=== PATIENT | female | born 1950 ===

== ENCOUNTER 2017-09-27 14:03 | Inpatient (IN) | payer MEDICARE ==
[2017-09-27 14:13] VITALS: BMI 24.7
[2017-09-27] MEDS ORDERED: Sodium Chloride 0.9% 1,000 ML IV SCH ×2 (14:30→16:25)
--- NOTE | 2017-09-27 15:09 | CT ---
PROCEDURE: CT HEAD WITHOUT CONTRAST. HISTORY: r/o ICH COMPARISON: None available. TECHNIQUE: Axial computed tomography images were obtained through the head/brain without intravenous contrast. Radiation dose: Total exam DLP = 784 mGy-cm. This CT exam was performed using one or more of the following dose reduction techniques: Automated exposure control, adjustment of the mA and/or kV according to patient size, and/or use of iterative reconstruction technique. FINDINGS: HEMORRHAGE: No intracranial hemorrhage. BRAIN: No mass effect or edema. There is focal atrophy and encephalomalacia in the right frontal lobe. Calcifications are seen in the left cerebellar hemisphere consistent with previous injury or infection. VENTRICLES: Unremarkable. No hydrocephalus. CALVARIUM: Unremarkable. PARANASAL SINUSES: Unremarkable as visualized. No significant inflammatory changes. MASTOID AIR CELLS: Unremarkable as visualized. No inflammatory changes. OTHER FINDINGS: None. IMPRESSION: No acute intracranial findings
--- NOTE | 2017-09-27 15:13 | RAD ---
HISTORY: r/o infiltrate COMPARISON: No prior. FINDINGS: LUNGS: No active pulmonary disease. PLEURA: There is a small left pleural effusion CARDIOVASCULAR: Normal. OSSEOUS STRUCTURES: No significant abnormalities. VISUALIZED UPPER ABDOMEN: Normal. OTHER FINDINGS: Right-sided Port-A-Cath IMPRESSION: Small left effusion
[2017-09-27 15:34] LABS: BASO # 0.01 K/mm3 (0.0-2.0); BASO % 0.1 % (0.0-3.0); EOS % 0.2 % (1.5-5.0); GRAN # 9.04 (1.4-6.5); GRAN % 87.5 % (50.0-68.0); HEMOGLOBIN 8.6 g/dL (12.0-16.0); LYMPH # 0.7 (1.2-3.4); LYMPH % 6.3 % (22.0-35.0); MEAN CELL VOLUME 84.2 fl (80.0-105.0); MEAN CORPUSCULAR HEMOGLOBIN 30.9 pg (25.0-35.0); MEAN CORPUSCULAR HGB CONC 36.8 g/dl (31.0-37.0); MEAN PLATELET VOLUME 8.1 fl (7.0-11.0); MONO # 0.6 (0.1-0.6); MONO % 5.9 % (1.0-6.0); RBC 2.78 10^6/uL (3.5-6.1); RED CELL DISTRIBUTION WIDTH 16.6 % (11.5-14.5); WHITE BLOOD COUNT 10.3 10^3/ul (4.5-11.0)
[2017-09-27 15:55] LABS: TROPONIN I < 0.01 ng/mL
[2017-09-27 16:00] LABS: ALB/GLOB RATIO 1.4 (1.1-1.8); ALBUMIN 3.7 g/dL (3.0-4.8); ALT/SGPT 25 U/L (7-56); AST/SGOT 42 U/L (14-36); BLOOD UREA NITROGEN 18 mg/dL (7-21); CALCIUM 7.4 mg/dL (8.4-10.5); GFR AFRICAN-AMERICAN > 60; GFR NON-AFRICAN AMERICAN > 60
[2017-09-27 16:22] LABS: FREE T4 1.99 ng/dL (0.78-2.19)
[2017-09-27 16:36] LABS: T3 0.69 ng/mL (0.97-1.69)
[2017-09-27 17:00] LABS: URINE BILIRUBIN NEGATIVE (NEGATIVE); URINE BLOOD LARGE (NEGATIVE); URINE GLUCOSE (UA) NEGATIVE (NEGATIVE); URINE LEUKOCYTE ESTERASE MODERATE Leu/uL (NEGATIVE); URINE PROTEIN 100 mg/dL (<30 mg/dL); URINE UROBILINOGEN 0.2 E.U./dL (<1 E.U./dL)
[2017-09-27 17:03] LABS: URINE APPEARANCE SL CLOUDY (CLEAR); URINE COLOR DARK YELLOW (YELLOW)
[2017-09-27 17:09] LABS: URINE BACTERIA FEW (NEG); URINE RBC 20 - 25 /hpf (0-2); URINE WBC 15 - 20 /hpf (0-6)
[2017-09-27] MEDS ORDERED: Iohexol 350 MG/100 ML VIAL ONE (17:31)
[2017-09-27] MEDS: Cefepime 1gm in NS 100ml 1 GM/100 ML BAG IVPB SCH ×2 (17:33→22:17)
[2017-09-27 17:59] LABS: BLOOD UREA NITROGEN 19 mg/dL (7-21); CALCIUM 7.4 mg/dL (8.4-10.5); GFR AFRICAN-AMERICAN > 60; GFR NON-AFRICAN AMERICAN > 60
[2017-09-27] MEDS: Azithromycin 500MG/NS 250ml 500 MG/250 ML BAG IVPB SCH (18:27)
--- NOTE | 2017-09-27 18:33 | CT ---
PROCEDURE: CT Chest, Abdomen and Pelvis with intravenous contrast HISTORY: abd distention - h/o breast CA COMPARISON: 05/30/2013 TECHNIQUE: IV dose administered: Radiation dose: Total exam DLP = 475.32 mGy-cm. This CT exam was performed using one or more of the following dose reduction techniques: Automated exposure control, adjustment of the mA and/or kV according to patient size, and/or use of iterative reconstruction technique. FINDINGS: CT CHEST WITH CONTRAST: LUNGS: New 6 mm nodule right lower lobe common nonspecific. No other pulmonary mass. Small nonspecific focal parenchymal opacity in the lateral segment right middle lobe. Subsegmental/compressive atelectasis left lower lobe. MEDIASTINUM: Normal caliber thoracic aorta and main pulmonary artery. Normal heart size. No pericardial effusion. Central venous infusion port. LYMPH NODES: Unremarkable. PLEURA: Small bilateral pleural effusion, left greater than right. BONES: Multiple sclerotic osseous metastases involving thoracic vertebrae, ribs and sternum. OTHER FINDINGS: None. CT ABDOMEN AND PELVIS: LIVER: Normal size and contour. Several small nonspecific low-attenuation lesions in the right hepatic lobe not evident on prior examination. GALLBLADDER AND BILE DUCTS: Unremarkable. PANCREAS: Unremarkable. No gross lesion or ductal dilatation. SPLEEN: Unremarkable. ADRENALS: Unremarkable. No mass. KIDNEYS AND URETERS: No renal mass, calculus or hydronephrosis. Right ureteral stent noted. VASCULATURE: Unremarkable. No aortic aneurysm. BOWEL: No bowel obstruction. No abnormal bowel loops. APPENDIX: Not identified PERITONEUM: Extensive ascites. Extensive omental and serosal metastasis. LYMPH NODES: Unremarkable. No enlarged lymph nodes. BLADDER: Poorly distended. REPRODUCTIVE: Grossly normal uterus BONES: Widespread sclerotic metastasis involving lumbar spine and pelvis OTHER FINDINGS: None. IMPRESSION: Small pleural effusions. Extensive ascites. Omental and serosal metastasis. Widespread sclerotic skeletal metastasis. Right ureteral stent. Additional minor findings as above
--- NOTE | 2017-09-27 18:34 | ED PDOC ---
Arrival/HPI - General Chief Complaint: Syncope Time Seen by Provider: 09/27/17 14:11 Historian: Patient - History of Present Illness Narrative History of Present Illness (Text): 09/27/17 18:37 A 67 year old female, whose past medical history includes stage 4 breast CA, currently on chemotherapy, presents to the emergency department for evaluation of two syncopal episodes. Patient was sent by Dr. Love for syncope X2. Patient reports syncopal yesterday and today. Patient also reports she feels generalized weakness. Notes stomach is "distending for the past 2 weeks". Patient denies any shortness of breath, chest pain, fever, cough, blood in stool , dark stools, blood in urine, or any other complaints at this time. Time/Duration: Other (yesterday, today) Symptom Onset: Sudden Symptom Course: Unchanged Activities at Onset: Rest Context: Home Past Medical History - Provider Review Nursing Documentation Reviewed: Yes - Infectious Disease Hx of Infectious Diseases: None - Cardiac Hx Pacemaker: No - Neurological Hx Paralysis: No - Hematological/Oncological Hx Blood Transfusions: No Hx Blood Transfusion Reaction: No Hx Cancer: Yes (sandy breast ca) - Musculoskeletal/Rheumatological Hx Musculoskeletal Disorders: Yes - Psychiatric Hx Emotional Abuse: No Hx Physical Abuse: No Hx Substance Use: No - Surgical History Hx Mastectomy: Yes - Anesthesia Hx Anesthesia Reactions: No Hx Malignant Hyperthermia: No - Suicidal Assessment Feels Threatened In Home Enviroment: No Family/Social History - Physician Review Nursing Documentation Reviewed: Yes Family/Social History: No Known Family HX Smoking Status: Never Smoked Hx Alcohol Use: No Hx Substance Use: No Allergies/Home Meds Allergies/Adverse Reactions: Allergies vancomycin Allergy (Severe, Verified 07/05/17 13:13) RASH/ITCHY Home Medications: Home Meds Medication Instructions Recorded Confirmed Lutein 5 mg PO QAM 11/13/12 09/27/17 Amlodipine Besylate [Norvasc] 5 mg PO QAM 01/19/15 09/27/17 Nebivolol HCl [Bystolic] 10 mg PO QAM 01/19/15 09/27/17 Multivitamin [Daily Wyatt] 1 tab PO QAM 07/03/17 09/27/17 Ubidecarenone [Coenzyme Q-10] 200 mg PO DAILY 07/03/17 09/27/17 Clopidogrel [Plavix] 75 mg PO DAILY 07/05/17 09/27/17 Aspirin [Ecotrin] 81 mg PO DAILY 07/07/17 09/27/17 Atorvastatin [Lipitor] 20 mg PO DAILY 07/07/17 09/27/17 Everolimus [Afinitor] 10 mg PO MWF 09/27/17 09/27/17 Indapamide [Lozol] 2.5 mg PO DAILY 09/27/17 09/27/17 Kyqsy-1-Okcn Ethyl Esters [OMEGA 3] 2 gm PO AMHS 09/27/17 09/27/17 Fgrdo-1-Qcll Ethyl Esters [OMEGA 3] 2 gm PO QPM 09/27/17 09/27/17 Potassium Chloride [Klor-Con 10] 10 meq PO DAILY 09/27/17 09/27/17 Review of Systems - Physician Review All systems were reviewed & negative as marked: Yes - Review of Systems Constitutional: absent: Fevers Respiratory: absent: SOB, Cough Cardiovascular: Syncope. absent: Chest Pain Gastrointestinal: absent: Stool Changes Physical Exam Vital Signs Reviewed: Yes Vital Signs Temp Pulse Resp BP Pulse Ox 09/27/17 17:22 61 18 112/71 98 09/27/17 15:26 65 18 110/69 98 09/27/17 14:12 98.3 F 68 18 108/64 98 Temperature: Afebrile Blood Pressure: Normal Pulse: Regular Respiratory Rate: Normal Appearance: Positive for: Well-Appearing, Non-Toxic, Comfortable Pain Distress: None Mental Status: Positive for: Alert and Oriented X 3 - Systems Exam Head: Present: Atraumatic, Normocephalic Pupils: Present: PERRL Extroacular Muscles: Present: EOMI Conjunctiva: Present: Other (pale) Mouth: Present: Moist Mucous Membranes Neck: Present: Normal Range of Motion Respiratory/Chest: Present: Clear to Auscultation, Good Air Exchange, Other ( right portal cath ). No: Respiratory Distress Cardiovascular: Present: Regular Rate and Rhythm, Normal S1, S2. No: Murmurs Abdomen: Present: Distention (slightly). No: Tenderness, Peritoneal Signs Back: Present: Normal Inspection Upper Extremity: Present: Normal Inspection. No: Cyanosis, Edema Lower Extremity: Present: Normal Inspection. No: Edema Neurological: Present: GCS=15, CN II-XII Intact, Speech Normal Skin: Present: Warm, Dry, Normal Color. No: Rashes Psychiatric: Present: Alert, Oriented x 3, Normal Insight, Normal Concentration Medical Decision Making ED Course and Treatment: 09/27/17 18:35 Impression: A 67 year old female with two syncopal episodes. Plan: -- EKG -- CT abd/pelvis -- Chest X-ray -- labs -- Urinalysis -- Reassess and disposition Prior Visits: Notes and results from previous visits were reviewed. Patient was last seen in the emergency department on 10/27/12 for evaluation of seepage of clear fluid from laparoscopic wound site, laparoscopy for ovarian cancer. Progress Notes: 09/27/[address] HEAD WITHOUT CONTRAST Creator : Enrique Jean Baptiste MD FINDINGS: HEMORRHAGE: No intracranial hemorrhage. BRAIN: No mass effect or edema. There is focal atrophy and encephalomalacia in the right frontal lobe. Calcifications are seen in the left cerebellar hemisphere consistent with previous injury or infection. VENTRICLES: Unremarkable. No hydrocephalus. CALVARIUM: Unremarkable. PARANASAL SINUSES: Unremarkable as visualized. No significant inflammatory changes. MASTOID AIR CELLS: Unremarkable as visualized. No inflammatory changes. IMPRESSION: No acute intracranial findings 09/27/17 15:14 Chest X-ray- Creator : Enrique Jean Baptiste MD FINDINGS: LUNGS: No active pulmonary disease. PLEURA: There is a small left pleural effusion CARDIOVASCULAR: Normal. OSSEOUS STRUCTURES: No significant abnormalities. VISUALIZED UPPER ABDOMEN: Normal. OTHER FINDINGS: Right-sided Port-A-Cath IMPRESSION: Small left effusion Spoke with Dr. Love, sodium of 111, hemoglobin of 8.6. Spoke with Shareholder , patient to be admitted to D's service to ICU. - Lab Interpretations Lab Results: 09/27/17 15:22 09/27/17 15:22 Lab Results 09/27/17 16:06: Blood Type B POSITIVE, Antibody Screen Negative, Crossmatch See Detail, BBK History Checked Patient has bt 09/27/17 16:00: Urine Color Dark yellow, Urine Appearance Sl cloudy, Urine pH 6.0, Ur Specific [place] 1.025, Urine Protein 100 H, Urine Glucose (UA) Negative , Urine Ketones Trace H, Urine Blood Large H, Urine Nitrate Negative, Urine Bilirubin Negative, Urine Urobilinogen 0.2, Ur Leukocyte Esterase Moderate H, Urine RBC 20 - 25, Urine WBC 15 - 20, Ur Epithelial Cells 6 - 8, Urine Bacteria Few 09/27/17 15:22: Free T4 1.99, Total T3 0.69 L, TSH 3rd Generation 1.18 09/27/17 15:22: Sodium 111 L*, Potassium 3.6, Chloride 75 L D, Carbon Dioxide 24 , Anion Gap 15, BUN 18, Creatinine 0.6 L, Est GFR ( Amer) > 60, Est GFR ( Non-Af Amer) > 60, Random Glucose 128 H, Calcium 7.4 L, Phosphorus 3.1, Magnesium 1.6 L, Total Bilirubin 0.9, AST 42 H, ALT 25, Alkaline Phosphatase 51 , Lactate Dehydrogenase 260 L, Total Creatine Kinase 75, Troponin I < 0.01, Total Protein 6.3, Albumin 3.7, Globulin 2.6, Albumin/Globulin Ratio 1.4 09/27/17 15:22: WBC 10.3 D, RBC 2.78 L, Hgb 8.6 L D, Hct 23.4 L, MCV 84.2 D, MCH 30.9, MCHC 36.8, RDW 16.6 H, Plt Count 258, MPV 8.1, Gran % 87.5 H, Lymph % (Auto) 6.3 L, Emery % (Auto) 5.9, Eos % (Auto) 0.2 L, Baso % (Auto) 0.1, Gran # 9.04 H, Lymph # (Auto) 0.7 L, Emery # (Auto) 0.6, Eos # (Auto) 0.0, Baso # (Auto ) 0.01 I have reviewed the lab results: Yes - RAD Interpretation Radiology Orders: 09/27/17 14:14 CHEST PORTABLE [RAD] Stat 09/27/17 14:15 HEAD W/O CONTRAST [CT] Stat - EKG Interpretation Interpreted by ED Physician: Yes Type: 12 lead EKG - Medication Orders Current Medication Orders: Heparin Sodium (Porcine) (Heparin) 5,000 units SC Q8H VICENTE PRN Reason: Protocol Last Admin: 09/27/17 18:26 Dose: 5,000 units Subcutaneous Administrations Document 09/27/17 18:26 [id number] (Rec: 09/27/17 18:26 [id number] [facility] [place] [facility]) Injection Site MAR Injection Site Left Abdomen Charges for Administration # of Subcutaneous Administrations 1 Sodium Chloride (Sodium Chloride 0.9%) 1,000 mls @ 75 mls/hr IV .[id number] REPLACED BY [facility] Last Admin: 09/27/17 17:22 Dose: 75 mls/hr eMAR Start Stop Document 09/27/17 17:22 MS (Rec: 09/27/17 17:22 MS [id number]) Intravenous Solution Start Date 09/27/17 Start Time 17:22 Cefepime HCl (Maxipime 1gm) 1 gm in 100 mls @ 100 mls/hr IVPB Q8 VICENTE PRN Reason: Protocol Last Admin: 09/27/17 17:33 Dose: 100 mls/hr eMAR Start Stop Document 09/27/17 17:33 MS (Rec: 09/27/17 17:33 MS [id number]) Intravenous Solution Start Date 09/27/17 Start Time 17:33 Linezolid (Zyvox 600mg/300ml D5w) 600 mg in 300 mls @ 200 mls/hr IVPB Q12 VICENTE PRN Reason: Protocol Stop: 09/27/17 23:29 Azithromycin (Zithromax 500mg In Ns) 500 mg in 250 mls @ 167 mls/hr IVPB DAILY VICENTE PRN Reason: Protocol Last Admin: 09/27/17 18:27 Dose: 167 mls/hr eMAR Start Stop Document 09/27/17 18:27 [id number] (Rec: 09/27/17 18:27 [id number] [email or web address] Intravenous Solution Start Date 09/27/17 Start Time 18:27 End Date 09/27/17 End time 19:57 Total Infusion Time 90 Potassium Chloride 40 meq/ (Sodium Chloride) 1,020 mls @ 250 mls/hr IV .Q4H5M REPLACED BY [facility] Stop: 09/27/17 23:19 Last Admin: 09/27/17 20:00 Dose: 250 mls/hr eMAR Start Stop Document 09/27/17 20:00 KGD (Rec: 09/27/17 20:01 KGD [id number]) Intravenous Solution Start Date 09/27/17 Start Time 20:01 Nystatin (Nystatin Oral Susp) 5 ml PO QID VICENTE Ondansetron HCl (Zofran Inj) 4 mg IVP Q4H PRN PRN Reason: Nausea/Vomiting Pantoprazole Sodium (Protonix Inj) 40 mg IVP DAILY REPLACED BY [facility] Last Admin: 09/27/17 18:25 Dose: 40 mg IVP Administration Document 09/27/17 18:25 [id number] (Rec: 09/27/17 18:26 [id number] [facility] [place] [facility]) Charges for Administration # of IVP Administrations 1 Discontinued Medications Sodium Chloride (Sodium Chloride 0.9%) 1,000 mls @ 125 mls/hr IV .Q8H VICENTE Last Admin: 09/27/17 15:35 Dose: 125 mls/hr eMAR Start Stop Document 09/27/17 15:35 MS (Rec: 09/27/17 15:35 MS [id number]) Intravenous Solution Start Date 09/27/17 Start Time 15:35 Magnesium Sulfate 2 gm/ Sodium (Chloride) 104 mls @ 102 mls/hr IVPB ONCE ONE Stop: 09/27/17 20:10 Last Admin: 09/27/17 20:04 Dose: 102 mls/hr eMAR Start Stop Document 09/27/17 20:04 KGD (Rec: 09/27/17 20:04 KGD [id number]) Intravenous Solution Start Date 09/27/17 Start Time 20:04 Ondansetron HCl (Zofran Inj) 4 mg IVP ONCE ONE Stop: 09/27/17 18:43 Last Admin: 09/27/17 18:45 Dose: 4 mg IVP Administration Document 09/27/17 18:45 [id number] (Rec: 09/27/17 18:45 [id number] [facility] [place] [facility]) Charges for Administration # of IVP Administrations 1 - Scribe Statement The provider has reviewed the documentation as recorded by the Bryan Reynaga Provider Scribe Attestation: All medical record entries made by the Scribwanda were at my direction and personally dictated by me. I have reviewed the chart and agree that the record accurately reflects my personal performance of the history, physical exam, medical decision making, and the department course for this patient. I have also personally directed, reviewed, and agree with the discharge instructions and disposition. Disposition/Present on Arrival - Present on Arrival Any Indicators Present on Arrival: No History of DVT/PE: No History of Uncontrolled Diabetes: No Urinary Catheter: No History of Decub. Ulcer: No History Surgical Site Infection Following: None - Disposition Have Diagnosis and Disposition been Completed?: Yes Diagnosis: Hyponatremia, Syncope, Anemia Disposition: HOSPITALIZED Disposition Time: 16:30 Patient Plan: ICU Condition: GUARDED
[2017-09-27] MEDS ORDERED: Magnesium Sulfate 2 GM in Sodium Chloride 0.9% 100 ML IVPB ONE (19:09)
--- NOTE | 2017-09-27 19:24 | CP.PCM.HP ---
History of Present Illness - History of Present Illness History of Present Illness: H&P for Dr. Love/Elsa CC: Weakness/Sycope HPI: 67 F with a PMHx of stage IV metastatic breast cancer s/p bilateral mastectomy and on current chemotherapy, HLD, HTN, and CAD s/p JOSIAS on aspirin and brilanta presented to [facility] [facility] ED with complaints of syncopal episodes x 2. Patient was sent by Dr. Love for these complaints. Patient first episode was yesterday morning while using the restroom. Upon standing, the patient felt weak and lightheaded and fell back onto her bottom. Patient then similarly today this morning upon changing position from a lying to a standing happened to feel weak and fall on her bottom again, while her spouse helped her to the floor. Patient states that these are new symptoms, never previously experienced. She does note that she has not been drinking enough water, and has roughly 3 cups a day and drinks green tea in the morning. Patient also had complaints of abdominal fullness and noted that her abdomen has been distended for the past 2 weeks and has not had any changed in her bowel movements or any associated pain. Upon arrival to the ED, the patient was hypotensive and tachycardic, however responded to IVF. Patient was seen and examined at bedside. She admitted to chills, weakness, lightheadedness and sweating. Patient denied fever,shortness of breath, chest pain, fever, cough, blood in stool, dark stools, blood in urine, or any other complaints at this time. PMHx: stage IV metastatic breast cancer s/p bilateral mastectomy and on current chemotherapy, HLD, HTN, and CAD s/p JOSIAS on aspirin and brilanta PSHx: mastectomy SHx: Denied tobacco/etoh/illicits FamHx: Noncontributory Meds; asa 81mg daily, plavix 75mg daily, lipitor 20mg daily, omega 3, inanpemide 2.5mg daily, potassium 10mEq daily, bystolic 10mg daily, afinitor 10mg MWF Allergies: Vancomycin Present on Admission - Present on Admission Any Indicators Present on Admission: No Review of Systems - Review of Systems Review of Systems: as per HPI otherwise negative Past Patient History - Infectious Disease Hx of Infectious Diseases: None - Past Social History Smoking Status: Never Smoked - CARDIAC Hx Pacemaker: No - NEUROLOGICAL Hx Paralysis: No - HEMATOLOGICAL/ONCOLOGICAL Hx Blood Transfusions: No Hx Blood Transfusion Reaction: No Hx Cancer: Yes (sandy breast ca) - MUSCULOSKELETAL/RHEUMATOLOGICAL Hx Musculoskeletal Disorders: Yes - PSYCHIATRIC Hx Emotional Abuse: No Hx Physical Abuse: No Hx Substance Use: No - SURGICAL HISTORY Hx Mastectomy: Yes - ANESTHESIA Hx Anesthesia Reactions: No Hx Malignant Hyperthermia: No Meds Allergies/Adverse Reactions: Allergies Allergy/AdvReac Type Severity Reaction Status Date / Time vancomycin Allergy Severe RASH/ITCHY Verified 07/05/17 13:13 Physical Exam - Constitutional Appears: No Acute Distress - Eye Exam Eye Exam: EOMI, Normal appearance, PERRL Pupil Exam: NORMAL ACCOMODATION, PERRL - ENT Exam ENT Exam: Mucous Membranes Dry - Neck Exam Neck exam: Positive for: Normal Inspection - Respiratory Exam Respiratory Exam: Clear to Auscultation Bilateral, NORMAL BREATHING PATTERN Additional comments: mastectomy scar, rt port a cath - Cardiovascular Exam Cardiovascular Exam: REGULAR RHYTHM, +S1, +S2 - GI/Abdominal Exam GI & Abdominal Exam: Distended, Normal Bowel Sounds, Soft. absent: Tenderness - Neurological Exam Neurological exam: Alert, CN II-XII Intact, Normal Gait, Oriented x3, Reflexes Normal - Psychiatric Exam Psychiatric exam: Normal Affect, Normal Mood - Skin Skin Exam: Dry, Intact, Normal Color, Warm Results - Vital Signs Recent Vital Signs: Last Vital Signs Temp 98.2 F 09/27/17 18:15 Pulse 85 09/27/17 18:20 Resp 21 09/27/17 18:20 BP 120/58 L 09/27/17 18:14 Pulse Ox 99 09/27/17 18:20 - Labs Result Diagrams: 09/27/17 15:22 09/27/17 17:27 Labs: Laboratory Results - last 24 hr 09/27/17 09/27/17 17:27 17:27 Sodium 111 L* Potassium 3.5 L Chloride 77 L Carbon Dioxide 24 Anion Gap 13 BUN 19 Creatinine 0.6 L Est GFR ( Amer) > 60 Est GFR (Non-Af Amer) > 60 Random Glucose 120 H Calcium 7.4 L Ur Random Sodium < 5 Ur Random Potassium 52.4 Assessment & Plan - Assessment and Plan (Free Text) Assessment: 67 F with a PMHx of stage IV metastatic breast cancer s/p bilateral mastectomy, right ureteral stent, HLD, HTN, and CAD s/p JOSIAS on aspirin and plavix presented to [facility] ED with complaints of syncopal episodes x 2 found to be hypovolemic hyponatremic. Patient is on current chemotherapy with affinitor and Xgeva for bone mets. Patient finish proton beam therapy for chest wall lesions. Patient had a recent cardiac cath with placement of 2 JOSIAS on account of abnormal EKG and stress test. Patient is on plavix and asa. Patient recently had norvasc stopped on account of lower extremity edema and was started on lovaza and potassium. Patient CT abd demonstrated small pleural effusions, extensive ascites, omental and serosal metastases, and widespread sclerotic skeletal mets. Will continue hydration, as pt responded well. Will consult Nephrology Dr. Martin, will bolus 1L and continue 75ml/hr afterwards. Continue BMP q4. Will draw procalcitonin, start IV abx with cefepime, azithromycin and linezolid and consult Dr. Emerson, [place]. Continue to monitor CBC, pt's hgb dropped, however no signs of bleeding. Will also consult Dr. Green, Cardiology.
[2017-09-27] MEDS ORDERED: Linezolid 600 mg in D5W 300 ml 600 MG/300 ML BAG IVPB SCH (22:00)
[2017-09-27] MEDS: Nystatin 100,000 Units/ml Oral Susp 5 ml UD PO SCH (22:16)
[2017-09-27 22:36] LABS: BLOOD UREA NITROGEN 16 mg/dL (7-21); CALCIUM 6.8 mg/dL (8.4-10.5); GFR AFRICAN-AMERICAN > 60; GFR NON-AFRICAN AMERICAN > 60
[2017-09-28 01:13] LABS: VENOUS BLOOD GAS PO2 41 mm/Hg (30-55); VENOUS BLOOD PH 7.43 (7.32-7.43)
[2017-09-28 01:25] LABS: BLOOD UREA NITROGEN 13 mg/dL (7-21); CALCIUM 7.2 mg/dL (8.4-10.5); GFR AFRICAN-AMERICAN > 60; GFR NON-AFRICAN AMERICAN > 60
--- NOTE | 2017-09-28 04:02 | CON ---
DATE: 09/27/2017 HISTORY OF PRESENT ILLNESS: The patient is a 67-year-old lady with history of advanced breast cancer (stage IV metastatic carcinoma of the breast status post bilateral mastectomy), who presented today after 2 days of frequent falls associated with dizziness, lightheadedness and diaphoresis. Those episodes appeared to be orthostatic in nature. The patient also reports that she threw up once and also had some muscle tightness, fatigue and malaise. She had a low grade fever subjectively as well. The patient denies chest pain, shortness of breath, nausea, vomiting, diarrhea or constipation. PAST MEDICAL HISTORY: Stage IV breast carcinoma, high blood pressure, CHF, coronary artery disease, hypercholesterolemia. ALLERGIES: VANCOMYCIN. SOCIAL HISTORY: No alcohol or illicit drug abuse. No tobacco smoking. REVIEW OF SYSTEM: Review of 12-organ system other than mentioned in history of present illness is negative. PHYSICAL EXAMINATION: VITAL SIGNS: Blood pressure 110/69, heart rate 65, temperature 98.3, respiratory rate 18, oxygen saturation 98% on room air. HEENT: Head and neck atraumatic. No lymphadenopathy. LUNGS: Clear to auscultation bilaterally. Decreased breath sounds on the left base. HEART: Regular rate and rhythm. S1 and S2 normal. ABDOMEN: Soft, mildly distended, but nontender, and no peritoneal signs. MUSCULOSKELETAL: No C/C/E. NEUROLOGICAL: The patient moves all extremities spontaneously. SKIN: Moist. PSYCHIATRIC: The patient is alert, awake and oriented x3, comfortable. LABORATORY DATA: WBC 10.3, hemoglobin 8.6, platelet count 258. Sodium 111, potassium 3.6, chloride 75, BUN 18, creatinine 0.6, glucose 128, calcium 7.4, AST 42, ALT 25, total bilirubin 0.9, LDH 260. T4 of 1.99 and TSH 1.18. Urine positive for leukocyte esterase, but negative for nitrites, rbc's 20 to 25, urine wbc's 15 to 20. Chest x-ray showed left lower lobe infiltrate/? pleural effusion. Head CT did not show evidence of intracranial pathology. ASSESSMENT AND PLAN: This 67-year-old lady, who presented with near syncopal episodes associated with fatigue, malaise, muscle weakness, in the setting of severe hyponatremia and aggravated by changing position from supine to standing. The patient reports she never had these symptoms before. She denies chest pain. She had a low-grade fever and left lower lobe infiltrate. Possibility of community-acquired pneumonia cannot be ruled out and provided that the patient relatively immunosuppressed, possibility of MDR pathogens cannot be ruled out as well. At present time, we will proceed with septic workup including blood, urine culture, procalcitonin, antibiotics, VBG with lactic acid. We will get urine osmolality, plasma osmolality, urine electrolytes levels. The patient was started on normal saline and hypovolemic hyponatremia is definitely one of possibilities. Another possibilities include SIADH, hypothyroidism, hypocortisolism. We will get echocardiogram to rule out congestive heart failure. Pulmonary infectious process can also cause hyponatremia via SIADH mechanism. One of the outstanding culprits appears to be thiazide diuretic that patient was taking at home (indapamide) and that will be held. We will continue with basic metabolic panel every 4 hours, and we will avoid correcting sodium level faster then 6 mEq/L for the first 24 hours. We will continue to target euvolemia, euglycemia, normothermia and oxygen saturation more than 90%. We will continue with deep venous thrombosis and gastrointestinal prophylaxis. The patient is asymptomatic at present time, and I would rather continue with normal saline than to start her on hypertonic saline right away. Whether or not to switch to hypertonic saline will depend on the following BMP results. I agree with CAT scan of the chest and abdomen with IV contrast to rule out other potential causes for the syncopal episode including pulmonary embolism as the patient has malignancy and can be hypercoagulable. ccm time 40 min Oni Choe MD [facility]
[2017-09-28] MEDS: Cefepime 1gm in NS 100ml 1 GM/100 ML BAG IVPB SCH (05:19)
[2017-09-28 07:06] LABS: BASO # 0.02 K/mm3 (0.0-2.0); BASO % 0.3 % (0.0-3.0); EOS % 0.1 % (1.5-5.0); GRAN # 4.94 (1.4-6.5); GRAN % 72.8 % (50.0-68.0); LYMPH # 0.6 (1.2-3.4); LYMPH % 8.5 % (22.0-35.0); MEAN CORPUSCULAR HEMOGLOBIN 30.8 pg (25.0-35.0); MEAN CORPUSCULAR HGB CONC 36.3 g/dl (31.0-37.0); MEAN PLATELET VOLUME 8.2 fl (7.0-11.0); MONO # 1.2 (0.1-0.6); MONO % 18.3 % (1.0-6.0); RBC 2.27 10^6/uL (3.5-6.1); RED CELL DISTRIBUTION WIDTH 16.7 % (11.5-14.5); WHITE BLOOD COUNT 6.8 10^3/ul (4.5-11.0)
[2017-09-28 07:40] LABS: ALB/GLOB RATIO 1.2 (1.1-1.8); ALT/SGPT 29 U/L (7-56); AST/SGOT 40 U/L (14-36); BLOOD UREA NITROGEN 12 mg/dL (7-21); CALCIUM 7.1 mg/dL (8.4-10.5); GFR AFRICAN-AMERICAN > 60; GFR NON-AFRICAN AMERICAN > 60
[2017-09-28] MEDS ORDERED: Potassium Chloride 40 mEq/30 ml LIQ UD PO ONE (08:03)
[2017-09-28 08:52] LABS: BLOOD UREA NITROGEN 11 mg/dL (7-21); CALCIUM 7.2 mg/dL (8.4-10.5); GFR AFRICAN-AMERICAN > 60; GFR NON-AFRICAN AMERICAN > 60
[2017-09-28] MEDS: Azithromycin 500MG/NS 250ml 500 MG/250 ML BAG IVPB SCH (09:48)
[2017-09-28] MEDS: Nystatin 100,000 Units/ml Oral Susp 5 ml UD PO SCH ×4 (09:48→22:05)
--- NOTE | 2017-09-28 10:27 | CON ---
DATE: 09/28/2017 CARDIOLOGY CONSULTATION HISTORY: The patient is a 67-year-old woman, who presented with 2 episodes of syncope at home. She denies dark stools. Denies any bleeding. The patient's past cardiac history includes an angioplasty of an 80% LAD in 07/2017 with a drug-eluting stent. She also has documented history of breast CA, is currently on chemotherapy. She does admit to weakness, but no shortness of breath. No angina. SOCIAL HISTORY: The patient does not smoke. REVIEW OF SYSTEMS: Fourteen-point review of systems is reviewed in detail. No cardiac symptomatology is noted. PHYSICAL EXAMINATION: GENERAL: The patient is in no acute distress. VITAL SIGNS: Blood pressure is 120/58, heart rates in the 60s. NECK: Negative JVD. LUNGS: Without rales. HEART: Reveals S1, S2. EXTREMITIES: Without edema. EKG shows normal sinus rhythm with nonspecific ST flattening. LABORATORY DATA: Sodium is 119, BUN and creatinine are normal. Troponin is negative x1. The hemoglobin is 7. IMPRESSION: 1. Syncope x2. No evidence for acute coronary syndrome. 2. Recent percutaneous transluminal coronary angioplasty and stent of a left anterior descending with a drug-eluting stent. 3. Marked anemia. 4. Hypercholesterolemia. 5. History of breast cancer. PLAN: Given these findings, the patient is for packed red cells transfusion today. It is likely her syncope is from her marked metabolic abnormalities as well as her marked anemia. Despite the increased risk for stent thrombosis off aspirin and Plavix, we will need to hold it until we can determine whether the patient is actually bleeding. We will obtain an echocardiogram to evaluate her LV function. Chin Green MD
--- NOTE | 2017-09-28 10:34 | CP.PCM.CON ---
<Jossie Mackenzie - Last Filed: 09/28/17 11:14> History of Present Illness - History of Present Illness History of Present Illness: PGY-[address] Garrison's service 67 Female with a PMH of stage IV metastatic breast cancer s/p bilateral mastectomy and on current chemotherapy, HLD, HTN, and CAD s/p JOSIAS on aspirin and brilanta presented to [facility] ED with complaints of 2 syncopal episodes. Patient also reports abd fullness. Patient states that about 3 weeks ago she began to full abd fullness after meals, lasting about 1 hour. She also reports abd distension for about 2 weeks, she denies abd pain, diarrhea or constipation. Patient does report 2 episodes of vomiting yesterday. Patient states that she had her first syncopal episode was 2 days ago while using the restroom. Upon standing, the patient felt weak and lightheaded and fell back onto her bottom. Patient then had similarly episode the following day upon changing position from a lying to a standing. she reports feeling weak as well. patient denies any changes in her bowel movements. Denies any bleeding or melena. Patient states that this week she was started on a new chemotherapy regiment, before the weakness and syncopal episodes. Patient was also recently started on diuretic medication for leg swelling.Upon arrival to the ED, the patient was hypotensive and tachycardic, however responded to IVF. Patient denied fever,shortness of breath, chest pain, fever, cough, blood in stool, dark stools, blood in urine, or any other complaints at this time. PMH: stage IV metastatic breast cancer s/p bilateral mastectomy and on current chemotherapy, HLD, HTN, and CAD s/p JOSIAS on aspirin and brilanta PSH: mastectomy Socail History: Denied tobaccouse, alcohol use or illicits use Allergies: Vancomycin Review of Systems - Review of Systems All systems: reviewed and no additional remarkable complaints except Past Patient History - Infectious Disease Hx of Infectious Diseases: None - Past Social History Smoking Status: Never Smoked - CARDIAC Hx Pacemaker: No - PULMONARY Hx Respiratory Disorders: No - NEUROLOGICAL Hx Paralysis: No - HEENT Hx HEENT Problems: No - RENAL Hx Chronic Kidney Disease: No - ENDOCRINE/METABOLIC Hx Endocrine Disorders: No - HEMATOLOGICAL/ONCOLOGICAL Hx Blood Transfusions: No Hx Blood Transfusion Reaction: No Hx Cancer: Yes (sandy breast ca) - INTEGUMENTARY Other/Comment: healed b/l chest scars from b/l mastectomy, dry flakey skin to b/ l heels pt was seeing dr calero for healed cut opened from dry skin on foot has healed and for ingrown toenails to both great toes - MUSCULOSKELETAL/RHEUMATOLOGICAL Hx Musculoskeletal Disorders: Yes - GASTROINTESTINAL Hx Gastrointestinal Disorders: Yes (gastritis, distended abd) Other/Comment: hx abd ascites 2012 - GENITOURINARY/GYNECOLOGICAL Hx Genitourinary Disorders: No - PSYCHIATRIC Hx Emotional Abuse: No Hx Physical Abuse: No Hx Substance Use: No - SURGICAL HISTORY Hx Mastectomy: Yes - ANESTHESIA Hx Anesthesia Reactions: No Hx Malignant Hyperthermia: No Meds Allergies/Adverse Reactions: Allergies Allergy/AdvReac Type Severity Reaction Status Date / Time vancomycin Allergy Severe RASH/ITCHY Verified 07/05/17 13:13 - Medications Medications: Current Medications Acetaminophen (Tylenol 325mg Tab) 650 mg PO Q4H PRN PRN Reason: Pain, Mild (1-3) Heparin Sodium (Porcine) (Heparin) 5,000 units SC Q8H [facility] PRN Reason: Protocol Last Admin: 09/28/17 10:01 Dose: 5,000 units Sodium Chloride (Sodium Chloride 0.9%) 1,000 mls @ 75 mls/hr IV .[id number] [facility] Last Admin: 09/27/17 17:22 Dose: 75 mls/hr Cefepime HCl (Maxipime 1gm) 1 gm in 100 mls @ 100 mls/hr IVPB Q8 [facility] PRN Reason: Protocol Last Admin: 09/28/17 05:19 Dose: 100 mls/hr Azithromycin (Zithromax 500mg In Ns) 500 mg in 250 mls @ 167 mls/hr IVPB DAILY [facility] PRN Reason: Protocol Last Admin: 09/28/17 09:48 Dose: 167 mls/hr Dextrose (Dextrose 5% In Water 1000 Ml) 1,000 mls @ 250 mls/hr IV .Q4H [facility] Stop: 09/28/17 12:59 Last Admin: 09/28/17 09:47 Dose: 250 mls/hr Nystatin (Nystatin Oral Susp) 5 ml PO QID [facility] Last Admin: 09/28/17 09:48 Dose: 5 ml Ondansetron HCl (Zofran Inj) 4 mg IVP Q4H PRN PRN Reason: Nausea/Vomiting Pantoprazole Sodium (Protonix Inj) 40 mg IVP DAILY [facility] Last Admin: 09/28/17 09:48 Dose: 40 mg Physical Exam - Constitutional Appears: No Acute Distress - Head Exam Head Exam: ATRAUMATIC, NORMOCEPHALIC - Eye Exam Eye Exam: EOMI, Normal appearance - ENT Exam ENT Exam: Mucous Membranes Dry, Mucous Membranes Moist - Respiratory Exam Respiratory Exam: Clear to Auscultation Bilateral, NORMAL BREATHING PATTERN. absent: Decreased Breath Sounds, Rales, Rhonchi, Wheezes, Respiratory Distress - Cardiovascular Exam Cardiovascular Exam: REGULAR RHYTHM, +S1, +S2. absent: Bradycardia, Tachycardia , Systolic Murmur - GI/Abdominal Exam GI & Abdominal Exam: Distended, Normal Bowel Sounds. absent: Firm, Guarding, Hernia, Tenderness - Extremities Exam Extremities exam: Positive for: normal inspection. Negative for: pedal edema, tenderness - Neurological Exam Neurological exam: Alert, Oriented x3 - Psychiatric Exam Psychiatric exam: Normal Affect, Normal Mood - Skin Skin Exam: Dry, Intact, Normal Color, Warm Results - Vital Signs Recent Vital Signs: Last Vital Signs Temp 98.2 F 09/27/17 19:20 Pulse 68 09/28/17 02:59 Resp 26 H 09/27/17 19:20 BP 120/58 L 09/27/17 19:20 Pulse Ox 99 09/27/17 18:20 - Labs Result Diagrams: 09/28/17 06:53 09/28/17 08:30 Labs: Laboratory Results - last 24 hr 09/27/17 09/27/17 09/27/17 17:27 17:27 17:27 WBC RBC Hgb Hct MCV MCH MCHC RDW Plt Count MPV Gran % Lymph % (Auto) [place] % (Auto) Eos % (Auto) Baso % (Auto) Gran # Lymph # (Auto) [place] # (Auto) Eos # (Auto) Baso # (Auto) pO2 VBG pH VBG pCO2 VBG HCO3 VBG Total CO2 VBG O2 Sat (Calc) VBG Base Excess VBG Potassium Glucose Lactate FiO2 Sodium Potassium Chloride Carbon Dioxide Anion Gap BUN Creatinine Est GFR ( Amer) Est GFR (Non-Af Amer) Random Glucose Serum Osmolality 235 L Calcium Phosphorus Magnesium Total Bilirubin AST ALT Alkaline Phosphatase Total Protein Albumin Globulin Albumin/Globulin Ratio Venous Blood Potassium Urine Osmolality 611 Ur Random Sodium < 5 Ur Random Potassium 52.4 Ur Random Urea Nitrogn Ur L.pneumophila Ag 09/27/17 09/27/17 09/27/17 17:27 17:58 19:08 WBC RBC Hgb Hct MCV MCH MCHC RDW Plt Count MPV Gran % Lymph % (Auto) [place] % (Auto) Eos % (Auto) Baso % (Auto) Gran # Lymph # (Auto) [place] # (Auto) Eos # (Auto) Baso # (Auto) pO2 VBG pH VBG pCO2 VBG HCO3 VBG Total CO2 VBG O2 Sat (Calc) VBG Base Excess VBG Potassium Glucose Lactate FiO2 Sodium 111 L* Potassium 3.5 L Chloride 77 L Carbon Dioxide 24 Anion Gap 13 BUN 19 Creatinine 0.6 L Est GFR ( Amer) > 60 Est GFR (Non-Af Amer) > 60 Random Glucose 120 H Serum Osmolality Calcium 7.4 L Phosphorus Magnesium Total Bilirubin AST ALT Alkaline Phosphatase Total Protein Albumin Globulin Albumin/Globulin Ratio Venous Blood Potassium Urine Osmolality Ur Random Sodium Ur Random Potassium Ur Random Urea Nitrogn 967 Ur L.pneumophila Ag Negative 09/27/17 09/28/17 09/28/17 22:10 00:35 00:35 WBC RBC Hgb Hct MCV MCH MCHC RDW Plt Count MPV Gran % Lymph % (Auto) [place] % (Auto) Eos % (Auto) Baso % (Auto) Gran # Lymph # (Auto) [place] # (Auto) Eos # (Auto) Baso # (Auto) pO2 41 VBG pH 7.43 VBG pCO2 40.0 VBG HCO3 26.5 VBG Total CO2 27.7 VBG O2 Sat (Calc) 85.6 H VBG Base Excess 2.0 VBG Potassium 3.8 Glucose 154 H Lactate 0.9 FiO2 21.0 Sodium 114 L* 116 L* 115.0 L* Potassium 4.0 4.0 Chloride 82 L 83 L 91.0 L Carbon Dioxide 23 24 Anion Gap 14 12 BUN 16 13 Creatinine 0.5 L 0.6 L Est GFR ( Amer) > 60 > 60 Est GFR (Non-Af Amer) > 60 > 60 Random Glucose 105 142 H Serum Osmolality Calcium 6.8 L* 7.2 L Phosphorus Magnesium Total Bilirubin AST ALT Alkaline Phosphatase Total Protein Albumin Globulin Albumin/Globulin Ratio Venous Blood Potassium 3.8 Urine Osmolality Ur Random Sodium Ur Random Potassium Ur Random Urea Nitrogn Ur L.pneumophila Ag 09/28/17 09/28/17 09/28/17 05:00 05:00 06:53 WBC 6.8 D RBC 2.27 L Hgb 7.0 L Hct 19.3 L* MCV 85.0 MCH 30.8 MCHC 36.3 RDW 16.7 H Plt Count 223 MPV 8.2 Gran % 72.8 H Lymph % (Auto) 8.5 L [place] % (Auto) 18.3 H Eos % (Auto) 0.1 L Baso % (Auto) 0.3 Gran # 4.94 Lymph # (Auto) 0.6 L [place] # (Auto) 1.2 H Eos # (Auto) 0.0 Baso # (Auto) 0.02 pO2 VBG pH VBG pCO2 VBG HCO3 VBG Total CO2 VBG O2 Sat (Calc) VBG Base Excess VBG Potassium Glucose Lactate FiO2 Sodium Potassium Chloride Carbon Dioxide Anion Gap BUN Creatinine Est GFR ( Amer) Est GFR (Non-Af Amer) Random Glucose Serum Osmolality Calcium Phosphorus Magnesium Total Bilirubin AST ALT Alkaline Phosphatase Total Protein Albumin Globulin Albumin/Globulin Ratio Venous Blood Potassium Urine Osmolality 465 Ur Random Sodium < 5 Ur Random Potassium Ur Random Urea Nitrogn Ur L.pneumophila Ag 09/28/17 09/28/17 06:53 08:30 WBC RBC Hgb Hct MCV MCH MCHC RDW Plt Count MPV Gran % Lymph % (Auto) [place] % (Auto) Eos % (Auto) Baso % (Auto) Gran # Lymph # (Auto) [place] # (Auto) Eos # (Auto) Baso # (Auto) pO2 VBG pH VBG pCO2 VBG HCO3 VBG Total CO2 VBG O2 Sat (Calc) VBG Base Excess VBG Potassium Glucose Lactate FiO2 Sodium 118 L* 119 L* Potassium 3.5 L 3.6 Chloride 86 L 87 L Carbon Dioxide 23 23 Anion Gap 13 12 BUN 12 11 Creatinine 0.5 L 0.5 L Est GFR ( Amer) > 60 > 60 Est GFR (Non-Af Amer) > 60 > 60 Random Glucose 99 101 Serum Osmolality Calcium 7.1 L 7.2 L Phosphorus 2.1 L Magnesium 2.1 Total Bilirubin 1.1 AST 40 H ALT 29 Alkaline Phosphatase 46 Total Protein 5.5 L Albumin 3.0 Globulin 2.5 Albumin/Globulin Ratio 1.2 Venous Blood Potassium Urine Osmolality Ur Random Sodium Ur Random Potassium Ur Random Urea Nitrogn Ur L.pneumophila Ag Assessment & Plan - Assessment and Plan (Free Text) Assessment: 67 Female with a PMH of stage IV metastatic breast cancer s/p bilateral mastectomy and on current chemotherapy, HLD, HTN, and CAD s/p JOSIAS on aspirin and brilanta initially presented with 2 syncopal episodes. ascites anemia hyponatremia hypokalemia syncopal episodes Plan: CT abd/pelvis/chest showed small pleural effusion, extensive ascites, omental and serosal metastasis, widespread skeletal metatasis, right ureteral stent patient will need large volume paracentesis however will need to have electrolytes corrected will order abd duplex to evaluate for portal and hepatic portal vein thrombosis will order hepatitis panel patient is not candidate for TIPs procedure case reviewed and discussed with Dr. Garrison <Destiny Garrison V - Last Filed: 09/28/17 22:43> Meds - Medications Medications: Current Medications Acetaminophen (Tylenol 325mg Tab) 650 mg PO Q4H PRN PRN Reason: Pain, Mild (1-3) Heparin Sodium (Porcine) (Heparin) 5,000 units SC Q8H [facility] PRN Reason: Protocol Last Admin: 09/28/17 16:46 Dose: 5,000 units Azithromycin (Zithromax 500mg In Ns) 500 mg in 250 mls @ 167 mls/hr IVPB DAILY [facility] PRN Reason: Protocol Last Admin: 09/28/17 09:48 Dose: 167 mls/hr Meropenem (Merrem Iv 1 Gm Premix) 50 mls @ 100 mls/hr IVPB Q8 [facility] PRN Reason: Protocol Stop: 10/07/17 12:46 Last Admin: 09/28/17 13:43 Dose: Not Given Sodium Chloride (Sodium Chloride 0.9%) 1,000 mls @ 80 mls/hr IV .[id number] [facility] Last Admin: 09/28/17 16:05 Dose: 80 mls/hr Nystatin (Nystatin Oral Susp) 5 ml PO QID [facility] Last Admin: 09/28/17 17:00 Dose: 5 ml Ondansetron HCl (Zofran Inj) 4 mg IVP Q4H PRN PRN Reason: Nausea/Vomiting Pantoprazole Sodium (Protonix Inj) 40 mg IVP DAILY [facility] Last Admin: 09/28/17 09:48 Dose: 40 mg Potassium Phos/Sodium Phos (Neutra-Phos) 1 pkt PO TID [facility] Last Admin: 09/28/17 17:16 Dose: Not Given Results - Vital Signs Recent Vital Signs: Last Vital Signs Temp 98 F 09/28/17 20:00 Pulse 63 09/28/17 18:00 Resp 20 09/28/17 18:00 BP 121/71 09/28/17 18:00 Pulse Ox 100 09/28/17 18:00 - Labs Result Diagrams: 09/28/17 15:27 09/28/17 15:27 Labs: Laboratory Results - last 24 hr 09/27/17 09/27/17 09/28/17 17:58 22:10 00:35 WBC RBC Hgb Hct MCV MCH MCHC RDW Plt Count MPV Gran % Lymph % (Auto) [place] % (Auto) Eos % (Auto) Baso % (Auto) Gran # Lymph # (Auto) [place] # (Auto) Eos # (Auto) Baso # (Auto) Neutrophils % (Manual) Lymphocytes % (Manual) Monocytes % (Manual) Platelet Evaluation pO2 VBG pH VBG pCO2 VBG HCO3 VBG Total CO2 VBG O2 Sat (Calc) VBG Base Excess VBG Potassium Glucose Lactate FiO2 Sodium 114 L* Potassium 4.0 Chloride 82 L Carbon Dioxide 23 Anion Gap 14 BUN 16 Creatinine 0.5 L Est GFR ( Amer) > 60 Est GFR (Non-Af Amer) > 60 Random Glucose 105 Calcium 6.8 L* Phosphorus Magnesium Total Bilirubin AST ALT Alkaline Phosphatase C-Reactive Protein 48.50 H Total Protein Albumin Globulin Albumin/Globulin Ratio 25-OH Vitamin D Total Procalcitonin Cortisol AM Sample Venous Blood Potassium Urine Osmolality Ur Random Sodium Hepatitis A IgM Ab Hep Bs Antigen Hep B Core IgM Ab Hepatitis C Antibody Ur L.pneumophila Ag Negative 09/28/17 09/28/17 09/28/17 00:35 00:35 00:35 WBC RBC Hgb Hct MCV MCH MCHC RDW Plt Count MPV Gran % Lymph % (Auto) [place] % (Auto) Eos % (Auto) Baso % (Auto) Gran # Lymph # (Auto) [place] # (Auto) Eos # (Auto) Baso # (Auto) Neutrophils % (Manual) Lymphocytes % (Manual) Monocytes % (Manual) Platelet Evaluation pO2 VBG pH VBG pCO2 VBG HCO3 VBG Total CO2 VBG O2 Sat (Calc) VBG Base Excess VBG Potassium Glucose Lactate FiO2 Sodium 116 L* Potassium 4.0 Chloride 83 L Carbon Dioxide 24 Anion Gap 12 BUN 13 Creatinine 0.6 L Est GFR ( Amer) > 60 Est GFR (Non-Af Amer) > 60 Random Glucose 142 H Calcium 7.2 L Phosphorus Magnesium Total Bilirubin AST ALT Alkaline Phosphatase C-Reactive Protein Total Protein Albumin Globulin Albumin/Globulin Ratio 25-OH Vitamin D Total Procalcitonin 0.05 L Cortisol AM Sample 19.0 Venous Blood Potassium Urine Osmolality Ur Random Sodium Hepatitis A IgM Ab Hep Bs Antigen Hep B Core IgM Ab Hepatitis C Antibody Ur L.pneumophila Ag 09/28/17 09/28/17 09/28/17 00:35 05:00 05:00 WBC RBC Hgb Hct MCV MCH MCHC RDW Plt Count MPV Gran % Lymph % (Auto) [place] % (Auto) Eos % (Auto) Baso % (Auto) Gran # Lymph # (Auto) [place] # (Auto) Eos # (Auto) Baso # (Auto) Neutrophils % (Manual) Lymphocytes % (Manual) Monocytes % (Manual) Platelet Evaluation pO2 41 VBG pH 7.43 VBG pCO2 40.0 VBG HCO3 26.5 VBG Total CO2 27.7 VBG O2 Sat (Calc) 85.6 H VBG Base Excess 2.0 VBG Potassium 3.8 Glucose 154 H Lactate 0.9 FiO2 21.0 Sodium 115.0 L* Potassium Chloride 91.0 L Carbon Dioxide Anion Gap BUN Creatinine Est GFR ( Amer) Est GFR (Non-Af Amer) Random Glucose Calcium Phosphorus Magnesium Total Bilirubin AST ALT Alkaline Phosphatase C-Reactive Protein Total Protein Albumin Globulin Albumin/Globulin Ratio 25-OH Vitamin D Total Procalcitonin Cortisol AM Sample Venous Blood Potassium 3.8 Urine Osmolality 465 Ur Random Sodium < 5 Hepatitis A IgM Ab Hep Bs Antigen Hep B Core IgM Ab Hepatitis C Antibody Ur L.pneumophila Ag 09/28/17 09/28/17 09/28/17 06:53 06:53 06:53 WBC 6.8 D RBC 2.27 L Hgb 7.0 L Hct 19.3 L* MCV 85.0 MCH 30.8 MCHC 36.3 RDW 16.7 H Plt Count 223 MPV 8.2 Gran % 72.8 H Lymph % (Auto) 8.5 L [place] % (Auto) 18.3 H Eos % (Auto) 0.1 L Baso % (Auto) 0.3 Gran # 4.94 Lymph # (Auto) 0.6 L [place] # (Auto) 1.2 H Eos # (Auto) 0.0 Baso # (Auto) 0.02 Neutrophils % (Manual) Lymphocytes % (Manual) Monocytes % (Manual) Platelet Evaluation pO2 VBG pH VBG pCO2 VBG HCO3 VBG Total CO2 VBG O2 Sat (Calc) VBG Base Excess VBG Potassium Glucose Lactate FiO2 Sodium 118 L* Potassium 3.5 L Chloride 86 L Carbon Dioxide 23 Anion Gap 13 BUN 12 Creatinine 0.5 L Est GFR ( Amer) > 60 Est GFR (Non-Af Amer) > 60 Random Glucose 99 Calcium 7.1 L Phosphorus 2.1 L Magnesium 2.1 Total Bilirubin 1.1 AST 40 H ALT 29 Alkaline Phosphatase 46 C-Reactive Protein Total Protein 5.5 L Albumin 3.0 Globulin 2.5 Albumin/Globulin Ratio 1.2 25-OH Vitamin D Total 35.9 Procalcitonin Cortisol AM Sample Venous Blood Potassium Urine Osmolality Ur Random Sodium Hepatitis A IgM Ab Hep Bs Antigen Hep B Core IgM Ab Hepatitis C Antibody Ur L.pneumophila Ag 09/28/17 09/28/17 09/28/17 07:00 08:30 15:27 WBC 7.8 RBC 2.87 L Hgb 8.8 L Hct 24.5 L MCV 85.4 MCH 30.7 MCHC 35.9 RDW 15.2 H Plt Count 190 MPV 8.3 Gran % 93.6 H Lymph % (Auto) 3.2 L [place] % (Auto) 3.2 Eos % (Auto) 0.0 L Baso % (Auto) 0.0 Gran # 7.32 H Lymph # (Auto) 0.3 L [place] # (Auto) 0.3 Eos # (Auto) 0.0 Baso # (Auto) 0.00 Neutrophils % (Manual) 97 H Lymphocytes % (Manual) 2 L Monocytes % (Manual) 1 Platelet Evaluation Normal pO2 VBG pH VBG pCO2 VBG HCO3 VBG Total CO2 VBG O2 Sat (Calc) VBG Base Excess VBG Potassium Glucose Lactate FiO2 Sodium 119 L* Potassium 3.6 Chloride 87 L Carbon Dioxide 23 Anion Gap 12 BUN 11 Creatinine 0.5 L Est GFR ( Amer) > 60 Est GFR (Non-Af Amer) > 60 Random Glucose 101 Calcium 7.2 L Phosphorus Magnesium Total Bilirubin AST ALT Alkaline Phosphatase C-Reactive Protein Total Protein Albumin Globulin Albumin/Globulin Ratio 25-OH Vitamin D Total Procalcitonin Cortisol AM Sample Venous Blood Potassium Urine Osmolality Ur Random Sodium Hepatitis A IgM Ab Negative Hep Bs Antigen Negative Hep B Core IgM Ab Negative Hepatitis C Antibody Negative Ur L.pneumophila Ag 09/28/17 09/28/17 09/28/17 15:27 17:30 17:30 WBC RBC Hgb Hct MCV MCH MCHC RDW Plt Count MPV Gran % Lymph % (Auto) [place] % (Auto) Eos % (Auto) Baso % (Auto) Gran # Lymph # (Auto) [place] # (Auto) Eos # (Auto) Baso # (Auto) Neutrophils % (Manual) Lymphocytes % (Manual) Monocytes % (Manual) Platelet Evaluation pO2 VBG pH VBG pCO2 VBG HCO3 VBG Total CO2 VBG O2 Sat (Calc) VBG Base Excess VBG Potassium Glucose Lactate FiO2 Sodium 116 L* Potassium 4.4 Chloride 86 L Carbon Dioxide 21 Anion Gap 14 BUN 9 Creatinine 0.5 L Est GFR ( Amer) > 60 Est GFR (Non-Af Amer) > 60 Random Glucose 229 H Calcium 7.3 L Phosphorus 1.5 L Magnesium 2.0 Total Bilirubin 1.1 AST 37 H ALT 24 Alkaline Phosphatase 43 C-Reactive Protein Total Protein 5.7 L Albumin 3.2 Globulin 2.5 Albumin/Globulin Ratio 1.3 25-OH Vitamin D Total Procalcitonin Cortisol AM Sample Venous Blood Potassium Urine Osmolality 206 L Ur Random Sodium < 5 Hepatitis A IgM Ab Hep Bs Antigen Hep B Core IgM Ab Hepatitis C Antibody Ur L.pneumophila Ag Attending/Attestation - Attestation I have personally seen and examined this patient.: Yes I have fully participated in the care of the patient.: Yes I have reviewed all pertinent clinical information: Yes Notes (Text): This is an addendum to GI consult report dictated by the [employer].The patient was seen and examined earlier. Medical records, lab studies, imagings were reviewed. Last 24 hours events reviewed. Agreed with the above treatment plan as outlined in [employer] 's notes the with the addition of the following on examination abdomen appears distended large ascites present Bilateral pitting pedal edema present Admitted with severe hyponatremia, anemia and dropping hemoglobin Metastatic breast cancer, coronary artery disease status post PCI stent placement in LAD Requested abnormal Doppler to evaluate portal vein and hepatic vein Close follow-up on the hemoglobin and hematocrit and transfuse May need a large volume paracentesis once hyponatremia is optimized Patient was on indapamide, diuretics which has been now discontinued 09/28/17 21:21
[2017-09-28] MEDS ORDERED: Piperacillin/Tazobact 3.375 gm 100 ML IVPB SCH (12:38)
--- NOTE | 2017-09-28 13:12 | CP.CCUPN ---
<Nicola Haywood - Last Filed: 09/28/17 13:05> CCU Subjective - Physician Review Subjective (Free Text): 09/28/17 13:07 Patient seen and examined in ICU. Sodium improved from 111 to 118 this AM, fluids held and D5W started as per Nephro. Hgb decreased from 8.6 to 7, likely dilution of hemoconcentration given her serium osms/urinary sodium levels yesterday were highly indicative of volume depleted state (as per Nephro), and neither nursing or patient reports any signs or symptoms consistent with bleeding. No further episodes of emesis since admission. Patient reports feeling somewhat better, still intermittently dizzy, but denies chest pain, shortness of breath, nausea, new emesis, bloody/bilious emesis, dysuria, hematuria, diarrhea, constipation. She will be transfused for her decreased Hgb , 2 units as per Cardio. Pending stool occult to rule out GI loss as cause of Hgb decrease. CCU Objective - Vital Signs / Intake & Output Vital Signs (Last 4 hours): Vital Signs Temp Pulse Resp BP 09/28/17 11:42 97.5 F L 74 26 H 100/59 L 09/28/17 11:06 97.9 F 66 19 113/41 L 09/28/17 10:53 98.0 F 67 19 93/36 L 09/28/17 10:49 98.1 F 72 14 100/63 09/28/17 10:36 98.1 F Intake and Output (Last 8hrs): Intake & Output 09/27/17 09/28/17 09/28/17 22:59 06:59 14:59 Intake Total 1620 0 Output Total 1100 Balance 520 0 Weight 59.421 kg Intake: IV 1500 Right Subclavian 1500 Oral 120 Blood Product 0 Red Blood Cells Cpd As1 0 Lr Unit [id number] Output: Urine 1100 Urethral (Pickett) 1100 Stool 0 Other: Voiding Method Toilet - Physical Exam Head: Positive for: Atraumatic, Normocephalic Pupils: Negative for: Pinpoint Extroacular Muscles: Positive for: EOMI. Negative for: Gaze Palsy, Entrapment Conjunctiva: Positive for: Other (pale). Negative for: Injected, Icteric Mouth: Positive for: Moist Mucous Membranes, Normal Lips, Normal Tounge, Normal Teeth. Negative for: Dry, Drooling Pharnyx: Positive for: Normal. Negative for: ERYTHEMA, EXUDATE, Muffled/Hoarse Voice, Strider Nose (External): Positive for: Atraumatic. Negative for: Abrasion, Laceration, Lesions Nose (Internal): Positive for: Normal Inspection, No Active Bleeding. Negative for: Epistaxis Neck: Positive for: Normal Range of Motion Respiratory/Chest: Positive for: Clear to Auscultation, Good Air Exchange, Other (right portal cath ). Negative for: Respiratory Distress, Accessory Muscle Use, Wheezes, Rales, Retracting, Rhonchi Cardiovascular: Positive for: Regular Rate and Rhythm, Normal S1, S2, Peripheal Pulses Present (+2 radial and dorsalis pedis pulses). Negative for: Murmurs, Tachycardic, Bradycardic Abdomen: Positive for: Distention (slightly, but not firm/rigid, no gross fluid wave appreciated), Normal Bowel Sounds. Negative for: Tenderness, Peritoneal Signs Back: Positive for: Normal Inspection Upper Extremity: Positive for: Normal Inspection, Normal ROM, NORMAL PULSES. Negative for: Cyanosis, Edema, Tenderness, Swelling, Erythema, Deformity Lower Extremity: Positive for: Normal Inspection, NORMAL PULSES, Normal ROM. Negative for: Edema, CALF TENDERNESS, Cyanosis, Tenderness, Swelling, Deformity Neurological: Positive for: GCS=15, Speech Normal, Motor Func Grossly Intact, Normal Sensory Function. Negative for: CN II-XII Intact Skin: Positive for: Warm, Dry, Normal Color. Negative for: Rashes Psychiatric: Positive for: Alert, Oriented x 3, Normal Insight, Normal Concentration, Normal Affect, Normal Mood. Negative for: Anxious, Agitated - Medications Active Medications: Active Medications Generic Name Dose Route Start Last Admin Trade Name Freq PRN Reason Stop Dose Admin Acetaminophen 650 mg 09/28/17 10:24 Tylenol 325mg Tab PO Q4H PRN Pain, Mild (1-3) Heparin Sodium (Porcine) 5,000 units 09/27/17 17:30 09/28/17 10:01 Heparin SC 5,000 units Q8H VICENTE Administration Protocol Sodium Chloride 1,000 mls @ 75 mls/hr 09/27/17 16:25 09/27/17 17:22 Sodium Chloride 0.9% IV 75 mls/hr .[id number] VICENTE Administration Azithromycin 500 mg in 250 mls @ 167 mls/hr 09/27/17 17:30 09/28/17 09:48 Zithromax 500mg In Ns IVPB 167 mls/hr DAILY VICENTE Administration Protocol Meropenem 50 mls @ 100 mls/hr 09/28/17 12:45 Merrem Iv 1 Gm Premix IVPB 10/07/17 12:46 Q8 VICENTE Protocol Nystatin 5 ml 09/27/17 22:00 09/28/17 09:48 Nystatin Oral Susp PO 5 ml QID VICENTE Administration Ondansetron HCl 4 mg 09/27/17 18:57 Zofran Inj IVP Q4H PRN Nausea/Vomiting Pantoprazole Sodium 40 mg 09/27/17 17:30 09/28/17 09:48 Protonix Inj IVP 40 mg DAILY VICENTE Administration - Patient Studies Lab Studies: Lab Studies 09/28/17 09/28/17 09/28/17 Range/Units 08:30 06:53 06:53 WBC 6.8 D (4.5-11.0) 10^3/ul RBC 2.27 L (3.5-6.1) 10^6/uL Hgb 7.0 L (12.0-16.0) g/dL Hct 19.3 L* (36.0-48.0) % MCV 85.0 (80.0-105.0) fl MCH 30.8 (25.0-35.0) pg MCHC 36.3 (31.0-37.0) g/dl RDW 16.7 H (11.5-14.5) % Plt Count 223 (120.0-450.0) 10^3/uL MPV 8.2 (7.0-11.0) fl Gran % 72.8 H (50.0-68.0) % Lymph % (Auto) 8.5 L (22.0-35.0) % Dickenson % (Auto) 18.3 H (1.0-6.0) % Eos % (Auto) 0.1 L (1.5-5.0) % Baso % (Auto) 0.3 (0.0-3.0) % Gran # 4.94 (1.4-6.5) Lymph # (Auto) 0.6 L (1.2-3.4) Dickenson # (Auto) 1.2 H (0.1-0.6) Eos # (Auto) 0.0 (0.0-0.7) Baso # (Auto) 0.02 (0.0-2.0) K/mm3 pO2 (30-55) mm/Hg VBG pH (7.32-7.43) VBG pCO2 (40-60) VBG HCO3 (21-28) mmol/l VBG Total CO2 (22-28) mmol.L VBG O2 Sat (Calc) (40-65) % VBG Base Excess (0.0-2.0) mmol/L VBG Potassium (3.6-5.2) mmol/L Glucose (65-105) mg/dl Lactate (0.7-2.1) mmol/L FiO2 % Sodium 119 L* 118 L* (132-148) mmol/L Potassium 3.6 3.5 L (3.6-5.0) mmol/L Chloride 87 L 86 L (98-107) mmol/L Carbon Dioxide 23 23 (21-33) mmol/L Anion Gap 12 13 (10-20) BUN 11 12 (7-21) mg/dL Creatinine 0.5 L 0.5 L (0.7-1.2) mg/dl Est GFR ( Amer) > 60 > 60 Est GFR (Non-Af Amer) > 60 > 60 Random Glucose 101 99 (70-110) mg/dL Serum Osmolality (272-300) mosm/kg Calcium 7.2 L 7.1 L (8.4-10.5) mg/dL Phosphorus 2.1 L (2.5-4.5) mg/dL Magnesium 2.1 (1.7-2.2) mg/dL Total Bilirubin 1.1 (0.2-1.3) mg/dL AST 40 H (14-36) U/L ALT 29 (7-56) U/L Alkaline Phosphatase 46 (38-126) U/L C-Reactive Protein (0.0-9.9) mg/L Total Protein 5.5 L (5.8-8.3) g/dL Albumin 3.0 (3.0-4.8) g/dL Globulin 2.5 gm/dL Albumin/Globulin Ratio 1.2 (1.1-1.8) Cortisol AM Sample (4.46-22.7) ug/dL Venous Blood Potassium (3.6-5.2) mmol/L Urine Osmolality (300-1000) mosm/kg Ur Random Sodium meq/L Ur Random Potassium meq/L Ur Random Urea Nitrogn mg/dL Ur L.pneumophila Ag (NEGATIVE) 09/28/17 09/28/17 09/28/17 Range/Units 05:00 05:00 00:35 WBC (4.5-11.0) 10^3/ul RBC (3.5-6.1) 10^6/uL Hgb (12.0-16.0) g/dL Hct (36.0-48.0) % MCV (80.0-105.0) fl MCH (25.0-35.0) pg MCHC (31.0-37.0) g/dl RDW (11.5-14.5) % Plt Count (120.0-450.0) 10^3/uL MPV (7.0-11.0) fl Gran % (50.0-68.0) % Lymph % (Auto) (22.0-35.0) % Dickenson % (Auto) (1.0-6.0) % Eos % (Auto) (1.5-5.0) % Baso % (Auto) (0.0-3.0) % Gran # (1.4-6.5) Lymph # (Auto) (1.2-3.4) Dickenson # (Auto) (0.1-0.6) Eos # (Auto) (0.0-0.7) Baso # (Auto) (0.0-2.0) K/mm3 pO2 41 (30-55) mm/Hg VBG pH 7.43 (7.32-7.43) VBG pCO2 40.0 (40-60) VBG HCO3 26.5 (21-28) mmol/l VBG Total CO2 27.7 (22-28) mmol.L VBG O2 Sat (Calc) 85.6 H (40-65) % VBG Base Excess 2.0 (0.0-2.0) mmol/L VBG Potassium 3.8 (3.6-5.2) mmol/L Glucose 154 H (65-105) mg/dl Lactate 0.9 (0.7-2.1) mmol/L FiO2 21.0 % Sodium 115.0 L* (132-148) mmol/L Potassium (3.6-5.0) mmol/L Chloride 91.0 L (98-107) mmol/L Carbon Dioxide (21-33) mmol/L Anion Gap (10-20) BUN (7-21) mg/dL Creatinine (0.7-1.2) mg/dl Est GFR ( Amer) Est GFR (Non-Af Amer) Random Glucose (70-110) mg/dL Serum Osmolality (272-300) mosm/kg Calcium (8.4-10.5) mg/dL Phosphorus (2.5-4.5) mg/dL Magnesium (1.7-2.2) mg/dL Total Bilirubin (0.2-1.3) mg/dL AST (14-36) U/L ALT (7-56) U/L Alkaline Phosphatase (38-126) U/L C-Reactive Protein (0.0-9.9) mg/L Total Protein (5.8-8.3) g/dL Albumin (3.0-4.8) g/dL Globulin gm/dL Albumin/Globulin Ratio (1.1-1.8) Cortisol AM Sample (4.46-22.7) ug/dL Venous Blood Potassium 3.8 (3.6-5.2) mmol/L Urine Osmolality 465 (300-1000) mosm/kg Ur Random Sodium < 5 meq/L Ur Random Potassium meq/L Ur Random Urea Nitrogn mg/dL Ur L.pneumophila Ag (NEGATIVE) 09/28/17 09/28/17 09/28/17 Range/Units 00:35 00:35 00:35 WBC (4.5-11.0) 10^3/ul RBC (3.5-6.1) 10^6/uL Hgb (12.0-16.0) g/dL Hct (36.0-48.0) % MCV (80.0-105.0) fl MCH (25.0-35.0) pg MCHC (31.0-37.0) g/dl RDW (11.5-14.5) % Plt Count (120.0-450.0) 10^3/uL MPV (7.0-11.0) fl Gran % (50.0-68.0) % Lymph % (Auto) (22.0-35.0) % Dickenson % (Auto) (1.0-6.0) % Eos % (Auto) (1.5-5.0) % Baso % (Auto) (0.0-3.0) % Gran # (1.4-6.5) Lymph # (Auto) (1.2-3.4) Dickenson # (Auto) (0.1-0.6) Eos # (Auto) (0.0-0.7) Baso # (Auto) (0.0-2.0) K/mm3 pO2 (30-55) mm/Hg VBG pH (7.32-7.43) VBG pCO2 (40-60) VBG HCO3 (21-28) mmol/l VBG Total CO2 (22-28) mmol.L VBG O2 Sat (Calc) (40-65) % VBG Base Excess (0.0-2.0) mmol/L VBG Potassium (3.6-5.2) mmol/L Glucose (65-105) mg/dl Lactate (0.7-2.1) mmol/L FiO2 % Sodium 116 L* (132-148) mmol/L Potassium 4.0 (3.6-5.0) mmol/L Chloride 83 L (98-107) mmol/L Carbon Dioxide 24 (21-33) mmol/L Anion Gap 12 (10-20) BUN 13 (7-21) mg/dL Creatinine 0.6 L (0.7-1.2) mg/dl Est GFR ( Amer) > 60 Est GFR (Non-Af Amer) > 60 Random Glucose 142 H (70-110) mg/dL Serum Osmolality (272-300) mosm/kg Calcium 7.2 L (8.4-10.5) mg/dL Phosphorus (2.5-4.5) mg/dL Magnesium (1.7-2.2) mg/dL Total Bilirubin (0.2-1.3) mg/dL AST (14-36) U/L ALT (7-56) U/L Alkaline Phosphatase (38-126) U/L C-Reactive Protein 48.50 H (0.0-9.9) mg/L Total Protein (5.8-8.3) g/dL Albumin (3.0-4.8) g/dL Globulin gm/dL Albumin/Globulin Ratio (1.1-1.8) Cortisol AM Sample 19.0 (4.46-22.7) ug/dL Venous Blood Potassium (3.6-5.2) mmol/L Urine Osmolality (300-1000) mosm/kg Ur Random Sodium meq/L Ur Random Potassium meq/L Ur Random Urea Nitrogn mg/dL Ur L.pneumophila Ag (NEGATIVE) 09/27/17 09/27/17 09/27/17 Range/Units 22:10 19:08 17:58 WBC (4.5-11.0) 10^3/ul RBC (3.5-6.1) 10^6/uL Hgb (12.0-16.0) g/dL Hct (36.0-48.0) % MCV (80.0-105.0) fl MCH (25.0-35.0) pg MCHC (31.0-37.0) g/dl RDW (11.5-14.5) % Plt Count (120.0-450.0) 10^3/uL MPV (7.0-11.0) fl Gran % (50.0-68.0) % Lymph % (Auto) (22.0-35.0) % Dickenson % (Auto) (1.0-6.0) % Eos % (Auto) (1.5-5.0) % Baso % (Auto) (0.0-3.0) % Gran # (1.4-6.5) Lymph # (Auto) (1.2-3.4) Dickenson # (Auto) (0.1-0.6) Eos # (Auto) (0.0-0.7) Baso # (Auto) (0.0-2.0) K/mm3 pO2 (30-55) mm/Hg VBG pH (7.32-7.43) VBG pCO2 (40-60) VBG HCO3 (21-28) mmol/l VBG Total CO2 (22-28) mmol.L VBG O2 Sat (Calc) (40-65) % VBG Base Excess (0.0-2.0) mmol/L VBG Potassium (3.6-5.2) mmol/L Glucose (65-105) mg/dl Lactate (0.7-2.1) mmol/L FiO2 % Sodium 114 L* (132-148) mmol/L Potassium 4.0 (3.6-5.0) mmol/L Chloride 82 L (98-107) mmol/L Carbon Dioxide 23 (21-33) mmol/L Anion Gap 14 (10-20) BUN 16 (7-21) mg/dL Creatinine 0.5 L (0.7-1.2) mg/dl Est GFR ( Amer) > 60 Est GFR (Non-Af Amer) > 60 Random Glucose 105 (70-110) mg/dL Serum Osmolality (272-300) mosm/kg Calcium 6.8 L* (8.4-10.5) mg/dL Phosphorus (2.5-4.5) mg/dL Magnesium (1.7-2.2) mg/dL Total Bilirubin (0.2-1.3) mg/dL AST (14-36) U/L ALT (7-56) U/L Alkaline Phosphatase (38-126) U/L C-Reactive Protein (0.0-9.9) mg/L Total Protein (5.8-8.3) g/dL Albumin (3.0-4.8) g/dL Globulin gm/dL Albumin/Globulin Ratio (1.1-1.8) Cortisol AM Sample (4.46-22.7) ug/dL Venous Blood Potassium (3.6-5.2) mmol/L Urine Osmolality (300-1000) mosm/kg Ur Random Sodium meq/L Ur Random Potassium meq/L Ur Random Urea Nitrogn 967 mg/dL Ur L.pneumophila Ag Negative (NEGATIVE) 09/27/17 09/27/17 09/27/17 Range/Units 17:27 17:27 17:27 WBC (4.5-11.0) 10^3/ul RBC (3.5-6.1) 10^6/uL Hgb (12.0-16.0) g/dL Hct (36.0-48.0) % MCV (80.0-105.0) fl MCH (25.0-35.0) pg MCHC (31.0-37.0) g/dl RDW (11.5-14.5) % Plt Count (120.0-450.0) 10^3/uL MPV (7.0-11.0) fl Gran % (50.0-68.0) % Lymph % (Auto) (22.0-35.0) % Dickenson % (Auto) (1.0-6.0) % Eos % (Auto) (1.5-5.0) % Baso % (Auto) (0.0-3.0) % Gran # (1.4-6.5) Lymph # (Auto) (1.2-3.4) Dickenson # (Auto) (0.1-0.6) Eos # (Auto) (0.0-0.7) Baso # (Auto) (0.0-2.0) K/mm3 pO2 (30-55) mm/Hg VBG pH (7.32-7.43) VBG pCO2 (40-60) VBG HCO3 (21-28) mmol/l VBG Total CO2 (22-28) mmol.L VBG O2 Sat (Calc) (40-65) % VBG Base Excess (0.0-2.0) mmol/L VBG Potassium (3.6-5.2) mmol/L Glucose (65-105) mg/dl Lactate (0.7-2.1) mmol/L FiO2 % Sodium 111 L* (132-148) mmol/L Potassium 3.5 L (3.6-5.0) mmol/L Chloride 77 L (98-107) mmol/L Carbon Dioxide 24 (21-33) mmol/L Anion Gap 13 (10-20) BUN 19 (7-21) mg/dL Creatinine 0.6 L (0.7-1.2) mg/dl Est GFR ( Amer) > 60 Est GFR (Non-Af Amer) > 60 Random Glucose 120 H (70-110) mg/dL Serum Osmolality (272-300) mosm/kg Calcium 7.4 L (8.4-10.5) mg/dL Phosphorus (2.5-4.5) mg/dL Magnesium (1.7-2.2) mg/dL Total Bilirubin (0.2-1.3) mg/dL AST (14-36) U/L ALT (7-56) U/L Alkaline Phosphatase (38-126) U/L C-Reactive Protein (0.0-9.9) mg/L Total Protein (5.8-8.3) g/dL Albumin (3.0-4.8) g/dL Globulin gm/dL Albumin/Globulin Ratio (1.1-1.8) Cortisol AM Sample (4.46-22.7) ug/dL Venous Blood Potassium (3.6-5.2) mmol/L Urine Osmolality 611 (300-1000) mosm/kg Ur Random Sodium < 5 meq/L Ur Random Potassium 52.4 meq/L Ur Random Urea Nitrogn mg/dL Ur L.pneumophila Ag (NEGATIVE) 09/27/17 Range/Units 17:27 WBC (4.5-11.0) 10^3/ul RBC (3.5-6.1) 10^6/uL Hgb (12.0-16.0) g/dL Hct (36.0-48.0) % MCV (80.0-105.0) fl MCH (25.0-35.0) pg MCHC (31.0-37.0) g/dl RDW (11.5-14.5) % Plt Count (120.0-450.0) 10^3/uL MPV (7.0-11.0) fl Gran % (50.0-68.0) % Lymph % (Auto) (22.0-35.0) % Dickenson % (Auto) (1.0-6.0) % Eos % (Auto) (1.5-5.0) % Baso % (Auto) (0.0-3.0) % Gran # (1.4-6.5) Lymph # (Auto) (1.2-3.4) Dickenson # (Auto) (0.1-0.6) Eos # (Auto) (0.0-0.7) Baso # (Auto) (0.0-2.0) K/mm3 pO2 (30-55) mm/Hg VBG pH (7.32-7.43) VBG pCO2 (40-60) VBG HCO3 (21-28) mmol/l VBG Total CO2 (22-28) mmol.L VBG O2 Sat (Calc) (40-65) % VBG Base Excess (0.0-2.0) mmol/L VBG Potassium (3.6-5.2) mmol/L Glucose (65-105) mg/dl Lactate (0.7-2.1) mmol/L FiO2 % Sodium (132-148) mmol/L Potassium (3.6-5.0) mmol/L Chloride (98-107) mmol/L Carbon Dioxide (21-33) mmol/L Anion Gap (10-20) BUN (7-21) mg/dL Creatinine (0.7-1.2) mg/dl Est GFR ( Amer) Est GFR (Non-Af Amer) Random Glucose (70-110) mg/dL Serum Osmolality 235 L (272-300) mosm/kg Calcium (8.4-10.5) mg/dL Phosphorus (2.5-4.5) mg/dL Magnesium (1.7-2.2) mg/dL Total Bilirubin (0.2-1.3) mg/dL AST (14-36) U/L ALT (7-56) U/L Alkaline Phosphatase (38-126) U/L C-Reactive Protein (0.0-9.9) mg/L Total Protein (5.8-8.3) g/dL Albumin (3.0-4.8) g/dL Globulin gm/dL Albumin/Globulin Ratio (1.1-1.8) Cortisol AM Sample (4.46-22.7) ug/dL Venous Blood Potassium (3.6-5.2) mmol/L Urine Osmolality (300-1000) mosm/kg Ur Random Sodium meq/L Ur Random Potassium meq/L Ur Random Urea Nitrogn mg/dL Ur L.pneumophila Ag (NEGATIVE) Laboratory Results - last 24 hr 09/27/17 09/27/17 09/27/17 17:27 17:27 17:27 WBC RBC Hgb Hct MCV MCH MCHC RDW Plt Count MPV Gran % Lymph % (Auto) Dickenson % (Auto) Eos % (Auto) Baso % (Auto) Gran # Lymph # (Auto) Dickenson # (Auto) Eos # (Auto) Baso # (Auto) pO2 VBG pH VBG pCO2 VBG HCO3 VBG Total CO2 VBG O2 Sat (Calc) VBG Base Excess VBG Potassium Glucose Lactate FiO2 Sodium Potassium Chloride Carbon Dioxide Anion Gap BUN Creatinine Est GFR ( Amer) Est GFR (Non-Af Amer) Random Glucose Serum Osmolality 235 L Calcium Phosphorus Magnesium Total Bilirubin AST ALT Alkaline Phosphatase C-Reactive Protein Total Protein Albumin Globulin Albumin/Globulin Ratio Cortisol AM Sample Venous Blood Potassium Urine Osmolality 611 Ur Random Sodium < 5 Ur Random Potassium 52.4 Ur Random Urea Nitrogn Ur L.pneumophila Ag 09/27/17 09/27/17 09/27/17 17:27 17:58 19:08 WBC RBC Hgb Hct MCV MCH MCHC RDW Plt Count MPV Gran % Lymph % (Auto) Dickenson % (Auto) Eos % (Auto) Baso % (Auto) Gran # Lymph # (Auto) Dickenson # (Auto) Eos # (Auto) Baso # (Auto) pO2 VBG pH VBG pCO2 VBG HCO3 VBG Total CO2 VBG O2 Sat (Calc) VBG Base Excess VBG Potassium Glucose Lactate FiO2 Sodium 111 L* Potassium 3.5 L Chloride 77 L Carbon Dioxide 24 Anion Gap 13 BUN 19 Creatinine 0.6 L Est GFR ( Amer) > 60 Est GFR (Non-Af Amer) > 60 Random Glucose 120 H Serum Osmolality Calcium 7.4 L Phosphorus Magnesium Total Bilirubin AST ALT Alkaline Phosphatase C-Reactive Protein Total Protein Albumin Globulin Albumin/Globulin Ratio Cortisol AM Sample Venous Blood Potassium Urine Osmolality Ur Random Sodium Ur Random Potassium Ur Random Urea Nitrogn 967 Ur L.pneumophila Ag Negative 09/27/17 09/28/17 09/28/17 22:10 00:35 00:35 WBC RBC Hgb Hct MCV MCH MCHC RDW Plt Count MPV Gran % Lymph % (Auto) Dickenson % (Auto) Eos % (Auto) Baso % (Auto) Gran # Lymph # (Auto) Dickenson # (Auto) Eos # (Auto) Baso # (Auto) pO2 VBG pH VBG pCO2 VBG HCO3 VBG Total CO2 VBG O2 Sat (Calc) VBG Base Excess VBG Potassium Glucose Lactate FiO2 Sodium 114 L* 116 L* Potassium 4.0 4.0 Chloride 82 L 83 L Carbon Dioxide 23 24 Anion Gap 14 12 BUN 16 13 Creatinine 0.5 L 0.6 L Est GFR ( Amer) > 60 > 60 Est GFR (Non-Af Amer) > 60 > 60 Random Glucose 105 142 H Serum Osmolality Calcium 6.8 L* 7.2 L Phosphorus Magnesium Total Bilirubin AST ALT Alkaline Phosphatase C-Reactive Protein 48.50 H Total Protein Albumin Globulin Albumin/Globulin Ratio Cortisol AM Sample Venous Blood Potassium Urine Osmolality Ur Random Sodium Ur Random Potassium Ur Random Urea Nitrogn Ur L.pneumophila Ag 09/28/17 09/28/17 09/28/17 00:35 00:35 05:00 WBC RBC Hgb Hct MCV MCH MCHC RDW Plt Count MPV Gran % Lymph % (Auto) Dickenson % (Auto) Eos % (Auto) Baso % (Auto) Gran # Lymph # (Auto) Dickenson # (Auto) Eos # (Auto) Baso # (Auto) pO2 41 VBG pH 7.43 VBG pCO2 40.0 VBG HCO3 26.5 VBG Total CO2 27.7 VBG O2 Sat (Calc) 85.6 H VBG Base Excess 2.0 VBG Potassium 3.8 Glucose 154 H Lactate 0.9 FiO2 21.0 Sodium 115.0 L* Potassium Chloride 91.0 L Carbon Dioxide Anion Gap BUN Creatinine Est GFR ( Amer) Est GFR (Non-Af Amer) Random Glucose Serum Osmolality Calcium Phosphorus Magnesium Total Bilirubin AST ALT Alkaline Phosphatase C-Reactive Protein Total Protein Albumin Globulin Albumin/Globulin Ratio Cortisol AM Sample 19.0 Venous Blood Potassium 3.8 Urine Osmolality 465 Ur Random Sodium Ur Random Potassium Ur Random Urea Nitrogn Ur L.pneumophila Ag 09/28/17 09/28/17 09/28/17 05:00 06:53 06:53 WBC 6.8 D RBC 2.27 L Hgb 7.0 L Hct 19.3 L* MCV 85.0 MCH 30.8 MCHC 36.3 RDW 16.7 H Plt Count 223 MPV 8.2 Gran % 72.8 H Lymph % (Auto) 8.5 L Dickenson % (Auto) 18.3 H Eos % (Auto) 0.1 L Baso % (Auto) 0.3 Gran # 4.94 Lymph # (Auto) 0.6 L Dickenson # (Auto) 1.2 H Eos # (Auto) 0.0 Baso # (Auto) 0.02 pO2 VBG pH VBG pCO2 VBG HCO3 VBG Total CO2 VBG O2 Sat (Calc) VBG Base Excess VBG Potassium Glucose Lactate FiO2 Sodium 118 L* Potassium 3.5 L Chloride 86 L Carbon Dioxide 23 Anion Gap 13 BUN 12 Creatinine 0.5 L Est GFR ( Amer) > 60 Est GFR (Non-Af Amer) > 60 Random Glucose 99 Serum Osmolality Calcium 7.1 L Phosphorus 2.1 L Magnesium 2.1 Total Bilirubin 1.1 AST 40 H ALT 29 Alkaline Phosphatase 46 C-Reactive Protein Total Protein 5.5 L Albumin 3.0 Globulin 2.5 Albumin/Globulin Ratio 1.2 Cortisol AM Sample Venous Blood Potassium Urine Osmolality Ur Random Sodium < 5 Ur Random Potassium Ur Random Urea Nitrogn Ur L.pneumophila Ag 09/28/17 08:30 WBC RBC Hgb Hct MCV MCH MCHC RDW Plt Count MPV Gran % Lymph % (Auto) Dickenson % (Auto) Eos % (Auto) Baso % (Auto) Gran # Lymph # (Auto) Dickenson # (Auto) Eos # (Auto) Baso # (Auto) pO2 VBG pH VBG pCO2 VBG HCO3 VBG Total CO2 VBG O2 Sat (Calc) VBG Base Excess VBG Potassium Glucose Lactate FiO2 Sodium 119 L* Potassium 3.6 Chloride 87 L Carbon Dioxide 23 Anion Gap 12 BUN 11 Creatinine 0.5 L Est GFR ( Amer) > 60 Est GFR (Non-Af Amer) > 60 Random Glucose 101 Serum Osmolality Calcium 7.2 L Phosphorus Magnesium Total Bilirubin AST ALT Alkaline Phosphatase C-Reactive Protein Total Protein Albumin Globulin Albumin/Globulin Ratio Cortisol AM Sample Venous Blood Potassium Urine Osmolality Ur Random Sodium Ur Random Potassium Ur Random Urea Nitrogn Ur L.pneumophila Ag Review of Systems - Review of Systems All systems: reviewed and no additional remarkable complaints except (as per HPI ) Critical Care Progress Note - Nutrition Nutrition: Nutrition Category Date Time Status Liquid Diet [DIET] Diets 09/28/17 Breakfast Ordered Assessment/Plan - Assessment and Plan (Free Text) Assessment: This is a 67 yo F with PMH of Stage IV Breast Ca s/p mastectomy and chemo, with mets to pelvis/bones, HLD, HTN, and CAD s/p JOSIAS on aspirin and brilanta who presents who presented with 2 episodes of falls, concerning for possible syncopal episodes, found to have hyponatremia of 111 and Hgb 8.6 (baseline per prior charting of 12-13). Plan: Neuro: -awake and alert, following all commands appropriately -maintain normothermia -falls episodes at home both times after moving bowels, then standing, walking, and "loosing balance" likely orthostatic vs vasovagal episodes -PT/OT, High fall risk -CT head negative for acute process, no masses appreciated -no seizure episodes appreciated since admission, pt and denied any seizure-like activity, absence spells, tongue-bitting, or loss of bowel/bladder continence; sodium improved to 118 -Neuro consulted, appreciate their recs Cardio: -Anemia worsened from 8.6 to 7, likely dilution from fluid resuscitation as volume depleted on admission; no signs or symptoms of bleeding, but stool occult ordered to rule out GI loss -Transfusing 2 units pRBCs as per Cardio, will check CBC again after transfusion -Hemodynamically stable despite anemia, normotensive and not tachycardic -hold home ASA and plavix until bleed ruled out as per Cardio Pulm: -supplemental O2 not needed at this time, satting well on room air -CXR and CT chest notable for left pleural effusion, possible atelectasis, no masses or PE appreciated GI: -Liquid diet -Protonix for GI ppx, Zofran for emesis/nausea ppx -CT chest/abd/pelvis notable for extensive ascites, omental and serosal mets, widespread sclerotic skeletal mets -GI consulted, appreciate all recs; needs large volume paracentesis, pending correction and stabilization of electrolytes first, not candidate for TIPS Renal: -monitor and replete electrolytes as needed, avoid too-aggressive sodium replacement to prevent central pontine myelinosis -Na 111 on admission, now 118, goal is increase by 6-8 per day -Repleted Mag and K, continue to monitor -Urine sodium < 5 yesterday and today, and low serum osms on admission suggestive of volume depletion, so likely hypovolemic hyponatremia as per Nephro -holding home thiazide diuretic Heme: -transfusing 2 units pRBCs as per cardio, recheck after transfusion -holding ASA/Plavix as per Cardio until bleed ruled out as cause of anemia -Heparin 5000 units SC q8 for DVT ppx ID: -covering for possible pneumonia with Merrem -ID following, appreciate all recs Onc: -Stage IV Breast Ca with mets to pelvic, omentum, bone -on affinitor and Xgeva chemo, completed proton therapy for chest wall as per PMD (Ivan) -defer to Onc/PMD for further management Dispo: ICU, pending recheck of electrolytes and Hgb post-transfusion, if Na > 120 and Hgb stable at >9, can transfer to tele FEN: Liquid diet, Mag and K supplements as needed Access: peripheral IVs, R chest port Consults: Nephro, ID, GI, Cardio, Onc (Primary), ICU, Neuro Ppx: protonix for GI, Heparin SC q8 for DVT ppx Patient seen, reviewed, and discussed with attending, Dr. Pennington <Naman Pennington - Last Filed: 09/28/17 14:32> CCU Objective - Vital Signs / Intake & Output Vital Signs (Last 4 hours): Vital Signs Temp Pulse Resp BP 09/28/17 11:51 97.7 F 71 19 100/69 09/28/17 11:42 97.5 F L 74 26 H 100/59 L 09/28/17 11:06 97.9 F 66 19 113/41 L 09/28/17 10:53 98.0 F 67 19 93/36 L 09/28/17 10:49 98.1 F 72 14 100/63 09/28/17 10:36 98.1 F Intake and Output (Last 8hrs): Intake & Output 09/27/17 09/28/17 09/28/17 22:59 06:59 14:59 Intake Total 1620 345 Output Total 1100 Balance 520 345 Weight 131 lb Intake: IV 1500 Right Subclavian 1500 Oral 120 Blood Product 325 Red Blood Cells Cpd As1 325 Lr Unit [id number] Other 20 Red Blood Cells Cpd As1 20 Lr Unit [id number] Output: Urine 1100 Urethral ([place]ett) 1100 Stool 0 Other: Voiding Method Toilet - Medications Active Medications: Active Medications Generic Name Dose Route Start Last Admin Trade Name Freq PRN Reason Stop Dose Admin Acetaminophen 650 mg 09/28/17 10:24 Tylenol 325mg Tab PO Q4H PRN Pain, Mild (1-3) Heparin Sodium (Porcine) 5,000 units 09/27/17 17:30 09/28/17 10:01 Heparin SC 5,000 units Q8H VICENTE Administration Protocol Sodium Chloride 1,000 mls @ 75 mls/hr 09/27/17 16:25 09/27/17 17:22 Sodium Chloride 0.9% IV 75 mls/hr .[id number] VICENTE Administration Azithromycin 500 mg in 250 mls @ 167 mls/hr 09/27/17 17:30 09/28/17 09:48 Zithromax 500mg In Ns IVPB 167 mls/hr DAILY VICENTE Administration Protocol Meropenem 50 mls @ 100 mls/hr 09/28/17 12:45 09/28/17 13:43 Merrem Iv 1 Gm Premix IVPB 10/07/17 12:46 Not Given Q8 VICENTE Protocol Nystatin 5 ml 09/27/17 22:00 09/28/17 13:37 Nystatin Oral Susp PO 5 ml QID VICENTE Administration Ondansetron HCl 4 mg 09/27/17 18:57 Zofran Inj IVP Q4H PRN Nausea/Vomiting Pantoprazole Sodium 40 mg 09/27/17 17:30 09/28/17 09:48 Protonix Inj IVP 40 mg DAILY VICENTE Administration - Patient Studies Lab Studies: Lab Studies 09/28/17 09/28/17 09/28/17 Range/Units 08:30 06:53 06:53 WBC 6.8 D (4.5-11.0) 10^3/ul RBC 2.27 L (3.5-6.1) 10^6/uL Hgb 7.0 L (12.0-16.0) g/dL Hct 19.3 L* (36.0-48.0) % MCV 85.0 (80.0-105.0) fl MCH 30.8 (25.0-35.0) pg MCHC 36.3 (31.0-37.0) g/dl RDW 16.7 H (11.5-14.5) % Plt Count 223 (120.0-450.0) 10^3/uL MPV 8.2 (7.0-11.0) fl Gran % 72.8 H (50.0-68.0) % Lymph % (Auto) 8.5 L (22.0-35.0) % Dickenson % (Auto) 18.3 H (1.0-6.0) % Eos % (Auto) 0.1 L (1.5-5.0) % Baso % (Auto) 0.3 (0.0-3.0) % Gran # 4.94 (1.4-6.5) Lymph # (Auto) 0.6 L (1.2-3.4) Dickenson # (Auto) 1.2 H (0.1-0.6) Eos # (Auto) 0.0 (0.0-0.7) Baso # (Auto) 0.02 (0.0-2.0) K/mm3 pO2 (30-55) mm/Hg VBG pH (7.32-7.43) VBG pCO2 (40-60) VBG HCO3 (21-28) mmol/l VBG Total CO2 (22-28) mmol.L VBG O2 Sat (Calc) (40-65) % VBG Base Excess (0.0-2.0) mmol/L VBG Potassium (3.6-5.2) mmol/L Glucose (65-105) mg/dl Lactate (0.7-2.1) mmol/L FiO2 % Sodium 119 L* 118 L* (132-148) mmol/L Potassium 3.6 3.5 L (3.6-5.0) mmol/L Chloride 87 L 86 L (98-107) mmol/L Carbon Dioxide 23 23 (21-33) mmol/L Anion Gap 12 13 (10-20) BUN 11 12 (7-21) mg/dL Creatinine 0.5 L 0.5 L (0.7-1.2) mg/dl Est GFR ( Amer) > 60 > 60 Est GFR (Non-Af Amer) > 60 > 60 Random Glucose 101 99 (70-110) mg/dL Serum Osmolality (272-300) mosm/kg Calcium 7.2 L 7.1 L (8.4-10.5) mg/dL Phosphorus 2.1 L (2.5-4.5) mg/dL Magnesium 2.1 (1.7-2.2) mg/dL Total Bilirubin 1.1 (0.2-1.3) mg/dL AST 40 H (14-36) U/L ALT 29 (7-56) U/L Alkaline Phosphatase 46 (38-126) U/L C-Reactive Protein (0.0-9.9) mg/L Total Protein 5.5 L (5.8-8.3) g/dL Albumin 3.0 (3.0-4.8) g/dL Globulin 2.5 gm/dL Albumin/Globulin Ratio 1.2 (1.1-1.8) Procalcitonin (0.19-0.49) NG/ML Cortisol AM Sample (4.46-22.7) ug/dL Venous Blood Potassium (3.6-5.2) mmol/L Urine Osmolality (300-1000) mosm/kg Ur Random Sodium meq/L Ur Random Potassium meq/L Ur Random Urea Nitrogn mg/dL Ur L.pneumophila Ag (NEGATIVE) 09/28/17 09/28/17 09/28/17 Range/Units 05:00 05:00 00:35 WBC (4.5-11.0) 10^3/ul RBC (3.5-6.1) 10^6/uL Hgb (12.0-16.0) g/dL Hct (36.0-48.0) % MCV (80.0-105.0) fl MCH (25.0-35.0) pg MCHC (31.0-37.0) g/dl RDW (11.5-14.5) % Plt Count (120.0-450.0) 10^3/uL MPV (7.0-11.0) fl Gran % (50.0-68.0) % Lymph % (Auto) (22.0-35.0) % Dickenson % (Auto) (1.0-6.0) % Eos % (Auto) (1.5-5.0) % Baso % (Auto) (0.0-3.0) % Gran # (1.4-6.5) Lymph # (Auto) (1.2-3.4) Dickenson # (Auto) (0.1-0.6) Eos # (Auto) (0.0-0.7) Baso # (Auto) (0.0-2.0) K/mm3 pO2 41 (30-55) mm/Hg VBG pH 7.43 (7.32-7.43) VBG pCO2 40.0 (40-60) VBG HCO3 26.5 (21-28) mmol/l VBG Total CO2 27.7 (22-28) mmol.L VBG O2 Sat (Calc) 85.6 H (40-65) % VBG Base Excess 2.0 (0.0-2.0) mmol/L VBG Potassium 3.8 (3.6-5.2) mmol/L Glucose 154 H (65-105) mg/dl Lactate 0.9 (0.7-2.1) mmol/L FiO2 21.0 % Sodium 115.0 L* (132-148) mmol/L Potassium (3.6-5.0) mmol/L Chloride 91.0 L (98-107) mmol/L Carbon Dioxide (21-33) mmol/L Anion Gap (10-20) BUN (7-21) mg/dL Creatinine (0.7-1.2) mg/dl Est GFR ( Amer) Est GFR (Non-Af Amer) Random Glucose (70-110) mg/dL Serum Osmolality (272-300) mosm/kg Calcium (8.4-10.5) mg/dL Phosphorus (2.5-4.5) mg/dL Magnesium (1.7-2.2) mg/dL Total Bilirubin (0.2-1.3) mg/dL AST (14-36) U/L ALT (7-56) U/L Alkaline Phosphatase (38-126) U/L C-Reactive Protein (0.0-9.9) mg/L Total Protein (5.8-8.3) g/dL Albumin (3.0-4.8) g/dL Globulin gm/dL Albumin/Globulin Ratio (1.1-1.8) Procalcitonin (0.19-0.49) NG/ML Cortisol AM Sample (4.46-22.7) ug/dL Venous Blood Potassium 3.8 (3.6-5.2) mmol/L Urine Osmolality 465 (300-1000) mosm/kg Ur Random Sodium < 5 meq/L Ur Random Potassium meq/L Ur Random Urea Nitrogn mg/dL Ur L.pneumophila Ag (NEGATIVE) 09/28/17 09/28/17 09/28/17 Range/Units 00:35 00:35 00:35 WBC (4.5-11.0) 10^3/ul RBC (3.5-6.1) 10^6/uL Hgb (12.0-16.0) g/dL Hct (36.0-48.0) % MCV (80.0-105.0) fl MCH (25.0-35.0) pg MCHC (31.0-37.0) g/dl RDW (11.5-14.5) % Plt Count (120.0-450.0) 10^3/uL MPV (7.0-11.0) fl Gran % (50.0-68.0) % Lymph % (Auto) (22.0-35.0) % Dickenson % (Auto) (1.0-6.0) % Eos % (Auto) (1.5-5.0) % Baso % (Auto) (0.0-3.0) % Gran # (1.4-6.5) Lymph # (Auto) (1.2-3.4) Dickenson # (Auto) (0.1-0.6) Eos # (Auto) (0.0-0.7) Baso # (Auto) (0.0-2.0) K/mm3 pO2 (30-55) mm/Hg VBG pH (7.32-7.43) VBG pCO2 (40-60) VBG HCO3 (21-28) mmol/l VBG Total CO2 (22-28) mmol.L VBG O2 Sat (Calc) (40-65) % VBG Base Excess (0.0-2.0) mmol/L VBG Potassium (3.6-5.2) mmol/L Glucose (65-105) mg/dl Lactate (0.7-2.1) mmol/L FiO2 % Sodium 116 L* (132-148) mmol/L Potassium 4.0 (3.6-5.0) mmol/L Chloride 83 L (98-107) mmol/L Carbon Dioxide 24 (21-33) mmol/L Anion Gap 12 (10-20) BUN 13 (7-21) mg/dL Creatinine 0.6 L (0.7-1.2) mg/dl Est GFR ( Amer) > 60 Est GFR (Non-Af Amer) > 60 Random Glucose 142 H (70-110) mg/dL Serum Osmolality (272-300) mosm/kg Calcium 7.2 L (8.4-10.5) mg/dL Phosphorus (2.5-4.5) mg/dL Magnesium (1.7-2.2) mg/dL Total Bilirubin (0.2-1.3) mg/dL AST (14-36) U/L ALT (7-56) U/L Alkaline Phosphatase (38-126) U/L C-Reactive Protein (0.0-9.9) mg/L Total Protein (5.8-8.3) g/dL Albumin (3.0-4.8) g/dL Globulin gm/dL Albumin/Globulin Ratio (1.1-1.8) Procalcitonin 0.05 L (0.19-0.49) NG/ML Cortisol AM Sample 19.0 (4.46-22.7) ug/dL Venous Blood Potassium (3.6-5.2) mmol/L Urine Osmolality (300-1000) mosm/kg Ur Random Sodium meq/L Ur Random Potassium meq/L Ur Random Urea Nitrogn mg/dL Ur L.pneumophila Ag (NEGATIVE) 09/28/17 09/27/17 09/27/17 Range/Units 00:35 22:10 19:08 WBC (4.5-11.0) 10^3/ul RBC (3.5-6.1) 10^6/uL Hgb (12.0-16.0) g/dL Hct (36.0-48.0) % MCV (80.0-105.0) fl MCH (25.0-35.0) pg MCHC (31.0-37.0) g/dl RDW (11.5-14.5) % Plt Count (120.0-450.0) 10^3/uL MPV (7.0-11.0) fl Gran % (50.0-68.0) % Lymph % (Auto) (22.0-35.0) % Dickenson % (Auto) (1.0-6.0) % Eos % (Auto) (1.5-5.0) % Baso % (Auto) (0.0-3.0) % Gran # (1.4-6.5) Lymph # (Auto) (1.2-3.4) Dickenson # (Auto) (0.1-0.6) Eos # (Auto) (0.0-0.7) Baso # (Auto) (0.0-2.0) K/mm3 pO2 (30-55) mm/Hg VBG pH (7.32-7.43) VBG pCO2 (40-60) VBG HCO3 (21-28) mmol/l VBG Total CO2 (22-28) mmol.L VBG O2 Sat (Calc) (40-65) % VBG Base Excess (0.0-2.0) mmol/L VBG Potassium (3.6-5.2) mmol/L Glucose (65-105) mg/dl Lactate (0.7-2.1) mmol/L FiO2 % Sodium 114 L* (132-148) mmol/L Potassium 4.0 (3.6-5.0) mmol/L Chloride 82 L (98-107) mmol/L Carbon Dioxide 23 (21-33) mmol/L Anion Gap 14 (10-20) BUN 16 (7-21) mg/dL Creatinine 0.5 L (0.7-1.2) mg/dl Est GFR ( Amer) > 60 Est GFR (Non-Af Amer) > 60 Random Glucose 105 (70-110) mg/dL Serum Osmolality (272-300) mosm/kg Calcium 6.8 L* (8.4-10.5) mg/dL Phosphorus (2.5-4.5) mg/dL Magnesium (1.7-2.2) mg/dL Total Bilirubin (0.2-1.3) mg/dL AST (14-36) U/L ALT (7-56) U/L Alkaline Phosphatase (38-126) U/L C-Reactive Protein 48.50 H (0.0-9.9) mg/L Total Protein (5.8-8.3) g/dL Albumin (3.0-4.8) g/dL Globulin gm/dL Albumin/Globulin Ratio (1.1-1.8) Procalcitonin (0.19-0.49) NG/ML Cortisol AM Sample (4.46-22.7) ug/dL Venous Blood Potassium (3.6-5.2) mmol/L Urine Osmolality (300-1000) mosm/kg Ur Random Sodium meq/L Ur Random Potassium meq/L Ur Random Urea Nitrogn 967 mg/dL Ur L.pneumophila Ag (NEGATIVE) 09/27/17 09/27/17 09/27/17 Range/Units 17:58 17:27 17:27 WBC (4.5-11.0) 10^3/ul RBC (3.5-6.1) 10^6/uL Hgb (12.0-16.0) g/dL Hct (36.0-48.0) % MCV (80.0-105.0) fl MCH (25.0-35.0) pg MCHC (31.0-37.0) g/dl RDW (11.5-14.5) % Plt Count (120.0-450.0) 10^3/uL MPV (7.0-11.0) fl Gran % (50.0-68.0) % Lymph % (Auto) (22.0-35.0) % Dickenson % (Auto) (1.0-6.0) % Eos % (Auto) (1.5-5.0) % Baso % (Auto) (0.0-3.0) % Gran # (1.4-6.5) Lymph # (Auto) (1.2-3.4) Dickenson # (Auto) (0.1-0.6) Eos # (Auto) (0.0-0.7) Baso # (Auto) (0.0-2.0) K/mm3 pO2 (30-55) mm/Hg VBG pH (7.32-7.43) VBG pCO2 (40-60) VBG HCO3 (21-28) mmol/l VBG Total CO2 (22-28) mmol.L VBG O2 Sat (Calc) (40-65) % VBG Base Excess (0.0-2.0) mmol/L VBG Potassium (3.6-5.2) mmol/L Glucose (65-105) mg/dl Lactate (0.7-2.1) mmol/L FiO2 % Sodium 111 L* (132-148) mmol/L Potassium 3.5 L (3.6-5.0) mmol/L Chloride 77 L (98-107) mmol/L Carbon Dioxide 24 (21-33) mmol/L Anion Gap 13 (10-20) BUN 19 (7-21) mg/dL Creatinine 0.6 L (0.7-1.2) mg/dl Est GFR ( Amer) > 60 Est GFR (Non-Af Amer) > 60 Random Glucose 120 H (70-110) mg/dL Serum Osmolality (272-300) mosm/kg Calcium 7.4 L (8.4-10.5) mg/dL Phosphorus (2.5-4.5) mg/dL Magnesium (1.7-2.2) mg/dL Total Bilirubin (0.2-1.3) mg/dL AST (14-36) U/L ALT (7-56) U/L Alkaline Phosphatase (38-126) U/L C-Reactive Protein (0.0-9.9) mg/L Total Protein (5.8-8.3) g/dL Albumin (3.0-4.8) g/dL Globulin gm/dL Albumin/Globulin Ratio (1.1-1.8) Procalcitonin (0.19-0.49) NG/ML Cortisol AM Sample (4.46-22.7) ug/dL Venous Blood Potassium (3.6-5.2) mmol/L Urine Osmolality (300-1000) mosm/kg Ur Random Sodium < 5 meq/L Ur Random Potassium 52.4 meq/L Ur Random Urea Nitrogn mg/dL Ur L.pneumophila Ag Negative (NEGATIVE) 09/27/17 09/27/17 Range/Units 17:27 17:27 WBC (4.5-11.0) 10^3/ul RBC (3.5-6.1) 10^6/uL Hgb (12.0-16.0) g/dL Hct (36.0-48.0) % MCV (80.0-105.0) fl MCH (25.0-35.0) pg MCHC (31.0-37.0) g/dl RDW (11.5-14.5) % Plt Count (120.0-450.0) 10^3/uL MPV (7.0-11.0) fl Gran % (50.0-68.0) % Lymph % (Auto) (22.0-35.0) % Dickenson % (Auto) (1.0-6.0) % Eos % (Auto) (1.5-5.0) % Baso % (Auto) (0.0-3.0) % Gran # (1.4-6.5) Lymph # (Auto) (1.2-3.4) Dickenson # (Auto) (0.1-0.6) Eos # (Auto) (0.0-0.7) Baso # (Auto) (0.0-2.0) K/mm3 pO2 (30-55) mm/Hg VBG pH (7.32-7.43) VBG pCO2 (40-60) VBG HCO3 (21-28) mmol/l VBG Total CO2 (22-28) mmol.L VBG O2 Sat (Calc) (40-65) % VBG Base Excess (0.0-2.0) mmol/L VBG Potassium (3.6-5.2) mmol/L Glucose (65-105) mg/dl Lactate (0.7-2.1) mmol/L FiO2 % Sodium (132-148) mmol/L Potassium (3.6-5.0) mmol/L Chloride (98-107) mmol/L Carbon Dioxide (21-33) mmol/L Anion Gap (10-20) BUN (7-21) mg/dL Creatinine (0.7-1.2) mg/dl Est GFR ( Amer) Est GFR (Non-Af Amer) Random Glucose (70-110) mg/dL Serum Osmolality 235 L (272-300) mosm/kg Calcium (8.4-10.5) mg/dL Phosphorus (2.5-4.5) mg/dL Magnesium (1.7-2.2) mg/dL Total Bilirubin (0.2-1.3) mg/dL AST (14-36) U/L ALT (7-56) U/L Alkaline Phosphatase (38-126) U/L C-Reactive Protein (0.0-9.9) mg/L Total Protein (5.8-8.3) g/dL Albumin (3.0-4.8) g/dL Globulin gm/dL Albumin/Globulin Ratio (1.1-1.8) Procalcitonin (0.19-0.49) NG/ML Cortisol AM Sample (4.46-22.7) ug/dL Venous Blood Potassium (3.6-5.2) mmol/L Urine Osmolality 611 (300-1000) mosm/kg Ur Random Sodium meq/L Ur Random Potassium meq/L Ur Random Urea Nitrogn mg/dL Ur L.pneumophila Ag (NEGATIVE) Laboratory Results - last 24 hr 09/27/17 09/27/17 09/27/17 17:27 17:27 17:27 WBC RBC Hgb Hct MCV MCH MCHC RDW Plt Count MPV Gran % Lymph % (Auto) Dickenson % (Auto) Eos % (Auto) Baso % (Auto) Gran # Lymph # (Auto) Dickenson # (Auto) Eos # (Auto) Baso # (Auto) pO2 VBG pH VBG pCO2 VBG HCO3 VBG Total CO2 VBG O2 Sat (Calc) VBG Base Excess VBG Potassium Glucose Lactate FiO2 Sodium Potassium Chloride Carbon Dioxide Anion Gap BUN Creatinine Est GFR ( Amer) Est GFR (Non-Af Amer) Random Glucose Serum Osmolality 235 L Calcium Phosphorus Magnesium Total Bilirubin AST ALT Alkaline Phosphatase C-Reactive Protein Total Protein Albumin Globulin Albumin/Globulin Ratio Procalcitonin Cortisol AM Sample Venous Blood Potassium Urine Osmolality 611 Ur Random Sodium < 5 Ur Random Potassium 52.4 Ur Random Urea Nitrogn Ur L.pneumophila Ag 09/27/17 09/27/17 09/27/17 17:27 17:58 19:08 WBC RBC Hgb Hct MCV MCH MCHC RDW Plt Count MPV Gran % Lymph % (Auto) Dickenson % (Auto) Eos % (Auto) Baso % (Auto) Gran # Lymph # (Auto) Dickenson # (Auto) Eos # (Auto) Baso # (Auto) pO2 VBG pH VBG pCO2 VBG HCO3 VBG Total CO2 VBG O2 Sat (Calc) VBG Base Excess VBG Potassium Glucose Lactate FiO2 Sodium 111 L* Potassium 3.5 L Chloride 77 L Carbon Dioxide 24 Anion Gap 13 BUN 19 Creatinine 0.6 L Est GFR ( Amer) > 60 Est GFR (Non-Af Amer) > 60 Random Glucose 120 H Serum Osmolality Calcium 7.4 L Phosphorus Magnesium Total Bilirubin AST ALT Alkaline Phosphatase C-Reactive Protein Total Protein Albumin Globulin Albumin/Globulin Ratio Procalcitonin Cortisol AM Sample Venous Blood Potassium Urine Osmolality Ur Random Sodium Ur Random Potassium Ur Random Urea Nitrogn 967 Ur L.pneumophila Ag Negative 09/27/17 09/28/17 09/28/17 22:10 00:35 00:35 WBC RBC Hgb Hct MCV MCH MCHC RDW Plt Count MPV Gran % Lymph % (Auto) Dickenson % (Auto) Eos % (Auto) Baso % (Auto) Gran # Lymph # (Auto) Dickenson # (Auto) Eos # (Auto) Baso # (Auto) pO2 VBG pH VBG pCO2 VBG HCO3 VBG Total CO2 VBG O2 Sat (Calc) VBG Base Excess VBG Potassium Glucose Lactate FiO2 Sodium 114 L* 116 L* Potassium 4.0 4.0 Chloride 82 L 83 L Carbon Dioxide 23 24 Anion Gap 14 12 BUN 16 13 Creatinine 0.5 L 0.6 L Est GFR ( Amer) > 60 > 60 Est GFR (Non-Af Amer) > 60 > 60 Random Glucose 105 142 H Serum Osmolality Calcium 6.8 L* 7.2 L Phosphorus Magnesium Total Bilirubin AST ALT Alkaline Phosphatase C-Reactive Protein 48.50 H Total Protein Albumin Globulin Albumin/Globulin Ratio Procalcitonin Cortisol AM Sample Venous Blood Potassium Urine Osmolality Ur Random Sodium Ur Random Potassium Ur Random Urea Nitrogn Ur L.pneumophila Ag 09/28/17 09/28/17 09/28/17 00:35 00:35 00:35 WBC RBC Hgb Hct MCV MCH MCHC RDW Plt Count MPV Gran % Lymph % (Auto) Dickenson % (Auto) Eos % (Auto) Baso % (Auto) Gran # Lymph # (Auto) Dickenson # (Auto) Eos # (Auto) Baso # (Auto) pO2 41 VBG pH 7.43 VBG pCO2 40.0 VBG HCO3 26.5 VBG Total CO2 27.7 VBG O2 Sat (Calc) 85.6 H VBG Base Excess 2.0 VBG Potassium 3.8 Glucose 154 H Lactate 0.9 FiO2 21.0 Sodium 115.0 L* Potassium Chloride 91.0 L Carbon Dioxide Anion Gap BUN Creatinine Est GFR ( Amer) Est GFR (Non-Af Amer) Random Glucose Serum Osmolality Calcium Phosphorus Magnesium Total Bilirubin AST ALT Alkaline Phosphatase C-Reactive Protein Total Protein Albumin Globulin Albumin/Globulin Ratio Procalcitonin 0.05 L Cortisol AM Sample 19.0 Venous Blood Potassium 3.8 Urine Osmolality Ur Random Sodium Ur Random Potassium Ur Random Urea Nitrogn Ur L.pneumophila Ag 09/28/17 09/28/17 09/28/17 05:00 05:00 06:53 WBC 6.8 D RBC 2.27 L Hgb 7.0 L Hct 19.3 L* MCV 85.0 MCH 30.8 MCHC 36.3 RDW 16.7 H Plt Count 223 MPV 8.2 Gran % 72.8 H Lymph % (Auto) 8.5 L Dickenson % (Auto) 18.3 H Eos % (Auto) 0.1 L Baso % (Auto) 0.3 Gran # 4.94 Lymph # (Auto) 0.6 L Dickenson # (Auto) 1.2 H Eos # (Auto) 0.0 Baso # (Auto) 0.02 pO2 VBG pH VBG pCO2 VBG HCO3 VBG Total CO2 VBG O2 Sat (Calc) VBG Base Excess VBG Potassium Glucose Lactate FiO2 Sodium Potassium Chloride Carbon Dioxide Anion Gap BUN Creatinine Est GFR ( Amer) Est GFR (Non-Af Amer) Random Glucose Serum Osmolality Calcium Phosphorus Magnesium Total Bilirubin AST ALT Alkaline Phosphatase C-Reactive Protein Total Protein Albumin Globulin Albumin/Globulin Ratio Procalcitonin Cortisol AM Sample Venous Blood Potassium Urine Osmolality 465 Ur Random Sodium < 5 Ur Random Potassium Ur Random Urea Nitrogn Ur L.pneumophila Ag 09/28/17 09/28/17 06:53 08:30 WBC RBC Hgb Hct MCV MCH MCHC RDW Plt Count MPV Gran % Lymph % (Auto) Dickenson % (Auto) Eos % (Auto) Baso % (Auto) Gran # Lymph # (Auto) Dickenson # (Auto) Eos # (Auto) Baso # (Auto) pO2 VBG pH VBG pCO2 VBG HCO3 VBG Total CO2 VBG O2 Sat (Calc) VBG Base Excess VBG Potassium Glucose Lactate FiO2 Sodium 118 L* 119 L* Potassium 3.5 L 3.6 Chloride 86 L 87 L Carbon Dioxide 23 23 Anion Gap 13 12 BUN 12 11 Creatinine 0.5 L 0.5 L Est GFR ( Amer) > 60 > 60 Est GFR (Non-Af Amer) > 60 > 60 Random Glucose 99 101 Serum Osmolality Calcium 7.1 L 7.2 L Phosphorus 2.1 L Magnesium 2.1 Total Bilirubin 1.1 AST 40 H ALT 29 Alkaline Phosphatase 46 C-Reactive Protein Total Protein 5.5 L Albumin 3.0 Globulin 2.5 Albumin/Globulin Ratio 1.2 Procalcitonin Cortisol AM Sample Venous Blood Potassium Urine Osmolality Ur Random Sodium Ur Random Potassium Ur Random Urea Nitrogn Ur L.pneumophila Ag Critical Care Progress Note - Nutrition Nutrition: Nutrition Category Date Time Status Liquid Diet [DIET] Diets 09/28/17 Breakfast Ordered Assessment/Plan - Assessment and Plan (Free Text) Plan: Patient seen and examined on rounds with resident, agree with note with following additions/exceptions: Patient is 67yo female PMH of Stage IV Breast Ca s/p mastectomy and chemo, with mets to pelvis/bones, HLD, HTN, and CAD s/p JOSIAS on aspirin and brilanta who presents who presented with severe hyponatremia, and CAP. Currently afebrile, HD stabl,e comfortable in NAD, Na improving, NS stopped, started on D5W, no focal neurological sequale of hyponatremia. Hyponatremia CAP Hx Breast Ca with mets CAD with stents Recommend: - supp o2 as needed - Duonebs PRN - RocephinHiroithro - BP control - DC IVF NS - follow up renal - regular diet - transfuse 2u PRBC, repeat CBC - check FOBT, iron studies - Follow up cardiology - GI ppx - DVT ppx - Monitor in MICU
--- NOTE | 2017-09-28 13:14 | CARD ---
APPROVED REPORT EKG Measurement Heart [id number] <Conclusion> Normal sinus rhythm ST & T wave abnormality, consider anterior ischemia Abnormal ECG
[2017-09-28] MEDS: Meropenem IV 1 gm in NS 50 ML IVPB SCH ×3 (13:36→22:00)
--- NOTE | 2017-09-28 14:14 | CP.PCM.PN ---
Subjective - Date & Time of Evaluation Date of Evaluation: 09/28/17 Time of Evaluation: 10:00 - Subjective Subjective: Patient with hypovolemic hyponatremia, serum Na being corrected slowly with goal of no more than 8-10 meq over 24 hr period; will continue with NS at 75 cc/ hr while checking serial chem panels and urine osm; full consult being dictated. Objective - Vital Signs/Intake and Output Vital Signs (last 24 hours): Temp Pulse Resp BP Pulse Ox 97.7 F 71 19 100/69 99 09/28/17 11:51 09/28/17 11:51 09/28/17 11:51 09/28/17 11:51 09/27/17 18:20 Intake and Output: 09/28/17 09/28/17 06:59 18:59 Intake Total 1620 345 Output Total 1100 Balance 520 345 - Medications Medications: Current Medications Acetaminophen (Tylenol 325mg Tab) 650 mg PO Q4H PRN PRN Reason: Pain, Mild (1-3) Heparin Sodium (Porcine) (Heparin) 5,000 units SC Q8H VICENTE PRN Reason: Protocol Last Admin: 09/28/17 10:01 Dose: 5,000 units Sodium Chloride (Sodium Chloride 0.9%) 1,000 mls @ 75 mls/hr IV .[id number] [facility] Last Admin: 09/27/17 17:22 Dose: 75 mls/hr Azithromycin (Zithromax 500mg In Ns) 500 mg in 250 mls @ 167 mls/hr IVPB DAILY VICENTE PRN Reason: Protocol Last Admin: 09/28/17 09:48 Dose: 167 mls/hr Meropenem (Merrem Iv 1 Gm Premix) 50 mls @ 100 mls/hr IVPB Q8 [facility]ICENTE PRN Reason: Protocol Stop: 10/07/17 12:46 Last Admin: 09/28/17 13:43 Dose: Not Given Nystatin (Nystatin Oral Susp) 5 ml PO QID [facility] Last Admin: 09/28/17 13:37 Dose: 5 ml Ondansetron HCl (Zofran Inj) 4 mg IVP Q4H PRN PRN Reason: Nausea/Vomiting Pantoprazole Sodium (Protonix Inj) 40 mg IVP DAILY [facility] Last Admin: 09/28/17 09:48 Dose: 40 mg - Labs Labs: 09/28/17 06:53 09/28/17 08:30
--- NOTE | 2017-09-28 14:35 | US ---
PROCEDURE: Portal vein duplex ultrasound. CLINICAL HISTORY: Cirrhosis. Deteriorating liver function. Evaluate for portal vein thrombosis. PHYSICIAN(S): Chin Story M.D. FINDINGS: The liver is echogenic and heterogeneous with a nodular contour. This is consistent with cirrhosis. No obvious mass is identified on these limited parenchymal images. The extrahepatic portal vein is patent with hepatopetal flow. The hepatic artery is hypertrophied. The central hepatic veins are patent. The spleen is not enlarged. There is a moderate amount of ascites in the upper abdomen. IMPRESSION: 1. Patent portal vein with hepatopetal flow.
--- NOTE | 2017-09-28 14:45 | CP.PCM.PCO ---
Physician Communication Note - Physician Communication Note Physician Communication Note: syncope sec metabolic derrangement/anema/ cerebral hypoperfusion.
--- NOTE | 2017-09-28 15:19 | CARD ---
APPROVED REPORT EXAM: Two-dimensional and M-mode echocardiogram with Doppler and color Doppler. INDICATION Syncope 2D DIMENSIONS Left Atrium (2D)3.6 (1.6-4.0cm)IVSd0.9 (0.7-1.1cm) LVDd4.2 (3.9-5.9cm)PWd0.8 (0.7-1.1cm) LVDs2.8 (2.5-4.0cm)FS (%) 33.3 % LVEF (%)62.3 (>50%) M-Mode DIMENSIONS Aortic Root2.80 (2.2-3.7cm)Aortic Cusp Exc.1.60 (1.5-2.0cm) Aortic Valve AoV Peak Pzmxuujh873.0cm/[place] Peak GR.12mmHg Mitral Valve MV E Rsdmkvrb046.0cm/sMV A Ftyabzzd51.0cm/sE/A ratio1.4 TDI Lateral E' Peak V7.99cm/sMedial E' Peak V8.19cm/sE/Lateral E'13.3 E/Medial E'12.9 Pulmonary Valve PV Peak Hdweqefr44.7cm/sPV Peak Grad.2mmHg Tricuspid Valve TR Peak [id number] [id number] Peak Gr.39mmHg [id number] LEFT VENTRICLE The left ventricle is normal size. There is normal left ventricular wall thickness. The left ventricular function is normal. The left ventricular ejection fraction is within the normal range. There is normal LV segmental wall motion. Transmitral Doppler flow pattern is abnormal. RIGHT VENTRICLE The right ventricle is normal size. There is normal right ventricular wall thickness. The right ventricular systolic function is normal. ATRIA The left atrium size is normal. The right atrium size is normal. AORTIC VALVE The aortic valve is mildly thickened. No aortic regurgitation is present. There is no aortic valvular stenosis. MITRAL VALVE The mitral valve is normal in structure. Mitral regurgitation is trace to mild. TRICUSPID VALVE There is mild to moderate tricuspid regurgitation. There is mild to moderate pulmonary hypertension. GREAT VESSELS The aortic root is normal in size. PERICARDIAL EFFUSION There is moderate left pleural effusion. There is no pericardial effusion. <Conclusion> The left ventricle is normal size. There is normal left ventricular wall thickness. The left ventricular function is normal. The left ventricular ejection fraction is within the normal range. There is normal LV segmental wall motion. Mitral regurgitation is trace to mild. There is mild to moderate tricuspid regurgitation. There is mild to moderate pulmonary hypertension.
[2017-09-28 15:30] LABS: GRAN # 7.32 (1.4-6.5); GRAN % 93.6 % (50.0-68.0); HEMOGLOBIN 8.8 g/dL (12.0-16.0); LYMPH # 0.3 (1.2-3.4); LYMPH % 3.2 % (22.0-35.0); MEAN CELL VOLUME 85.4 fl (80.0-105.0); MEAN CORPUSCULAR HEMOGLOBIN 30.7 pg (25.0-35.0); MEAN CORPUSCULAR HGB CONC 35.9 g/dl (31.0-37.0); MEAN PLATELET VOLUME 8.3 fl (7.0-11.0); MONO # 0.3 (0.1-0.6); MONO % 3.2 % (1.0-6.0); PLATELET COUNT 190 10^3/uL (120.0-450.0); RBC 2.87 10^6/uL (3.5-6.1); RED CELL DISTRIBUTION WIDTH 15.2 % (11.5-14.5); WHITE BLOOD COUNT 7.8 10^3/ul (4.5-11.0)
[2017-09-28 15:52] LABS: ALB/GLOB RATIO 1.3 (1.1-1.8); ALBUMIN 3.2 g/dL (3.0-4.8); ALT/SGPT 24 U/L (7-56); AST/SGOT 37 U/L (14-36); BLOOD UREA NITROGEN 9 mg/dL (7-21); CALCIUM 7.3 mg/dL (8.4-10.5); GFR AFRICAN-AMERICAN > 60; GFR NON-AFRICAN AMERICAN > 60
[2017-09-28] MEDS ORDERED: Sodium Chloride 0.9% 1,000 ML IV SCH (16:15)
[2017-09-28] MEDS: Potassium & Sodium Phosphate PO SCH ×2 (16:46→17:16)
[2017-09-28 16:51] LABS: LYMPHOCYTE 2 % (22.0-35.0); MONOCYTE 1 % (1.0-6.0); NEUTROPHIL 97 % (50.0-70.0); PLATELET ESTIMATE NORMAL (NORMAL)
--- NOTE | 2017-09-28 17:24 | CON ---
DATE: HISTORY OF PRESENT ILLNESS: A 67-year-old female with past medical history of metastatic breast cancer, status post bilateral mastectomy, on chemotherapy; hypertension; coronary artery disease. The patient complains of having two syncopal episodes. The patient fell at home and the first syncopal episode was 2 days ago while using the bathroom. [place] weak, lightheaded, fell back, does not hit her head. No chest pain. This week, the patient was started on a new chemotherapy and had a syncopal episode. PAST MEDICAL HISTORY: Breast cancer, bilateral mastectomy, on chemotherapy; hypertension; coronary artery disease. PAST SURGICAL HISTORY: Mastectomy. SOCIAL HISTORY: Does not smoke. Does not drink. ALLERGIES: VANCOMYCIN. PHYSICAL EXAMINATION: VITAL SIGNS: Blood pressure 128/58. NEUROLOGIC: Alert, awake, and oriented to self. No aphasia. Cranial nerves II through XII are tested. Pupils are reactive. EOM intact. Visual field full. No facial asymmetry. Tongue is midline. Motor: Spontaneous movement of all the extremities noted. Deep tendon reflexes 1+. Both plantars are downgoing. Sensory appears intact. Cerebellar gait deferred. LABORATORY DATA: Hemoglobin low, WBC 6.8, hemoglobin 7, hematocrit 19.3, and platelets 223. Sodium 119, potassium 3.6, chloride 87, CO2 of 23. Glucose 101. BUN 11 and creatinine 0.5. ASSESSMENT: Syncopal episode, possibly may be secondary to severe anemia. The patient is getting blood transfusion and possibly toxic metabolic encephalopathy. Workup in progress. Continue present management. We will follow up. Diony Gonzalez MD
[2017-09-28 17:45] LABS: HEPATITIS B SURFACE AG Negative (NEGATIVE)
[2017-09-28 17:50] LABS: HEPATITIS A IGM NEGATIVE (NEGATIVE); HEPATITIS B CORE AB NEGATIVE (NEGATIVE)
[2017-09-28 18:02] LABS: HEPATITIS C ANTIBODY NEGATIVE (NEGATIVE)
--- NOTE | 2017-09-28 23:01 | CON ---
DATE: 09/28/2017 LOCATION: The patient is seen in the ICU 129, bed 3. CHIEF COMPLAINT: Syncope x1 day duration. HISTORY OF PRESENT ILLNESS: A 67-year-old female with history of stage IV breast cancer on chemotherapy with bilateral mastectomy and had multiple frequent falls, dizziness, lightheadedness, and admitted with diagnosis of syncope. The patient states she did not have any abdominal pain. No neck pain. REVIEW OF SYSTEMS: Reveals the patient has a 12-point review of systems performed. There is mild abdominal discomfort. No chest pain. No headaches. No new back pain. No new joint pain. No rash. No dysuria or frequency. PAST MEDICAL HISTORY: Significant for stage IV breast cancer, on chemotherapy; hyperlipidemia; hypertension; coronary artery disease; high cholesterol; and congestive heart failure. PAST SURGICAL HISTORY: Significant for bilateral mastectomy. ALLERGIES: THE PATIENT IS ALLERGIC TO VANCOMYCIN AND THE PATIENT'S TYPE OF ALLERGY IS NOT CLEAR. MEDICATIONS AT HOME: Include omega, Bystolic, vitamins, lutein, Plavix, Lipitor, Ecotrin, Norvasc, PHYSICAL EXAMINATION: GENERAL: The patient is in bed, appearing chronically ill and weak. VITAL SIGNS: Temperature of 98, blood pressure is 93/60, respiratory rate of 21, heart rate of 72. HEENT: Unremarkable. NECK: Supple. LUNGS: Decreased breath sounds. HEART: Normal S1, S2. ABDOMEN: Soft and nontender. Ascites is present, but no rebound or guarding. LABORATORY EXAMINATION: Reveals a white count of 6.8, hemoglobin of 7, and platelets of 223. Chemistries reveal a BUN of 16, creatinine of 0.5. Calcium is 6.8. C-reactive protein of 48. Urinalysis is noted. The patient has 15 to 20 wbc's, few bacteria. Serology reveals the urine Legionella antigen is negative. The patient had a CAT scan of the abdomen and pelvis, CAT scan of the chest, CAT scan of the head, and a chest x-ray, which shows an extensive ascites on the CT of the abdomen and there is a 6 mm nodule on the right lower nonspecific mass, focal parenchymal opacity. Dr. Chin Green's note is reviewed. ASSESSMENT AND PLAN: This is a 67-year-old female with a breast cancer stage IV, on chemotherapy; congestive heart failure; hyperlipidemia; hypertension; coronary artery disease; and cardiac stent placements with syncope. Must rule out spontaneous bacterial peritonitis versus urinary tract infection. We will start the patient on meropenem. Pending blood culture, urine culture. Should have evaluation of the ascitic fluid and we will follow with you. Tom Emerson MD
--- NOTE | 2017-09-28 23:09 | PN ---
DATE: 09/28/2017 Hospital visit in the intensive care unit. For Dr. Love. SUBJECTIVE: The patient is a 67-year-old female with known stage IV metastatic breast CA with recent beginning of treatment with a new chemotherapy medicine called Afinitor taking 1 dose 2 days prior to admission. However, she was also taking Indapamide at a higher dose as per her primary doctor, with the patient admitted by the emergency room for significant weakness and 2 falls over the past 2 days at home. At present, the patient is lying awake in bed, feeling much better after she has been treated by the renal proposal consultant for severe electrolyte imbalance including a sodium of 111 with a chloride of 77. She also has significant anemic indices, which are also being addressed. At present, the patient is in no acute distress, resting comfortably, with oxygen on. PHYSICAL EXAMINATION VITAL SIGNS: Temperature 98, pulse 62, respirations 20. blood pressure 121/71, pulse ox 100%. HEENT: Unremarkable. NECK: Supple. HEART: Regular rate. LUNGS: Rare rhonchi. ABDOMEN: Soft, nontender with minimal distention with a positive ascitic fluid wave. EXTREMITIES: Faint +1 edema. NEUROLOGIC: Awake, alert and oriented x3. SKIN: Otherwise, warm and dry and clear. LABORATORY DATA: The patient's labs were done. White blood cell count of 6.8. Hemoglobin 7, down from 8.6 yesterday after hydration with heme dilution suspected. Hematocrit of 19.3, platelet count of 223,000. A repeat hemoglobin was done after 1 unit of packed cells was transfused with a hemoglobin of 8.8. Her chem metabolic panel today shows an improvement to a sodium of 119, chloride of 87, calcium of 7.2. Her other testing included procalcitonin of 0.05. Her urine analysis showed large amount of blood, trace amount of ketones, moderate leukocyte esterase, with the patient showing no growth on her blood cultures, and 50,000 to 100,000 colonies of urine culture, multiple species. ASSESSMENT: The assessment for this patient is that of severe electrolyte imbalance with severe hyponatremia. Also, severe anemia, symptomatic; syncope; stage IV metastatic breast cancer; right ureteral stent. Oropharyngeal candidiasis. Rule out gastrointestinal bleed. PLAN: The plan for this patient after consultation with Dr. Love is to continue present medical regimen. We will transfuse the second unit of packed red blood cells after Dr. Love's recommendation as the patient continues to have IV hydration for her electrolyte imbalance with suspected possible GI bleed to be ruled out. Also, we will continue present medical regimen as per proposal consultant's recommendations with the prognosis for this patient guarded. Walt Hunter MD
[2017-09-29 00:59] LABS: BLOOD UREA NITROGEN 7 mg/dL (7-21); CALCIUM 7.2 mg/dL (8.4-10.5); GFR AFRICAN-AMERICAN > 60; GFR NON-AFRICAN AMERICAN > 60
--- NOTE | 2017-09-29 03:00 | CON ---
DATE: 09/28/2017 NEPHROLOGY CONSULTATION HISTORY OF PRESENT ILLNESS: A 67-year-old female with past medical history of stage IV metastatic breast cancer, status post bilateral mastectomy, currently on chemotherapy; hypertension; hyperlipidemia; and CAD, status post drug eluding stent; presented to ED after two syncopal episodes, found to be severely hyponatremic, for which Nephrology is being consulted. The patient reports that since past few days, she has been feeling lethargic with decreased p.o. intake; had two episodes of vomiting, one at home, the other during the initial hospitalization; the patient reports about 3 weeks ago, she was taken off Norvasc and started on indapamide due to lower extremity edema; the patient also notes that lately she has been having abdominal fullness and distention; denies any diarrhea otherwise. PAST MEDICAL HISTORY: As above. PAST SURGICAL HISTORY: Mastectomy. SOCIAL HISTORY: Denies tobacco use. FAMILY HISTORY: REVIEW OF SYSTEMS: CONSTITUTIONAL: Decreased appetite. Denies difficulty swallowing. RESPIRATORY: Recent cough. CARDIOVASCULAR: No chest pain or palpitations. GI: As per HPI. : No change in urination. No dysuria. NEURO: Reporting weakness in legs. SKIN: No pruritus reported MUSCULOSKELETAL: Denies any aches or pains. PSYCHIATRIC: Anxiety issues. PHYSICAL EXAMINATION: VITAL SIGNS: This morning, blood pressure 93/36, heart rate 67, respirations 19, temperature 98. GENERAL: No distress. Conversing coherently in full sentences. HEENT: Moist mucous membranes. Nonicteric. No cervical lymphadenopathy. RESPIRATORY: Lungs clear to auscultation bilaterally. No rales, no rhonchi, no wheezes.. CARDIOVASCULAR: Heart sounds S1 and S2 normal. No murmurs, no gallops, no rubs. GI: Abdomen significantly distended, although soft. : No bladder distention. EXTREMITIES: No significant lower leg edema. PSYCHIATRIC: Normal mood, normal affect. NEURO: No obvious tremor. LABORATORY DATA: CBC: WBC 7.8, hemoglobin 8.8, hematocrit 24.5, platelets 190. Chemistry panel: Sodium 116, potassium 4.4, chloride 86, bicarb 21. BUN 9, creatinine 0.5. Glucose 229. Calcium 7.3, phosphorus 1.5, magnesium 2, albumin 3.2. Urine studies from this morning, urine osmolality 465. Urine sodium less than 5. ASSESSMENT AND PLAN: 1. Hyponatremia, severe, secondary to hypovolemia as evidenced by markedly low urine sodium as well as high urine osmolality; likely brought on being on Dyazide while having decreased p.o. intake lately; the patient also with an echo indicative of some degree of pulmonary hypertension which is also causing decreased forward flow and compounding hyponatremia; the patient responded to IV fluid normal saline bolus yesterday; should continue isotonic saline with normal saline at 80 mL/hour; goal is to increase serum sodium by no more than 8 to 10 mEq over 24 hours to avoid neurologic damage; continue to obtain BMP every 4 hours; obtain urine osmolality every 4 hours; once urine osmolality drops below 200, should hold IV fluids and monitor for sharp rise in serum sodium. 2. Hypocalcemia. Etiology is unclear, persistent despite being given calcium gluconate; obtaining PTH and vitamin D 25-hydroxy levels. 3. Portal hypertension was likely the cause of the patient's lower extremity edema; if diuretic needed chronically, would be better suited to use loop diuretic due to cause hyponatremia. Thank you for this referral. We will be following up closely. Kush Lauren MD
[2017-09-29 07:15] LABS: ALB/GLOB RATIO 1.3 (1.1-1.8); ALBUMIN 3.2 g/dL (3.0-4.8); ALT/SGPT 17 U/L (7-56); AST/SGOT 38 U/L (14-36); BLOOD UREA NITROGEN 6 mg/dL (7-21); CALCIUM 7.2 mg/dL (8.4-10.5); GFR AFRICAN-AMERICAN > 60; GFR NON-AFRICAN AMERICAN > 60
[2017-09-29 07:32] LABS: BASO # 0.04 K/mm3 (0.0-2.0); BASO % 0.5 % (0.0-3.0); EOS # 0.1 (0.0-0.7); EOS % 1.4 % (1.5-5.0); GRAN # 6.27 (1.4-6.5); GRAN % 75.3 % (50.0-68.0); HEMOGLOBIN 8.7 g/dL (12.0-16.0); LYMPH # 0.7 (1.2-3.4); LYMPH % 7.9 % (22.0-35.0); MEAN CELL VOLUME 84.8 fl (80.0-105.0); MEAN CORPUSCULAR HEMOGLOBIN 30.7 pg (25.0-35.0); MEAN CORPUSCULAR HGB CONC 36.3 g/dl (31.0-37.0); MEAN PLATELET VOLUME 8.5 fl (7.0-11.0); MONO # 1.2 (0.1-0.6); MONO % 14.9 % (1.0-6.0); RBC 2.83 10^6/uL (3.5-6.1); RED CELL DISTRIBUTION WIDTH 15.6 % (11.5-14.5); WHITE BLOOD COUNT 8.3 10^3/ul (4.5-11.0)
[2017-09-29] MEDS: Potassium & Sodium Phosphate PO SCH ×3 (09:38→17:33)
[2017-09-29] MEDS: Nystatin 100,000 Units/ml Oral Susp 5 ml UD PO SCH ×4 (09:39→21:31)
--- NOTE | 2017-09-29 10:04 | PN ---
DATE: 09/29/2017 CARDIOLOGY FOLLOWUP SUBJECTIVE: The patient is comfortable today, eating without issues. PHYSICAL EXAMINATION: VITAL SIGNS: Blood pressure 102/56 with the heart rates in the 60s. NECK: Negative JVD. LUNGS: Clear to auscultation. HEART: Reveals S1, S2. EXTREMITIES: Without edema. LABORATORY DATA: Hemoglobin is 8.7. Chemistries: BUN and creatinine are unremarkable. Sodium is up to 123. IMPRESSION: 1. Severe anemia, which is better. 2. No evidence for active bleeding. 3. Metabolic abnormalities, which are improved. The sodium is up to 123. 4. Stable angina. 5. History of coronary artery disease. 6. History of cancer. PLAN: Given these findings, the patient's hemoglobin is at its stable state. We will transfer the patient out of the ICU today. Chin Green MD
--- NOTE | 2017-09-29 11:13 | CP.CCUPN ---
<Nicola Haywood - Last Filed: 09/29/17 11:09> CCU Subjective - Physician Review Subjective (Free Text): 09/29/17 11:09 Patient seen and examined in ICU. Sodium improved to 123 AM from 120 overnight. Hgb improved to 8.8 after transfusions yesterday, stable today at 8.7. Patient reports feeling better in general. Denies further nausea or emesis. Tolerating diet well. Stable, pending transfer to Remote-tele, cardio aware and agrees. CCU Objective - Vital Signs / Intake & Output Vital Signs (Last 4 hours): Vital Signs Pulse Resp BP Pulse Ox 09/29/17 10:00 63 22 110/62 100 09/29/17 09:00 67 22 104/48 L 100 09/29/17 08:00 71 21 105/39 L 100 Intake and Output (Last 8hrs): Intake & Output 09/28/17 09/29/17 09/29/17 22:59 06:59 14:59 Intake Total 1060 Output Total 700 Balance 360 Weight 63.503 kg Intake: IV 1000 Right Wrist 1000 Oral 60 Output: Urine 700 Urethral ([place]ett) 700 Other: # Bowel Movements 0 - Physical Exam Head: Positive for: Atraumatic, Normocephalic Pupils: Negative for: Pinpoint Extroacular Muscles: Positive for: EOMI. Negative for: Gaze Palsy, Entrapment Conjunctiva: Positive for: Other (improved but still some pallor). Negative for : Injected, Icteric Mouth: Positive for: Moist Mucous Membranes, Normal Lips, Normal Tounge, Normal Teeth. Negative for: Dry, Drooling Pharnyx: Negative for: Muffled/Hoarse Voice, Strider Nose (External): Positive for: Atraumatic. Negative for: Abrasion, Laceration, Lesions Nose (Internal): Positive for: Normal Inspection, No Active Bleeding. Negative for: Epistaxis Neck: Positive for: Normal Range of Motion. Negative for: JVD Respiratory/Chest: Positive for: Clear to Auscultation, Good Air Exchange, Other (right chest port). Negative for: Respiratory Distress, Accessory Muscle Use, Wheezes, Rales, Retracting, Rhonchi Cardiovascular: Positive for: Regular Rate and Rhythm, Normal S1, S2, Peripheal Pulses Present (+2 radial and dorsalis pedis pulses). Negative for: Murmurs, Tachycardic, Bradycardic Abdomen: Positive for: Normal Bowel Sounds. Negative for: Tenderness, Distention, Peritoneal Signs Upper Extremity: Positive for: Normal Inspection, Normal ROM, NORMAL PULSES. Negative for: Cyanosis, Edema, Tenderness, Swelling, Erythema, Deformity Lower Extremity: Positive for: Normal Inspection, NORMAL PULSES, Normal ROM. Negative for: Edema, CALF TENDERNESS, Cyanosis, Tenderness, Swelling, Deformity Neurological: Positive for: GCS=15, Speech Normal, Motor Func Grossly Intact, Normal Sensory Function Skin: Positive for: Warm, Dry, Normal Color. Negative for: Rashes Psychiatric: Positive for: Alert, Oriented x 3, Normal Insight, Normal Concentration, Normal Affect, Normal Mood. Negative for: Anxious, Agitated - Medications Active Medications: Active Medications Generic Name Dose Route Start Last Admin Trade Name Freq PRN Reason Stop Dose Admin Acetaminophen 650 mg 09/28/17 10:24 Tylenol 325mg Tab PO Q4H PRN Pain, Mild (1-3) Heparin Sodium (Porcine) 5,000 units 09/27/17 17:30 09/29/17 09:39 Heparin SC 5,000 units Q8H VICENTE Administration Protocol Meropenem 50 mls @ 100 mls/hr 09/28/17 12:45 09/28/17 22:00 Merrem Iv 1 Gm Premix IVPB 10/07/17 12:46 100 mls/hr Q8 VICENTE Administration Protocol Sodium Chloride 1,000 mls @ 80 mls/hr 09/28/17 16:15 09/28/17 16:05 Sodium Chloride 0.9% IV 80 mls/hr .[id number] VICENTE Administration Nystatin 5 ml 09/27/17 22:00 09/29/17 09:39 Nystatin Oral Susp PO 5 ml QID VICENTE Administration Ondansetron HCl 4 mg 09/27/17 18:57 Zofran Inj IVP Q4H PRN Nausea/Vomiting Pantoprazole Sodium 40 mg 09/27/17 17:30 09/29/17 09:38 Protonix Inj IVP 40 mg DAILY VICENTE Administration Potassium Phos/Sodium Phos 1 pkt 09/28/17 16:15 09/29/17 09:38 Neutra-Phos PO 1 pkt TID VICENTE Administration - Patient Studies Lab Studies: Microbiology Studies 09/27/17 18:15 MRSA Culture (Admit) - Final Naris MRSA NOT DETECTED 09/27/17 17:35 Blood Culture - Preliminary Blood-Venous NO GROWTH AFTER 24 HOURS 09/27/17 17:05 Blood Culture - Preliminary Blood-Venous NO GROWTH AFTER 24 HOURS Lab Studies 09/29/17 09/29/17 09/29/17 Range/Units 06:20 06:20 06:20 WBC 8.3 (4.5-11.0) 10^3/ul RBC 2.83 L (3.5-6.1) 10^6/uL Hgb 8.7 L (12.0-16.0) g/dL Hct 24.0 L (36.0-48.0) % MCV 84.8 (80.0-105.0) fl MCH 30.7 (25.0-35.0) pg MCHC 36.3 (31.0-37.0) g/dl RDW 15.6 H (11.5-14.5) % Plt Count 213 (120.0-450.0) 10^3/uL MPV 8.5 (7.0-11.0) fl Gran % 75.3 H (50.0-68.0) % Lymph % (Auto) 7.9 L (22.0-35.0) % [place] % (Auto) 14.9 H (1.0-6.0) % Eos % (Auto) 1.4 L (1.5-5.0) % Baso % (Auto) 0.5 (0.0-3.0) % Gran # 6.27 (1.4-6.5) Lymph # (Auto) 0.7 L (1.2-3.4) [place] # (Auto) 1.2 H (0.1-0.6) Eos # (Auto) 0.1 (0.0-0.7) Baso # (Auto) 0.04 (0.0-2.0) K/mm3 Neutrophils % (Manual) (50.0-70.0) % Lymphocytes % (Manual) (22.0-35.0) % Monocytes % (Manual) (1.0-6.0) % Platelet Evaluation (NORMAL) Sodium 123 L (132-148) mmol/L Potassium 3.7 (3.6-5.0) mmol/L Chloride 92 L (98-107) mmol/L Carbon Dioxide 24 (21-33) mmol/L Anion Gap 11 (10-20) BUN 6 L (7-21) mg/dL Creatinine 0.5 L (0.7-1.2) mg/dl Est GFR ( Amer) > 60 Est GFR (Non-Af Amer) > 60 Random Glucose 94 (70-110) mg/dL Calcium 7.2 L (8.4-10.5) mg/dL Phosphorus 1.5 L (2.5-4.5) mg/dL Magnesium 1.9 (1.7-2.2) mg/dL Total Bilirubin 0.8 (0.2-1.3) mg/dL AST 38 H (14-36) U/L ALT 17 (7-56) U/L Alkaline Phosphatase 48 (38-126) U/L C-Reactive Protein (0.0-9.9) mg/L Total Protein 5.7 L (5.8-8.3) g/dL Albumin 3.2 (3.0-4.8) g/dL Globulin 2.5 gm/dL Albumin/Globulin Ratio 1.3 (1.1-1.8) 25-OH Vitamin D Total (30.0-100.0) NG/ML Procalcitonin (0.19-0.49) NG/ML Cortisol AM Sample (4.46-22.7) ug/dL Urine Osmolality (300-1000) mosm/kg Ur Random Sodium meq/L Hepatitis A IgM Ab (NEGATIVE) Hep Bs Antigen (NEGATIVE) Hep B Core IgM Ab (NEGATIVE) Hepatitis C Antibody (NEGATIVE) 09/28/17 09/28/17 09/28/17 Range/Units 23:59 17:30 17:30 WBC (4.5-11.0) 10^3/ul RBC (3.5-6.1) 10^6/uL Hgb (12.0-16.0) g/dL Hct (36.0-48.0) % MCV (80.0-105.0) fl MCH (25.0-35.0) pg MCHC (31.0-37.0) g/dl RDW (11.5-14.5) % Plt Count (120.0-450.0) 10^3/uL MPV (7.0-11.0) fl Gran % (50.0-68.0) % Lymph % (Auto) (22.0-35.0) % [place] % (Auto) (1.0-6.0) % Eos % (Auto) (1.5-5.0) % Baso % (Auto) (0.0-3.0) % Gran # (1.4-6.5) Lymph # (Auto) (1.2-3.4) [place] # (Auto) (0.1-0.6) Eos # (Auto) (0.0-0.7) Baso # (Auto) (0.0-2.0) K/mm3 Neutrophils % (Manual) (50.0-70.0) % Lymphocytes % (Manual) (22.0-35.0) % Monocytes % (Manual) (1.0-6.0) % Platelet Evaluation (NORMAL) Sodium 120 L (132-148) mmol/L Potassium 3.9 (3.6-5.0) mmol/L Chloride 89 L (98-107) mmol/L Carbon Dioxide 23 (21-33) mmol/L Anion Gap 12 (10-20) BUN 7 (7-21) mg/dL Creatinine 0.5 L (0.7-1.2) mg/dl Est GFR ( Amer) > 60 Est GFR (Non-Af Amer) > 60 Random Glucose 108 (70-110) mg/dL Calcium 7.2 L (8.4-10.5) mg/dL Phosphorus (2.5-4.5) mg/dL Magnesium (1.7-2.2) mg/dL Total Bilirubin (0.2-1.3) mg/dL AST (14-36) U/L ALT (7-56) U/L Alkaline Phosphatase (38-126) U/L C-Reactive Protein (0.0-9.9) mg/L Total Protein (5.8-8.3) g/dL Albumin (3.0-4.8) g/dL Globulin gm/dL Albumin/Globulin Ratio (1.1-1.8) 25-OH Vitamin D Total (30.0-100.0) NG/ML Procalcitonin (0.19-0.49) NG/ML Cortisol AM Sample (4.46-22.7) ug/dL Urine Osmolality 206 L (300-1000) mosm/kg Ur Random Sodium < 5 meq/L Hepatitis A IgM Ab (NEGATIVE) Hep Bs Antigen (NEGATIVE) Hep B Core IgM Ab (NEGATIVE) Hepatitis C Antibody (NEGATIVE) 09/28/17 09/28/17 09/28/17 Range/Units 15:27 15:27 07:00 WBC 7.8 (4.5-11.0) 10^3/ul RBC 2.87 L (3.5-6.1) 10^6/uL Hgb 8.8 L (12.0-16.0) g/dL Hct 24.5 L (36.0-48.0) % MCV 85.4 (80.0-105.0) fl MCH 30.7 (25.0-35.0) pg MCHC 35.9 (31.0-37.0) g/dl RDW 15.2 H (11.5-14.5) % Plt Count 190 (120.0-450.0) 10^3/uL MPV 8.3 (7.0-11.0) fl Gran % 93.6 H (50.0-68.0) % Lymph % (Auto) 3.2 L (22.0-35.0) % [place] % (Auto) 3.2 (1.0-6.0) % Eos % (Auto) 0.0 L (1.5-5.0) % Baso % (Auto) 0.0 (0.0-3.0) % Gran # 7.32 H (1.4-6.5) Lymph # (Auto) 0.3 L (1.2-3.4) [place] # (Auto) 0.3 (0.1-0.6) Eos # (Auto) 0.0 (0.0-0.7) Baso # (Auto) 0.00 (0.0-2.0) K/mm3 Neutrophils % (Manual) 97 H (50.0-70.0) % Lymphocytes % (Manual) 2 L (22.0-35.0) % Monocytes % (Manual) 1 (1.0-6.0) % Platelet Evaluation Normal (NORMAL) Sodium 116 L* (132-148) mmol/L Potassium 4.4 (3.6-5.0) mmol/L Chloride 86 L (98-107) mmol/L Carbon Dioxide 21 (21-33) mmol/L Anion Gap 14 (10-20) BUN 9 (7-21) mg/dL Creatinine 0.5 L (0.7-1.2) mg/dl Est GFR ( Amer) > 60 Est GFR (Non-Af Amer) > 60 Random Glucose 229 H (70-110) mg/dL Calcium 7.3 L (8.4-10.5) mg/dL Phosphorus 1.5 L (2.5-4.5) mg/dL Magnesium 2.0 (1.7-2.2) mg/dL Total Bilirubin 1.1 (0.2-1.3) mg/dL AST 37 H (14-36) U/L ALT 24 (7-56) U/L Alkaline Phosphatase 43 (38-126) U/L C-Reactive Protein (0.0-9.9) mg/L Total Protein 5.7 L (5.8-8.3) g/dL Albumin 3.2 (3.0-4.8) g/dL Globulin 2.5 gm/dL Albumin/Globulin Ratio 1.3 (1.1-1.8) 25-OH Vitamin D Total (30.0-100.0) NG/ML Procalcitonin (0.19-0.49) NG/ML Cortisol AM Sample (4.46-22.7) ug/dL Urine Osmolality (300-1000) mosm/kg Ur Random Sodium meq/L Hepatitis A IgM Ab Negative (NEGATIVE) Hep Bs Antigen Negative (NEGATIVE) Hep B Core IgM Ab Negative (NEGATIVE) Hepatitis C Antibody Negative (NEGATIVE) 09/28/17 09/28/17 09/28/17 Range/Units 06:53 00:35 00:35 WBC (4.5-11.0) 10^3/ul RBC (3.5-6.1) 10^6/uL Hgb (12.0-16.0) g/dL Hct (36.0-48.0) % MCV (80.0-105.0) fl MCH (25.0-35.0) pg MCHC (31.0-37.0) g/dl RDW (11.5-14.5) % Plt Count (120.0-450.0) 10^3/uL MPV (7.0-11.0) fl Gran % (50.0-68.0) % Lymph % (Auto) (22.0-35.0) % [place] % (Auto) (1.0-6.0) % Eos % (Auto) (1.5-5.0) % Baso % (Auto) (0.0-3.0) % Gran # (1.4-6.5) Lymph # (Auto) (1.2-3.4) [place] # (Auto) (0.1-0.6) Eos # (Auto) (0.0-0.7) Baso # (Auto) (0.0-2.0) K/mm3 Neutrophils % (Manual) (50.0-70.0) % Lymphocytes % (Manual) (22.0-35.0) % Monocytes % (Manual) (1.0-6.0) % Platelet Evaluation (NORMAL) Sodium (132-148) mmol/L Potassium (3.6-5.0) mmol/L Chloride (98-107) mmol/L Carbon Dioxide (21-33) mmol/L Anion Gap (10-20) BUN (7-21) mg/dL Creatinine (0.7-1.2) mg/dl Est GFR ( Amer) Est GFR (Non-Af Amer) Random Glucose (70-110) mg/dL Calcium (8.4-10.5) mg/dL Phosphorus (2.5-4.5) mg/dL Magnesium (1.7-2.2) mg/dL Total Bilirubin (0.2-1.3) mg/dL AST (14-36) U/L ALT (7-56) U/L Alkaline Phosphatase (38-126) U/L C-Reactive Protein (0.0-9.9) mg/L Total Protein (5.8-8.3) g/dL Albumin (3.0-4.8) g/dL Globulin gm/dL Albumin/Globulin Ratio (1.1-1.8) 25-OH Vitamin D Total 35.9 (30.0-100.0) NG/ML Procalcitonin 0.05 L (0.19-0.49) NG/ML Cortisol AM Sample 19.0 (4.46-22.7) ug/dL Urine Osmolality (300-1000) mosm/kg Ur Random Sodium meq/L Hepatitis A IgM Ab (NEGATIVE) Hep Bs Antigen (NEGATIVE) Hep B Core IgM Ab (NEGATIVE) Hepatitis C Antibody (NEGATIVE) 09/28/17 Range/Units 00:35 WBC (4.5-11.0) 10^3/ul RBC (3.5-6.1) 10^6/uL Hgb (12.0-16.0) g/dL Hct (36.0-48.0) % MCV (80.0-105.0) fl MCH (25.0-35.0) pg MCHC (31.0-37.0) g/dl RDW (11.5-14.5) % Plt Count (120.0-450.0) 10^3/uL MPV (7.0-11.0) fl Gran % (50.0-68.0) % Lymph % (Auto) (22.0-35.0) % [place] % (Auto) (1.0-6.0) % Eos % (Auto) (1.5-5.0) % Baso % (Auto) (0.0-3.0) % Gran # (1.4-6.5) Lymph # (Auto) (1.2-3.4) [place] # (Auto) (0.1-0.6) Eos # (Auto) (0.0-0.7) Baso # (Auto) (0.0-2.0) K/mm3 Neutrophils % (Manual) (50.0-70.0) % Lymphocytes % (Manual) (22.0-35.0) % Monocytes % (Manual) (1.0-6.0) % Platelet Evaluation (NORMAL) Sodium (132-148) mmol/L Potassium (3.6-5.0) mmol/L Chloride (98-107) mmol/L Carbon Dioxide (21-33) mmol/L Anion Gap (10-20) BUN (7-21) mg/dL Creatinine (0.7-1.2) mg/dl Est GFR ( Amer) Est GFR (Non-Af Amer) Random Glucose (70-110) mg/dL Calcium (8.4-10.5) mg/dL Phosphorus (2.5-4.5) mg/dL Magnesium (1.7-2.2) mg/dL Total Bilirubin (0.2-1.3) mg/dL AST (14-36) U/L ALT (7-56) U/L Alkaline Phosphatase (38-126) U/L C-Reactive Protein 48.50 H (0.0-9.9) mg/L Total Protein (5.8-8.3) g/dL Albumin (3.0-4.8) g/dL Globulin gm/dL Albumin/Globulin Ratio (1.1-1.8) 25-OH Vitamin D Total (30.0-100.0) NG/ML Procalcitonin (0.19-0.49) NG/ML Cortisol AM Sample (4.46-22.7) ug/dL Urine Osmolality (300-1000) mosm/kg Ur Random Sodium meq/L Hepatitis A IgM Ab (NEGATIVE) Hep Bs Antigen (NEGATIVE) Hep B Core IgM Ab (NEGATIVE) Hepatitis C Antibody (NEGATIVE) Laboratory Results - last 24 hr 09/28/17 09/28/17 09/28/17 00:35 00:35 00:35 WBC RBC Hgb Hct MCV MCH MCHC RDW Plt Count MPV Gran % Lymph % (Auto) [place] % (Auto) Eos % (Auto) Baso % (Auto) Gran # Lymph # (Auto) [place] # (Auto) Eos # (Auto) Baso # (Auto) Neutrophils % (Manual) Lymphocytes % (Manual) Monocytes % (Manual) Platelet Evaluation Sodium Potassium Chloride Carbon Dioxide Anion Gap BUN Creatinine Est GFR ( Amer) Est GFR (Non-Af Amer) Random Glucose Calcium Phosphorus Magnesium Total Bilirubin AST ALT Alkaline Phosphatase C-Reactive Protein 48.50 H Total Protein Albumin Globulin Albumin/Globulin Ratio 25-OH Vitamin D Total Procalcitonin 0.05 L Cortisol AM Sample 19.0 Urine Osmolality Ur Random Sodium Hepatitis A IgM Ab Hep Bs Antigen Hep B Core IgM Ab Hepatitis C Antibody 09/28/17 09/28/17 09/28/17 06:53 07:00 15:27 WBC 7.8 RBC 2.87 L Hgb 8.8 L Hct 24.5 L MCV 85.4 MCH 30.7 MCHC 35.9 RDW 15.2 H Plt Count 190 MPV 8.3 Gran % 93.6 H Lymph % (Auto) 3.2 L [place] % (Auto) 3.2 Eos % (Auto) 0.0 L Baso % (Auto) 0.0 Gran # 7.32 H Lymph # (Auto) 0.3 L [place] # (Auto) 0.3 Eos # (Auto) 0.0 Baso # (Auto) 0.00 Neutrophils % (Manual) 97 H Lymphocytes % (Manual) 2 L Monocytes % (Manual) 1 Platelet Evaluation Normal Sodium Potassium Chloride Carbon Dioxide Anion Gap BUN Creatinine Est GFR ( Amer) Est GFR (Non-Af Amer) Random Glucose Calcium Phosphorus Magnesium Total Bilirubin AST ALT Alkaline Phosphatase C-Reactive Protein Total Protein Albumin Globulin Albumin/Globulin Ratio 25-OH Vitamin D Total 35.9 Procalcitonin Cortisol AM Sample Urine Osmolality Ur Random Sodium Hepatitis A IgM Ab Negative Hep Bs Antigen Negative Hep B Core IgM Ab Negative Hepatitis C Antibody Negative 09/28/17 09/28/17 09/28/17 15:27 17:30 17:30 WBC RBC Hgb Hct MCV MCH MCHC RDW Plt Count MPV Gran % Lymph % (Auto) [place] % (Auto) Eos % (Auto) Baso % (Auto) Gran # Lymph # (Auto) [place] # (Auto) Eos # (Auto) Baso # (Auto) Neutrophils % (Manual) Lymphocytes % (Manual) Monocytes % (Manual) Platelet Evaluation Sodium 116 L* Potassium 4.4 Chloride 86 L Carbon Dioxide 21 Anion Gap 14 BUN 9 Creatinine 0.5 L Est GFR ( Amer) > 60 Est GFR (Non-Af Amer) > 60 Random Glucose 229 H Calcium 7.3 L Phosphorus 1.5 L Magnesium 2.0 Total Bilirubin 1.1 AST 37 H ALT 24 Alkaline Phosphatase 43 C-Reactive Protein Total Protein 5.7 L Albumin 3.2 Globulin 2.5 Albumin/Globulin Ratio 1.3 25-OH Vitamin D Total Procalcitonin Cortisol AM Sample Urine Osmolality 206 L Ur Random Sodium < 5 Hepatitis A IgM Ab Hep Bs Antigen Hep B Core IgM Ab Hepatitis C Antibody 09/28/17 09/29/17 09/29/17 23:59 06:20 06:20 WBC 8.3 RBC 2.83 L Hgb 8.7 L Hct 24.0 L MCV 84.8 MCH 30.7 MCHC 36.3 RDW 15.6 H Plt Count 213 MPV 8.5 Gran % 75.3 H Lymph % (Auto) 7.9 L [place] % (Auto) 14.9 H Eos % (Auto) 1.4 L Baso % (Auto) 0.5 Gran # 6.27 Lymph # (Auto) 0.7 L [place] # (Auto) 1.2 H Eos # (Auto) 0.1 Baso # (Auto) 0.04 Neutrophils % (Manual) Lymphocytes % (Manual) Monocytes % (Manual) Platelet Evaluation Sodium 120 L 123 L Potassium 3.9 3.7 Chloride 89 L 92 L Carbon Dioxide 23 24 Anion Gap 12 11 BUN 7 6 L Creatinine 0.5 L 0.5 L Est GFR ( Amer) > 60 > 60 Est GFR (Non-Af Amer) > 60 > 60 Random Glucose 108 94 Calcium 7.2 L 7.2 L Phosphorus Magnesium Total Bilirubin 0.8 AST 38 H ALT 17 Alkaline Phosphatase 48 C-Reactive Protein Total Protein 5.7 L Albumin 3.2 Globulin 2.5 Albumin/Globulin Ratio 1.3 25-OH Vitamin D Total Procalcitonin Cortisol AM Sample Urine Osmolality Ur Random Sodium Hepatitis A IgM Ab Hep Bs Antigen Hep B Core IgM Ab Hepatitis C Antibody 09/29/17 06:20 WBC RBC Hgb Hct MCV MCH MCHC RDW Plt Count MPV Gran % Lymph % (Auto) [place] % (Auto) Eos % (Auto) Baso % (Auto) Gran # Lymph # (Auto) [place] # (Auto) Eos # (Auto) Baso # (Auto) Neutrophils % (Manual) Lymphocytes % (Manual) Monocytes % (Manual) Platelet Evaluation Sodium Potassium Chloride Carbon Dioxide Anion Gap BUN Creatinine Est GFR ( Amer) Est GFR (Non-Af Amer) Random Glucose Calcium Phosphorus 1.5 L Magnesium 1.9 Total Bilirubin AST ALT Alkaline Phosphatase C-Reactive Protein Total Protein Albumin Globulin Albumin/Globulin Ratio 25-OH Vitamin D Total Procalcitonin Cortisol AM Sample Urine Osmolality Ur Random Sodium Hepatitis A IgM Ab Hep Bs Antigen Hep B Core IgM Ab Hepatitis C Antibody Review of Systems - Review of Systems All systems: reviewed and no additional remarkable complaints except (as per HPI ) Critical Care Progress Note - Nutrition Nutrition: Nutrition Category Date Time Status Liquid Diet [DIET] Diets 09/28/17 Breakfast Ordered Assessment/Plan - Assessment and Plan (Free Text) Assessment: This is a 67 yo F with PMH of Stage IV Breast Ca s/p mastectomy and chemo, with mets to pelvis/bones, HLD, HTN, and CAD s/p JOSIAS on aspirin and brilanta who presents who presented with 2 episodes of falls, concerning for possible syncopal episodes, found to have hyponatremia of 111 and Hgb 8.6 (baseline per prior charting of 12-13). Her sodium has improved to 123, and her Hgb is stable at 8.7 post transfusions. STABLE, pending transfer to remote tele. Plan: Neuro: -awake and alert, following all commands appropriately -maintain normothermia -falls episodes at home both times after moving bowels, then standing, walking, and "loosing balance" likely orthostatic vs vasovagal episodes -PT/OT, High fall risk -CT head negative for acute process, no masses appreciated -no seizure episodes appreciated since admission, pt and denied any seizure-like activity, absence spells, tongue-bitting, or loss of bowel/bladder continence; sodium improved to 123 -Neuro consulted, appreciate their recs Cardio: -Stool occult pending -s/p 1 unit pRBCs, Hgb improved to 8.8 post-transfusion, stable at 8.7 this AM -Hemodynamically stable, normotensive and not tachycardic -hold home ASA and plavix until bleed ruled out as per Cardio Pulm: -supplemental O2 not needed at this time, satting well on room air -CXR and CT chest notable for left pleural effusion, possible atelectasis, no masses or PE appreciated GI: -Liquid diet -Protonix for GI ppx, Zofran for emesis/nausea ppx -CT chest/abd/pelvis notable for extensive ascites, omental and serosal mets, widespread sclerotic skeletal mets -GI consulted, appreciate all recs; needs large volume paracentesis, pending correction and stabilization of electrolytes first, not candidate for TIPS Renal: -monitor and replete electrolytes as needed, avoid too-aggressive sodium replacement to prevent central pontine myelinosis -Na 111 on admission, now 123, goal is increase by 8-10 per day -Repleted Mag and K, continue to monitor -Urine sodium < 5 x3 days, and low serum osms on admission suggestive of volume depletion, so likely hypovolemic hyponatremia as per Nephro -holding home thiazide diuretic -Nephro following, appreciate all recs Heme: -s/p 1 unit pRBCs, Hgb improved to 8.8 post-transfusion, stable at 8.7 this AM -holding ASA/Plavix as per Cardio until bleed ruled out as cause of anemia -Heparin 5000 units SC q12 for DVT ppx ID: -covering for possible pneumonia and SBP with Merrem -ID following, appreciate all recs Onc: -Stage IV Breast Ca with mets to pelvic, omentum, bone -on affinitor and Xgeva chemo, completed proton therapy for chest wall as per PMD (Ivan) -defer to Onc/PMD for further management Dispo: STABLE, transferred to Remote-tele FEN: Liquid diet Access: peripheral IVs, R chest port Consults: Nephro, ID, GI, Cardio, Onc (Primary), ICU, Neuro Ppx: Protonix for GI, Heparin SC for DVT ppx Patient seen, reviewed, and discussed with attending, Dr. Pennington <Naman Pennington - Last Filed: 09/29/17 11:29> CCU Objective - Vital Signs / Intake & Output Vital Signs (Last 4 hours): Vital Signs Pulse Resp BP Pulse Ox 09/29/17 10:00 63 22 110/62 100 09/29/17 09:00 67 22 104/48 L 100 09/29/17 08:00 71 21 105/39 L 100 Intake and Output (Last 8hrs): Intake & Output 09/28/17 09/29/17 09/29/17 22:59 06:59 14:59 Intake Total 1060 Output Total 700 Balance 360 Weight 140 lb Intake: IV 1000 Right Wrist 1000 Oral 60 Output: Urine 700 Urethral ([place]) 700 Other: # Bowel Movements 0 - Medications Active Medications: Active Medications Generic Name Dose Route Start Last Admin Trade Name Freq PRN Reason Stop Dose Admin Acetaminophen 650 mg 09/28/17 10:24 Tylenol 325mg Tab PO Q4H PRN Pain, Mild (1-3) Heparin Sodium (Porcine) 5,000 units 09/27/17 17:30 09/29/17 09:39 Heparin SC 5,000 units Q8H VICENTE Administration Protocol Meropenem 50 mls @ 100 mls/hr 09/28/17 12:45 09/28/17 22:00 Merrem Iv 1 Gm Premix IVPB 10/07/17 12:46 100 mls/hr Q8 VICENTE Administration Protocol Sodium Chloride 1,000 mls @ 80 mls/hr 09/28/17 16:15 09/28/17 16:05 Sodium Chloride 0.9% IV 80 mls/hr .[id number] VICENTE Administration Nystatin 5 ml 09/27/17 22:00 09/29/17 09:39 Nystatin Oral Susp PO 5 ml QID VICENTE Administration Ondansetron HCl 4 mg 09/27/17 18:57 Zofran Inj IVP Q4H PRN Nausea/Vomiting Pantoprazole Sodium 40 mg 09/27/17 17:30 09/29/17 09:38 Protonix Inj IVP 40 mg DAILY VICENTE Administration Potassium Phos/Sodium Phos 1 pkt 09/28/17 16:15 09/29/17 09:38 Neutra-Phos PO 1 pkt TID VICENTE Administration - Patient Studies Lab Studies: Microbiology Studies 09/27/17 18:15 MRSA Culture (Admit) - Final Naris MRSA NOT DETECTED 09/27/17 17:35 Blood Culture - Preliminary Blood-Venous NO GROWTH AFTER 24 HOURS 09/27/17 17:05 Blood Culture - Preliminary Blood-Venous NO GROWTH AFTER 24 HOURS Lab Studies 09/29/17 09/29/17 09/29/17 Range/Units 06:20 06:20 06:20 WBC 8.3 (4.5-11.0) 10^3/ul RBC 2.83 L (3.5-6.1) 10^6/uL Hgb 8.7 L (12.0-16.0) g/dL Hct 24.0 L (36.0-48.0) % MCV 84.8 (80.0-105.0) fl MCH 30.7 (25.0-35.0) pg MCHC 36.3 (31.0-37.0) g/dl RDW 15.6 H (11.5-14.5) % Plt Count 213 (120.0-450.0) 10^3/uL MPV 8.5 (7.0-11.0) fl Gran % 75.3 H (50.0-68.0) % Lymph % (Auto) 7.9 L (22.0-35.0) % [place] % (Auto) 14.9 H (1.0-6.0) % Eos % (Auto) 1.4 L (1.5-5.0) % Baso % (Auto) 0.5 (0.0-3.0) % Gran # 6.27 (1.4-6.5) Lymph # (Auto) 0.7 L (1.2-3.4) [place] # (Auto) 1.2 H (0.1-0.6) Eos # (Auto) 0.1 (0.0-0.7) Baso # (Auto) 0.04 (0.0-2.0) K/mm3 Neutrophils % (Manual) (50.0-70.0) % Lymphocytes % (Manual) (22.0-35.0) % Monocytes % (Manual) (1.0-6.0) % Platelet Evaluation (NORMAL) Sodium 123 L (132-148) mmol/L Potassium 3.7 (3.6-5.0) mmol/L Chloride 92 L (98-107) mmol/L Carbon Dioxide 24 (21-33) mmol/L Anion Gap 11 (10-20) BUN 6 L (7-21) mg/dL Creatinine 0.5 L (0.7-1.2) mg/dl Est GFR ( Amer) > 60 Est GFR (Non-Af Amer) > 60 Random Glucose 94 (70-110) mg/dL Calcium 7.2 L (8.4-10.5) mg/dL Phosphorus 1.5 L (2.5-4.5) mg/dL Magnesium 1.9 (1.7-2.2) mg/dL Total Bilirubin 0.8 (0.2-1.3) mg/dL AST 38 H (14-36) U/L ALT 17 (7-56) U/L Alkaline Phosphatase 48 (38-126) U/L C-Reactive Protein (0.0-9.9) mg/L Total Protein 5.7 L (5.8-8.3) g/dL Albumin 3.2 (3.0-4.8) g/dL Globulin 2.5 gm/dL Albumin/Globulin Ratio 1.3 (1.1-1.8) 25-OH Vitamin D Total (30.0-100.0) NG/ML Procalcitonin (0.19-0.49) NG/ML Cortisol AM Sample (4.46-22.7) ug/dL Urine Osmolality (300-1000) mosm/kg Ur Random Sodium meq/L Urine Chloride (32-290) mmol/L Hepatitis A IgM Ab (NEGATIVE) Hep Bs Antigen (NEGATIVE) Hep B Core IgM Ab (NEGATIVE) Hepatitis C Antibody (NEGATIVE) 09/28/17 09/28/17 09/28/17 Range/Units 23:59 17:30 17:30 WBC (4.5-11.0) 10^3/ul RBC (3.5-6.1) 10^6/uL Hgb (12.0-16.0) g/dL Hct (36.0-48.0) % MCV (80.0-105.0) fl MCH (25.0-35.0) pg MCHC (31.0-37.0) g/dl RDW (11.5-14.5) % Plt Count (120.0-450.0) 10^3/uL MPV (7.0-11.0) fl Gran % (50.0-68.0) % Lymph % (Auto) (22.0-35.0) % [place] % (Auto) (1.0-6.0) % Eos % (Auto) (1.5-5.0) % Baso % (Auto) (0.0-3.0) % Gran # (1.4-6.5) Lymph # (Auto) (1.2-3.4) [place] # (Auto) (0.1-0.6) Eos # (Auto) (0.0-0.7) Baso # (Auto) (0.0-2.0) K/mm3 Neutrophils % (Manual) (50.0-70.0) % Lymphocytes % (Manual) (22.0-35.0) % Monocytes % (Manual) (1.0-6.0) % Platelet Evaluation (NORMAL) Sodium 120 L (132-148) mmol/L Potassium 3.9 (3.6-5.0) mmol/L Chloride 89 L (98-107) mmol/L Carbon Dioxide 23 (21-33) mmol/L Anion Gap 12 (10-20) BUN 7 (7-21) mg/dL Creatinine 0.5 L (0.7-1.2) mg/dl Est GFR ( Amer) > 60 Est GFR (Non-Af Amer) > 60 Random Glucose 108 (70-110) mg/dL Calcium 7.2 L (8.4-10.5) mg/dL Phosphorus (2.5-4.5) mg/dL Magnesium (1.7-2.2) mg/dL Total Bilirubin (0.2-1.3) mg/dL AST (14-36) U/L ALT (7-56) U/L Alkaline Phosphatase (38-126) U/L C-Reactive Protein (0.0-9.9) mg/L Total Protein (5.8-8.3) g/dL Albumin (3.0-4.8) g/dL Globulin gm/dL Albumin/Globulin Ratio (1.1-1.8) 25-OH Vitamin D Total (30.0-100.0) NG/ML Procalcitonin (0.19-0.49) NG/ML Cortisol AM Sample (4.46-22.7) ug/dL Urine Osmolality 206 L (300-1000) mosm/kg Ur Random Sodium < 5 meq/L Urine Chloride (32-290) mmol/L Hepatitis A IgM Ab (NEGATIVE) Hep Bs Antigen (NEGATIVE) Hep B Core IgM Ab (NEGATIVE) Hepatitis C Antibody (NEGATIVE) 09/28/17 09/28/17 09/28/17 Range/Units 15:27 15:27 07:00 WBC 7.8 (4.5-11.0) 10^3/ul RBC 2.87 L (3.5-6.1) 10^6/uL Hgb 8.8 L (12.0-16.0) g/dL Hct 24.5 L (36.0-48.0) % MCV 85.4 (80.0-105.0) fl MCH 30.7 (25.0-35.0) pg MCHC 35.9 (31.0-37.0) g/dl RDW 15.2 H (11.5-14.5) % Plt Count 190 (120.0-450.0) 10^3/uL MPV 8.3 (7.0-11.0) fl Gran % 93.6 H (50.0-68.0) % Lymph % (Auto) 3.2 L (22.0-35.0) % [place] % (Auto) 3.2 (1.0-6.0) % Eos % (Auto) 0.0 L (1.5-5.0) % Baso % (Auto) 0.0 (0.0-3.0) % Gran # 7.32 H (1.4-6.5) Lymph # (Auto) 0.3 L (1.2-3.4) [place] # (Auto) 0.3 (0.1-0.6) Eos # (Auto) 0.0 (0.0-0.7) Baso # (Auto) 0.00 (0.0-2.0) K/mm3 Neutrophils % (Manual) 97 H (50.0-70.0) % Lymphocytes % (Manual) 2 L (22.0-35.0) % Monocytes % (Manual) 1 (1.0-6.0) % Platelet Evaluation Normal (NORMAL) Sodium 116 L* (132-148) mmol/L Potassium 4.4 (3.6-5.0) mmol/L Chloride 86 L (98-107) mmol/L Carbon Dioxide 21 (21-33) mmol/L Anion Gap 14 (10-20) BUN 9 (7-21) mg/dL Creatinine 0.5 L (0.7-1.2) mg/dl Est GFR ( Amer) > 60 Est GFR (Non-Af Amer) > 60 Random Glucose 229 H (70-110) mg/dL Calcium 7.3 L (8.4-10.5) mg/dL Phosphorus 1.5 L (2.5-4.5) mg/dL Magnesium 2.0 (1.7-2.2) mg/dL Total Bilirubin 1.1 (0.2-1.3) mg/dL AST 37 H (14-36) U/L ALT 24 (7-56) U/L Alkaline Phosphatase 43 (38-126) U/L C-Reactive Protein (0.0-9.9) mg/L Total Protein 5.7 L (5.8-8.3) g/dL Albumin 3.2 (3.0-4.8) g/dL Globulin 2.5 gm/dL Albumin/Globulin Ratio 1.3 (1.1-1.8) 25-OH Vitamin D Total (30.0-100.0) NG/ML Procalcitonin (0.19-0.49) NG/ML Cortisol AM Sample (4.46-22.7) ug/dL Urine Osmolality (300-1000) mosm/kg Ur Random Sodium meq/L Urine Chloride (32-290) mmol/L Hepatitis A IgM Ab Negative (NEGATIVE) Hep Bs Antigen Negative (NEGATIVE) Hep B Core IgM Ab Negative (NEGATIVE) Hepatitis C Antibody Negative (NEGATIVE) 09/28/17 09/28/17 09/28/17 Range/Units 06:53 00:35 00:35 WBC (4.5-11.0) 10^3/ul RBC (3.5-6.1) 10^6/uL Hgb (12.0-16.0) g/dL Hct (36.0-48.0) % MCV (80.0-105.0) fl MCH (25.0-35.0) pg MCHC (31.0-37.0) g/dl RDW (11.5-14.5) % Plt Count (120.0-450.0) 10^3/uL MPV (7.0-11.0) fl Gran % (50.0-68.0) % Lymph % (Auto) (22.0-35.0) % [place] % (Auto) (1.0-6.0) % Eos % (Auto) (1.5-5.0) % Baso % (Auto) (0.0-3.0) % Gran # (1.4-6.5) Lymph # (Auto) (1.2-3.4) [place] # (Auto) (0.1-0.6) Eos # (Auto) (0.0-0.7) Baso # (Auto) (0.0-2.0) K/mm3 Neutrophils % (Manual) (50.0-70.0) % Lymphocytes % (Manual) (22.0-35.0) % Monocytes % (Manual) (1.0-6.0) % Platelet Evaluation (NORMAL) Sodium (132-148) mmol/L Potassium (3.6-5.0) mmol/L Chloride (98-107) mmol/L Carbon Dioxide (21-33) mmol/L Anion Gap (10-20) BUN (7-21) mg/dL Creatinine (0.7-1.2) mg/dl Est GFR ( Amer) Est GFR (Non-Af Amer) Random Glucose (70-110) mg/dL Calcium (8.4-10.5) mg/dL Phosphorus (2.5-4.5) mg/dL Magnesium (1.7-2.2) mg/dL Total Bilirubin (0.2-1.3) mg/dL AST (14-36) U/L ALT (7-56) U/L Alkaline Phosphatase (38-126) U/L C-Reactive Protein (0.0-9.9) mg/L Total Protein (5.8-8.3) g/dL Albumin (3.0-4.8) g/dL Globulin gm/dL Albumin/Globulin Ratio (1.1-1.8) 25-OH Vitamin D Total 35.9 (30.0-100.0) NG/ML Procalcitonin 0.05 L (0.19-0.49) NG/ML Cortisol AM Sample 19.0 (4.46-22.7) ug/dL Urine Osmolality (300-1000) mosm/kg Ur Random Sodium meq/L Urine Chloride (32-290) mmol/L Hepatitis A IgM Ab (NEGATIVE) Hep Bs Antigen (NEGATIVE) Hep B Core IgM Ab (NEGATIVE) Hepatitis C Antibody (NEGATIVE) 09/28/17 09/27/17 Range/Units 00:35 19:08 WBC (4.5-11.0) 10^3/ul RBC (3.5-6.1) 10^6/uL Hgb (12.0-16.0) g/dL Hct (36.0-48.0) % MCV (80.0-105.0) fl MCH (25.0-35.0) pg MCHC (31.0-37.0) g/dl RDW (11.5-14.5) % Plt Count (120.0-450.0) 10^3/uL MPV (7.0-11.0) fl Gran % (50.0-68.0) % Lymph % (Auto) (22.0-35.0) % [place] % (Auto) (1.0-6.0) % Eos % (Auto) (1.5-5.0) % Baso % (Auto) (0.0-3.0) % Gran # (1.4-6.5) Lymph # (Auto) (1.2-3.4) [place] # (Auto) (0.1-0.6) Eos # (Auto) (0.0-0.7) Baso # (Auto) (0.0-2.0) K/mm3 Neutrophils % (Manual) (50.0-70.0) % Lymphocytes % (Manual) (22.0-35.0) % Monocytes % (Manual) (1.0-6.0) % Platelet Evaluation (NORMAL) Sodium (132-148) mmol/L Potassium (3.6-5.0) mmol/L Chloride (98-107) mmol/L Carbon Dioxide (21-33) mmol/L Anion Gap (10-20) BUN (7-21) mg/dL Creatinine (0.7-1.2) mg/dl Est GFR ( Amer) Est GFR (Non-Af Amer) Random Glucose (70-110) mg/dL Calcium (8.4-10.5) mg/dL Phosphorus (2.5-4.5) mg/dL Magnesium (1.7-2.2) mg/dL Total Bilirubin (0.2-1.3) mg/dL AST (14-36) U/L ALT (7-56) U/L Alkaline Phosphatase (38-126) U/L C-Reactive Protein 48.50 H (0.0-9.9) mg/L Total Protein (5.8-8.3) g/dL Albumin (3.0-4.8) g/dL Globulin gm/dL Albumin/Globulin Ratio (1.1-1.8) 25-OH Vitamin D Total (30.0-100.0) NG/ML Procalcitonin (0.19-0.49) NG/ML Cortisol AM Sample (4.46-22.7) ug/dL Urine Osmolality (300-1000) mosm/kg Ur Random Sodium meq/L Urine Chloride 15 L (32-290) mmol/L Hepatitis A IgM Ab (NEGATIVE) Hep Bs Antigen (NEGATIVE) Hep B Core IgM Ab (NEGATIVE) Hepatitis C Antibody (NEGATIVE) Laboratory Results - last 24 hr 09/27/17 09/28/17 09/28/17 19:08 00:35 00:35 WBC RBC Hgb Hct MCV MCH MCHC RDW Plt Count MPV Gran % Lymph % (Auto) [place] % (Auto) Eos % (Auto) Baso % (Auto) Gran # Lymph # (Auto) [place] # (Auto) Eos # (Auto) Baso # (Auto) Neutrophils % (Manual) Lymphocytes % (Manual) Monocytes % (Manual) Platelet Evaluation Sodium Potassium Chloride Carbon Dioxide Anion Gap BUN Creatinine Est GFR ( Amer) Est GFR (Non-Af Amer) Random Glucose Calcium Phosphorus Magnesium Total Bilirubin AST ALT Alkaline Phosphatase C-Reactive Protein 48.50 H Total Protein Albumin Globulin Albumin/Globulin Ratio 25-OH Vitamin D Total Procalcitonin Cortisol AM Sample 19.0 Urine Osmolality Ur Random Sodium Urine Chloride 15 L Hepatitis A IgM Ab Hep Bs Antigen Hep B Core IgM Ab Hepatitis C Antibody 09/28/17 09/28/17 09/28/17 00:35 06:53 07:00 WBC RBC Hgb Hct MCV MCH MCHC RDW Plt Count MPV Gran % Lymph % (Auto) [place] % (Auto) Eos % (Auto) Baso % (Auto) Gran # Lymph # (Auto) [place] # (Auto) Eos # (Auto) Baso # (Auto) Neutrophils % (Manual) Lymphocytes % (Manual) Monocytes % (Manual) Platelet Evaluation Sodium Potassium Chloride Carbon Dioxide Anion Gap BUN Creatinine Est GFR ( Amer) Est GFR (Non-Af Amer) Random Glucose Calcium Phosphorus Magnesium Total Bilirubin AST ALT Alkaline Phosphatase C-Reactive Protein Total Protein Albumin Globulin Albumin/Globulin Ratio 25-OH Vitamin D Total 35.9 Procalcitonin 0.05 L Cortisol AM Sample Urine Osmolality Ur Random Sodium Urine Chloride Hepatitis A IgM Ab Negative Hep Bs Antigen Negative Hep B Core IgM Ab Negative Hepatitis C Antibody Negative 09/28/17 09/28/17 09/28/17 15:27 15:27 17:30 WBC 7.8 RBC 2.87 L Hgb 8.8 L Hct 24.5 L MCV 85.4 MCH 30.7 MCHC 35.9 RDW 15.2 H Plt Count 190 MPV 8.3 Gran % 93.6 H Lymph % (Auto) 3.2 L [place] % (Auto) 3.2 Eos % (Auto) 0.0 L Baso % (Auto) 0.0 Gran # 7.32 H Lymph # (Auto) 0.3 L [place] # (Auto) 0.3 Eos # (Auto) 0.0 Baso # (Auto) 0.00 Neutrophils % (Manual) 97 H Lymphocytes % (Manual) 2 L Monocytes % (Manual) 1 Platelet Evaluation Normal Sodium 116 L* Potassium 4.4 Chloride 86 L Carbon Dioxide 21 Anion Gap 14 BUN 9 Creatinine 0.5 L Est GFR ( Amer) > 60 Est GFR (Non-Af Amer) > 60 Random Glucose 229 H Calcium 7.3 L Phosphorus 1.5 L Magnesium 2.0 Total Bilirubin 1.1 AST 37 H ALT 24 Alkaline Phosphatase 43 C-Reactive Protein Total Protein 5.7 L Albumin 3.2 Globulin 2.5 Albumin/Globulin Ratio 1.3 25-OH Vitamin D Total Procalcitonin Cortisol AM Sample Urine Osmolality 206 L Ur Random Sodium Urine Chloride Hepatitis A IgM Ab Hep Bs Antigen Hep B Core IgM Ab Hepatitis C Antibody 09/28/17 09/28/17 09/29/17 17:30 23:59 06:20 WBC 8.3 RBC 2.83 L Hgb 8.7 L Hct 24.0 L MCV 84.8 MCH 30.7 MCHC 36.3 RDW 15.6 H Plt Count 213 MPV 8.5 Gran % 75.3 H Lymph % (Auto) 7.9 L [place] % (Auto) 14.9 H Eos % (Auto) 1.4 L Baso % (Auto) 0.5 Gran # 6.27 Lymph # (Auto) 0.7 L [place] # (Auto) 1.2 H Eos # (Auto) 0.1 Baso # (Auto) 0.04 Neutrophils % (Manual) Lymphocytes % (Manual) Monocytes % (Manual) Platelet Evaluation Sodium 120 L Potassium 3.9 Chloride 89 L Carbon Dioxide 23 Anion Gap 12 BUN 7 Creatinine 0.5 L Est GFR ( Amer) > 60 Est GFR (Non-Af Amer) > 60 Random Glucose 108 Calcium 7.2 L Phosphorus Magnesium Total Bilirubin AST ALT Alkaline Phosphatase C-Reactive Protein Total Protein Albumin Globulin Albumin/Globulin Ratio 25-OH Vitamin D Total Procalcitonin Cortisol AM Sample Urine Osmolality Ur Random Sodium < 5 Urine Chloride Hepatitis A IgM Ab Hep Bs Antigen Hep B Core IgM Ab Hepatitis C Antibody 09/29/17 09/29/17 06:20 06:20 WBC RBC Hgb Hct MCV MCH MCHC RDW Plt Count MPV Gran % Lymph % (Auto) [place] % (Auto) Eos % (Auto) Baso % (Auto) Gran # Lymph # (Auto) [place] # (Auto) Eos # (Auto) Baso # (Auto) Neutrophils % (Manual) Lymphocytes % (Manual) Monocytes % (Manual) Platelet Evaluation Sodium 123 L Potassium 3.7 Chloride 92 L Carbon Dioxide 24 Anion Gap 11 BUN 6 L Creatinine 0.5 L Est GFR ( Amer) > 60 Est GFR (Non-Af Amer) > 60 Random Glucose 94 Calcium 7.2 L Phosphorus 1.5 L Magnesium 1.9 Total Bilirubin 0.8 AST 38 H ALT 17 Alkaline Phosphatase 48 C-Reactive Protein Total Protein 5.7 L Albumin 3.2 Globulin 2.5 Albumin/Globulin Ratio 1.3 25-OH Vitamin D Total Procalcitonin Cortisol AM Sample Urine Osmolality Ur Random Sodium Urine Chloride Hepatitis A IgM Ab Hep Bs Antigen Hep B Core IgM Ab Hepatitis C Antibody Critical Care Progress Note - Nutrition Nutrition: Nutrition Category Date Time Status Liquid Diet [DIET] Diets 09/28/17 Breakfast Ordered Assessment/Plan - Assessment and Plan (Free Text) Plan: Patient seen and examined on rounds with resident, agree with note with following additions/exceptions: Patient is 67yo female PMH of Stage IV Breast Ca s/p mastectomy and chemo, with mets to pelvis/bones, HLD, HTN, and CAD s/p JOSIAS on aspirin and brilanta who presents who presented with severe hyponatremia, and CAP. Na improving on IVF NS , Na 123. Patient AAOX3, NAD, doing well clinically. HH stable. Hyponatremia CAP Hx Breast Ca with mets CAD with stents Recommend: - supp o2 as needed - Duonebs PRN - Rocephin, Azithro - BP control - IVF NS - follow up renal - regular diet - monitor HH - check FOBT, iron studies - Follow up cardiology - GI ppx - DVT ppx - stable, transfer to telemetry
--- NOTE | 2017-09-29 12:16 | CP.PCM.PN ---
Subjective - Date & Time of Evaluation Date of Evaluation: 09/29/17 Time of Evaluation: 09:30 - Subjective Subjective: Comfortable on a chair, no fevers, no abdominal pain, no SOB at rest, no diarrhea. Objective - Vital Signs/Intake and Output Vital Signs (last 24 hours): Temp Pulse Resp BP Pulse Ox 98.1 F 63 22 110/62 100 09/29/17 04:00 09/29/17 10:00 09/29/17 10:00 09/29/17 10:00 09/29/17 10:00 Intake and Output: 09/29/17 09/29/17 06:59 18:59 Intake Total 1060 Output Total 700 Balance 360 - Medications Medications: Current Medications Acetaminophen (Tylenol 325mg Tab) 650 mg PO Q4H PRN PRN Reason: Pain, Mild (1-3) Heparin Sodium (Porcine) (Heparin) 5,000 units SC Q8H [facility]E PRN Reason: Protocol Last Admin: 09/29/17 09:39 Dose: 5,000 units Meropenem (Merrem Iv 1 Gm Premix) 50 mls @ 100 mls/hr IVPB Q8 [facility]ENTE PRN Reason: Protocol Stop: 10/07/17 12:46 Last Admin: 09/28/17 22:00 Dose: 100 mls/hr Sodium Chloride (Sodium Chloride 0.9%) 1,000 mls @ 80 mls/hr IV .[id number] [facility] Last Admin: 09/28/17 16:05 Dose: 80 mls/hr Nystatin (Nystatin Oral Susp) 5 ml PO QID [facility] Last Admin: 09/29/17 09:39 Dose: 5 ml Ondansetron HCl (Zofran Inj) 4 mg IVP Q4H PRN PRN Reason: Nausea/Vomiting Pantoprazole Sodium (Protonix Inj) 40 mg IVP DAILY [facility] Last Admin: 09/29/17 09:38 Dose: 40 mg Potassium Phos/Sodium Phos (Neutra-Phos) 1 pkt PO TID [facility] Last Admin: 09/29/17 09:38 Dose: 1 pkt - Labs Labs: 09/29/17 06:20 09/29/17 06:20 - Constitutional Appears: Chronically Ill - Head Exam Head Exam: NORMAL INSPECTION - ENT Exam ENT Exam: Mucous Membranes Moist - Neck Exam Neck Exam: absent: Meningismus - Respiratory Exam Respiratory Exam: Decreased Breath Sounds - Cardiovascular Exam Cardiovascular Exam: +S1, +S2 - GI/Abdominal Exam GI & Abdominal Exam: Distended, Soft. absent: Guarding, Rigid, Tenderness, Rebound Assessment and Plan - Assessment and Plan (Free Text) Plan: Assessment R/O spontaneous bacterial peritonitis; no evidence of UTI noted breast cancer stage 4 on chemotherapy dyslipidemia HTN CAD S/P PCI Plan Continue Merrem pending plan for paracentesis overall prognosis is poor
--- NOTE | 2017-09-29 12:46 | CP.PCM.PN ---
<Jossie Mackenzie - Last Filed: 09/29/17 14:13> Subjective - Date & Time of Evaluation Date of Evaluation: 09/29/17 Time of Evaluation: 09:30 - Subjective Subjective: PGY-[address] Garrison's service Patient seen and examined at bedside in ICU. No acute distress. Patient states that she is feeling better. She states that her sodium has improved. She denies any abd pain, n/v, diarrhea. Objective - Vital Signs/Intake and Output Vital Signs (last 24 hours): Temp Pulse Resp BP Pulse Ox 98.1 F 63 22 110/62 100 09/29/17 04:00 09/29/17 10:00 09/29/17 10:00 09/29/17 10:00 09/29/17 10:00 Intake and Output: 09/29/17 09/29/17 06:59 18:59 Intake Total 1060 Output Total 700 Balance 360 - Medications Medications: Current Medications Acetaminophen (Tylenol 325mg Tab) 650 mg PO Q4H PRN PRN Reason: Pain, Mild (1-3) Heparin Sodium (Porcine) (Heparin) 5,000 units SC Q8H [facility] PRN Reason: Protocol Last Admin: 09/29/17 09:39 Dose: 5,000 units Meropenem (Merrem Iv 1 Gm Premix) 50 mls @ 100 mls/hr IVPB Q8 [facility] PRN Reason: Protocol Stop: 10/07/17 12:46 Last Admin: 09/28/17 22:00 Dose: 100 mls/hr Sodium Chloride (Sodium Chloride 0.9%) 1,000 mls @ 80 mls/hr IV .[id number] [facility] Last Admin: 09/28/17 16:05 Dose: 80 mls/hr Nystatin (Nystatin Oral Susp) 5 ml PO QID [facility] Last Admin: 09/29/17 09:39 Dose: 5 ml Ondansetron HCl (Zofran Inj) 4 mg IVP Q4H PRN PRN Reason: Nausea/Vomiting Pantoprazole Sodium (Protonix Inj) 40 mg IVP DAILY [facility] Last Admin: 09/29/17 09:38 Dose: 40 mg Potassium Phos/Sodium Phos (Neutra-Phos) 1 pkt PO TID [facility] Last Admin: 05/25/18 09:38 Dose: 1 pkt - Labs Labs: 09/29/17 06:20 09/29/17 06:20 - Constitutional Appears: No Acute Distress - Head Exam Head Exam: ATRAUMATIC, NORMOCEPHALIC - Eye Exam Eye Exam: EOMI, Normal appearance - ENT Exam ENT Exam: Mucous Membranes Moist - Respiratory Exam Respiratory Exam: Clear to Ausculation Bilateral, NORMAL BREATHING PATTERN. absent: Rales, Rhonchi, Wheezes, Respiratory Distress - Cardiovascular Exam Cardiovascular Exam: REGULAR RHYTHM, +S1, +S2. absent: Bradycardia, Tachycardia , Murmur - GI/Abdominal Exam GI & Abdominal Exam: Distended, Soft, Normal Bowel Sounds. absent: Firm, Guarding, Tenderness, Hernia, Mass - Extremities Exam Extremities Exam: Normal Inspection. absent: Pedal Edema, Tenderness - Neurological Exam Neurological Exam: Alert, Awake, Oriented x3 Assessment and Plan - Assessment and Plan (Free Text) Assessment: 67 Female with a PMH of stage IV metastatic breast cancer s/p bilateral mastectomy and on current chemotherapy, HLD, HTN, and CAD s/p JOSIAS on aspirin and brilanta initially presented with 2 syncopal episodes. hyponatremia- improving ascites anemia- s/p transfusion 1 unit pRBC hypokalemia syncopal episodes Plan: - CT abd/pelvis/chest showed small pleural effusion, extensive ascites, omental and serosal metastasis, widespread skeletal metatasis, right ureteral stent - patient may need large volume paracentesis however will need to have electrolytes corrected abd duplex patent portal vein, may need by next week - hgb stable s/p transfusion 1 unit pRBC - continue to monitor H&h for bleeding - consider endoscopy if actively bleeding - hepatitis panel negative - continue protonix case reviewed and discussed with Dr. Garrison <Destiny Garrison V - Last Filed: 09/30/17 01:15> Objective - Vital Signs/Intake and Output Vital Signs (last 24 hours): Temp Pulse Resp BP Pulse Ox 97.2 F L 66 18 120/74 100 09/29/17 18:50 09/29/17 18:50 09/29/17 18:50 09/29/17 18:50 09/29/17 12:40 Intake and Output: 09/29/17 09/30/17 18:59 06:59 Intake Total 845 540 Output Total 250 400 Balance 595 140 - Medications Medications: Current Medications Acetaminophen (Tylenol 325mg Tab) 650 mg PO Q4H PRN PRN Reason: Pain, Mild (1-3) Ergocalciferol (Drisdol 50,000 Intl Units Cap) 1 cap PO Q7D [facility] Last Admin: 09/29/17 21:11 Dose: 1 cap Heparin Sodium (Porcine) (Heparin) 5,000 units SC Q8H [facility] PRN Reason: Protocol Last Admin: 09/30/17 00:36 Dose: 5,000 units Meropenem (Merrem Iv 1 Gm Premix) 50 mls @ 100 mls/hr IVPB Q8 [facility] PRN Reason: Protocol Stop: 10/07/17 12:46 Last Admin: 09/29/17 21:32 Dose: 100 mls/hr Nystatin (Nystatin Oral Susp) 5 ml PO QID [facility] Last Admin: 09/29/17 21:31 Dose: 5 ml Ondansetron HCl (Zofran Inj) 4 mg IVP Q4H PRN PRN Reason: Nausea/Vomiting Pantoprazole Sodium (Protonix Ec Tab) 40 mg PO 0600 [facility] Potassium Phos/Sodium Phos (Neutra-Phos) 1 pkt PO TID [facility] Last Admin: 09/29/17 17:33 Dose: 1 pkt - Labs Labs: 09/29/17 06:20 09/29/17 21:15 Attending/Attestation - Attestation I have personally seen and examined this patient.: Yes I have fully participated in the care of the patient.: Yes I have reviewed all pertinent clinical information, including history, physical exam and plan: Yes Notes (Text): This is an addendum to GI progress report dictated by the Micro Computer Specialist.The patient was seen and examined earlier. Medical records, lab studies, imagings were reviewed. Last 24 hours events reviewed. Agreed with the above treatment plan as outlined in [employer]ist 's notes the with the addition of the following 09/30/17 01:15
[2017-09-29] MEDS: Meropenem IV 1 gm in NS 50 ML IVPB SCH ×3 (14:15→21:32)
--- NOTE | 2017-09-29 15:40 | CP.PCM.PN ---
Subjective - Date & Time of Evaluation Date of Evaluation: 09/29/17 Time of Evaluation: 10:00 - Subjective Subjective: Progress Note for Dr. Love Patient was seen and examined at bedside. Pt is OOB, allen has been DC. No acute or adverse events overnight. Patient had 1 u pRBCs without incident. Pt denied fever, chills, shortness of breath, chest pains, abdominal pains, nausea , vomiting, diarrhea, constipation, or dysuria. Objective - Vital Signs/Intake and Output Vital Signs (last 24 hours): Temp Pulse Resp BP Pulse Ox 97.9 F 68 18 123/71 100 09/29/17 12:40 09/29/17 12:40 09/29/17 12:40 09/29/17 12:40 09/29/17 12:40 Intake and Output: 09/29/17 09/29/17 06:59 18:59 Intake Total 1060 520 Output Total 700 250 Balance 360 270 - Medications Medications: Current Medications Acetaminophen (Tylenol 325mg Tab) 650 mg PO Q4H PRN PRN Reason: Pain, Mild (1-3) Heparin Sodium (Porcine) (Heparin) 5,000 units SC Q8H [facility] PRN Reason: Protocol Last Admin: 09/29/17 09:39 Dose: 5,000 units Meropenem (Merrem Iv 1 Gm Premix) 50 mls @ 100 mls/hr IVPB Q8 [facility] PRN Reason: Protocol Stop: 10/07/17 12:46 Last Admin: 09/29/17 14:15 Dose: 100 mls/hr Sodium Chloride (Sodium Chloride 0.9%) 1,000 mls @ 80 mls/hr IV .[id number] [facility] Last Admin: 09/28/17 16:05 Dose: 80 mls/hr Nystatin (Nystatin Oral Susp) 5 ml PO QID [facility] Last Admin: 09/29/17 14:15 Dose: 5 ml Ondansetron HCl (Zofran Inj) 4 mg IVP Q4H PRN PRN Reason: Nausea/Vomiting Pantoprazole Sodium (Protonix Ec Tab) 40 mg PO 0600 [facility] Potassium Phos/Sodium Phos (Neutra-Phos) 1 pkt PO TID [facility] Last Admin: 09/29/17 14:15 Dose: 1 pkt - Labs Labs: 09/29/17 06:20 05/25/18 06:20 - Constitutional Appears: No Acute Distress - Head Exam Head Exam: ATRAUMATIC, NORMAL INSPECTION, NORMOCEPHALIC - Eye Exam Eye Exam: EOMI, Normal appearance, PERRL - ENT Exam ENT Exam: Mucous Membranes Moist, Normal Exam - Respiratory Exam Respiratory Exam: Clear to Ausculation Bilateral, NORMAL BREATHING PATTERN - Cardiovascular Exam Cardiovascular Exam: REGULAR RHYTHM, +S1, +S2. absent: Murmur - GI/Abdominal Exam GI & Abdominal Exam: Soft, Normal Bowel Sounds. absent: Tenderness - Neurological Exam Neurological Exam: Alert, Awake, CN II-XII Intact, Normal Gait, Oriented x3 - Psychiatric Exam Psychiatric exam: Normal Affect, Normal Mood - Skin Skin Exam: Dry, Intact, Normal Color, Warm Assessment and Plan - Assessment and Plan (Free Text) Assessment: 67 F with a PMHx of stage IV metastatic breast cancer s/p bilateral mastectomy, right ureteral stent, HLD, HTN, and CAD s/p JOSIAS on aspirin and plavix presented to [facility] with complaints of syncopal episodes x 2 found to be hypovolemic hyponatremic. Patient is on current chemotherapy with affinitor and Xgeva for bone mets. Patient finish proton beam therapy for chest wall lesions. Patient had a recent cardiac cath with placement of 2 JOSIAS on account of abnormal EKG and stress test. Patient is on plavix and asa. Patient recently had norvasc stopped on account of lower extremity edema and was started on lovaza and potassium. Patient CT abd demonstrated small pleural effusions, extensive ascites, omental and serosal metastases, and widespread sclerotic skeletal mets. Will continue hydration, as pt responded well. Will consult Nephrology Dr. Martin, will bolus 1L and continue 75ml/hr afterwards. Continue BMP q4. Will draw procalcitonin, start IV abx with cefepime, azithromycin and linezolid and consult Dr. Emerson, ID. Continue to monitor CBC, pt's hgb dropped, prompting pRBC transfusions, will transfuse 2 u, 1 already given, will administer second unit today. Hyponatremia improving, patient may require large volume paracentesis.
[2017-09-29] MEDS ORDERED: Potassium Phosphate 15 MMOLE in Sodium Chloride 0.9% 250 ML IVPB ONE (19:12)
[2017-09-29] MEDS ORDERED: Ergocalciferol 50,000 Intl Units Cap PO SCH (19:15)
--- NOTE | 2017-09-29 19:20 | CP.PCM.PN ---
Subjective - Date & Time of Evaluation Date of Evaluation: 09/29/17 Time of Evaluation: 11:00 - Subjective Subjective: Patient reports feeling well; seen before getting prbc transfusion; no shortness of breath reported; Objective - Vital Signs/Intake and Output Vital Signs (last 24 hours): Temp Pulse Resp BP Pulse Ox 97.2 F L 66 18 120/74 100 09/29/17 18:50 09/29/17 18:50 09/29/17 18:50 09/29/17 18:50 09/29/17 12:40 Intake and Output: 09/29/17 09/30/17 18:59 06:59 Intake Total 845 Output Total 250 Balance 595 - Medications Medications: Current Medications Acetaminophen (Tylenol 325mg Tab) 650 mg PO Q4H PRN PRN Reason: Pain, Mild (1-3) Ergocalciferol (Drisdol 50,000 Intl Units Cap) 1 cap PO Q7D [facility] Heparin Sodium (Porcine) (Heparin) 5,000 units SC Q8H [facility] PRN Reason: Protocol Last Admin: 09/29/17 17:38 Dose: 5,000 units Meropenem (Merrem Iv 1 Gm Premix) 50 mls @ 100 mls/hr IVPB Q8 [facility] PRN Reason: Protocol Stop: 10/07/17 12:46 Last Admin: 09/29/17 14:15 Dose: 100 mls/hr Sodium Chloride (Sodium Chloride 0.9%) 1,000 mls @ 80 mls/hr IV .[id number] [facility] Last Admin: 09/28/17 16:05 Dose: 80 mls/hr Potassium Phosphate 15 mmole/ (Sodium Chloride) 255 mls @ 42.5 mls/hr IVPB ONCE ONE Stop: 09/30/17 01:11 Nystatin (Nystatin Oral Susp) 5 ml PO QID [facility] Last Admin: 09/29/17 17:33 Dose: 5 ml Ondansetron HCl (Zofran Inj) 4 mg IVP Q4H PRN PRN Reason: Nausea/Vomiting Pantoprazole Sodium (Protonix Ec Tab) 40 mg PO 0600 [facility] Potassium Phos/Sodium Phos (Neutra-Phos) 1 pkt PO TID [facility] Last Admin: 09/29/17 17:33 Dose: 1 pkt - Labs Labs: 09/29/17 06:20 09/29/17 06:20 - Constitutional Appears: Non-toxic, No Acute Distress - Eye Exam Eye Exam: Normal appearance. absent: Scleral icterus - ENT Exam ENT Exam: Mucous Membranes Moist - Respiratory Exam Respiratory Exam: Clear to Ausculation Bilateral. absent: Respiratory Distress - Cardiovascular Exam Cardiovascular Exam: RRR, +S1, +S2 - GI/Abdominal Exam GI & Abdominal Exam: Distended, Soft - Extremities Exam Additional comments: minimal lower leg edema; - Neurological Exam Neurological Exam: Alert, Awake - Psychiatric Exam Psychiatric exam: Normal Mood. absent: Agitated - Skin Skin Exam: Warm. absent: Cyanosis Assessment and Plan (1) Hyponatremia Assessment & Plan: Secondary to intravascular volume depletion in the setting of decreased PO intake and being on thiazide; serum Na improving gradually; goal is to continue increase of no more than 8-10 meq over 24hrs; -continue NS at 75 cc/hr -monitor Ur osm and Na (Ur osm decreasing gradually) -checking bmp this evening; Status: Acute (2) Hypocalcemia Assessment & Plan: Along with hypophosphatemia; etiology unclear; PTH in normal range and 25-OH vit D level low/normal; -should obtain 1,25-OH vit D level; -starting ergocalciferol 50,000 u weekly; -continue neutraphos tid -giving IV K-phos x 1 dose; 1g calcium gluconate given earlier today; Status: Acute (3) Hypophosphatemia Status: Acute (4) Pulmonary HTN Assessment & Plan: Per echo findings; likely contributed to hyponatremia due to decreased forward flow; if diuretic needed, should use loop diuretic and avoid thiazides; Status: Chronic
[2017-09-29 21:44] LABS: BLOOD UREA NITROGEN 7 mg/dL (7-21); GFR AFRICAN-AMERICAN > 60; GFR NON-AFRICAN AMERICAN > 60
[2017-09-30] MEDS ORDERED: Tolvaptan 15 MG TAB PO ONE (00:10)
[2017-09-30] MEDS: Meropenem IV 1 gm in NS 50 ML IVPB SCH ×3 (05:14→22:46)
[2017-09-30] MEDS: Pantoprazole 40 mg EC Tab PO SCH (05:14)
[2017-09-30 06:30] LABS: BASO # 0.02 K/mm3 (0.0-2.0); BASO % 0.2 % (0.0-3.0); EOS % 0.2 % (1.5-5.0); GRAN # 8.84 (1.4-6.5); GRAN % 83.6 % (50.0-68.0); HEMOGLOBIN 11.5 g/dL (12.0-16.0); LYMPH # 0.6 (1.2-3.4); MEAN CORPUSCULAR HEMOGLOBIN 30.7 pg (25.0-35.0); MEAN CORPUSCULAR HGB CONC 36.2 g/dl (31.0-37.0); MEAN PLATELET VOLUME 8.4 fl (7.0-11.0); MONO # 1.1 (0.1-0.6); RBC 3.74 10^6/uL (3.5-6.1); RED CELL DISTRIBUTION WIDTH 15.1 % (11.5-14.5); WHITE BLOOD COUNT 10.6 10^3/ul (4.5-11.0)
[2017-09-30 07:13] LABS: ALB/GLOB RATIO 1.2 (1.1-1.8); ALBUMIN 3.5 g/dL (3.0-4.8); ALT/SGPT 23 U/L (7-56); AST/SGOT 54 U/L (14-36); BLOOD UREA NITROGEN 6 mg/dL (7-21); CALCIUM 7.6 mg/dL (8.4-10.5); GFR AFRICAN-AMERICAN > 60; GFR NON-AFRICAN AMERICAN > 60; URIC ACID 2.5 mg/dL (2.5-6.2)
[2017-09-30] MEDS: Nystatin 100,000 Units/ml Oral Susp 5 ml UD PO SCH ×4 (09:22→22:44)
[2017-09-30] MEDS: Potassium & Sodium Phosphate PO SCH ×3 (09:23→17:27)
--- NOTE | 2017-09-30 09:38 | PN ---
DATE: 09/30/2017 SUBJECTIVE: The patient is in bed, in no acute distress, nontoxic. No fevers and chills. PHYSICAL EXAMINATION: VITAL SIGNS: Temperature is 97, blood pressure is 120/70, respiratory rate of 18. HEENT: Examination of HEENT is unremarkable. NECK: Supple. LUNGS: Have decreased breath sounds. HEART: Normal S1, S2. ABDOMEN: Soft. LABORATORY DATA: Laboratory examination reveals a white count of 10,000 and hemoglobin of 11. BUN of 6, creatinine of 0.4. Urinalysis is noted. Urine for Legionella antigen is negative. Hepatitis profile is negative. Microbiology reveals the nares are negative. Blood cultures are negative. Urine cultures: Multiple organisms. Review of orders reveals the patient to be on meropenem and was given initial antibiotic empirically. ASSESSMENT AND PLAN: This is a 67-year-old female, seen earlier in [facility], bed 2 with spontaneous bacterial peritonitis to be ruled out. No evidence of urinary tract infection. The patient is doing much better. It is unclear if paracentesis is scheduled in this patient; however, the patient has already been on antibiotics and may be able to switch to p.o. Augmentin. Review of orders confirms the patient to be on meropenem. We will follow with you. Tom Emerson MD
--- NOTE | 2017-09-30 14:43 | CP.PCM.PN ---
Subjective - Date & Time of Evaluation Date of Evaluation: 09/30/17 Time of Evaluation: 11:00 - Subjective Subjective: Patient ate most of her breakfast, feels stronger; still abd distention; Objective - Vital Signs/Intake and Output Vital Signs (last 24 hours): Temp Pulse Resp BP Pulse Ox 98.2 F 71 18 107/63 100 09/30/17 06:00 09/30/17 14:00 09/30/17 06:00 09/30/17 06:00 09/30/17 06:00 Intake and Output: 09/30/17 09/30/17 06:59 18:59 Intake Total 1170 Output Total 1100 Balance 70 - Medications Medications: Current Medications Acetaminophen (Tylenol 325mg Tab) 650 mg PO Q4H PRN PRN Reason: Pain, Mild (1-3) Calcium Carbonate (Oscal) 500 mg PO Q12H [facility] Ergocalciferol (Drisdol 50,000 Intl Units Cap) 1 cap PO Q7D [facility] Last Admin: 09/29/17 21:11 Dose: 1 cap Heparin Sodium (Porcine) (Heparin) 5,000 units SC Q8H [facility] PRN Reason: Protocol Last Admin: 09/30/17 09:23 Dose: 5,000 units Meropenem (Merrem Iv 1 Gm Premix) 50 mls @ 100 mls/hr IVPB Q8 [facility] PRN Reason: Protocol Stop: 10/07/17 12:46 Last Admin: 09/30/17 13:36 Dose: 100 mls/hr Nystatin (Nystatin Oral Susp) 5 ml PO QID [facility] Last Admin: 09/30/17 13:35 Dose: 5 ml Ondansetron HCl (Zofran Inj) 4 mg IVP Q4H PRN PRN Reason: Nausea/Vomiting Pantoprazole Sodium (Protonix Ec Tab) 40 mg PO 0600 [facility] Last Admin: 09/30/17 05:14 Dose: 40 mg Potassium Phos/Sodium Phos (Neutra-Phos) 1 pkt PO TID [facility] Last Admin: 09/30/17 13:35 Dose: 1 pkt - Labs Labs: 09/30/17 06:00 09/30/17 06:00 - Constitutional Appears: Non-toxic, No Acute Distress - Eye Exam Eye Exam: absent: Scleral icterus - ENT Exam ENT Exam: Mucous Membranes Moist - Respiratory Exam Respiratory Exam: Clear to Ausculation Bilateral. absent: Respiratory Distress - Cardiovascular Exam Cardiovascular Exam: RRR, +S1, +S2 - GI/Abdominal Exam GI & Abdominal Exam: Distended, Soft - Extremities Exam Additional comments: mild b/l lower leg edema; - Neurological Exam Neurological Exam: Alert, Awake - Psychiatric Exam Psychiatric exam: Normal Mood. absent: Agitated - Skin Skin Exam: Warm. absent: Cyanosis Assessment and Plan (1) Hyponatremia Assessment & Plan: Resolving; had acute component of volume depletion that was corrected with IVF; IVF stoppend and tolvaptan given last night after serum Na appeared to have leveled off at 124 and urine osm was elevated, indicative of possible SIADH component; on review of previous records, patient has history of mild hyponatremia; -will monitor for now; may need tolvaptan as outpatient (but not easy to obtain coverage); alternatively, can try keeping on low dose lasix 20 mg which may also help with edema associated with pulm htn; Status: Acute (2) Hypocalcemia Assessment & Plan: Somewhat improved; will keep on ergocalciferol 50,000 u weekly and start calcium carbonate 500 mg bid; Status: Acute (3) Hypophosphatemia Assessment & Plan: Improved after IV replenishment yesterday; continue PO neutraphos; Status: Acute (4) Pulmonary HTN Status: Chronic
--- NOTE | 2017-09-30 20:57 | PN ---
DATE: 09/30/2017 This is [facility] visit on the medical floor. For Dr. Love. SUBJECTIVE: The patient is a 67-year-old female admitted by the emergency room for severe electrolyte imbalance, severe anemia with the patient known to suffer from stage IV metastatic breast CA with indapamide, also taken a high dose recently. With this, the patient's electrolytes were severely compromised. Now, they are slowly improving as she feels stronger today, sitting up in chair, and earlier had ambulated with her , feeling better. OBJECTIVE/PHYSICAL EXAMINATION: VITAL SIGNS: Temperature 98.2, pulse 71, respirations 18, blood pressure 107/63, pulse ox 100%. HEENT: Unremarkable. Tongue is slowly improving. She has oropharyngeal candidiasis, for which she continues Mycostatin swish and swallow. NECK: Supple. HEART: Regular rate. LUNGS: Occasional rhonchi. ABDOMEN: Soft with positive ascitic fluid wave, minimal distension. EXTREMITIES: No edema. SKIN: Warm and dry. NEUROLOGIC: Awake, alert, and oriented x3 with equal instructor [employer] bilaterally. LABORATORY DATA: The patient's labs were done. White blood cell count is 10.6, hemoglobin 11.5, hematocrit 31.8, platelet count 242,000. Chem metabolic panel showing a normal sodium of 132, chloride of 99 with a calcium of 7.6 with otherwise normal chem metabolic panel. ASSESSMENT: The assessment for this patient is that of severe electrolyte imbalance with severe hyponatremia, symptomatic anemia, syncope, stage IV metastatic breast cancer, right ureteral stent, oropharyngeal candidiasis, atherosclerotic cardiovascular disease with consideration for a gastrointestinal bleed, history of angioplasty with drug-eluting stent in 07/2017. PLAN: Plan for this patient after conversation with Dr. Love and Dr. Garrison is to restart aspirin 81 mg daily. We will hold off on Plavix in the interim. She is recommended for an EGD and paracentesis for her ascites in the near future with Dr. Chin Story as indicated. This is a complex patient with a comprehensive medically necessary and appropriate visit carried out in excess of 40 minutes [id number] time and also with current conversations held with the patient's family members and nursing staff. Prognosis for this patient is guarded. Walt MD [facility] # [id number]
--- NOTE | 2017-10-01 04:15 | PN ---
DATE: 09/30/2017 SUBJECTIVE: This patient was seen and evaluated earlier, feeling much better. PHYSICAL EXAMINATION: VITAL SIGNS: Temperature is 98.6, pulse 74, blood pressure is 125/66. HEENT: Atraumatic, anicteric. NECK: Supple. HEART: S1 and S2 heard. LUNGS: Bilateral air entry present and reduced at the base. ABDOMEN: Softly distended. Ascites present. EXTREMITIES: Mild bilateral edema present. NEUROLOGIC: Alert, oriented. Moves all extremities. LABORATORY DATA: Hemoglobin 11.5, hematocrit 31.8, WBC 10.6, platelets 242. Chemistry shows AST of 54, total albumin 3.5. IMPRESSION AND PLAN: This 67-year-old patient with a history of stage IV metastatic breast cancer, admitted with severe hyponatremia, and ascites. The patient also found to be anemic with a drop in blood count. The patient has history of coronary artery disease, status post percutaneous coronary intervention 2 months ago on aspirin and Plavix, which has been on hold because of this significant drop in blood count, possible gastrointestinal bleeding. The patient has stent in the left anterior descending. Rule out sepsis, rule out spontaneous bacterial peritonitis. The patient is on antibiotics meropenem as per ID. The patient has hyponatremia now improved. The patient would benefit from large volume paracentesis. We will request Interventional Radiology consult for that. The patient has significant drop in blood count, has recent LAD stent placed, on aspirin and Plavix, which has been on hold. There is no obvious melena or bright red blood per rectum. We would recommend restarting aspirin. The patient will benefit from upper GI endoscopy. We will consider after the large volume paracentesis. We will discuss with Cardiology regarding restarting the Plavix. The concern is the patient has a significant drop in blood count. The patient's hemoglobin on 07/17/2017 was 12.5 and there was close to 4 g drop in blood count. This etiology is unclear. The patient did have a CT scan done, which showed metastases and small pleural effusion. We will consider upper GI endoscopy after the paracentesis. The patient has history of [employer]/oncologist in the Dr Britton in the past and did have ascites as per the patient at that time. Case discussed in detail with Dr. Walt Hunter. Thank you very much for allowing us to participate in the care of the patient. Destiny Garrison MD [facility]
[2017-10-01 05:30] LABS: BASO # 0.07 K/mm3 (0.0-2.0); BASO % 0.9 % (0.0-3.0); EOS # 0.3 (0.0-0.7); EOS % 4.1 % (1.5-5.0); GRAN # 5.4 (1.4-6.5); GRAN % 73.1 % (50.0-68.0); HEMOGLOBIN 10.4 g/dL (12.0-16.0); LYMPH # 0.9 (1.2-3.4); LYMPH % 11.6 % (22.0-35.0); MEAN CELL VOLUME 86.4 fl (80.0-105.0); MEAN CORPUSCULAR HEMOGLOBIN 30.8 pg (25.0-35.0); MEAN CORPUSCULAR HGB CONC 35.6 g/dl (31.0-37.0); MEAN PLATELET VOLUME 8.2 fl (7.0-11.0); MONO # 0.8 (0.1-0.6); MONO % 10.3 % (1.0-6.0); RBC 3.38 10^6/uL (3.5-6.1); RED CELL DISTRIBUTION WIDTH 15.5 % (11.5-14.5); WHITE BLOOD COUNT 7.4 10^3/ul (4.5-11.0)
[2017-10-01] MEDS: Pantoprazole 40 mg EC Tab PO SCH (05:41)
[2017-10-01] MEDS: Meropenem IV 1 gm in NS 50 ML IVPB SCH ×3 (05:41→21:45)
[2017-10-01 06:32] LABS: ALB/GLOB RATIO 1.2 (1.1-1.8); ALBUMIN 3.1 g/dL (3.0-4.8); ALT/SGPT 18 U/L (7-56); AST/SGOT 39 U/L (14-36); BLOOD UREA NITROGEN 6 mg/dL (7-21); CALCIUM 7.2 mg/dL (8.4-10.5); GFR AFRICAN-AMERICAN > 60; GFR NON-AFRICAN AMERICAN > 60
[2017-10-01] MEDS: Nystatin 100,000 Units/ml Oral Susp 5 ml UD PO SCH ×4 (09:28→21:45)
[2017-10-01] MEDS: Potassium & Sodium Phosphate PO SCH ×3 (09:29→17:01)
--- NOTE | 2017-10-01 15:03 | PN ---
DATE: 10/01/2017 SUBJECTIVE: The patient is in bed in no acute distress. PHYSICAL EXAMINATION: VITAL SIGNS: Temperature is 98, blood pressure is 106/60, respiratory rate of 20, heart rate of 66. HEENT: Unremarkable. NECK: Supple. LUNGS: Have decreased breath sounds. HEART: Normal S1, S2. ABDOMEN: Soft. LABORATORY EXAMINATION: Reveals a white count of 7.4, hemoglobin of 10. Chemistries reveals a BUN of 6, creatinine of 0.5. Urinalysis is noted and serology is reviewed. Urine for Legionella antigen is negative. Review of the orders reveals the patient to be on meropenem. ASSESSMENT AND PLAN: A 67-year-old female with no evidence of urinary tract infection and rule out spontaneous bacterial peritonitis and maybe able to switch to p.o. Augmentin. Dr. Walt Hunter's note is reviewed in this patient who has stage IV metastatic breast cancer and we will follow with you. Long-term prognosis is poor. Tom Emerson MD
--- NOTE | 2017-10-01 18:36 | PN ---
DATE: 10/01/2017 This is [facility] visit on the telemetry floor. For Dr. Love. SUBJECTIVE: The patient is a 67-year-old female, now recuperating after being admitted for severe anemia and severe electrolyte imbalance including a sodium of 111 with worsening ascites. With this, the patient is now reporting she feels stronger with her at the bedside with her labs within normal range this visit with renal consult with Dr. Lauren correcting her electrolytes. At this point, there is need for her ascitic fluid to be drained with a paracentesis with EGD strongly recommended as the patient has significant symptomatic anemia while hospitalized. OBJECTIVE PHYSICAL EXAMINATION: VITAL SIGNS: Temperature 98, pulse 74, respirations 20, blood pressure 106/66, pulse ox 100%. HEENT: Unremarkable. Tongue is now within normal range after treated for oropharyngeal candidiasis. NECK: Supple. HEART: Regular rate. Occasional ectopic beat. LUNGS: Rare rhonchi. ABDOMEN: Soft with distention with positive ascitic fluid wave, nontender. EXTREMITIES: No edema. SKIN: Warm and dry. NEUROLOGIC: Awake, alert and oriented. LABORATORY DATA: The patient's labs were done. White blood cell count of 7.4, hemoglobin of 10.4, hematocrit of 29.2, platelet count of 220,000 with a chem metabolic panel now within normal range. Sodium of 134 with a chloride of 102, calcium 7.2, AST of 39. ASSESSMENT: The assessment for this patient is that of severe hyponatremia, severe symptomatic anemia, stage IV metastatic breast cancer, ascites, atherosclerotic cardiovascular disease, status post FASHION STYLIST with stenting with Plavix to be continued to hold; however, aspirin will be restarted. Rule out bacterial peritonitis. Oropharyngeal candidiasis resolving, history of syncope x2. PLAN: The plan for this patient after conversation with Dr. Love, Dr. Garrison and the patient's at the bedside and Dr. Emerson, Infectious Disease is to continue present medical regimen. We will ask for a consult with Dr. Chin Story for paracentesis evaluation with Ecotrin started. Plavix will be on hold for now with antibiotics continue as per Dr. Emerson. We also planned EGD with Dr. Garrison. We will monitor clinically and with labs. It should be noted that her is reporting the patient is also allergic to Vicodin, which will be recommended to be as she reports Dr. Chin Story had given her that after a previous procedure with her allergy symptom developing. This is a complex patient with a comprehensive medically necessary and appropriate visit carried out in excess of 20 minutes [id number] time with the patient's questions answered to her satisfaction and doctors spoken to as above. Walt Hunter MD
[2017-10-02] MEDS: Meropenem IV 1 gm in NS 50 ML IVPB SCH (06:04)
[2017-10-02] MEDS: Pantoprazole 40 mg EC Tab PO SCH (06:04)
[2017-10-02 07:33] LABS: BASO # 0.05 K/mm3 (0.0-2.0); BASO % 0.8 % (0.0-3.0); EOS # 0.3 (0.0-0.7); EOS % 5.6 % (1.5-5.0); GRAN # 4.11 (1.4-6.5); GRAN % 69.5 % (50.0-68.0); HEMOGLOBIN 10.2 g/dL (12.0-16.0); LYMPH # 0.7 (1.2-3.4); LYMPH % 11.8 % (22.0-35.0); MEAN CELL VOLUME 88.2 fl (80.0-105.0); MEAN PLATELET VOLUME 8.4 fl (7.0-11.0); MONO # 0.7 (0.1-0.6); MONO % 12.3 % (1.0-6.0); RBC 3.4 10^6/uL (3.5-6.1); RED CELL DISTRIBUTION WIDTH 15.6 % (11.5-14.5); WHITE BLOOD COUNT 5.9 10^3/ul (4.5-11.0)
[2017-10-02 07:38] LABS: ALB/GLOB RATIO 1.1 (1.1-1.8); ALBUMIN 3.1 g/dL (3.0-4.8); ALT/SGPT 19 U/L (7-56); AST/SGOT 39 U/L (14-36); BLOOD UREA NITROGEN 8 mg/dL (7-21); CALCIUM 7.3 mg/dL (8.4-10.5); GFR AFRICAN-AMERICAN > 60; GFR NON-AFRICAN AMERICAN > 60
--- NOTE | 2017-10-02 09:51 | PN ---
DATE: 10/02/2017 SUBJECTIVE: The patient is in bed, in no acute distress, nontoxic. PHYSICAL EXAMINATION: VITAL SIGNS: Temperature is 98, blood pressure is 120/60, respiratory rate of 18. HEENT: Examination of HEENT is unremarkable. NECK: Supple. LUNGS: Have decreased breath sounds. HEART: Normal S1, S2. ABDOMEN: Soft, nontender. LABORATORY DATA: Laboratory examination reveals a white count of 5.9, hemoglobin of 10, platelets of 269. BUN of 8, creatinine of 0.8. Procalcitonin 0.05. Urinalysis is noted and urine Legionella antigen is negative. Microbiology reveals the blood cultures are no growth. Urine cultures are no growth. Review of orders reveals the patient to be on meropenem. ASSESSMENT AND PLAN: A 67-year-old female with no evidence of urinary tract infection and must rule out spontaneous bacterial peritonitis in a patient with stage V metastatic breast cancer and ascites. Lopez cultures negative. No paracentesis was done. Maybe able to switch to p.o. Augmentin upon discharge at 875 [address]. [address]. to complete 7-10 days of total therapy. Today is day #5 of meropenem. Tom Emerson MD
[2017-10-02] MEDS: Amoxicillin-Clav 875-125 mg Tab PO SCH ×2 (09:54→21:24)
[2017-10-02] MEDS: Potassium & Sodium Phosphate PO SCH ×3 (09:55→18:28)
[2017-10-02] MEDS: Nystatin 100,000 Units/ml Oral Susp 5 ml UD PO SCH ×4 (09:55→21:24)
--- NOTE | 2017-10-02 17:01 | PN ---
DATE: 10/02/2017 This is Ms[facility] Bean's hospital visit on the remote telemetry floor. For Dr. Love. SUBJECTIVE: The patient is a 67-year-old female, now seen sitting up in a chair with her at the bedside, in no acute distress after correction of severe electrolyte imbalance with a sodium of 111 and severe anemia for which she was transfused with good effect. With this, the patient is now known to have significant ascites, for which a paracentesis is planned for tomorrow as per Dr. Chin Story. The patient also is known to suffer from stage IV metastatic breast CA and at present it has no pain. Plavix is being held in anticipation of the procedure tomorrow. OBJECTIVE PHYSICAL EXAMINATION: VITAL SIGNS: Temperature 98, pulse 72, respirations 18, blood pressure 111/61, pulse ox of 100%. HEENT: Unremarkable. Tongue is improving from her oropharyngeal candidiasis. NECK: Supple. HEART: Regular rate. LUNGS: Occasional rhonchi. ABDOMEN: Soft with positive ascitic fluid wave, nontender. EXTREMITIES: No edema. SKIN: Warm and dry. NEUROLOGIC: Awake, alert and oriented. LABORATORY DATA: The patient's labs were done. White blood cell count of 5.9; hemoglobin of 10.2, up from 7 on 09/28/2017; hematocrit of 30; platelet count of 269,000 with a chem metabolic panel completely within normal limits except for an AST of 39. Her urine culture and blood cultures were reported as negative. ASSESSMENT: The assessment for this patient is that of severe electrolyte abnormality with severe hyponatremia secondary to indapamide?; ascites; symptomatic anemia; stage IV breast cancer; atherosclerotic cardiovascular disease, status post percutaneous transluminal coronary angioplasty; oropharyngeal candidiasis; history of syncope x2; also rule out bacterial peritonitis on antibiotics. PLAN: Plan for this patient after conversation with Dr. Love and Dr. Garrison is to as per a paracentesis with Dr. Chin Story with Plavix to be held in the interim with EGD planned as per Dr. Garrison after the paracentesis. Also, it should be noted that the patient is not allergic to Vicodin but to vancomycin. This is an error yesterday, which was corrected. We will also hold her subcu heparin, which was given three times a day initially cut to twice a day, we will decrease to once a day, but it will be held in anticipation of her procedures tomorrow. We will also discontinue her telemetry. This is a complex patient with a comprehensive medically necessary and appropriate visit carried out in excess of 30 minutes [id number] time with discussions held with the patient's nurses, the patient's at the bedside and Dr. Garrison regarding her care. Walt Hunter MD
--- NOTE | 2017-10-02 17:08 | CP.PCM.PN ---
Subjective - Date & Time of Evaluation Date of Evaluation: 10/02/17 Time of Evaluation: 12:00 - Subjective Subjective: Patient tolerating diet well; no sob; Objective - Vital Signs/Intake and Output Vital Signs (last 24 hours): Temp Pulse Resp BP Pulse Ox 98 F 72 18 121/64 100 10/02/17 16:52 10/02/17 16:52 10/02/17 16:52 10/02/17 16:52 10/02/17 16:52 Intake and Output: 10/02/17 10/02/17 06:59 18:59 Intake Total 1040 Output Total 0 Balance 1040 - Medications Medications: Current Medications Acetaminophen (Tylenol 325mg Tab) 650 mg PO Q4H PRN PRN Reason: Pain, Mild (1-3) Amoxicillin/Clavulanate Potassium (Augmentin 875 Mg-125 Mg Tab) 1 tab PO Q12 [facility] PRN Reason: Protocol Stop: 10/07/17 10:01 Last Admin: 10/02/17 09:54 Dose: 1 tab Aspirin (Ecotrin) 81 mg PO DAILY [facility] Last Admin: 10/02/17 09:55 Dose: 81 mg Calcium Carbonate (Oscal) 500 mg PO Q12H [facility] Last Admin: 10/02/17 09:57 Dose: 500 mg Ergocalciferol (Drisdol 50,000 Intl Units Cap) 1 cap PO Q7D [facility] Last Admin: 09/29/17 21:11 Dose: 1 cap Heparin Sodium (Porcine) (Heparin) 5,000 units SC DAILY [facility] PRN Reason: Protocol Nystatin (Nystatin Oral Susp) 5 ml PO QID [facility] Last Admin: 10/02/17 14:44 Dose: 5 ml Ondansetron HCl (Zofran Inj) 4 mg IVP Q4H PRN PRN Reason: Nausea/Vomiting Pantoprazole Sodium (Protonix Ec Tab) 40 mg PO 0600 [facility] Last Admin: 10/02/17 06:04 Dose: 40 mg Potassium Phos/Sodium Phos (Neutra-Phos) 1 pkt PO TID [facility] Last Admin: 10/02/17 14:44 Dose: 1 pkt - Labs Labs: 10/02/17 06:00 10/02/17 06:00 - Constitutional Appears: Non-toxic, No Acute Distress - Eye Exam Eye Exam: absent: Scleral icterus - ENT Exam ENT Exam: Mucous Membranes Moist - Respiratory Exam Respiratory Exam: Clear to Ausculation Bilateral. absent: Respiratory Distress - Cardiovascular Exam Cardiovascular Exam: RRR, +S1, +S2 - GI/Abdominal Exam GI & Abdominal Exam: Distended, Soft - Extremities Exam Additional comments: moderately edematous legs L > R; - Neurological Exam Neurological Exam: Alert, Awake - Psychiatric Exam Psychiatric exam: Normal Mood. absent: Agitated - Skin Skin Exam: Warm. absent: Cyanosis Assessment and Plan (1) Hyponatremia Assessment & Plan: Much improved with patient having adequate PO intake; serum Na stable, continue to monitor; Status: Acute (2) Hypocalcemia Assessment & Plan: Low/normal Ca, stable, continue PO calcium supplementation and ergocalciferol; Status: Acute (3) Hypophosphatemia Status: Acute (4) Ascites Assessment & Plan: Patient for planned paracentesis tomorrow; will benefit from being on loop diuretics to help prevent ascites accumulation as well as help control hyponatremia; can start day after procedure; Status: Chronic (5) Pulmonary HTN Status: Chronic
[2017-10-03] MEDS: Pantoprazole 40 mg EC Tab PO SCH (05:01)
[2017-10-03 06:50] LABS: INR 1.05 (0.93-1.08); PROTHROMBIN TIME 12.1 SECONDS (9.4-12.5)
[2017-10-03 06:51] LABS: PARTIAL THROMBOPLASTIN TIME 28.6 Seconds (25.1-36.5)
[2017-10-03 06:53] LABS: ALB/GLOB RATIO 1.1 (1.1-1.8); ALT/SGPT 19 U/L (7-56); AST/SGOT 50 U/L (14-36); BLOOD UREA NITROGEN 10 mg/dL (7-21); CALCIUM 7.3 mg/dL (8.4-10.5); GFR AFRICAN-AMERICAN > 60; GFR NON-AFRICAN AMERICAN > 60
[2017-10-03 07:36] LABS: BASO # 0.03 K/mm3 (0.0-2.0); BASO % 0.5 % (0.0-3.0); EOS # 0.3 (0.0-0.7); EOS % 4.3 % (1.5-5.0); GRAN # 4.37 (1.4-6.5); HEMOGLOBIN 10.1 g/dL (12.0-16.0); LYMPH # 0.7 (1.2-3.4); LYMPH % 11.5 % (22.0-35.0); MEAN CELL VOLUME 88.8 fl (80.0-105.0); MEAN CORPUSCULAR HEMOGLOBIN 30.6 pg (25.0-35.0); MEAN CORPUSCULAR HGB CONC 34.5 g/dl (31.0-37.0); MEAN PLATELET VOLUME 8.3 fl (7.0-11.0); MONO # 0.6 (0.1-0.6); MONO % 10.7 % (1.0-6.0); RBC 3.3 10^6/uL (3.5-6.1); RED CELL DISTRIBUTION WIDTH 15.4 % (11.5-14.5)
--- NOTE | 2017-10-03 09:23 | PN ---
DATE: 10/01/2017 SUBJECTIVE: This patient was seen and evaluated earlier today. Feels much better now. Tolerating the diet. PHYSICAL EXAMINATION: VITAL SIGNS: Temperature is 98, pulse 74, blood pressure is 106/66. HEENT: Atraumatic, anicteric. NECK: Supple. HEART: S1 and S2 heard. LUNGS: Bilateral air entry present. ABDOMEN: Soft. Ascites present. EXTREMITIES: Mild bilateral edema present. NEUROLOGICAL: Alert, oriented. LABORATORY DATA: Hemoglobin 10.4, hematocrit 29.2, WBC 7.4, platelets 220. Chemistry is creatinine 0.5, BUN 6. IMPRESSION: This 67-year-old patient with metastatic breast cancer, admitted with severe hyponatremia, ascites and found to be anemic with a drop in blood count with a near syncopal episode. The patient has coronary artery disease, status post percutaneous coronary intervention and stent placement 2 months ago, on aspirin and Plavix. The patient has a stent in the left anterior descending artery. The patient has restarted the aspirin and if the patient's hemoglobin is stable, could restart the Plavix. Rule out sepsis. The patient has ascites, large, refractory in view of this hyponatremia and the patient would benefit from the large volume paracentesis. Request interventional radiologist for paracentesis. The patient would benefit from the upper GI endoscopy to further evaluate in view of the significant drop in blood count. The patient's hemoglobin, there was nearly 4 g drop in the blood count since July. It is reasonable to start the patient back on Plavix if there is no active bleeding. Thank you very much for allowing us to participate in the care of the patient. Destiny Garrison MD
[2017-10-03] MEDS: Nystatin 100,000 Units/ml Oral Susp 5 ml UD PO SCH ×4 (11:32→21:37)
[2017-10-03] MEDS: Potassium & Sodium Phosphate PO SCH ×3 (11:32→18:00)
[2017-10-03] MEDS: Amoxicillin-Clav 875-125 mg Tab PO SCH ×2 (11:33→21:38)
--- NOTE | 2017-10-03 13:51 | CP.PCM.PN ---
Subjective - Date & Time of Evaluation Date of Evaluation: 10/03/17 Time of Evaluation: 11:00 - Subjective Subjective: Progress Note for Dr. Love Patient was seen and examined at bedside. Pt is lying comfortably, is able to OOB. Patient has mild complaints of lower extremity swelling. No acute or adverse events overnight. Patient had 1 u pRBCs without incident. Pt denied fever, chills, shortness of breath, chest pains, abdominal pains, nausea, vomiting, diarrhea, constipation, or dysuria. patient is for paracentesis today. Objective - Vital Signs/Intake and Output Vital Signs (last 24 hours): Temp Pulse Resp BP Pulse Ox 98.6 F 75 19 131/69 100 10/03/17 13:06 10/03/17 13:06 10/03/17 13:06 10/03/17 13:06 10/03/17 13:06 Intake and Output: 10/03/17 10/03/17 06:59 18:59 Intake Total 0 Output Total 600 Balance -600 - Medications Medications: Current Medications Acetaminophen (Tylenol 325mg Tab) 650 mg PO Q4H PRN PRN Reason: Pain, Mild (1-3) Albumin Human (Albumin Human 25% (12.5 Gm/50 Ml)) 12.5 gm IV Q12H ON [facility] OF [facility] Stop: 10/04/17 01:46 Amoxicillin/Clavulanate Potassium (Augmentin 875 Mg-125 Mg Tab) 1 tab PO Q12 [facility] PRN Reason: Protocol Stop: 10/07/17 10:01 Last Admin: 10/03/17 11:33 Dose: Not Given Aspirin (Ecotrin) 81 mg PO DAILY [facility] Last Admin: 10/03/17 11:33 Dose: Not Given Calcium Carbonate (Oscal) 500 mg PO Q12H ON [facility] OF [facility] Last Admin: 10/03/17 11:32 Dose: Not Given Ergocalciferol (Drisdol 50,000 Intl Units Cap) 1 cap PO Q7D ON [facility] OF [facility] Last Admin: 09/29/17 21:11 Dose: 1 cap Furosemide (Lasix) 20 mg IVP Q12 [facility] Stop: 10/04/17 10:01 Heparin Sodium (Porcine) (Heparin) 5,000 units SC DAILY [facility] PRN Reason: Protocol Nystatin (Nystatin Oral Susp) 5 ml PO QID ON [facility] OF [facility] Last Admin: 10/03/17 11:32 Dose: Not Given Ondansetron HCl (Zofran Inj) 4 mg IVP Q4H PRN PRN Reason: Nausea/Vomiting Pantoprazole Sodium (Protonix Ec Tab) 40 mg PO 0600 [facility] Last Admin: 10/03/17 05:01 Dose: Not Given Potassium Phos/Sodium Phos (Neutra-Phos) 1 pkt PO TID ON [facility] OF [facility] Last Admin: 10/03/17 11:32 Dose: Not Given - Labs Labs: 10/03/17 06:10 10/03/17 06:10 PT 12.1 SECONDS (9.4-12.5) 10/03/17 06:10 INR 1.05 (0.93-1.08) 10/03/17 06:10 APTT 28.6 Seconds (25.1-36.5) 10/03/17 06:10 - Constitutional Appears: No Acute Distress - Head Exam Head Exam: ATRAUMATIC, NORMAL INSPECTION, NORMOCEPHALIC - Eye Exam Eye Exam: EOMI, Normal appearance, PERRL - ENT Exam ENT Exam: Mucous Membranes Moist, Normal Exam - Respiratory Exam Respiratory Exam: Clear to Ausculation Bilateral, NORMAL BREATHING PATTERN - Cardiovascular Exam Cardiovascular Exam: REGULAR RHYTHM, +S1, +S2. absent: Murmur - GI/Abdominal Exam GI & Abdominal Exam: Soft, Normal Bowel Sounds. absent: Tenderness - Extremities Exam Extremities Exam: Pedal Edema (+2) - Neurological Exam Neurological Exam: Alert, Awake, CN II-XII Intact, Normal Gait, Oriented x3 - Psychiatric Exam Psychiatric exam: Normal Affect, Normal Mood - Skin Skin Exam: Dry, Intact, Normal Color, Warm Assessment and Plan - Assessment and Plan (Free Text) Assessment: 67 F with a PMHx of stage IV metastatic breast cancer s/p bilateral mastectomy, right ureteral stent, HLD, HTN, and CAD s/p JOSIAS on aspirin and plavix presented [place] [facility] with complaints of syncopal episodes x 2 found to be hypovolemic hyponatremic. Patient is on current chemotherapy with affinitor and Xgeva for bone mets. Patient finish proton beam therapy for chest wall lesions. Patient had a recent cardiac cath with placement of 2 JOSIAS on account of abnormal EKG and stress test. Patient is on plavix and asa. Patient recently had norvasc stopped on account of lower extremity edema and was started on lovaza and potassium. Patient CT abd demonstrated small pleural effusions, extensive ascites, omental and serosal metastases, and widespread sclerotic skeletal mets. Will continue hydration, as pt responded well. Will consult Nephrology Dr. Martin, will bolus 1L and continue 75ml/hr afterwards. Continue BMP q4. Will draw procalcitonin, start IV abx with cefepime, azithromycin and linezolid and consult Dr. Emerson, [place]. Continue to monitor CBC, pt's hgb dropped, prompting pRBC transfusions, 2 in total. Hyponatremia improving, patient for large volume paracentesis by IR Dr Story. Will admin albumin and lasix for the pedal edema.
[2017-10-03] MEDS ORDERED: Propofol 10 mg/ml Inj (20 ML) ONE (14:37)
[2017-10-03] MEDS ORDERED: Sodium Chloride 0.9% 1,000 ML IV SCH (15:00)
--- NOTE | 2017-10-03 15:57 | PN ---
DATE: 10/03/2017 CARDIOLOGY FOLLOWUP SUBJECTIVE: The patient is comfortable without shortness of breath. PHYSICAL EXAMINATION: VITAL SIGNS: Blood pressure 131/70, heart rates in the 70s. NECK: Negative JVD. LUNGS: Without rales. HEART: Reveals S1, S2. EXTREMITIES: Without edema. LABORATORY DATA: Hemoglobin remains at 10.1. Chemistries, BUN and creatinine unremarkable. IMPRESSION: 1. Marked anemia. 2. Stable angina. 3. History of percutaneous transluminal coronary angioplasty in the past. 4. History of cancer. Given these findings, there is no evidence for active bleeding at this time. Chin Green MD
[2017-10-03] MEDS: Albumin Human 25% (12.5 gm/50 ml) IV SCH (17:25)
--- NOTE | 2017-10-03 20:10 | CP.PCM.PN ---
Subjective - Date & Time of Evaluation Date of Evaluation: 10/03/17 Time of Evaluation: 12:00 - Subjective Subjective: Patient seen before EGD; was NPO; otherwise reportedly feeling well; complains of leg swelling; Objective - Vital Signs/Intake and Output Vital Signs (last 24 hours): Temp Pulse Resp BP Pulse Ox 98.8 F 82 20 106/68 99 10/03/17 18:00 10/03/17 18:00 10/03/17 18:00 10/03/17 18:00 10/03/17 18:00 Intake and Output: 10/03/17 10/04/17 18:59 06:59 Intake Total 75 Balance 75 - Medications Medications: Current Medications Acetaminophen (Tylenol 325mg Tab) 650 mg PO Q4H PRN PRN Reason: Pain, Mild (1-3) Albumin Human (Albumin Human 25% (12.5 Gm/50 Ml)) 12.5 gm IV Q12H [facility] Stop: 10/04/17 01:46 Last Admin: 10/03/17 17:25 Dose: 12.5 gm Amoxicillin/Clavulanate Potassium (Augmentin 875 Mg-125 Mg Tab) 1 tab PO Q12 [facility] PRN Reason: Protocol Stop: 10/07/17 10:01 Last Admin: 10/03/17 11:33 Dose: Not Given Aspirin (Ecotrin) 81 mg PO DAILY [facility] Last Admin: 10/03/17 11:33 Dose: Not Given Calcium Carbonate (Oscal) 500 mg PO Q12H [facility] Last Admin: 10/03/17 11:32 Dose: Not Given Ergocalciferol (Drisdol 50,000 Intl Units Cap) 1 cap PO Q7D [facility] Last Admin: 09/29/17 21:11 Dose: 1 cap Furosemide (Lasix) 20 mg IVP Q12 [facility] Stop: 10/04/17 10:01 Heparin Sodium (Porcine) (Heparin) 5,000 units SC DAILY [facility] PRN Reason: Protocol Nystatin (Nystatin Oral Susp) 5 ml PO QID [facility] Last Admin: 10/03/17 18:00 Dose: Not Given Ondansetron HCl (Zofran Inj) 4 mg IVP Q4H PRN PRN Reason: Nausea/Vomiting Pantoprazole Sodium (Protonix Ec Tab) 40 mg PO 0600 [facility] Last Admin: 05/29/18 05:01 Dose: Not Given Potassium Phos/Sodium Phos (Neutra-Phos) 1 pkt PO TID [facility] Last Admin: 10/03/17 18:00 Dose: Not Given - Labs Labs: 10/03/17 06:10 10/03/17 06:10 PT 12.1 SECONDS (9.4-12.5) 10/03/17 06:10 INR 1.05 (0.93-1.08) 10/03/17 06:10 APTT 28.6 Seconds (25.1-36.5) 10/03/17 06:10 - Constitutional Appears: Non-toxic, No Acute Distress - Eye Exam Eye Exam: Normal appearance - ENT Exam ENT Exam: Mucous Membranes Moist - Respiratory Exam Respiratory Exam: Clear to Ausculation Bilateral. absent: Respiratory Distress - Cardiovascular Exam Cardiovascular Exam: RRR, +S1, +S2 - GI/Abdominal Exam GI & Abdominal Exam: Distended, Soft. absent: Tenderness - Extremities Exam Additional comments: moderate b/l lower leg edema; - Neurological Exam Neurological Exam: Alert, Awake - Psychiatric Exam Psychiatric exam: Normal Mood. absent: Agitated - Skin Skin Exam: Warm. absent: Cyanosis Assessment and Plan (1) Hyponatremia Assessment & Plan: Much improved; initially intravascularly volume depleted on presentation, also with likely component of SIADH; being started on lasix for diuresis, will help counter hyponatremia; Status: Acute (2) Hypocalcemia Assessment & Plan: Stable, continue Ca and vit D supplementation; Status: Acute (3) Hypophosphatemia Assessment & Plan: Stable, continue neutraphos bid; Status: Acute (4) Ascites Assessment & Plan: For therapeutic paracentesis tomorrow; agree with starting lasix but should hold dose tomorrow; will likely need IV albumin 6g per liter removed to avoid intravascular volume depletion (if large volume removed); Status: Chronic (5) Pulmonary HTN Status: Chronic
--- NOTE | 2017-10-04 01:10 | PN ---
DATE: 10/03/2017 SUBJECTIVE: Patient is in bed, in no acute distress, nontoxic. PHYSICAL EXAMINATION: VITAL SIGNS: Temperature is 98, blood pressure is 106/60, respiratory rate 20, heart rate of 81. HEENT: Unremarkable. NECK: Supple. LUNGS: Have decreased breath sounds. HEART: Normal S1 and S2. ABDOMEN: Soft, nontender. LABORATORY DATA: Reveals a white count of 6, hemoglobin of 10, platelets of 263, BUN of 10, creatinine of 0.5. Urinalysis is noted, and serology is noted. Microbiology is reviewed. Patient had esophagogastroduodenoscopy and has multiple antral erosions. ASSESSMENT AND PLAN: This is a 67-year-old female seen earlier today with no evidence of urinary tract infections and spontaneous bacterial peritonitis ruled out, and with stage IV metastatic breast cancer and ascites, cultures negative, status post esophagogastroduodenoscopy. Today is day #6 of meropenem, now on p.o. Augmentin. Patient had completed 6 days of meropenem, now on p.o. Augmentin to complete for 5 days. Tom Emerson MD
[2017-10-04] MEDS: Albumin Human 25% (12.5 gm/50 ml) IV SCH ×4 (01:13→21:15)
[2017-10-04] MEDS: Pantoprazole 40 mg EC Tab PO SCH (04:59)
[2017-10-04] MEDS: Nystatin 100,000 Units/ml Oral Susp 5 ml UD PO SCH ×4 (09:13→21:16)
[2017-10-04] MEDS: Amoxicillin-Clav 875-125 mg Tab PO SCH ×2 (09:13→21:16)
[2017-10-04] MEDS: Potassium & Sodium Phosphate PO SCH ×3 (09:13→17:48)
[2017-10-04 12:43] LABS: BODY FLUID TYPE PERITONEAL/ASCITES
--- NOTE | 2017-10-04 12:59 | CP.PCM.PN ---
<Pricila Gil - Last Filed: 10/04/17 12:58> Subjective - Date & Time of Evaluation Date of Evaluation: 10/04/17 Time of Evaluation: 10:15 - Subjective Subjective: Seen and examined at the bedside earlier today, chart reviewed. Patient awaiting to have paracentesis today. Denies nausea, vomiting, fever chills or abdominal pain. Patient had endoscopy yesterday found to have narrowing Schatzki's ring and nonbleeding gastric ulcer. Objective - Vital Signs/Intake and Output Vital Signs (last 24 hours): Temp Pulse Resp BP Pulse Ox 97.5 F L 80 16 116/72 100 10/04/17 06:00 10/04/17 06:00 10/04/17 06:00 10/04/17 06:00 10/04/17 06:00 Intake and Output: 10/04/17 10/04/17 06:59 18:59 Intake Total 660 Balance 660 - Medications Medications: Current Medications Acetaminophen (Tylenol 325mg Tab) 650 mg PO Q4H PRN PRN Reason: Pain, Mild (1-3) Amoxicillin/Clavulanate Potassium (Augmentin 875 Mg-125 Mg Tab) 1 tab PO Q12 [facility] PRN Reason: Protocol Stop: 10/07/17 10:01 Last Admin: 10/04/17 09:13 Dose: 1 tab Aspirin (Ecotrin) 81 mg PO DAILY [facility] Last Admin: 10/04/17 09:13 Dose: 81 mg Calcium Carbonate (Oscal) 500 mg PO Q12H [facility] Last Admin: 10/03/17 11:32 Dose: Not Given Ergocalciferol (Drisdol 50,000 Intl Units Cap) 1 cap PO Q7D [facility] Last Admin: 09/29/17 21:11 Dose: 1 cap Furosemide (Lasix) 20 mg IVP Q12 [facility] Last Admin: 10/03/17 21:37 Dose: 20 mg Heparin Sodium (Porcine) (Heparin) 5,000 units SC DAILY [facility] PRN Reason: Protocol Nystatin (Nystatin Oral Susp) 5 ml PO QID [facility] Last Admin: 10/04/17 09:13 Dose: 5 ml Ondansetron HCl (Zofran Inj) 4 mg IVP Q4H PRN PRN Reason: Nausea/Vomiting Pantoprazole Sodium (Protonix Ec Tab) 40 mg PO 0600 [facility] Last Admin: 10/04/17 04:59 Dose: 40 mg Potassium Phos/Sodium Phos (Neutra-Phos) 1 pkt PO TID [facility] Last Admin: 10/04/17 09:13 Dose: 1 pkt - Labs Labs: 10/03/17 06:10 10/03/17 06:10 PT 12.1 SECONDS (9.4-12.5) 10/03/17 06:10 INR 1.05 (0.93-1.08) 10/03/17 06:10 APTT 28.6 Seconds (25.1-36.5) 10/03/17 06:10 - Constitutional Appears: No Acute Distress - Head Exam Head Exam: NORMOCEPHALIC - Eye Exam Eye Exam: Normal appearance. absent: Scleral icterus - ENT Exam ENT Exam: Mucous Membranes Moist - Neck Exam Neck Exam: Normal Inspection - Respiratory Exam Respiratory Exam: NORMAL BREATHING PATTERN. absent: Respiratory Distress - Cardiovascular Exam Cardiovascular Exam: +S1, +S2 - GI/Abdominal Exam GI & Abdominal Exam: Soft, Normal Bowel Sounds. absent: Guarding, Tenderness, Rebound - Extremities Exam Extremities Exam: Pedal Edema. absent: Calf Tenderness - Neurological Exam Neurological Exam: Alert, Awake, Oriented x3 Assessment and Plan - Assessment and Plan (Free Text) Assessment: Assessment: Hyponatremia- improving Ascites Anemia- s/p transfusion 1 unit pRBC, CT abd/pelvis/chest showed small pleural effusion, extensive ascites, omental and serosal metastasis, widespread skeletal metatasis, right ureteral stent Status post EGD, narrowing Schatzki's ring and nonbleeding gastric ulcer Stage IV metastatic breast cancer status post bilateral mastectomy on chemotherapy Coronary artery disease status post JOSIAS Hypokalemia Syncopal episodes Plan: -paracentesis today - hgb stable s/p transfusion 1 unit pRBC - continue to monitor H&h for bleeding - hepatitis panel negative - on oral antibiotics - on Aspirin and Heparin - continue protonix 40 mg in the AM and will add H2B in the PM, discuss w/ patient will need repeat EGD in 2 months to FU healing of ulcers and on discharge PPI in the am and H2B in PM. Seen and discussed with Dr. Garrison <Destiny Garrison V - Last Filed: 10/04/17 23:28> Objective - Vital Signs/Intake and Output Vital Signs (last 24 hours): Temp Pulse Resp BP Pulse Ox 97.6 F 96 H 20 130/84 100 10/04/17 17:56 10/04/17 17:56 10/04/17 17:56 10/04/17 17:56 10/04/17 17:56 Intake and Output: 10/04/17 10/05/17 18:59 06:59 Intake Total 420 Balance 420 - Medications Medications: Current Medications Acetaminophen (Tylenol 325mg Tab) 650 mg PO Q4H PRN PRN Reason: Pain, Mild (1-3) Albumin Human (Albumin Human 25% (12.5 Gm/50 Ml)) 12.5 gm IV Q12 [facility] Stop: 10/05/17 22:01 Last Admin: 10/04/17 21:15 Dose: 12.5 gm Amoxicillin/Clavulanate Potassium (Augmentin 875 Mg-125 Mg Tab) 1 tab PO Q12 [facility] PRN Reason: Protocol Stop: 10/07/17 10:01 Last Admin: 10/04/17 21:16 Dose: 1 tab Aspirin (Ecotrin) 81 mg PO DAILY [facility] Last Admin: 10/04/17 09:13 Dose: 81 mg Calcium Carbonate (Oscal) 500 mg PO Q12H [facility] Last Admin: 10/04/17 21:21 Dose: 500 mg Ergocalciferol (Drisdol 50,000 Intl Units Cap) 1 cap PO Q7D [facility] Last Admin: 09/29/17 21:11 Dose: 1 cap Famotidine (Pepcid) 20 mg PO HS [facility] Last Admin: 10/04/17 21:16 Dose: 20 mg Furosemide (Lasix) 20 mg IVP Q12 [facility] Last Admin: 10/03/17 21:37 Dose: 20 mg Heparin Sodium (Porcine) (Heparin) 5,000 units SC DAILY [facility] PRN Reason: Protocol Nystatin (Nystatin Oral Susp) 5 ml PO QID [facility] Last Admin: 10/04/17 21:16 Dose: 5 ml Ondansetron HCl (Zofran Inj) 4 mg IVP Q4H PRN PRN Reason: Nausea/Vomiting Pantoprazole Sodium (Protonix Ec Tab) 40 mg PO 0600 [facility] Last Admin: 10/04/17 04:59 Dose: 40 mg Potassium Phos/Sodium Phos (Neutra-Phos) 1 pkt PO TID [facility] Last Admin: 10/04/17 17:48 Dose: 1 pkt - Labs Labs: 10/03/17 06:10 10/04/17 13:20 PT 12.1 SECONDS (9.4-12.5) 10/03/17 06:10 INR 1.05 (0.93-1.08) 10/03/17 06:10 APTT 28.6 Seconds (25.1-36.5) 10/03/17 06:10 Attending/Attestation - Attestation I have personally seen and examined this patient.: Yes I have fully participated in the care of the patient.: Yes I have reviewed all pertinent clinical information, including history, physical exam and plan: Yes Notes (Text): This is an addendum to GI progress report dictated by Pricila Gil APN.The patient was seen and examined earlier. Medical records, lab studies, imagings were reviewed. Last 24 hours events reviewed. Agreed with the above treatment plan as outlined in Pricila Gil APN's notes the with the addition of the following 10/04/17 23:27
[2017-10-04 13:09] LABS: BF GROSS APPEARANCE BLOODY (CLEAR); BODY FLUID TOTAL COUNT 100 (0-0)
[2017-10-04 13:50] LABS: ALB/GLOB RATIO 1.3 (1.1-1.8); ALBUMIN 3.5 g/dL (3.0-4.8); ALT/SGPT 21 U/L (7-56); AST/SGOT 43 U/L (14-36); BLOOD UREA NITROGEN 13 mg/dL (7-21); CALCIUM 7.9 mg/dL (8.4-10.5); GFR AFRICAN-AMERICAN > 60; GFR NON-AFRICAN AMERICAN > 60
--- NOTE | 2017-10-04 15:49 | US ---
PROCEDURE: Ultrasound guided paracentesis. HISTORY: Breast carcinoma. New onset ascites. No history liver disease. PHYSICIAN(S): Chin Story MD. TECHNIQUE: The relative risks and indications for the procedure were explained to the patient and informed written consent obtained. Sonography of the abdomen was performed in a supine position. This revealed a moderate amount of non-loculated ascites, greatest in the right lower quadrant. A puncture site was selected and the area was prepped and draped in the usual sterile fashion. 1% Xylocaine was used to anesthetize the skin and soft tissues. A 7 [place]vian paracentesis catheter was trocared into the right lower quadrantand 4700 cc of bloody, non -clotting fluid aspirated. The appropriate labs were sent. IMPRESSION: Ultrasound-guided paracentesis in the right lower quadrant. 4700 cc of bloody, non -clotting fluid aspirated. The appropriate labs were sent.
--- NOTE | 2017-10-04 21:00 | CP.PCM.PN ---
Subjective - Date & Time of Evaluation Date of Evaluation: 10/04/17 Time of Evaluation: 10:40 - Subjective Subjective: No fevers, not in distress. Objective - Vital Signs/Intake and Output Vital Signs (last 24 hours): Temp Pulse Resp BP Pulse Ox 97.5 F L 80 16 116/72 100 10/04/17 06:00 10/04/17 06:00 10/04/17 06:00 10/04/17 06:00 10/04/17 06:00 Intake and Output: 10/04/17 10/04/17 06:59 18:59 Intake Total 660 Balance 660 - Medications Medications: Current Medications Acetaminophen (Tylenol 325mg Tab) 650 mg PO Q4H PRN PRN Reason: Pain, Mild (1-3) Amoxicillin/Clavulanate Potassium (Augmentin 875 Mg-125 Mg Tab) 1 tab PO Q12 [facility] PRN Reason: Protocol Stop: 10/07/17 10:01 Last Admin: 10/04/17 09:13 Dose: 1 tab Aspirin (Ecotrin) 81 mg PO DAILY [facility] Last Admin: 10/04/17 09:13 Dose: 81 mg Calcium Carbonate (Oscal) 500 mg PO Q12H [facility] Last Admin: 10/03/17 11:32 Dose: Not Given Ergocalciferol (Drisdol 50,000 Intl Units Cap) 1 cap PO Q7D [facility] Last Admin: 09/29/17 21:11 Dose: 1 cap Furosemide (Lasix) 20 mg IVP Q12 [facility] Last Admin: 10/03/17 21:37 Dose: 20 mg Heparin Sodium (Porcine) (Heparin) 5,000 units SC DAILY [facility] PRN Reason: Protocol Nystatin (Nystatin Oral Susp) 5 ml PO QID [facility] Last Admin: 10/04/17 09:13 Dose: 5 ml Ondansetron HCl (Zofran Inj) 4 mg IVP Q4H [facility] PRN Reason: Nausea/Vomiting Pantoprazole Sodium (Protonix Ec Tab) 40 mg PO 0600 [facility] Last Admin: 10/04/17 04:59 Dose: 40 mg Potassium Phos/Sodium Phos (Neutra-Phos) 1 pkt PO TID [facility] Last Admin: 10/04/17 09:13 Dose: 1 pkt - Labs Labs: 10/03/17 06:10 10/03/17 06:10 PT 12.1 SECONDS (9.4-12.5) 10/03/17 06:10 INR 1.05 (0.93-1.08) 10/03/17 06:10 APTT 28.6 Seconds (25.1-36.5) 10/03/17 06:10 - Constitutional Appears: Chronically Ill - Head Exam Head Exam: NORMAL INSPECTION - Respiratory Exam Respiratory Exam: Decreased Breath Sounds - Cardiovascular Exam Cardiovascular Exam: +S1, +S2 - GI/Abdominal Exam GI & Abdominal Exam: Soft. absent: Tenderness Assessment and Plan - Assessment and Plan (Free Text) Plan: Assessment ascites with no evidence of spontaneous bacterial peritonitis; no evidence of UTI noted either breast cancer stage 4 on chemotherapy dyslipidemia HTN CAD S/P PCI Plan Continue to monitor off antibiotics since he is at risk for nocosomial infections overall prognosis is poor
--- NOTE | 2017-10-04 22:55 | CP.PCM.PN ---
Subjective - Date & Time of Evaluation Date of Evaluation: 10/04/17 Time of Evaluation: 12:00 - Subjective Subjective: Patient seen prior to paracentesis; reports leg swelling improved with IV lasix ; otherwise feeling well; Objective - Vital Signs/Intake and Output Vital Signs (last 24 hours): Temp Pulse Resp BP Pulse Ox 97.6 F 96 H 20 130/84 100 10/04/17 17:56 10/04/17 17:56 10/04/17 17:56 10/04/17 17:56 10/04/17 17:56 Intake and Output: 10/04/17 10/05/17 18:59 06:59 Intake Total 420 Balance 420 - Medications Medications: Current Medications Acetaminophen (Tylenol 325mg Tab) 650 mg PO Q4H PRN PRN Reason: Pain, Mild (1-3) Albumin Human (Albumin Human 25% (12.5 Gm/50 Ml)) 12.5 gm IV Q12 [facility] Stop: 10/05/17 22:01 Last Admin: 10/04/17 21:15 Dose: 12.5 gm Amoxicillin/Clavulanate Potassium (Augmentin 875 Mg-125 Mg Tab) 1 tab PO Q12 [facility] PRN Reason: Protocol Stop: 10/07/17 10:01 Last Admin: 10/04/17 21:16 Dose: 1 tab Aspirin (Ecotrin) 81 mg PO DAILY [facility] Last Admin: 10/04/17 09:13 Dose: 81 mg Calcium Carbonate (Oscal) 500 mg PO Q12H [facility] Last Admin: 10/04/17 21:21 Dose: 500 mg Ergocalciferol (Drisdol 50,000 Intl Units Cap) 1 cap PO Q7D [facility] Last Admin: 09/29/17 21:11 Dose: 1 cap Famotidine (Pepcid) 20 mg PO HS [facility] Last Admin: 10/04/17 21:16 Dose: 20 mg Furosemide (Lasix) 20 mg IVP Q12 [facility] Last Admin: 10/03/17 21:37 Dose: 20 mg Heparin Sodium (Porcine) (Heparin) 5,000 units SC DAILY [facility] PRN Reason: Protocol Nystatin (Nystatin Oral Susp) 5 ml PO QID [facility] Last Admin: 10/04/17 21:16 Dose: 5 ml Ondansetron HCl (Zofran Inj) 4 mg IVP Q4H PRN PRN Reason: Nausea/Vomiting Pantoprazole Sodium (Protonix Ec Tab) 40 mg PO 0600 [facility] Last Admin: 10/04/17 04:59 Dose: 40 mg Potassium Phos/Sodium Phos (Neutra-Phos) 1 pkt PO TID [facility] Last Admin: 10/04/17 17:48 Dose: 1 pkt - Labs Labs: 10/03/17 06:10 10/04/17 13:20 PT 12.1 SECONDS (9.4-12.5) 10/03/17 06:10 INR 1.05 (0.93-1.08) 10/03/17 06:10 APTT 28.6 Seconds (25.1-36.5) 10/03/17 06:10 - Constitutional Appears: Non-toxic, No Acute Distress - Eye Exam Eye Exam: Normal appearance - ENT Exam ENT Exam: Mucous Membranes Moist - Respiratory Exam Respiratory Exam: Clear to Ausculation Bilateral. absent: Respiratory Distress - Cardiovascular Exam Cardiovascular Exam: RRR, +S1, +S2 - GI/Abdominal Exam GI & Abdominal Exam: Distended, Soft. absent: Tenderness - Extremities Exam Additional comments: mild/moderate b/l lower leg edema; - Neurological Exam Neurological Exam: Alert, Awake - Psychiatric Exam Psychiatric exam: Normal Mood. absent: Agitated - Skin Skin Exam: Warm. absent: Cyanosis Assessment and Plan (1) Hyponatremia Assessment & Plan: Relatively stable; should continue with lasix tomorrow, will help keep serum Na from falling; Status: Acute (2) Ascites Assessment & Plan: s/p 4.7 L paracentesis drainage today; giving IV albumin 25% x 2 to avoid intravascular volume depletion; should remain on lasix 20 mg PO bid as outpatient, can add aldactone 25 mg daily if potassium level drops; Status: Acute (3) Hypocalcemia Assessment & Plan: Low/normal corrected Ca; continue ergocalciferol 50,000 u weekly and calcium carbonate bid; Status: Acute (4) Hypophosphatemia Assessment & Plan: Resolved, will stop neutraphos now that patient having better PO intake; Status: Acute (5) Pulmonary HTN Status: Chronic
[2017-10-05] MEDS: Pantoprazole 40 mg EC Tab PO SCH (05:50)
[2017-10-05 06:39] LABS: BASO # 0.07 K/mm3 (0.0-2.0); EOS # 0.3 (0.0-0.7); EOS % 4.5 % (1.5-5.0); GRAN # 4.85 (1.4-6.5); GRAN % 72.5 % (50.0-68.0); HEMOGLOBIN 11.2 g/dL (12.0-16.0); LYMPH # 0.4 (1.2-3.4); LYMPH % 6.6 % (22.0-35.0); MEAN CELL VOLUME 88.5 fl (80.0-105.0); MEAN CORPUSCULAR HGB CONC 33.9 g/dl (31.0-37.0); MEAN PLATELET VOLUME 8.2 fl (7.0-11.0); MONO % 15.4 % (1.0-6.0); RBC 3.73 10^6/uL (3.5-6.1); RED CELL DISTRIBUTION WIDTH 14.9 % (11.5-14.5); WHITE BLOOD COUNT 6.7 10^3/ul (4.5-11.0)
[2017-10-05 07:33] LABS: ALB/GLOB RATIO 1.3 (1.1-1.8); ALBUMIN 3.7 g/dL (3.0-4.8); ALT/SGPT 22 U/L (7-56); AST/SGOT 40 U/L (14-36); BLOOD UREA NITROGEN 8 mg/dL (7-21); CALCIUM 8.2 mg/dL (8.4-10.5); GFR AFRICAN-AMERICAN > 60; GFR NON-AFRICAN AMERICAN > 60
[2017-10-05] MEDS: Nystatin 100,000 Units/ml Oral Susp 5 ml UD PO SCH (10:04)
[2017-10-05] MEDS: Amoxicillin-Clav 875-125 mg Tab PO SCH (10:04)
[2017-10-05] MEDS: Albumin Human 25% (12.5 gm/50 ml) IV SCH (10:51)
[2017-10-05 11:22] VITALS: PULSE 86; RESP 18; TEMP 98.4; O2SAT 99
--- NOTE | 2017-10-05 12:28 | CP.PCM.CON ---
History of Present Illness - History of Present Illness History of Present Illness: Podiatry Consult NOte- Dr. Fowler 67 Female with a PMH of stage IV metastatic breast cancer s/p bilateral mastectomy and on current chemotherapy, HLD, HTN, and CAD s/p JOSIAS on aspirin and brilanta consulted for lower extremity examination. Patient reports pain to her toenails. Patient reports worse with shoe gear or ambulation. Relieved when they get trimmed. Patient reports that her toenails grow inwards and bother her skin. She denies nausea, fever, shortness of breath, chest pain or chills. No calf pain or tenderness. Past Patient History - Infectious Disease Hx of Infectious Diseases: None - Past Social History Smoking Status: Never Smoked - CARDIAC Hx Pacemaker: No - PULMONARY Hx Respiratory Disorders: No - NEUROLOGICAL Hx Paralysis: No - HEENT Hx HEENT Problems: No - RENAL Hx Chronic Kidney Disease: No - ENDOCRINE/METABOLIC Hx Endocrine Disorders: No - HEMATOLOGICAL/ONCOLOGICAL Hx Blood Transfusions: Yes Hx Blood Transfusion Reaction: No - INTEGUMENTARY Other/Comment: healed b/l chest scars from b/l mastectomy, dry flakey skin to b/ l heels pt was seeing dr fowler for healed cut opened from dry skin on foot has healed and for ingrown toenails to both great toes - MUSCULOSKELETAL/RHEUMATOLOGICAL Hx Musculoskeletal Disorders: Yes - GASTROINTESTINAL Hx Gastrointestinal Disorders: Yes (gastritis, distended abd) Other/Comment: hx abd ascites 2013 - GENITOURINARY/GYNECOLOGICAL Hx Genitourinary Disorders: No - PSYCHIATRIC Hx Emotional Abuse: No Hx Physical Abuse: No Hx Substance Use: No - SURGICAL HISTORY Hx Surgeries: Yes - ANESTHESIA Hx Anesthesia Reactions: No Hx Malignant Hyperthermia: No Meds Home Medications: Home Medication List Medication Instructions Recorded Confirmed Type Amoxicillin/Clavulanate [Augmentin 1 tab PO Q12 #6 tab 10/05/17 Rx 875 MG-125 MG Tab] Aspirin [Ecotrin] 81 mg PO DAILY [facility] 10/05/17 Rx Calcium Carbonate [Oscal] 500 mg PO Q12H #60 tab 10/05/17 Rx Ergocalciferol [Drisdol 50,000 1 cap PO Q7D #4 cap 10/05/17 Rx Intl Units Cap] Famotidine [Pepcid] 20 mg PO HS #30 tab 10/05/17 Rx Furosemide [Lasix] 20 mg PO BID #60 tab 10/05/17 Rx Nystatin [Nystatin Oral Susp] 5 ml PO QID 5 Days udc 10/05/17 Rx Pantoprazole [Protonix EC Tab] 40 mg PO 0600 #30 ect 10/05/17 Rx Allergies/Adverse Reactions: Allergies Allergy/AdvReac Type Severity Reaction Status Date / Time vancomycin Allergy Severe RASH/ITCHY Verified 07/05/17 13:13 - Medications Medications: Current Medications Acetaminophen (Tylenol 325mg Tab) 650 mg PO Q4H PRN PRN Reason: Pain, Mild (1-3) Albumin Human (Albumin Human 25% (12.5 Gm/50 Ml)) 12.5 gm IV Q12 [facility] Stop: 10/05/17 22:01 Last Admin: 10/05/17 10:51 Dose: 12.5 gm Amoxicillin/Clavulanate Potassium (Augmentin 875 Mg-125 Mg Tab) 1 tab PO Q12 [facility] PRN Reason: Protocol Stop: 10/07/17 10:01 Last Admin: 10/05/17 10:04 Dose: 1 tab Aspirin (Ecotrin) 81 mg PO DAILY [facility] Last Admin: 10/05/17 10:04 Dose: 81 mg Calcium Carbonate (Oscal) 500 mg PO Q12H [facility] Last Admin: 10/05/17 10:51 Dose: 500 mg Ergocalciferol (Drisdol 50,000 Intl Units Cap) 1 cap PO Q7D [facility] Last Admin: 09/29/17 21:11 Dose: 1 cap Famotidine (Pepcid) 20 mg PO HS [facility] Last Admin: 10/04/17 21:16 Dose: 20 mg Furosemide (Lasix) 20 mg PO BID [facility] Heparin Sodium (Porcine) (Heparin) 5,000 units SC DAILY [facility] PRN Reason: Protocol Nystatin (Nystatin Oral Susp) 5 ml PO QID [facility] Last Admin: 10/05/17 10:04 Dose: 5 ml Ondansetron HCl (Zofran Inj) 4 mg IVP Q4H PRN PRN Reason: Nausea/Vomiting Pantoprazole Sodium (Protonix Ec Tab) 40 mg PO 0600 [facility] Last Admin: 10/05/17 05:50 Dose: 40 mg Physical Exam - Constitutional Appears: Well, Non-toxic, No Acute Distress - Extremities Exam Extremities exam: Negative for: calf tenderness Additional comments: VASC: DP and PT 2/4 bilaterally, CFT < 3 seconds x10 digits, temperature gradient WNL, warm to cool from proximal knees to distal toes bilaterally, no edema noted to the LE ORTHO: pain with palpation to the nail plate x 10, MM is 4/5 in all four compartments: dorsiflexion, plantarflexion, inversion, and eversion, no hammertoes noted, ankle ROM wnl NEURO: gross sensation intact, protective sensation diminished DERM: dark discoloration noted to entire midfoot to forefoot distally, scaly, lesions noted to the posterior heels bilaterally, no open lesions, no erythema, no streaking, no clinical signs of infection - Neurological Exam Neurological exam: Alert, Oriented x3 - Psychiatric Exam Psychiatric exam: Normal Affect, Normal Mood Results - Vital Signs Recent Vital Signs: Last Vital Signs Temp 98.4 F 10/05/17 06:00 Pulse 86 10/05/17 06:00 Resp 18 10/05/17 06:00 BP 116/70 10/05/17 06:00 Pulse Ox 99 10/05/17 06:00 - Labs Result Diagrams: 10/05/17 06:20 10/05/17 06:20 Labs: Laboratory Results - last 24 hr 10/04/17 10/04/17 10/05/17 12:35 13:20 06:20 WBC 6.7 RBC 3.73 Hgb 11.2 L Hct 33.0 L MCV 88.5 MCH 30.0 MCHC 33.9 RDW 14.9 H Plt Count 299 MPV 8.2 Gran % 72.5 H Lymph % (Auto) 6.6 L Yell % (Auto) 15.4 H Eos % (Auto) 4.5 Baso % (Auto) 1.0 Gran # 4.85 Lymph # (Auto) 0.4 L Yell # (Auto) 1.0 H Eos # (Auto) 0.3 Baso # (Auto) 0.07 Sodium 131 L Potassium 4.5 Chloride 96 L Carbon Dioxide 27 Anion Gap 13 BUN 13 Creatinine 0.5 L Est GFR ( Amer) > 60 Est GFR (Non-Af Amer) > 60 Random Glucose 116 H Calcium 7.9 L Phosphorus 3.0 Magnesium 1.9 Total Bilirubin 0.8 AST 43 H ALT 21 Alkaline Phosphatase 75 Total Protein 6.4 Albumin 3.5 Globulin 2.8 Albumin/Globulin Ratio 1.3 Fluid Source Peritoneal/ascites Fluid Appearance Bloody Fluid WBC 364.0 H Fluid RBC 884300.0 H Fluid Tot Cell Count 100 H Fluid Neutrophils 26.6 H Fluid Lymphocytes 73.4 H Fld Monocyte/Macrophag TEST NOT PERFORMED Fluid Comment Red color 10/05/17 06:20 WBC RBC Hgb Hct MCV MCH MCHC RDW Plt Count MPV Gran % Lymph % (Auto) Yell % (Auto) Eos % (Auto) Baso % (Auto) Gran # Lymph # (Auto) Yell # (Auto) Eos # (Auto) Baso # (Auto) Sodium 131 L Potassium 4.2 Chloride 95 L Carbon Dioxide 28 Anion Gap 12 BUN 8 Creatinine 0.5 L Est GFR ( Amer) > 60 Est GFR (Non-Af Amer) > 60 Random Glucose 111 H Calcium 8.2 L Phosphorus Magnesium Total Bilirubin 1.3 AST 40 H ALT 22 Alkaline Phosphatase 65 Total Protein 6.5 Albumin 3.7 Globulin 2.8 Albumin/Globulin Ratio 1.3 Fluid Source Fluid Appearance Fluid WBC Fluid RBC Fluid Tot Cell Count Fluid Neutrophils Fluid Lymphocytes Fld Monocyte/Macrophag Fluid Comment Assessment & Plan - Assessment and Plan (Free Text) Assessment: 67 y.o female with painful enlongated nails x10 Plan: Patient examined and evaluated Discussed plan in detail with attending Labs, vitals reviewed Enlongated nails x10 sharply debridement to normal length using a nail nipper without incident. Patient tolerated the procedure well. No complications Pt to follow up as every 3-[address] Fowler for followup care Thank you for allowing us to participate in patient's care Podiatry will sign off. Please reconsult as needed. Thank you.
[2017-10-05 12:41] VITALS: BP 128/72
--- NOTE | 2017-10-05 13:30 | PN ---
DATE: 10/05/2017 CARDIOLOGY FOLLOWUP SUBJECTIVE: The patient is comfortable without shortness of breath, without chest pain. PHYSICAL EXAMINATION: VITAL SIGNS: Blood pressure is 116/70, heart rates in the 80s. NECK: Negative JVD. LUNGS: Without rales. HEART: Reveals S1 and S2. EXTREMITIES: Without edema. LABORATORY DATA: Hemoglobin is 11.2 and stable. BUN and creatinine are unremarkable. IMPRESSION: 1. Marked anemia, which is now stable. 2. Stable angina with a history of percutaneous transluminal coronary angioplasty and stent. 4. History of cancer. PLAN: Given these findings, the patient is for discharge today. We will place the patient back on her Plavix. Chin Green MD
--- NOTE | 2017-10-05 15:52 | CP.PCM.PN ---
<Pricila Gil - Last Filed: 10/05/17 15:52> Subjective - Date & Time of Evaluation Date of Evaluation: 10/05/17 Time of Evaluation: 10:55 - Subjective Subjective: Seen and examined at the bedside earlier today, chart review. Patient with no new complaints or acute overnight events. No reports of overt GI bleed. Status post paracentesis, removal of 4700 cc of ascitic fluid. Objective - Vital Signs/Intake and Output Vital Signs (last 24 hours): Temp Pulse Resp BP Pulse Ox 97.6 F 96 H 20 130/84 100 10/04/17 17:56 10/04/17 17:56 10/04/17 17:56 10/04/17 17:56 10/04/17 17:56 Intake and Output: 10/05/17 10/05/17 06:59 18:59 Intake Total 660 Output Total 0 Balance 660 - Medications Medications: Current Medications Acetaminophen (Tylenol 325mg Tab) 650 mg PO Q4H PRN PRN Reason: Pain, Mild (1-3) Albumin Human (Albumin Human 25% (12.5 Gm/50 Ml)) 12.5 gm IV Q12 [facility] Stop: 10/05/17 22:01 Last Admin: 10/05/17 10:51 Dose: 12.5 gm Amoxicillin/Clavulanate Potassium (Augmentin 875 Mg-125 Mg Tab) 1 tab PO Q12 [facility] PRN Reason: Protocol Stop: 10/07/17 10:01 Last Admin: 10/05/17 10:04 Dose: 1 tab Aspirin (Ecotrin) 81 mg PO DAILY [facility] Last Admin: 10/05/17 10:04 Dose: 81 mg Calcium Carbonate (Oscal) 500 mg PO Q12H [facility] Last Admin: 10/05/17 10:51 Dose: 500 mg Ergocalciferol (Drisdol 50,000 Intl Units Cap) 1 cap PO Q7D [facility] Last Admin: 09/29/17 21:11 Dose: 1 cap Famotidine (Pepcid) 20 mg PO HS [facility] Last Admin: 10/04/17 21:16 Dose: 20 mg Heparin Sodium (Porcine) (Heparin) 5,000 units SC DAILY [facility] PRN Reason: Protocol Nystatin (Nystatin Oral Susp) 5 ml PO QID [facility] Last Admin: 10/05/17 10:04 Dose: 5 ml Ondansetron HCl (Zofran Inj) 4 mg IVP Q4H PRN PRN Reason: Nausea/Vomiting Pantoprazole Sodium (Protonix Ec Tab) 40 mg PO 0600 [facility] Last Admin: 10/05/17 05:50 Dose: 40 mg - Labs Labs: 10/05/17 06:20 10/05/17 06:20 PT 12.1 SECONDS (9.4-12.5) 10/03/17 06:10 INR 1.05 (0.93-1.08) 10/03/17 06:10 APTT 28.6 Seconds (25.1-36.5) 10/03/17 06:10 - Constitutional Appears: No Acute Distress - Head Exam Head Exam: NORMOCEPHALIC - Eye Exam Eye Exam: Normal appearance. absent: Scleral icterus - ENT Exam ENT Exam: Mucous Membranes Moist - Respiratory Exam Respiratory Exam: NORMAL BREATHING PATTERN. absent: Respiratory Distress - Cardiovascular Exam Cardiovascular Exam: +S1, +S2 - GI/Abdominal Exam GI & Abdominal Exam: Soft, Normal Bowel Sounds. absent: Guarding, Tenderness, Rebound Additional comments: abdomen less distended - Extremities Exam Extremities Exam: Pedal Edema. absent: Calf Tenderness - Neurological Exam Neurological Exam: Alert, Awake, Oriented x3 Assessment and Plan - Assessment and Plan (Free Text) Assessment: Assessment: Hyponatremia- improving Ascites, status post paracentesis, 4700 cc Anemia- s/p transfusion 1 unit pRBC, CT abd/pelvis/chest showed small pleural effusion, extensive ascites, omental and serosal metastasis, widespread skeletal metatasis, right ureteral stent Status post EGD, narrowing Schatzki's ring and nonbleeding gastric ulcer Stage IV metastatic breast cancer status post bilateral mastectomy on chemotherapy Coronary artery disease status post JOSIAS Hypokalemia Syncopal episodes Plan: - hgb stable s/p transfusion 1 unit pRBC - continue to monitor H&h for bleeding - hepatitis panel negative - on oral antibiotics - on Aspirin and Heparin - continue protonix 40 mg in the AM and will add H2B in the PM, discuss w/ patient will need repeat EGD in 2 months to FU healing of ulcers and on discharge PPI in the am and H2B in PM. From GI point of view patient can restart Plavix, discussed with Dr. Mead, medical librarian working with Dr. Love. Seen and discussed with Dr. Garrison <Destiny Garrison V - Last Filed: 10/05/17 22:25> Objective - Vital Signs/Intake and Output Vital Signs (last 24 hours): Temp Pulse Resp BP Pulse Ox 98.4 F 86 18 128/72 99 10/05/17 06:00 10/05/17 06:00 10/05/17 06:00 10/05/17 12:39 10/05/17 06:00 - Labs Labs: 10/05/17 06:20 10/05/17 06:20 PT 12.1 SECONDS (9.4-12.5) 10/03/17 06:10 INR 1.05 (0.93-1.08) 10/03/17 06:10 APTT 28.6 Seconds (25.1-36.5) 10/03/17 06:10 Attending/Attestation - Attestation I have personally seen and examined this patient.: Yes I have fully participated in the care of the patient.: Yes I have reviewed all pertinent clinical information, including history, physical exam and plan: Yes Notes (Text): This is an addendum to GI progress report dictated by Pricila Gil APN.The patient was seen and examined earlier. Medical records, lab studies, imagings were reviewed. Last 24 hours events reviewed. Agreed with the above treatment plan as outlined in Pricila Gil APN's notes the with the addition of the following 10/05/17 22:25
--- NOTE | 2017-10-05 15:57 | CP.PCM.PN ---
Subjective - Date & Time of Evaluation Date of Evaluation: 10/05/17 Time of Evaluation: 10:40 - Subjective Subjective: No fevers, not in distress. Objective - Vital Signs/Intake and Output Vital Signs (last 24 hours): Temp Pulse Resp BP Pulse Ox 97.6 F 96 H 20 130/84 100 10/04/17 17:56 10/04/17 17:56 10/04/17 17:56 10/04/17 17:56 10/04/17 17:56 Intake and Output: 10/05/17 10/05/17 06:59 18:59 Intake Total 660 Output Total 0 Balance 660 - Medications Medications: Current Medications Acetaminophen (Tylenol 325mg Tab) 650 mg PO Q4H PRN PRN Reason: Pain, Mild (1-3) Albumin Human (Albumin Human 25% (12.5 Gm/50 Ml)) 12.5 gm IV Q12 [facility] Stop: 10/05/17 22:01 Last Admin: 10/04/17 21:15 Dose: 12.5 gm Amoxicillin/Clavulanate Potassium (Augmentin 875 Mg-125 Mg Tab) 1 tab PO Q12 [facility] PRN Reason: Protocol Stop: 10/07/17 10:01 Last Admin: 10/04/17 21:16 Dose: 1 tab Aspirin (Ecotrin) 81 mg PO DAILY [facility] Last Admin: 10/04/17 09:13 Dose: 81 mg Calcium Carbonate (Oscal) 500 mg PO Q12H [facility] Last Admin: 10/04/17 21:21 Dose: 500 mg Ergocalciferol (Drisdol 50,000 Intl Units Cap) 1 cap PO Q7D [facility] Last Admin: 09/29/17 21:11 Dose: 1 cap Famotidine (Pepcid) 20 mg PO HS [facility] Last Admin: 10/04/17 21:16 Dose: 20 mg Furosemide (Lasix) 20 mg IVP Q12 [facility] Stop: 10/05/17 10:01 Last Admin: 10/03/17 21:37 Dose: 20 mg Heparin Sodium (Porcine) (Heparin) 5,000 units SC DAILY [facility] PRN Reason: Protocol Nystatin (Nystatin Oral Susp) 5 ml PO QID [facility] Last Admin: 10/04/17 21:16 Dose: 5 ml Ondansetron HCl (Zofran Inj) 4 mg IVP Q4H [facility] PRN Reason: Nausea/Vomiting Pantoprazole Sodium (Protonix Ec Tab) 40 mg PO 0600 [facility] Last Admin: 10/05/17 05:50 Dose: 40 mg - Labs Labs: 10/05/17 06:20 10/05/17 06:20 PT 12.1 SECONDS (9.4-12.5) 10/03/17 06:10 INR 1.05 (0.93-1.08) 10/03/17 06:10 APTT 28.6 Seconds (25.1-36.5) 10/03/17 06:10 - Constitutional Appears: Chronically Ill - Head Exam Head Exam: NORMAL INSPECTION - Respiratory Exam Respiratory Exam: Decreased Breath Sounds - Cardiovascular Exam Cardiovascular Exam: +S1, +S2 - GI/Abdominal Exam GI & Abdominal Exam: Soft. absent: Tenderness Assessment and Plan - Assessment and Plan (Free Text) Plan: Assessment ascites with no evidence of spontaneous bacterial peritonitis; no evidence of UTI noted either breast cancer stage 4 on chemotherapy dyslipidemia HTN CAD S/P PCI Plan Continue Augmentin for another 3 days overall prognosis is poor
--- NOTE | 2017-10-05 18:11 | CP.PCM.PN ---
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; Objective - Vital Signs/Intake and Output Vital Signs (last 24 hours): Temp Pulse Resp BP Pulse Ox 98.4 F 86 18 128/72 99 10/05/17 06:00 10/05/17 06:00 10/05/17 06:00 10/05/17 12:39 10/05/17 06:00 Intake and Output: 10/05/17 10/05/17 06:59 18:59 Intake Total 660 Output Total 0 Balance 660 - Labs Labs: 10/05/17 06:20 10/05/17 06:20 PT 12.1 SECONDS (9.4-12.5) 10/03/17 06:10 INR 1.05 (0.93-1.08) 10/03/17 06:10 APTT 28.6 Seconds (25.1-36.5) 10/03/17 06:10 - Constitutional Appears: Non-toxic, No Acute Distress - Eye Exam Eye Exam: Normal appearance - ENT Exam ENT Exam: Mucous Membranes Moist - Respiratory Exam Respiratory Exam: Clear to Ausculation Bilateral. absent: Respiratory Distress - Cardiovascular Exam Cardiovascular Exam: RRR, +S1, +S2 - GI/Abdominal Exam GI & Abdominal Exam: Soft. absent: Distended, Tenderness - Extremities Exam Additional comments: mild/moderate lower leg edema; Assessment and Plan (1) Hyponatremia Assessment & Plan: Improved; precipitated by being on thiazide but also has propensity for hyponatremia (possible SIADH); continue PO lasix 20 mg bid; advised to restrict PO fluid intake to <1.5L per day; Status: Acute (2) Ascites Assessment & Plan: New onset ascites, awaiting cytology s/p large volume paracentesis; continue lasix as above; if serum Na remains stable, can consider adding aldactone; Status: Acute (3) Hypocalcemia Assessment & Plan: Started on calcium and vitamin D supplementation, continue; Status: Acute (4) Hypophosphatemia Status: Acute (5) Pulmonary HTN Status: Chronic
--- NOTE | 2017-10-06 16:34 | CP.PCM.DIS ---
Provider - Provider Date of Admission: 09/27/17 16:23 Attending physician: Walt Hunter MD Primary care physician: Raulito Mensah MD Time Spent in preparation of Discharge (in minutes): 45 Hospital Course - Lab Results Lab Results: Micro Results 10/04/17 12:35 Ascitic Fluid Gram Stain - Final 10/04/17 12:35 Ascitic Fluid Anaerobic Culture - Final NO ANAEROBES ISOLATED. 10/04/17 12:35 Ascitic Fluid Body Fluid Culture - Preliminary NO GROWTH AFTER 2 DAYS 09/27/17 17:35 Blood-Venous Blood Culture - Final NO GROWTH AFTER 5 DAYS 09/27/17 17:35 Blood-Venous Gram Stain - Final TEST NOT PERFORMED 09/27/17 17:05 Blood-Venous Blood Culture - Final NO GROWTH AFTER 5 DAYS 09/27/17 17:05 Blood-Venous Gram Stain - Final TEST NOT PERFORMED 09/29/17 07:38 Urine,[place] Urine Culture - Final No Growth (<1,000 CFU/ML) 09/27/17 18:15 Naris MRSA Culture (Admit) - Final MRSA NOT DETECTED Most Recent Lab Values WBC 6.7 10^3/ul (4.5-11.0) 10/05/17 06:20 RBC 3.73 10^6/uL (3.5-6.1) 10/05/17 06:20 Hgb 11.2 g/dL (12.0-16.0) L 10/05/17 06:20 Hct 33.0 % (36.0-48.0) L 10/05/17 06:20 MCV 88.5 fl (80.0-105.0) 10/05/17 06:20 MCH 30.0 pg (25.0-35.0) 10/05/17 06:20 MCHC 33.9 g/dl (31.0-37.0) 10/05/17 06:20 RDW 14.9 % (11.5-14.5) H 10/05/17 06:20 Plt Count 299 10^3/uL (120.0-450.0) 10/05/17 06:20 MPV 8.2 fl (7.0-11.0) 10/05/17 06:20 Gran % 72.5 % (50.0-68.0) H 10/05/17 06:20 Lymph % (Auto) 6.6 % (22.0-35.0) L 10/05/17 06:20 [place] % (Auto) 15.4 % (1.0-6.0) H 10/05/17 06:20 Eos % (Auto) 4.5 % (1.5-5.0) 10/05/17 06:20 Baso % (Auto) 1.0 % (0.0-3.0) 10/05/17 06:20 Gran # 4.85 (1.4-6.5) 10/05/17 06:20 Lymph # (Auto) 0.4 (1.2-3.4) L 10/05/17 06:20 [place] # (Auto) 1.0 (0.1-0.6) H 10/05/17 06:20 Eos # (Auto) 0.3 (0.0-0.7) 10/05/17 06:20 Baso # (Auto) 0.07 K/mm3 (0.0-2.0) 10/05/17 06:20 Neutrophils % (Manual) 97 % (50.0-70.0) H 09/28/17 15:27 Lymphocytes % (Manual) 2 % (22.0-35.0) L 09/28/17 15:27 Monocytes % (Manual) 1 % (1.0-6.0) 09/28/17 15:27 Platelet Evaluation Normal (NORMAL) 09/28/17 15:27 PT 12.1 SECONDS (9.4-12.5) 10/03/17 06:10 INR 1.05 (0.93-1.08) 10/03/17 06:10 APTT 28.6 Seconds (25.1-36.5) 10/03/17 06:10 pO2 41 mm/Hg (30-55) 09/28/17 00:35 VBG pH 7.43 (7.32-7.43) 09/28/17 00:35 VBG pCO2 40.0 (40-60) 09/28/17 00:35 VBG HCO3 26.5 mmol/l (21-28) 09/28/17 00:35 VBG Total CO2 27.7 mmol.L (22-28) 09/28/17 00:35 VBG O2 Sat (Calc) 85.6 % (40-65) H 09/28/17 00:35 VBG Base Excess 2.0 mmol/L (0.0-2.0) 09/28/17 00:35 VBG Potassium 3.8 mmol/L (3.6-5.2) 09/28/17 00:35 Sodium 115.0 mmol/L (132-148) L* 09/28/17 00:35 Chloride 91.0 mmol/L (98-107) L 09/28/17 00:35 Glucose 154 mg/dl (65-105) H 09/28/17 00:35 Lactate 0.9 mmol/L (0.7-2.1) 09/28/17 00:35 FiO2 21.0 % 09/28/17 00:35 Sodium 131 mmol/L (132-148) L 10/05/17 06:20 Potassium 4.2 mmol/L (3.6-5.0) 10/05/17 06:20 Chloride 95 mmol/L (98-107) L 10/05/17 06:20 Carbon Dioxide 28 mmol/L (21-33) 10/05/17 06:20 Anion Gap 12 (10-20) 10/05/17 06:20 BUN 8 mg/dL (7-21) 10/05/17 06:20 Creatinine 0.5 mg/dl (0.7-1.2) L 10/05/17 06:20 Est GFR ( Amer) > 60 10/05/17 06:20 Est GFR (Non-Af Amer) > 60 10/05/17 06:20 Random Glucose 111 mg/dL (70-110) H 10/05/17 06:20 Serum Osmolality 235 mosm/kg (272-300) L 09/27/17 17:27 Uric Acid 2.5 mg/dL (2.5-6.2) 09/30/17 06:00 Calcium 8.2 mg/dL (8.4-10.5) L 10/05/17 06:20 Phosphorus 3.0 mg/dL (2.5-4.5) 10/04/17 13:20 Magnesium 1.9 mg/dL (1.7-2.2) 10/04/17 13:20 Total Bilirubin 1.3 mg/dL (0.2-1.3) 10/05/17 06:20 AST 40 U/L (14-36) H 10/05/17 06:20 ALT 22 U/L (7-56) 10/05/17 06:20 Alkaline Phosphatase 65 U/L (38-126) 10/05/17 06:20 Lactate Dehydrogenase 260 U/L (333-699) L 09/27/17 15:22 Total Creatine Kinase 75 U/L (35-230) 09/27/17 15:22 Troponin I < 0.01 ng/mL 09/27/17 15:22 C-Reactive Protein 48.50 mg/L (0.0-9.9) H 09/28/17 00:35 Total Protein 6.5 g/dL (5.8-8.3) 10/05/17 06:20 Albumin 3.7 g/dL (3.0-4.8) 10/05/17 06:20 Globulin 2.8 gm/dL 10/05/17 06:20 Albumin/Globulin Ratio 1.3 (1.1-1.8) 10/05/17 06:20 25-OH Vitamin D Total 35.9 NG/ML (30.0-100.0) 09/28/17 06:53 Procalcitonin 0.05 NG/ML (0.19-0.49) L 09/28/17 00:35 Free T4 1.99 ng/dL (0.78-2.19) 09/27/17 15:22 Total T3 0.69 ng/mL (0.97-1.69) L 09/27/17 15:22 TSH 3rd Generation 1.18 mIU/mL (0.46-4.68) 09/27/17 15:22 Calcium (PTH Intact) 7.3 mg/dL (8.6-10.4) L 09/28/17 07:00 PTH w/Ion &Tot Calcium 45 pg/mL (14-64) 09/28/17 07:00 Cortisol AM Sample 19.0 ug/dL (4.46-22.7) 09/28/17 00:35 Venous Blood Potassium 3.8 mmol/L (3.6-5.2) 09/28/17 00:35 Urine Color Dark yellow (YELLOW) 09/27/17 16:00 Urine Appearance Sl cloudy (CLEAR) 09/27/17 16:00 Urine pH 6.0 (4.7-8.0) 09/27/17 16:00 Ur Specific [place] 1.025 (1.005-1.035) 09/27/17 16:00 Urine Protein 100 mg/dL (<30 mg/dL) H 09/27/17 16:00 Urine Glucose (UA) Negative mg/dL (NEGATIVE) 09/27/17 16:00 Urine Ketones Trace mg/dL (NEGATIVE) H 09/27/17 16:00 Urine Blood Large (NEGATIVE) H 09/27/17 16:00 Urine Nitrate Negative (NEGATIVE) 09/27/17 16:00 Urine Bilirubin Negative (NEGATIVE) 09/27/17 16:00 Urine Urobilinogen 0.2 E.U./dL (<1 E.U./dL) 09/27/17 16:00 Ur Leukocyte Esterase Moderate Renee/uL (NEGATIVE) H 09/27/17 16:00 Urine RBC 20 - 25 /hpf (0-2) 09/27/17 16:00 Urine WBC 15 - 20 /hpf (0-6) 09/27/17 16:00 Ur Epithelial Cells 6 - 8 /hpf (0-5) 09/27/17 16:00 Urine Bacteria Few (NEG) 09/27/17 16:00 Urine Osmolality 432 mosm/kg (300-1000) 09/29/17 23:06 Ur Random Sodium 31 meq/L 09/29/17 23:06 Ur Random Potassium 52.4 meq/L 09/27/17 17:27 Ur Random Urea Nitrogn 967 mg/dL 09/27/17 19:08 Urine Chloride 15 mmol/L (32-290) L 09/27/17 19:08 Fluid Source Peritoneal/ascites 10/04/17 12:35 Fluid Appearance Bloody (CLEAR) 10/04/17 12:35 Fluid WBC 364.0 /uL (0.0-300.0) H 10/04/17 12:35 Fluid RBC 252513.0 /uL (0.0-0.0) H 10/04/17 12:35 Fluid Tot Cell Count 100 (0-0) H 10/04/17 12:35 Fluid Neutrophils 26.6 % (0-0) H 10/04/17 12:35 Fluid Lymphocytes 73.4 % (0-0) H 10/04/17 12:35 Fld Monocyte/Macrophag TEST NOT PERFORMED 10/04/17 12:35 Fluid Comment Red color 10/04/17 12:35 Hepatitis A IgM Ab Negative (NEGATIVE) 09/28/17 07:00 Hep Bs Antigen Negative (NEGATIVE) 09/28/17 07:00 Hep B Core IgM Ab Negative (NEGATIVE) 09/28/17 07:00 Hepatitis C Antibody Negative (NEGATIVE) 09/28/17 07:00 Ur L.pneumophila Ag Negative (NEGATIVE) 09/27/17 17:58 Ur Strep pneumoniae Ag Not detected 09/27/17 17:27 Blood Type B POSITIVE 09/27/17 16:06 Antibody Screen Negative 09/27/17 16:06 Crossmatch See Detail 09/27/17 16:06 BBK History Checked Patient has bt 09/27/17 16:06 - Hospital Course Hospital Course: 67 F with a PMHx of stage IV metastatic breast cancer s/p bilateral mastectomy and on current chemotherapy, HLD, HTN, and CAD s/p JOSIAS on aspirin and brilanta [place] [facility] with complaints of syncopal episodes x 2. Patient was sent by Dr. Infante for these complaints. Patient first episode was yesterday morning while using the restroom. Upon standing, the patient felt weak and lightheaded and fell back onto her bottom. Patient then similarly today this morning upon changing position from a lying to a standing happened to feel weak and fall on her bottom again, while her spouse helped her to the floor. Patient states that these are new symptoms, never previously experienced. She does note that she has not been drinking enough water, and has roughly 3 cups a day and drinks green tea in the morning. Patient also had complaints of abdominal fullness and noted that her abdomen has been distended for the past 2 weeks and has not had any changed in her bowel movements or any associated pain. Upon arrival to the ED, the patient was hypotensive and tachycardic, however responded to IVF. Sodium improved from 111 to 118 this AM, fluids held and D5W started as per Nephro. Hgb decreased from 8.6 to 7, likely dilution of hemoconcentration given her serium osms/urinary sodium levels yesterday were highly indicative of volume depleted state (as per Nephro), and neither nursing or patient reports any signs or symptoms consistent with bleeding. No further episodes of emesis since admission. Improved; precipitated by being on thiazide but also has propensity for hyponatremia (possible SIADH); continue PO lasix 20 mg bid; advised to restrict PO fluid intake to <1.5L per day. New onset ascites, awaiting cytology s/p large volume paracentesis; continue lasix as above; if serum Na remains stable, can consider adding aldactone. Started on calcium and vitamin D supplementation, continue. Upon DC, pt to fu with Dr. Mensah PMD, Dr. Infante Heme/Onc, Dr. Martin Nephkaron. Discharge Exam - Head Exam Head Exam: NORMAL INSPECTION - Eye Exam Eye Exam: EOMI, Normal appearance, PERRL Pupil Exam: NORMAL ACCOMODATION, PERRL - Respiratory Exam Respiratory Exam: NORMAL BREATHING PATTERN, UNREMARKABLE - Cardiovascular Exam Cardiovascular Exam: REGULAR RHYTHM, +S1, +S2 - GI/Abdominal Exam GI & Abdominal Exam: Normal Bowel Sounds, Soft. absent: Tenderness - Neurological Exam Neurological exam: Alert, CN II-XII Intact, Normal Gait, Oriented x3, Reflexes Normal - Psychiatric Exam Psychiatric exam: Normal Affect, Normal Mood - Skin Skin Exam: Dry, Intact, Normal Color, Warm Discharge Plan - Discharge Medications Prescriptions: Amoxicillin/Clavulanate [Augmentin 875 MG-125 MG Tab] 1 tab PO Q12 #6 tab Calcium Carbonate [Oscal] 500 mg PO Q12H #60 tab Ergocalciferol [Drisdol 50,000 Intl Units Cap] 1 cap PO Q7D #4 cap Famotidine [Pepcid] 20 mg PO HS #30 tab Furosemide [Lasix] 20 mg PO BID #60 tab Nystatin [Nystatin Oral Susp] 5 ml PO QID 5 Days udc Pantoprazole [Protonix EC Tab] 40 mg PO 0600 #30 ect - Follow Up Plan Condition: GUARDED Disposition: HOME/ ROUTINE Instructions: Hyponatremia (DC) Additional Instructions: PATIENT TO FOLLOW UP WITH DR. INFANTE. TAKE ALL MEDICATIONS PRESCRIBED. ANY NEW ONSET OF SYMPTOMS SUCH NAUSEA, VOMITING, DIARRHEA, BLEEDING REPORT BACK TO THE ER IMMEDIATELY OR CONTACT YOUR PRIMARY CARE PHYSICIAN. Referrals: Raulito Mensah MD [Primary Care Provider] - Teofilo Infante MD [Staff Provider] -
== END 2017-10-05 15:26 | disposition home or self-care (01) | DRG 641 ==
LOC: ED 14:03 → ERH 16:23 → CCU 18:25 → 3RSO 09-29 12:40
PROVIDERS: ADMIT Family Medicine; ATTEND Family Medicine
PROC: 30233N1 Transfusion of Nonautologous Red Blood Cells into Peripheral Vein, Percutaneous Approach (ICD-10-PCS; 2017-09-28)
PROC: 0DJ08ZZ Inspection of Upper Intestinal Tract, Via Natural or Artificial Opening Endoscopic (ICD-10-PCS; principal; 2017-10-03 14:30)
PROC: 0W9G3ZX Drainage of Peritoneal Cavity, Percutaneous Approach, Diagnostic (ICD-10-PCS; 2017-10-04)
PROC: 0HBRXZZ Excision of Toe Nail, External Approach (ICD-10-PCS; 2017-10-05)
PROC: 0HBRXZZ Excision of Toe Nail, External Approach (ICD-10-PCS; 2017-10-05)
PROC: 0HBRXZZ Excision of Toe Nail, External Approach (ICD-10-PCS; 2017-10-05)
PROC: 0HBRXZZ Excision of Toe Nail, External Approach (ICD-10-PCS; 2017-10-05)
PROC: 0HBRXZZ Excision of Toe Nail, External Approach (ICD-10-PCS; 2017-10-05)
PROC: 0HBRXZZ Excision of Toe Nail, External Approach (ICD-10-PCS; 2017-10-05)
PROC: 0HBRXZZ Excision of Toe Nail, External Approach (ICD-10-PCS; 2017-10-05)
PROC: 0HBRXZZ Excision of Toe Nail, External Approach (ICD-10-PCS; 2017-10-05)
PROC: 0HBRXZZ Excision of Toe Nail, External Approach (ICD-10-PCS; 2017-10-05)
PROC: 0HBRXZZ Excision of Toe Nail, External Approach (ICD-10-PCS; 2017-10-05)
DX: E87.1 Hypo-osmolality and hyponatremia (principal); C79.51 Secondary malignant neoplasm of bone; C78.6 Secondary malignant neoplasm of retroperitoneum and peritoneum; R18.8 Other ascites; K76.6 Portal hypertension; B37.0 Candidal stomatitis; I25.118 Atherosclerotic heart disease of native coronary artery with other forms of angina pectoris; K25.9 Gastric ulcer, unspecified as acute or chronic, without hemorrhage or perforation; K22.2 Esophageal obstruction; K29.80 Duodenitis without bleeding; K44.9 Diaphragmatic hernia without obstruction or gangrene; I11.0 Hypertensive heart disease with heart failure; I50.9 Heart failure, unspecified; E83.51 Hypocalcemia; E83.39 Other disorders of phosphorus metabolism; E86.1 Hypovolemia; E87.6 Hypokalemia; I27.20 Pulmonary hypertension, unspecified; E78.00 Pure hypercholesterolemia, unspecified; E78.5 Hyperlipidemia, unspecified; L60.8 Other nail disorders; D64.9 Anemia, unspecified; Z85.3 Personal history of malignant neoplasm of breast; Z90.13 Acquired absence of bilateral breasts and nipples; Z79.02 Long term (current) use of antithrombotics/antiplatelets; Z79.82 Long term (current) use of aspirin; Z87.11 Personal history of peptic ulcer disease; Z95.5 Presence of coronary angioplasty implant and graft

== ENCOUNTER 2017-12-04 16:25 | Inpatient (IN) | payer MEDICARE ==
[2017-12-04 16:30] VITALS: BMI 22.3
[2017-12-04 17:27] LABS: BASO # 0.03 K/mm3 (0.0-2.0); BASO % 0.4 % (0.0-3.0); EOS # 0.1 (0.0-0.7); EOS % 1.7 % (1.5-5.0); GRAN # 5.6 (1.4-6.5); GRAN % 74.3 % (50.0-68.0); HEMOGLOBIN 7.7 g/dL (12.0-16.0); LYMPH # 1.3 (1.2-3.4); LYMPH % 17.4 % (22.0-35.0); MEAN CELL VOLUME 77.7 fl (80.0-105.0); MEAN CORPUSCULAR HEMOGLOBIN 26.8 pg (25.0-35.0); MEAN CORPUSCULAR HGB CONC 34.5 g/dl (31.0-37.0); MEAN PLATELET VOLUME 9.1 fl (7.0-11.0); MONO # 0.5 (0.1-0.6); MONO % 6.2 % (1.0-6.0); RBC 2.87 10^6/uL (3.5-6.1); WHITE BLOOD COUNT 7.5 10^3/ul (4.5-11.0)
[2017-12-04 17:28] LABS: INR 1.03
[2017-12-04 17:33] LABS: ALB/GLOB RATIO 1.4 (1.1-1.8); ALT/SGPT 23 U/L (7-56); AST/SGOT 37 U/L (14-36); BLOOD UREA NITROGEN 25 mg/dL (7-21); CALCIUM 8.3 mg/dL (8.4-10.5); GFR AFRICAN-AMERICAN > 60; GFR NON-AFRICAN AMERICAN > 60
[2017-12-04] MEDS ORDERED: Sodium Chloride 0.9% 1,000 ML IV STA (17:50)
[2017-12-04 18:50] LABS: TROPONIN I < 0.01 ng/mL
[2017-12-04] MEDS ORDERED: Iohexol 350 MG/100 ML VIAL ONE (19:03)
[2017-12-04] MEDS: Pantoprazole 40mg/100mL NS 40 MG/100 ML BAG IVPB SCH (19:25)
[2017-12-04] MEDS: Sodium Chloride 0.9% 1,000 ML IV SCH (19:25)
[2017-12-04 19:27] LABS: VENOUS BLOOD GAS BASE EXCESS 0.5 mmol/L (0.0-2.0); VENOUS BLOOD GAS PO2 42 mm/Hg (30-55); VENOUS BLOOD PH 7.43 (7.32-7.43)
[2017-12-04 19:29] LABS: PH,URINE 5.5 (4.7-8.0); URINE BILIRUBIN NEGATIVE (NEGATIVE); URINE BLOOD LARGE (NEGATIVE); URINE GLUCOSE (UA) NEGATIVE (NEGATIVE); URINE LEUKOCYTE ESTERASE SMALL Leu/uL (NEGATIVE); URINE PROTEIN 30 mg/dL (<30 mg/dL); URINE UROBILINOGEN 0.2 E.U./dL (<1 E.U./dL)
[2017-12-04 20:26] LABS: URINE APPEARANCE CLEAR (CLEAR); URINE COLOR YELLOW (YELLOW)
[2017-12-04 20:28] LABS: URINE RBC 25 - 30 /hpf (0-2)
[2017-12-04 20:29] LABS: URINE AMORPHOUS SEDIMENT TRACE
[2017-12-05] MEDS: Pantoprazole 40mg/100mL NS 40 MG/100 ML BAG IVPB SCH ×4 (01:36→23:51)
--- NOTE | 2017-12-05 06:26 | CON ---
DATE: 12/04/2017 HISTORY OF PRESENT ILLNESS: The patient was seen and examined at bedside. This is a 67-year-old lady with history of coronary artery disease, status post stent in 08/2017, (the patient is on Plavix), breast cancer for many years, in remission, who presented at this time after feeling chilly, lightheaded, and dizzy early in the morning while at followup appointment with Dr. Love. That was coincided with episode of melena mixed with fresh blood. The patient denies fever, chills, sweats, nausea, or vomiting. She did have episodes of upper GI bleed several months ago and was scoped at that time when she was found to have peptic ulcer disease. The patient was referred to [facility] ER by Dr. Love. ICU was called for further management and monitoring. Of note, the patient's hemoglobin is 7.7; while, in September, the patient's hemoglobin was more than 11. The patient maintains her blood pressure within normal limits. However, it started to trend down. Troponin level as well as lactic acid level are pending. PAST MEDICAL HISTORY: Coronary artery disease, peptic ulcer disease, and breast cancer. FAMILY HISTORY: Noncontributory. SOCIAL HISTORY: No alcohol or illicit drug abuse. No tobacco smoking. ALLERGIES: VANCOMYCIN. REVIEW OF SYSTEMS: Review of 12-organ system other than mentioned in history of present illness is negative. HOME MEDICATIONS: Nystatin, lutein, vitamin D, Protonix, Lasix, Pepcid, everolimus, Os-Martin, Lipitor, multivitamin, Plavix, Bystolic, aspirin, coenzyme Q10. PHYSICAL EXAMINATION: VITAL SIGNS: Blood pressure 105/70; however, about 2 hours ago, it was 115/74. Temperature 97.7, heart rate 82, respiratory rate 17, oxygen saturation 98% on room air. ENT, HEAD, AND NECK: Atraumatic. LUNGS: Clear to auscultation bilaterally. HEART: Regular rate and rhythm. S1, S2 normal. ABDOMEN: Soft, nontender, and nondistended. MUSCULOSKELETAL: No C/C/E. NEURO: The patient moves all extremities spontaneously. SKIN: Moist. PSYCH: The patient is alert, awake, and oriented x3. LABORATORY DATA: WBC 7.5, hemoglobin 7.7, and platelet count 296. Sodium 123, potassium 4.2, chloride 89, carbon dioxide 21. BUN 25, creatinine 0.7. Glucose 133. Calcium 8.3. AST 37, ALT 23, total bilirubin 0.3. Troponin is less than 0.01. INR 1.03, PTT 3.7. ASSESSMENT AND PLAN: This is a 67-year-old lady who presented with upper gastrointestinal bleed which seems to be quite symptomatic with lightheadedness, dizziness, and chills. Her blood pressure trended down; however, still maintained within normal limits. Lactic acid level is still pending. However, troponin x1 is negative. She does not have any chest pain. She does not have any signs of end-organ dysfunction yet. At present time, the patient will be admitted to intensive care unit, 2 units of blood will be transfused, and serial CBC's as well as one or two more troponins and lactic acid levels will be checked. CT of the abdomen and pelvis will be ordered. The patient will be n.p.o. on IV fluids. Dr. Garrison was contacted and the patient will be scheduled to go for upper endoscopy tomorrow morning for further risk stratification. We will continue to maintain euvolemia, euglycemia, normothermia, and oxygen saturation more than 90%. We will continue with DVT and GI prophylaxes. . ccm time 40 min Oni Choe MD TALI
[2017-12-05 06:50] LABS: HEMOGLOBIN 10.3 g/dL (12.0-16.0); MEAN CELL VOLUME 77.2 fl (80.0-105.0); MEAN CORPUSCULAR HEMOGLOBIN 26.7 pg (25.0-35.0); MEAN CORPUSCULAR HGB CONC 34.6 g/dl (31.0-37.0); MEAN PLATELET VOLUME 8.8 fl (7.0-11.0); RBC 3.86 10^6/uL (3.5-6.1); RED CELL DISTRIBUTION WIDTH 14.3 % (11.5-14.5); WHITE BLOOD COUNT 5.2 10^3/ul (4.5-11.0)
--- NOTE | 2017-12-05 08:10 | CP.PCM.HP ---
History of Present Illness - History of Present Illness History of Present Illness: Sobeida Ramos, PGY2, H&P for Dr Love: CC: bloody stools 67F with PMH breast cancer s/p bilateral mastectomy, HLD, HTN, CAD s/p JOSIAS on ASA, plavix, right ureteral stent, presents for bloody stools that started Monday morning. Patient states that she had bloody bowel movements on Monday and 2-3 BMs yesterday. She describes bright red blood mixed with stools, denies associated abdominal pain, rectal pain. Patient started feeling dizzy and lightheaded on Monday, went to Dr Love's office then, and was told to come to ED. Denies fevers, chills, nausea, vomiting, cough, sob, leg swelling, urinary symptoms. Patient's previous EGD was 09/2017 which showed nonbleeding gastric ulcers and duodenitis. States that her last colonoscopy was 6 years ago at [facility]. Patient admitted to [facility] for active GI bleed, anemia, hyponatremia , transfused 2 units prbcs with improvement in her Hgb this AM. Denies any bloody BM since admission. Currently, she states that she feels well and is hungry. Denies dizziness, cp, sob, weakness. PMH: stage IV metastatic breast cancer s/p bilateral mastectomy and on current chemotherapy, HLD, HTN, and CAD s/p JOSIAS on aspirin, right ureteral stent PSH: bilateral mastectomy All: Vancomycin FH: noncontributory SH: denies etoh, tobacco, drug use Present on Admission - Present on Admission Any Indicators Present on Admission: No History of DVT/PE: No History of Uncontrolled Diabetes: No Urinary Catheter: No Decubitus Ulcer Present: No Review of Systems - Review of Systems All systems: reviewed and no additional remarkable complaints except Review of Systems: as per HPI Past Patient History - Infectious Disease Hx of Infectious Diseases: None - Past Social History Smoking Status: Never Smoked - CARDIAC Hx Cardiac Disorders: Yes Hx Hypertension: Yes Hx Pacemaker: No - PULMONARY Hx Respiratory Disorders: No - NEUROLOGICAL Hx Paralysis: No - HEENT Hx HEENT Problems: No - RENAL Hx Chronic Kidney Disease: Yes Other/Comment: urethral stent - ENDOCRINE/METABOLIC Hx Endocrine Disorders: No - HEMATOLOGICAL/ONCOLOGICAL Hx Cancer: Yes (bilateral breast CQ) Hx Chemotherapy: Yes - INTEGUMENTARY Other/Comment: healed b/l chest scars from b/l mastectomy, dry flakey skin to b/ l heels pt was seeing dr calero for healed cut opened from dry skin on foot has healed and for ingrown toenails to both great toes - MUSCULOSKELETAL/RHEUMATOLOGICAL Hx Falls: Yes - GASTROINTESTINAL Hx Gastrointestinal Disorders: Yes (gastritis, distended abd) Other/Comment: hx abd ascites 2012 - GENITOURINARY/GYNECOLOGICAL Hx Genitourinary Disorders: No - PSYCHIATRIC Hx Substance Use: No - SURGICAL HISTORY Hx Cardiac Catheterization: Yes (cardiac stents 07/2017) - ANESTHESIA Hx Anesthesia: Yes Hx Anesthesia Reactions: No Hx Malignant Hyperthermia: No Meds Allergies/Adverse Reactions: Allergies Allergy/AdvReac Type Severity Reaction Status Date / Time vancomycin Allergy Severe RASH/ITCHY Verified 12/04/17 16:36 Physical Exam - Constitutional Appears: Non-toxic, No Acute Distress - Head Exam Head Exam: ATRAUMATIC, NORMOCEPHALIC - Eye Exam Eye Exam: EOMI, PERRL. absent: Conjunctival injection, Nystagmus, Scleral icterus Pupil Exam: NORMAL ACCOMODATION, PERRL. absent: Fixed, Irregular, Miosis, Unequal - ENT Exam ENT Exam: Mucous Membranes Moist - Neck Exam Neck exam: Positive for: Full Rom - Respiratory Exam Respiratory Exam: Clear to Auscultation Bilateral, NORMAL BREATHING PATTERN. absent: Accessory Muscle Use, Rhonchi, Wheezes, Respiratory Distress - Cardiovascular Exam Cardiovascular Exam: RRR, +S1, +S2. absent: Systolic Murmur - GI/Abdominal Exam GI & Abdominal Exam: Normal Bowel Sounds, Soft. absent: Distended, Firm, Guarding, Organomegaly, Rebound, Tenderness - Extremities Exam Extremities exam: Positive for: normal inspection. Negative for: calf tenderness, pedal edema - Back Exam Back exam: NORMAL INSPECTION - Neurological Exam Neurological exam: Alert, Oriented x3 - Psychiatric Exam Psychiatric exam: Normal Affect, Normal Mood - Skin Skin Exam: Dry, Normal Color, Warm Results - Vital Signs Recent Vital Signs: Last Vital Signs Temp 98.4 F 12/05/17 03:09 Pulse 66 12/05/17 03:09 Resp 16 12/05/17 03:09 BP 101/51 L 12/05/17 03:09 Pulse Ox 99 12/05/17 02:20 - Labs Result Diagrams: 12/05/17 11:40 12/05/17 08:09 Labs: Laboratory Results - last 24 hr 12/04/17 12/04/17 12/05/17 19:05 19:19 01:00 WBC RBC Hgb Hct MCV MCH MCHC RDW Plt Count MPV pO2 42 VBG pH 7.43 VBG pCO2 37.0 L VBG HCO3 24.6 VBG Total CO2 25.7 VBG O2 Sat (Calc) 84.2 H VBG Base Excess 0.5 VBG Potassium 3.9 Sodium 125.0 L Chloride 93.0 L Glucose 130 H Lactate 1.1 FiO2 21.0 Troponin I < 0.01 Venous Blood Potassium 3.9 Urine Color Yellow Urine Appearance Clear Urine pH 5.5 Ur Specific [place] 1.020 Urine Protein 30 H Urine Glucose (UA) Negative Urine Ketones Negative Urine Blood Large H Urine Nitrate Negative Urine Bilirubin Negative Urine Urobilinogen 0.2 Ur Leukocyte Esterase Small H Urine RBC 25 - 30 Urine WBC 5 - 10 Ur Epithelial Cells 10 - 12 Amorphous Sediment Trace 12/05/17 06:15 WBC 5.2 D RBC 3.86 Hgb 10.3 L D Hct 29.8 L MCV 77.2 L MCH 26.7 MCHC 34.6 RDW 14.3 Plt Count 201 MPV 8.8 pO2 VBG pH VBG pCO2 VBG HCO3 VBG Total CO2 VBG O2 Sat (Calc) VBG Base Excess VBG Potassium Sodium Chloride Glucose Lactate FiO2 Troponin I Venous Blood Potassium Urine Color Urine Appearance Urine pH Ur Specific [place] Urine Protein Urine Glucose (UA) Urine Ketones Urine Blood Urine Nitrate Urine Bilirubin Urine Urobilinogen Ur Leukocyte Esterase Urine RBC Urine WBC Ur Epithelial Cells Amorphous Sediment Assessment & Plan - Assessment and Plan (Free Text) Assessment: 67F with PMH breast cancer s/p bilateral mastectomy, HLD, HTN, CAD s/p JOSIAS, Right ureteral stent, presents for GI bleed, found to have anemia, hyponatremia: GI Bleed: - Protonix drip - 2 large bore IVs - s/p 2 units prbcs transfusion - Hgb 7.7 on admission - hgb 10.3 post transfusion (back to baseline) - GI Meli consulted. appreciate recs. EGD scheduled for today. - EGD 09/2017 showed nonbleeding gastric ulcers and duodenitis - h&H q6h - c/w ICU monitoring - monitor Hyponatremia: 2/2 dehydration vs SIADH - will order workup - previous hospital records reviewed, patient hyponatremic on previous admissions (volume depleted state) - NS @150 - Dr Kruse consulted. F/u recs - avoid overcorrection rapidly Hypophosphatemia: - Given Kphosphate - monitor Mildly Positive UA: - Patient however asymptomatic for urinary symptoms - F/u urine culture Hx of HTN/CAD: - c/w ASA - Patient had JOSIAS placement on , recommended to c/w ASA indefinitely and plavix for 1 year[address] Will discuss with Dr Green if okay to hold Plavix for now. - BP on low side, will hold anti-HTN currently Case seen and discussed with Dr Love.
--- NOTE | 2017-12-05 08:27 | CT ---
Date of service: 12/04/2017 PROCEDURE: CT Abdomen and Pelvis without intravenous contrast HISTORY: GI bleed COMPARISON: None. TECHNIQUE: Technique. Contrast dose: Radiation dose: Total exam DLP = mGy-cm. This CT exam was performed using one or more of the following dose reduction techniques: Automated exposure control, adjustment of the mA and/or kV according to patient size, and/or use of iterative reconstruction technique. FINDINGS: LOWER THORAX: Small moderate size left pleural effusion. LIVER: Unremarkable. No gross lesion or ductal dilatation. GALLBLADDER AND BILE DUCTS: Unremarkable. PANCREAS: Unremarkable. No gross lesion or ductal dilatation. SPLEEN: Unremarkable. ADRENALS: Unremarkable. No mass. KIDNEYS AND URETERS: Ower some right ureteral stent in place. VASCULATURE: Unremarkable. No aortic aneurysm. BOWEL: Unremarkable. No obstruction. No gross mural thickening. APPENDIX: Unremarkable. Normal appendix. PERITONEUM: Abundant ascites. Peritoneal masses particularly in the pelvis compatible with metastatic disease. LYMPH NODES: Unremarkable. No enlarged lymph nodes. BLADDER: Unremarkable. REPRODUCTIVE: Unremarkable. BONES: Diffuse sclerotic metastases. OTHER FINDINGS: None. IMPRESSION: Large left pleural effusion with diffuse ascites, peritoneal deposits consistent with peritoneal carcinomatosis. Diffuse sclerotic metastases. Right ureteral stent in place.
--- NOTE | 2017-12-05 09:07 | CARD ---
APPROVED REPORT Date of service: 12/04/2017 EKG Measurement Heart [id number] <Conclusion> Normal sinus rhythm Nonspecific ST and T wave abnormality Abnormal ECG
[2017-12-05 09:19] LABS: ALB/GLOB RATIO 1.3 (1.1-1.8); ALBUMIN 3.4 g/dL (3.0-4.8); ALT/SGPT 15 U/L (7-56); AST/SGOT 35 U/L (14-36); BLOOD UREA NITROGEN 13 mg/dL (7-21); CALCIUM 7.8 mg/dL (8.4-10.5); GFR AFRICAN-AMERICAN > 60; GFR NON-AFRICAN AMERICAN > 60
[2017-12-05 09:20] LABS: OSMOLALITY,URINE 258 mosm/kg (300-1000)
--- NOTE | 2017-12-05 09:28 | RAD ---
Date of service: 12/04/2017 HISTORY: admission COMPARISON: 09/27/2017 FINDINGS: LUNGS: The vague opacity in the left mid to lower lung zone may represent fissural fluid. The prior left pleural effusion is similar in appearance Shallow lung volumes right Port-A-Cath tip right atrium-similar. PLEURA: No significant pleural effusion identified, no pneumothorax apparent. CARDIOVASCULAR: Normal heart size. Pulmonary vasculature probably top-normal. OSSEOUS STRUCTURES: Thoracic spondylosis. Bilateral shoulder arthrosis VISUALIZED UPPER ABDOMEN: Partially visualize right proximal ureteral stent OTHER FINDINGS: None. IMPRESSION: Interval left pleural/ fissural fluid Left costophrenic angle small pleural effusion similar. Other findings -as above.
[2017-12-05] MEDS ORDERED: Potassium Phosphate 15 MMOLE in Sodium Chloride 0.9% 250 ML IVPB ONE (09:30)
[2017-12-05] MEDS: Sodium Chloride 0.9% 1,000 ML IV SCH ×2 (10:13→15:33)
--- NOTE | 2017-12-05 11:55 | CP.PCM.CON ---
<Preston Scott - Last Filed: 12/05/17 15:57> History of Present Illness - History of Present Illness History of Present Illness: Gastroenterology Consult note for Dr. Meli Scott PGY2 Chief Complaint: Total of 6 episodes of bloody bowel movements since Monday Patient is a 67 F with a history of Stave IV metastatic breast cancer s/p bilateral mastectomy on current chemotherapy, CAD s/p JOSIAS on 08/2017 on plavix and aspirin, HTN, HLD, hiatal hernia, and non-bleeding gastric ulcers who presents with complaints of bright red blood per rectum x6 which began Monday. Patient states she woke up Monday and had 4 bloody bowel movements. Patient states they were bright red and this was her first time experiencing this. Denied associated abdominal or rectal pain while passing stools. Patient states she contacted Dr. Love when she experienced this, who advised her to discontinue plavix however continue with aspirin. Patient was seen in office of Dr. Love the following day where she complained of feeling weak and lightheaded, patient was sent to the emergency department where she was found to be hyponatremic with a sodium of 123 as well as anemic with an H&H of 7.7 and 23.2. Patient was admitted to ICU and started on a protonix drip, where she also received 2 Units PRBCs. Repeat H&H 10.3 and 29.8. Patient seen this morning currently denies weakness, shortness of breath, lightheadedness, abdominal pain, nausea, vomiting, diarrhea, constipation. Patient states her last bowel movement was which contained blood was yesterday afternoon at 4 p.m. and has not had a bowel movement since, just frequent urination. Lab values: H&H 7.7/22.3 to 10.3/29.8 s/p 2 units PRBCs, Platelet count 201, PT 11.8, INR 1.03, PTT 30.7, Sodium 123 on admission now 133 CT abdomen/pelvis: Large left pleural effusion with diffuse ascites, peritoneal deposits consistent with peritoneal carcinomatosis. Diffuse sclerotic metastases. Right ureteral stent in place. Review of Systems - Constitutional Constitutional: absent: Anorexia, Chills, Fever, Headache, Malaise - EENT Eyes: absent: Blurred Vision, Change in Vision - Cardiovascular Cardiovascular: absent: Chest Pain, Diaphoresis, Dyspnea, Lightheadedness, Palpitations - Respiratory Respiratory: absent: Cough, Dyspnea - Gastrointestinal Gastrointestinal: absent: Abdominal Pain, Constipation, Diarrhea, Nausea, Vomiting - Genitourinary Genitourinary: absent: Dysuria - Musculoskeletal Musculoskeletal: absent: Back Pain - Neurological Neurological: absent: Dizziness, Headaches, Syncope - Psychiatric Psychiatric: absent: Anxiety - Endocrine Endocrine: absent: Fatigue, Palpitations Past Patient History - Infectious Disease Hx of Infectious Diseases: None - Past Social History Smoking Status: Never Smoked - CARDIAC Hx Cardiac Disorders: Yes Hx Hypertension: Yes Hx Pacemaker: No - PULMONARY Hx Respiratory Disorders: No - NEUROLOGICAL Hx Paralysis: No - HEENT Hx HEENT Problems: No - RENAL Hx Chronic Kidney Disease: Yes Other/Comment: urethral stent - ENDOCRINE/METABOLIC Hx Endocrine Disorders: No - HEMATOLOGICAL/ONCOLOGICAL Hx Cancer: Yes (bilateral breast CQ) Hx Chemotherapy: Yes - INTEGUMENTARY Other/Comment: healed b/l chest scars from b/l mastectomy, dry flakey skin to b/ l heels pt was seeing dr calero for healed cut opened from dry skin on foot has healed and for ingrown toenails to both great toes - MUSCULOSKELETAL/RHEUMATOLOGICAL Hx Falls: Yes - GASTROINTESTINAL Hx Gastrointestinal Disorders: Yes (gastritis, distended abd) Other/Comment: hx abd ascites 2012 - GENITOURINARY/GYNECOLOGICAL Hx Genitourinary Disorders: No - PSYCHIATRIC Hx Substance Use: No - SURGICAL HISTORY Hx Cardiac Catheterization: Yes (cardiac stents 07/2017) - ANESTHESIA Hx Anesthesia: Yes Hx Anesthesia Reactions: No Hx Malignant Hyperthermia: No Meds Allergies/Adverse Reactions: Allergies Allergy/AdvReac Type Severity Reaction Status Date / Time vancomycin Allergy Severe RASH/ITCHY Verified 12/04/17 16:36 - Medications Medications: Current Medications Aspirin (Ecotrin) 81 mg PO DAILY [facility] Last Admin: 12/05/17 10:11 Dose: 81 mg Sodium Chloride (Sodium Chloride 0.9%) 1,000 mls @ 150 mls/hr IV .[id number] [facility] Last Admin: 12/05/17 10:13 Dose: 150 mls/hr Pantoprazole Sodium (Protonix 40mg Ivpb) 40 mg in 100 mls @ 20 mls/hr IVPB .Q5H [facility] Last Admin: 12/05/17 10:11 Dose: 20 mls/hr Potassium Phosphate 15 mmole/ (Sodium Chloride) 255 mls @ 42.5 mls/hr IVPB ONCE ONE Stop: 12/05/17 15:29 Last Admin: 12/05/17 11:04 Dose: 42.5 mls/hr Physical Exam - Head Exam Head Exam: ATRAUMATIC, NORMAL INSPECTION, NORMOCEPHALIC - Eye Exam Eye Exam: EOMI, Normal appearance - ENT Exam ENT Exam: Mucous Membranes Moist - Respiratory Exam Respiratory Exam: Clear to Auscultation Bilateral, NORMAL BREATHING PATTERN. absent: Rhonchi, Wheezes - Cardiovascular Exam Cardiovascular Exam: REGULAR RHYTHM, +S1, +S2 - GI/Abdominal Exam GI & Abdominal Exam: Normal Bowel Sounds, Soft. absent: Distended, Guarding, Pulsatile Mass, Rebound - Rectal Exam Rectal Exam: Hemorrhoids (external), NORMAL INSPECTION. absent: Black Stool, Bloody Stool, Fecal Impaction - Back Exam Back exam: NORMAL INSPECTION - Neurological Exam Neurological exam: Alert, CN II-XII Intact, Oriented x3 - Psychiatric Exam Psychiatric exam: Normal Affect, Normal Mood - Skin Skin Exam: Normal Color, Warm Results - Vital Signs Recent Vital Signs: Last Vital Signs Temp 98.3 F 12/05/17 08:00 Pulse 59 L 12/05/17 09:20 Resp 20 12/05/17 09:20 BP 103/50 L 12/05/17 09:00 Pulse Ox 100 12/05/17 09:20 - Labs Result Diagrams: 12/05/17 11:40 12/05/17 08:09 Labs: Laboratory Results - last 24 hr 12/04/17 12/04/17 12/05/17 19:05 19:19 01:00 WBC RBC Hgb Hct MCV MCH MCHC RDW Plt Count MPV pO2 42 VBG pH 7.43 VBG pCO2 37.0 L VBG HCO3 24.6 VBG Total CO2 25.7 VBG O2 Sat (Calc) 84.2 H VBG Base Excess 0.5 VBG Potassium 3.9 Sodium 125.0 L Chloride 93.0 L Glucose 130 H Lactate 1.1 FiO2 21.0 Potassium Carbon Dioxide Anion Gap BUN Creatinine Est GFR ( Amer) Est GFR (Non-Af Amer) Random Glucose Serum Osmolality Calcium Phosphorus Magnesium Total Bilirubin AST ALT Alkaline Phosphatase Troponin I < 0.01 Total Protein Albumin Globulin Albumin/Globulin Ratio Venous Blood Potassium 3.9 Urine Color Yellow Urine Appearance Clear Urine pH 5.5 Ur Specific [place] 1.020 Urine Protein 30 H Urine Glucose (UA) Negative Urine Ketones Negative Urine Blood Large H Urine Nitrate Negative Urine Bilirubin Negative Urine Urobilinogen 0.2 Ur Leukocyte Esterase Small H Urine RBC 25 - 30 Urine WBC 5 - 10 Ur Epithelial Cells 10 - 12 Amorphous Sediment Trace Urine Osmolality Ur Random Sodium 12/05/17 12/05/17 12/05/17 06:15 08:06 08:09 WBC 5.2 D RBC 3.86 Hgb 10.3 L D Hct 29.8 L MCV 77.2 L MCH 26.7 MCHC 34.6 RDW 14.3 Plt Count 201 MPV 8.8 pO2 VBG pH VBG pCO2 VBG HCO3 VBG Total CO2 VBG O2 Sat (Calc) VBG Base Excess VBG Potassium Sodium 133 Chloride 101 Glucose Lactate FiO2 Potassium 3.8 Carbon Dioxide 22 Anion Gap 14 BUN 13 Creatinine 0.6 L Est GFR ( Amer) > 60 Est GFR (Non-Af Amer) > 60 Random Glucose 95 Serum Osmolality 270 L Calcium 7.8 L Phosphorus 2.4 L Magnesium 1.8 Total Bilirubin 0.6 AST 35 ALT 15 Alkaline Phosphatase 43 Troponin I Total Protein 6.0 Albumin 3.4 Globulin 2.6 Albumin/Globulin Ratio 1.3 Venous Blood Potassium Urine Color Urine Appearance Urine pH Ur Specific [place] Urine Protein Urine Glucose (UA) Urine Ketones Urine Blood Urine Nitrate Urine Bilirubin Urine Urobilinogen Ur Leukocyte Esterase Urine RBC Urine WBC Ur Epithelial Cells Amorphous Sediment Urine Osmolality Ur Random Sodium 12/05/17 08:20 WBC RBC Hgb Hct MCV MCH MCHC RDW Plt Count MPV pO2 VBG pH VBG pCO2 VBG HCO3 VBG Total CO2 VBG O2 Sat (Calc) VBG Base Excess VBG Potassium Sodium Chloride Glucose Lactate FiO2 Potassium Carbon Dioxide Anion Gap BUN Creatinine Est GFR ( Amer) Est GFR (Non-Af Amer) Random Glucose Serum Osmolality Calcium Phosphorus Magnesium Total Bilirubin AST ALT Alkaline Phosphatase Troponin I Total Protein Albumin Globulin Albumin/Globulin Ratio Venous Blood Potassium Urine Color Urine Appearance Urine pH Ur Specific [place] Urine Protein Urine Glucose (UA) Urine Ketones Urine Blood Urine Nitrate Urine Bilirubin Urine Urobilinogen Ur Leukocyte Esterase Urine RBC Urine WBC Ur Epithelial Cells Amorphous Sediment Urine Osmolality 258 L Ur Random Sodium 16 Assessment & Plan - Assessment and Plan (Free Text) Assessment: Patient is a 67 F with a history of Stave IV metastatic breast cancer s/p bilateral mastectomy on current chemotherapy, CAD s/p JOSIAS on 08/2017 on plavix and aspirin, HTN, HLD, hiatal hernia, and non-bleeding gastric ulcers who presents with complaints of bright red blood per rectum x6 Plan: Blood bowel movements and anemia secondary r/o bleeding gastric ulcer -Hold asprin and Plavix -Continue with Protonix drip -Hyponatremia resolved; continue to maintain electrolytes -EGD performed to r/o varices as cause of ascites: shows healed antral ulcer and hiatal hernia -Will refrain from repeat hepatic and portal vein ultrasound since performed in 09/2017 showed no abnormalities -Patient will need to have colonoscopy performed to figure out source of bleed. Will continue patient on clear liquid diet for now. <Destiny Garrison V - Last Filed: 12/05/17 21:55> Meds - Medications Medications: Current Medications Aspirin (Ecotrin) 81 mg PO DAILY [facility] Last Admin: 12/05/17 10:11 Dose: 81 mg Pantoprazole Sodium (Protonix 40mg Ivpb) 40 mg in 100 mls @ 20 mls/hr IVPB .Q5H [facility] Last Admin: 12/05/17 10:11 Dose: 20 mls/hr Sodium Chloride (Sodium Chloride 0.9%) 1,000 mls @ 75 mls/hr IV .[id number] [facility] Last Admin: 12/05/17 15:33 Dose: 75 mls/hr Potassium Phos/Sodium Phos (Neutra-Phos) 1 pkt PO DAILY [facility] Results - Vital Signs Recent Vital Signs: Last Vital Signs Temp 97.9 F 12/05/17 16:00 Pulse 59 L 12/05/17 18:50 Resp 19 12/05/17 18:50 BP 97/42 L 12/05/17 18:00 Pulse Ox 100 12/05/17 18:50 - Labs Result Diagrams: 12/05/17 20:00 12/05/17 08:09 Labs: Laboratory Results - last 24 hr 12/05/17 12/05/17 12/05/17 01:00 06:15 08:06 WBC 5.2 D RBC 3.86 Hgb 10.3 L D Hct 29.8 L MCV 77.2 L MCH 26.7 MCHC 34.6 RDW 14.3 Plt Count 201 MPV 8.8 Sodium Potassium Chloride Carbon Dioxide Anion Gap BUN Creatinine Est GFR ( Amer) Est GFR (Non-Af Amer) Random Glucose Serum Osmolality 270 L Calcium Phosphorus Magnesium Total Bilirubin AST ALT Alkaline Phosphatase Troponin I < 0.01 Total Protein Albumin Globulin Albumin/Globulin Ratio Urine Osmolality Ur Random Sodium 12/05/17 12/05/17 12/05/17 08:09 08:20 11:40 WBC 6.2 RBC 3.90 Hgb 10.3 L Hct 30.2 L MCV 77.4 L MCH 26.4 MCHC 34.1 RDW 14.5 Plt Count 193 MPV 8.6 Sodium 133 Potassium 3.8 Chloride 101 Carbon Dioxide 22 Anion Gap 14 BUN 13 Creatinine 0.6 L Est GFR ( Amer) > 60 Est GFR (Non-Af Amer) > 60 Random Glucose 95 Serum Osmolality Calcium 7.8 L Phosphorus 2.4 L Magnesium 1.8 Total Bilirubin 0.6 AST 35 ALT 15 Alkaline Phosphatase 43 Troponin I Total Protein 6.0 Albumin 3.4 Globulin 2.6 Albumin/Globulin Ratio 1.3 Urine Osmolality 258 L Ur Random Sodium 16 12/05/17 20:00 WBC 5.7 RBC 3.87 Hgb 10.4 L Hct 30.0 L MCV 77.5 L MCH 26.9 MCHC 34.7 RDW 14.6 H Plt Count 221 MPV 9.1 Sodium Potassium Chloride Carbon Dioxide Anion Gap BUN Creatinine Est GFR ( Amer) Est GFR (Non-Af Amer) Random Glucose Serum Osmolality Calcium Phosphorus Magnesium Total Bilirubin AST ALT Alkaline Phosphatase Troponin I Total Protein Albumin Globulin Albumin/Globulin Ratio Urine Osmolality Ur Random Sodium Attending/Attestation - Attestation I have personally seen and examined this patient.: Yes I have fully participated in the care of the patient.: Yes I have reviewed all pertinent clinical information: Yes Notes (Text): This is an addendum to GI consult report dictated by the Scoring Machine Operator.The patient was seen and examined earlier. Medical records, lab studies, imagings were reviewed. Last 24 hours events reviewed. Agreed with the above treatment plan as outlined in Scoring Machine Operator 's notes with the addition of the following [id number] patient with the breast carcinoma metastatic, ascites cytology positive for malignancy Admitted with the episodes of bright red blood per rectum Patient was on aspirin and Plavix status post LAD drug-eluting stent. Plavix was stopped 3 days ago Significant drop in blood count History of gastric ulcer On examination ascitis was present Follow-up hemoglobin, transfuse PPI Scheduled for EGD Discussed with the medical massage therapist, and Dr. Austin, 12/05/17 21:46
[2017-12-05 12:00] LABS: HEMOGLOBIN 10.3 g/dL (12.0-16.0); MEAN CELL VOLUME 77.4 fl (80.0-105.0); MEAN CORPUSCULAR HEMOGLOBIN 26.4 pg (25.0-35.0); MEAN CORPUSCULAR HGB CONC 34.1 g/dl (31.0-37.0); MEAN PLATELET VOLUME 8.6 fl (7.0-11.0); RBC 3.9 10^6/uL (3.5-6.1); RED CELL DISTRIBUTION WIDTH 14.5 % (11.5-14.5); WHITE BLOOD COUNT 6.2 10^3/ul (4.5-11.0)
[2017-12-05] MEDS ORDERED: Propofol 10 mg/ml Inj (20 ML) ONE (13:16)
[2017-12-05] MEDS ORDERED: Sodium Chloride 0.9% 500 ML IV STA (13:40)
--- NOTE | 2017-12-05 19:05 | PN ---
Copied To: Oni Choe MD Attending MD: Oni Choe MD DATE: 12/05/2017 SUBJECTIVE: Patient is seen and examined at bedside. She is comfortable. She talks in full sentences. She is not in respiratory or otherwise distress. Her night was uneventful. No more melena. No bowel movements overnight at all. No abdominal pain. PHYSICAL EXAMINATION: VITAL SIGNS: Temperature 97.9, heart rate 62, respiratory rate 16, oxygen saturation 100% on room air, blood pressure 120/60. ENT, HEAD, AND NECK: Atraumatic. LUNGS: Clear to auscultation bilaterally. HEART: Regular rate and rhythm. S1 and S2 normal. ABDOMEN: Soft, nontender, and nondistended. MUSCULOSKELETAL: No C/C/E. NEUROLOGIC: Patient moves all extremities spontaneously. SKIN: Moist. PSYCHIATRIC: Patient is alert, awake, and oriented x3. LABORATORY DATA: WBC 6.2, hemoglobin 10.3, stable over 4 hour. Patient has received 3 units of blood yesterday and hemoglobin responded appropriately from 7.7 to 10.3, platelet count 193. Lactic acid 1.1. INR 1.03. MEDICATIONS: Aspirin, Protonix drip, normal saline at 150 mL per hour. ASSESSMENT AND PLAN: This is a 67-year-old lady who presented with upper gastrointestinal bleed without stigmata of hemorrhagic shock (normal troponin and normal lactic acid without dropping blood pressure). Patient is on Protonix drip, n.p.o., intravenous fluids. Serial CBC. She is advised to go to endoscopy for esophagogastroduodenoscopy. Once risk stratification completed, disposition will be decided upon. We will continue to target euvolemia, euglycemia, normothermia and oxygen saturation more than 90%. Addendum: EGD: no high risk lesions, cleared by GI for clear liquids and transfer out of ICU ccm time 40 min Oni Choe MD [facility]
[2017-12-05 20:30] LABS: HEMOGLOBIN 10.4 g/dL (12.0-16.0); MEAN CELL VOLUME 77.5 fl (80.0-105.0); MEAN CORPUSCULAR HEMOGLOBIN 26.9 pg (25.0-35.0); MEAN CORPUSCULAR HGB CONC 34.7 g/dl (31.0-37.0); MEAN PLATELET VOLUME 9.1 fl (7.0-11.0); RBC 3.87 10^6/uL (3.5-6.1); RED CELL DISTRIBUTION WIDTH 14.6 % (11.5-14.5); WHITE BLOOD COUNT 5.7 10^3/ul (4.5-11.0)
[2017-12-05] MEDS ORDERED: Bisacodyl 5mg EC Tab PO ONE (21:43)
[2017-12-05] MEDS ORDERED: Magnesium Citrate Oral SOL (300 ml) PO ONE (21:44)
--- NOTE | 2017-12-05 23:37 | CON ---
Copied To: Cristobal Saab MD Attending MD: Cristobal Saab MD. DATE: 12/05/2017 The patient is admitted for Dr. Walt Hunter. REFERRING MD: Walt Hunter MD. REASON FOR CONSULTATION: Evaluation of a patient unknown to us who presents with hyponatremia. HISTORY OF PRESENT ILLNESS: The patient is a 67-year-old female with a history of breast cancer, status post bilateral mastectomy. The patient states her cancer was in remission for approximately 14 years and she developed recurrence with metastatic disease to the peritoneal membrane and to the bone. History of hypertension. History of ASHD, status post PTCA and stent. Past history of GI bleeding, found to have a gastric ulcer with duodenitis. History of anemia. The patient presented to the hospital with GI bleeding once again. She is status post an endoscopy earlier today, which showed a healed gastric ulcer and hiatal hernia. She is scheduled for a colonoscopy. The patient's hemoglobin had dropped down to 7.7 from a baseline in the 10-11 range. She did receive 2 units of packed red blood cells and her hemoglobin presently is up to 10.3. On admission, the patient was noted to be moderately hyponatremic with a sodium level of 123. She did receive normal saline 150 mL an hour. Sodium level today is normal at 133. The patient had a low serum osmolality. Urine osmolality was low at 258 with urine sodium of 16 consistent with a depletional and dilutional hyponatremia. We are asked to evaluate the patient for her low sodium level. PAST MEDICAL HISTORY: Significant for breast cancer, now with metastatic disease to the peritoneal space and the bone. Hypertension. History of ASHD, status post PTCA and drug-eluting stent. Past history of GI bleeding with recurrent GI bleeding. History of anemia, likely secondary to cancer, worsened by her GI bleeding. MEDICATIONS AT HOME include that of nystatin, ergocalciferol, potassium chloride, Protonix, p.o. Lasix, Pepcid, Afinitor, Os-Martin, Lipitor, omega 3 fatty acids, MultiVites, Plavix, coenzyme Q10, Bystolic and Ecotrin. ALLERGIES: THE PATIENT IS ALLERGIC TO VANCOMYCIN. PRESENT MEDICATIONS IN HOSPITAL: Include that of normal saline 150 mL an hour, which will be reduced; IV Protonix and a K-Phos rider 15 millimoles x1. SOCIAL HISTORY: No history of cigarette smoking. No history of alcohol use. The patient does not use illicit drugs. FAMILY HISTORY: Father of old age. Mother of complications of breast cancer. REVIEW OF SYSTEMS: GENERAL: Appetite has been stable. No weight loss. ENT: Denies any hearing or visual problems. PULMONARY: No shortness of breath. No COPD. No bronchitis, asthma, emphysema. CARDIAC: History of ASHD as noted above, but no ongoing issues. GI: No nausea, vomiting, diarrhea. No abdominal pain. No constipation. : No history of chronic kidney disease. No history of UTIs. 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 ENDOCRINE: No history of diabetes. MUSCULOSKELETAL: No issues. NEURO: No CVA, TIA, seizures or syncope. HEME/ONC: Positive for anemia and positive for breast cancer. PSYCHIATRIC: Negative. PHYSICAL EXAMINATION: GENERAL: The patient is currently seen in CCU bed 5. She appears to be in no acute distress. She is just returned from an endoscopy. VITAL SIGNS: Blood pressure currently is 136/76, pulse of 69, temperature is 98.1 with a respiratory rate of 21 and oxygen saturation of 99%. HEENT: Shows her to be normocephalic, atraumatic. Conjunctivae are pale. Sclerae are nonicteric. Pupils equal, reactive to light and accommodation. Extraocular muscles are intact. Posterior pharynx is normal. NECK: Supple. No lymphadenopathy. No neck vein distention. No bruits. No thyromegaly. CHEST: Clear to auscultation and percussion with slight decreased breath sounds at the left base. No rales, rhonchi or wheezing. CARDIOVASCULAR: Shows a regular rate and rhythm without murmurs, rubs or gallops. ABDOMEN: Soft. Bowel sounds normal. No rebound, guarding or masses. BACK: No CVAT. No spinal tenderness. EXTREMITIES: Show no cyanosis, clubbing or edema. Lower extremity pulses are normal at 2+ bilaterally. NEURO: Shows her to be alert, oriented x3 with no gross focal motor or sensory deficits noted. LABORATORY DATA AND IMAGING: Admitting EKG showed a normal sinus rhythm. Admitting chest x-ray showed a small left pleural effusion. Admitting abdominal CT showed a left pleural effusion with metastatic disease to the bone and peritoneal carcinomatosis. Labs, CBC: White blood cell count 7.5 on admission, 6.2 today. Hemoglobin was 7.7 on admission, down from her GI bleed. Transfused 2 units up to 10.3 and stable. Platelet count is 193,000. Coags are normal. Blood gas on admission pH of 7.43, pO2 of 42, likely a venous blood gas with a pCO2 of 37. Lactate level was normal. Chemistries: Sodium 123 on admission. Chloride 89. Potassium 4.2. BUN was 25, with hydration it is down to 13. Creatinine was 0.7, with hydration down to 0.6. Urine osmolality was 258, low. Serum osmolality was 270. Calcium was 7.8 with an albumin level of 3.4, corrects to close to normal. Phosphorus level was mildly low at 2.4. Magnesium is 1.8. Liver enzymes are normal. Bilirubin is normal. Remainder of her urinalysis shows 25-30 red blood cells per high-power field, 5-10 white blood cells per high-power field. No urine culture available for comment. Blood bank: The patient received 2 units of packed red blood cells. ASSESSMENT: 1. Mild hyponatremia. The patient denies any copious fluid intake. In the outpatient setting, the patient is on very low-dose diuretic therapy for edema prevention. Perhaps decreased sodium intake together with continued use of diuretic therapy led to her mild hyponatremia. Workup is consistent with a mixed picture. Her low urine sodium suggests a depletion of hyponatremia and her low urine osmolality suggests perhaps a mild dilutional hyponatremia. The patient had responded to 150 mL of normal saline over approximately 12 hours. Her sodium level had risen from 123 to 133. Uric acid level was not done. It is unlikely that she has thyroid disease. It is also unlikely that she has adrenal insufficiency as she has a history of hypertension and remains on blood pressure medication. She was also not hyperkalemic. If in the future her sodium level should drop again. May check an a.m. cortisol level and I can check thyroid levels as well. 2. Mild hypophosphatemia. This is decreased secondary to low dietary intake of phosphorus. The patient received one K-Phos rider. The patient may receive oral phosphorus supplements as necessary. 3. History of hypertension. The patient may be restarted back on antihypertensive medication once her blood pressure rises. 4. History of atherosclerotic heart disease, status post percutaneous transluminal coronary angioplasty with drug-eluting stent, currently stable. 5. History of gastrointestinal bleed, which is responsible for her hospital admission. The patient has what appears to be a healed gastric ulcer. This was the source of bleeding in the past. She also has a hiatal hernia. The patient is scheduled for a colonoscopy. She did receive 2 units of blood and her hemoglobin is stabilized at 10.3. 6. History of anemia, in part secondary to metastatic breast cancer and in part secondary to GI bleeding. PLAN: 1. Obtain a urine C and S in light of the pyuria. 2. The patient may be started on Neutra-Phos. This will help keep her phosphorus level in the normal range. 3. From my standpoint, normal saline may be decreased down to maintenance fluid levels. She does not require 150 mL an hour. 4. We will check her uric acid level. I will check her thyroid function tests and in light of her hyponatremia, though very unlikely, I will check an a.m. cortisol level. 5. For right now, the patient may remain off of Lasix. 6. Continue to monitor accurate I's and O's. 7. Close renal followup during hospitalization. 8. If the patient's hemoglobin remained stable, agree with transfer to telemetry once bed available. 9. Thank you for letting me partake and share in the care of your patient. Cristobal Saab MD
--- NOTE | 2017-12-06 00:12 | CON ---
Copied To: Chin Green MD Attending MD: Chin Green MD. DATE: 12/05/2017 CARDIOLOGY CONSULTATION HISTORY: The patient is a 67-year-old woman, who presents with a GI bleed. The patient is status post cardiac catheterization and PTCA and stent in 07/2017. In 07/2017, the patient had a drug-eluting stent placed in the LAD. Her overall LV function is normal. The patient underwent extensive GI workup, which found no active bleeding in the GI system. The patient's past medical history also includes hypercholesterolemia. SOCIAL HISTORY: The patient does not smoke. REVIEW OF SYSTEMS: Fourteen-point review of systems is reviewed in detail. No cardiac symptomatology is noted. PHYSICAL EXAMINATION: VITAL SIGNS: Blood pressure is 136/76, heart rates in the 60s. NECK: Negative JVD. LUNGS: Without rales. HEART: Reveals S1, S2. EXTREMITIES: Without edema. EKG shows no acute changes. LABORATORY DATA: Hemoglobin is 10.3. Chemistries: BUN and creatinine are unremarkable. Troponin is negative x2. IMPRESSION: 1. GI bleed. 2. No obvious source of her bleed with no active bleeding now. 3. History of percutaneous transluminal coronary angioplasty and stent of a left anterior descending in 07/2017. 4. Anemia. 5. Hypercholesterolemia. PLAN: Given these findings, we will monitor her hemoglobin. Once GI feels it is safe, we will restart the patient on Plavix. Chin Green MD
[2017-12-06] MEDS: Pantoprazole 40mg/100mL NS 40 MG/100 ML BAG IVPB SCH ×4 (05:15→21:58)
[2017-12-06] MEDS: Sodium Chloride 0.9% 1,000 ML IV SCH ×2 (05:15→20:10)
[2017-12-06] MEDS ORDERED: Peg-Electrolyte Oral Soln 4L (Golytely) PO ONE ×3 (06:00)
[2017-12-06 06:30] LABS: ALB/GLOB RATIO 1.2 (1.1-1.8); ALBUMIN 3.3 g/dL (3.0-4.8); ALT/SGPT 21 U/L (7-56); AST/SGOT 39 U/L (14-36); BLOOD UREA NITROGEN 6 mg/dL (7-21); CALCIUM 7.4 mg/dL (8.4-10.5); GFR AFRICAN-AMERICAN > 60; GFR NON-AFRICAN AMERICAN > 60; URIC ACID 3.5 mg/dL (2.5-6.2)
[2017-12-06 06:41] LABS: T4 10.1 ug/dL (5.5-11.0)
[2017-12-06] MEDS ORDERED: Bisacodyl 5mg EC Tab PO ONE (07:49)
[2017-12-06] MEDS ORDERED: SODIUM CHLORIDE 0.9% IVPB ONE (08:45)
[2017-12-06] MEDS ORDERED: CALCIUM GLUCONATE IVPB ONE (08:45)
[2017-12-06] MEDS: Potassium & Sodium Phosphate PO SCH (08:59)
[2017-12-06 09:31] LABS: BASO # 0.13 K/mm3 (0.0-2.0); BASO % 1.8 % (0.0-3.0); EOS # 0.4 (0.0-0.7); EOS % 5.8 % (1.5-5.0); GRAN # 5.26 (1.4-6.5); GRAN % 71.5 % (50.0-68.0); HEMOGLOBIN 10.9 g/dL (12.0-16.0); LYMPH # 0.8 (1.2-3.4); LYMPH % 10.6 % (22.0-35.0); MEAN CELL VOLUME 78.1 fl (80.0-105.0); MEAN CORPUSCULAR HEMOGLOBIN 26.8 pg (25.0-35.0); MEAN CORPUSCULAR HGB CONC 34.4 g/dl (31.0-37.0); MEAN PLATELET VOLUME 8.9 fl (7.0-11.0); MONO # 0.8 (0.1-0.6); MONO % 10.3 % (1.0-6.0); RBC 4.06 10^6/uL (3.5-6.1); RED CELL DISTRIBUTION WIDTH 14.8 % (11.5-14.5); WHITE BLOOD COUNT 7.4 10^3/ul (4.5-11.0)
--- NOTE | 2017-12-06 14:20 | CP.PCM.PN ---
Subjective - Date & Time of Evaluation Date of Evaluation: 12/06/17 Time of Evaluation: 10:00 - Subjective Subjective: Sobeida Ramos, PGY2, Progress Note for Dr Love: Patient seen and examined at bedside. No acute events overnight. Patient on bowel prep for colonoscopy at 2 PM today, denies blood in bowel movements. Denies fevers, chills, nausea, vomiting, abdominal pain, leg swelling. Objective - Vital Signs/Intake and Output Vital Signs (last 24 hours): Temp Pulse Resp BP Pulse Ox 97.6 F 67 18 117/52 L 100 12/06/17 08:00 12/06/17 08:00 12/06/17 08:00 12/06/17 13:56 12/06/17 13:55 Intake and Output: 12/06/17 12/06/17 06:59 18:59 Intake Total 1280 Output Total 800 Balance 480 - Medications Medications: Current Medications Aspirin (Ecotrin) 81 mg PO DAILY [facility] Last Admin: 12/06/17 09:42 Dose: Not Given Pantoprazole Sodium (Protonix 40mg Ivpb) 40 mg in 100 mls @ 20 mls/hr IVPB .Q5H [facility] Last Admin: 12/06/17 10:01 Dose: 20 mls/hr Sodium Chloride (Sodium Chloride 0.9%) 1,000 mls @ 75 mls/hr IV .[id number] [facility] Last Admin: 12/06/17 05:15 Dose: 75 mls/hr Potassium Phos/Sodium Phos (Neutra-Phos) 1 pkt PO DAILY [facility] Last Admin: 12/06/17 08:59 Dose: 1 pkt - Labs Labs: 12/06/17 09:20 12/06/17 05:20 PT 11.8 SECONDS 12/04/17 17:03 INR 1.03 12/04/17 17:03 APTT 30.7 Seconds 12/04/17 17:03 - Additional Findings Additional findings: - Constitutional Appears: Non-toxic, No Acute Distress - Head Exam Head Exam: ATRAUMATIC, NORMOCEPHALIC - Eye Exam Eye Exam: EOMI, PERRL. absent: Conjunctival injection, Nystagmus, Scleral icterus Pupil Exam: NORMAL ACCOMODATION, PERRL. absent: Fixed, Irregular, Miosis, Unequal - ENT Exam ENT Exam: Mucous Membranes Moist - Neck Exam Neck exam: Positive for: Full Rom - Respiratory Exam Respiratory Exam: Clear to Auscultation Bilateral, NORMAL BREATHING PATTERN. absent: Accessory Muscle Use, Rhonchi, Wheezes, Respiratory Distress - Cardiovascular Exam Cardiovascular Exam: RRR, +S1, +S2. absent: Systolic Murmur - GI/Abdominal Exam GI & Abdominal Exam: Normal Bowel Sounds, Soft. absent: Distended, Firm, Guarding, Organomegaly, Rebound, Tenderness - Extremities Exam Extremities exam: Positive for: normal inspection. Negative for: calf tenderness, pedal edema - Back Exam Back exam: NORMAL INSPECTION - Neurological Exam Neurological exam: Alert, Oriented x3 - Psychiatric Exam Psychiatric exam: Normal Affect, Normal Mood - Skin Skin Exam: Dry, Normal Color, Warm Assessment and Plan - Assessment and Plan (Free Text) Assessment: 67F with PMH breast cancer s/p bilateral mastectomy, HLD, HTN, CAD s/p JOSIAS, Right ureteral stent, presents for GI bleed, found to have anemia, hyponatremia: GI Bleed: - s/p 2 units prbcs transfusion - Hgb 7.7 on admission - hgb 10.9 post transfusion (back to baseline) - GI Meli consulted. appreciate recs. EGD yesterday showed gastritis. - EGD 09/2017 showed nonbleeding gastric ulcers and duodenitis - Scheduled for colonoscopy today. F/u results. - no further episodes of hematochezia since admission - monitor Hyponatremia: 2/2 true hypovolemia vs heart failure, less likely cirrhosis, nephrotic syndrome - workup shows hypotonic hyponatremia: with high urine osm, low urine Na - previous hospital records reviewed, patient hyponatremic on previous admissions (volume depleted state vs SIADH?) - NS @75 - Dr Kruse consulted. appreciate recs Hypophosphatemia: - on neutraphosph daily as per renal - monitor Mildly Positive UA: - Patient however asymptomatic for urinary symptoms - F/u urine culture Hx of HTN/CAD: - c/w ASA - Patient had JOSIAS placement on , recommended to c/w ASA indefinitely and plavix for 1 year. Cardio consult appreciated. will hold plavix until GI feels safe to resume plavix. - BP on low side, will hold anti-HTN currently Case seen and discussed with Dr Love.
[2017-12-06 14:31] LABS: PARTIAL THROMBOPLASTIN TIME 30.7 Seconds (25.1-36.5); PROTHROMBIN TIME 11.8 SECONDS (9.4-12.5)
[2017-12-06] MEDS ORDERED: Propofol 10 mg/ml Inj (20 ML) ONE (14:46)
--- NOTE | 2017-12-06 16:10 | PN ---
Copied To: Chin Green MD Attending MD: Chin Green MD DATE: 12/06/2017 CARDIOLOGY FOLLOWUP SUBJECTIVE: The patient is asymptomatic. No chest pain. No shortness of breath. PHYSICAL EXAMINATION: VITAL SIGNS: Blood pressure is 117/52, the heart rate is in the 80s. NECK: Negative JVD. LUNGS: Without rales. HEART: Reveals S1, S2. EXTREMITIES: Without edema. LABORATORY DATA: Hemoglobin is stable at 10.9. Creatinine is 0.6. IMPRESSION: 1. Status post GI bleed. 2. History of percutaneous transluminal coronary angioplasty and stent in the past. 3. History of [id number] myocardial infarction in the past. 4. History of cancer. PLAN: Given these findings, if her hemoglobin stays stable and HER GI workup is negative, I have discussed with Dr. Garrison about restarting her on Plavix. Chin Green MD
--- NOTE | 2017-12-06 16:59 | PN ---
Copied To: Destiny Kruse MD Attending MD: Destiny Kruse MD DATE: 12/06/2017 SUBJECTIVE: The patient is seen lying in bed. She is awake. She is alert. She is comfortable. She denies any pain. She denies any shortness of breath. PHYSICAL EXAMINATION: GENERAL: Elderly lady, lying in bed. VITAL SIGNS: Blood pressure 117/52, heart rate 67, respiratory rate 20, temperature 97.6. HEENT: Normocephalic, atraumatic. NECK: Supple, no JVD. LUNGS: Bilateral equal air entry, bilateral equal expansion. CARDIAC: S1 and S2, regular rate and rhythm, no murmur, no rub. ABDOMEN: Obese, distended, soft, nontender, bowel sounds present. EXTREMITIES: No lower extremity edema. INTAKE AND OUTPUT: 2935/1700. LABORATORY DATA: WBC 7.4, hemoglobin 10.9, hematocrit 32, platelets 252. Sodium 139, potassium 3.6, chloride 109, CO2 of 20, BUN 6, creatinine 0.6, glucose 96, calcium 7.4, albumin 3.3, corrected calcium is 7.8, uric acid 3.5, magnesium 2.2, globulin 2.8. Urine sodium 16, urine osmolality 258. Blood cultures, no growth. CURRENT MEDICATIONS: Aspirin, Neutra-Phos, Protonix, normal saline at 75, calcium gluconate IV 1 g given this morning. ASSESSMENT: 1. Mild hyponatremia, resolved. 2. Hypokalemia. 3. Hypocalcemia. 4. History of breast cancer, bilateral mastectomy. 6. Bloody diarrhea. PLAN: 1. Continue Neutra-Phos replacement. 2. Agree with calcium replacement. 3. Check intact PTH, PTH related peptide and vitamin D. Continue normal saline. 4. The patient is stable from renal standpoint. Destiny Kruse MD
[2017-12-06] MEDS ORDERED: Sodium Chloride 0.9% 1,000 ML IV SCH (19:00)
[2017-12-07] MEDS: Pantoprazole 40mg/100mL NS 40 MG/100 ML BAG IVPB SCH ×4 (03:18→22:44)
[2017-12-07 07:00] LABS: BASO # 0.09 K/mm3 (0.0-2.0); BASO % 1.6 % (0.0-3.0); EOS # 0.4 (0.0-0.7); EOS % 7.5 % (1.5-5.0); GRAN # 3.66 (1.4-6.5); HEMOGLOBIN 10.7 g/dL (12.0-16.0); LYMPH # 0.9 (1.2-3.4); LYMPH % 15.9 % (22.0-35.0); MEAN CELL VOLUME 78.5 fl (80.0-105.0); MEAN CORPUSCULAR HEMOGLOBIN 27.1 pg (25.0-35.0); MEAN CORPUSCULAR HGB CONC 34.5 g/dl (31.0-37.0); MEAN PLATELET VOLUME 8.7 fl (7.0-11.0); MONO # 0.4 (0.1-0.6); RBC 3.95 10^6/uL (3.5-6.1); RED CELL DISTRIBUTION WIDTH 14.8 % (11.5-14.5); WHITE BLOOD COUNT 5.5 10^3/ul (4.5-11.0)
[2017-12-07 07:37] LABS: ALB/GLOB RATIO 1.2 (1.1-1.8); ALBUMIN 3.1 g/dL (3.0-4.8); ALT/SGPT 14 U/L (7-56); AST/SGOT 46 U/L (14-36); BLOOD UREA NITROGEN 3 mg/dL (7-21); CALCIUM 6.8 mg/dL (8.4-10.5); GFR AFRICAN-AMERICAN > 60; GFR NON-AFRICAN AMERICAN > 60
[2017-12-07] MEDS ORDERED: Potassium Chloride 20 mEq ER Tab PO STA (08:15)
--- NOTE | 2017-12-07 08:16 | CP.PCM.PN ---
<Janeen Thakur - Last Filed: 12/07/17 08:12> Subjective - Date & Time of Evaluation Date of Evaluation: 12/07/17 Time of Evaluation: 07:30 - Subjective Subjective: GI Fellow PGY5 Progress Note Pt seen and evaluated at bedside, pt doing well with no complaints of abdominal pain or rectal bleeding. ROS: A 12pt ROS was negative except as above. Objective - Vital Signs/Intake and Output Vital Signs (last 24 hours): Temp Pulse Resp BP Pulse Ox 97.8 F 78 18 146/79 99 12/07/17 06:00 12/07/17 06:00 12/07/17 06:00 12/07/17 06:00 12/07/17 06:00 Intake and Output: 12/07/17 12/07/17 06:59 18:59 Intake Total 920 Balance 920 - Medications Medications: Current Medications Aspirin (Ecotrin) 81 mg PO DAILY [facility] Last Admin: 12/06/17 09:42 Dose: Not Given Clopidogrel Bisulfate (Plavix) 75 mg PO DAILY [facility] Pantoprazole Sodium (Protonix 40mg Ivpb) 40 mg in 100 mls @ 20 mls/hr IVPB .Q5H [facility] Last Admin: 12/07/17 03:18 Dose: 20 mls/hr Sodium Chloride (Sodium Chloride 0.9%) 1,000 mls @ 75 mls/hr IV .[id number] [facility] Last Admin: 12/06/17 20:10 Dose: 75 mls/hr Potassium Phos/Sodium Phos (Neutra-Phos) 1 pkt PO DAILY [facility] Last Admin: 12/06/17 08:59 Dose: 1 pkt - Labs Labs: 12/07/17 06:40 12/07/17 06:40 PT 11.8 SECONDS (9.4-12.5) 12/04/17 17:03 INR 1.03 12/04/17 17:03 APTT 30.7 Seconds (25.1-36.5) 12/04/17 17:03 - Constitutional Appears: Non-toxic, No Acute Distress - Head Exam Head Exam: ATRAUMATIC, NORMAL INSPECTION, NORMOCEPHALIC - Eye Exam Eye Exam: EOMI, Normal appearance, PERRL Pupil Exam: PERRL - ENT Exam ENT Exam: Mucous Membranes Moist, Normal Exam - Neck Exam Neck Exam: Full ROM, Normal Inspection - Respiratory Exam Respiratory Exam: Clear to Ausculation Bilateral, NORMAL BREATHING PATTERN - Cardiovascular Exam Cardiovascular Exam: RRR, +S1, +S2 - GI/Abdominal Exam GI & Abdominal Exam: Soft, Normal Bowel Sounds - Rectal Exam Rectal Exam: Deferred - Extremities Exam Extremities Exam: Full ROM, Normal Inspection - Neurological Exam Neurological Exam: Alert, Awake, Oriented x3 - Psychiatric Exam Psychiatric exam: Normal Affect, Normal Mood - Skin Skin Exam: Dry, Intact, Normal Color, Warm Assessment and Plan - Assessment and Plan (Free Text) Assessment: Patient is a 67 F with a history of Stave IV metastatic breast cancer s/p bilateral mastectomy on current chemotherapy, CAD s/p JOSIAS on 08/2017 on plavix and aspirin, HTN, HLD, hiatal hernia, and non-bleeding gastric ulcers who presents with complaints of bright red blood per rectum. 1. Rectal bleeding 2. Acute Anemia 3. CAD s/p JOSIAS 4. Breast cancer Plan: -Continue supportive care -Pt clinically improved with no further rectal bleeding -Hgb stable -Continue aspirin and Plavix -Continue with Protonix po daily -s/p EGD with healed antral ulcer, no active UGIB -s/p Colonoscopy with good prep, internal hemorrhoids, no LGIB noted -Diet as tolerated -Pt okay for discharge home from GI perspective <Destiny Garrison V - Last Filed: 12/08/17 00:03> Objective - Vital Signs/Intake and Output Vital Signs (last 24 hours): Temp Pulse Resp BP Pulse Ox 98.2 F 73 18 128/74 98 12/07/17 22:53 12/07/17 22:53 12/07/17 22:53 12/07/17 22:53 12/07/17 22:53 Intake and Output: 12/07/17 12/08/17 18:59 06:59 Intake Total 680 Balance 680 - Medications Medications: Current Medications Aspirin (Ecotrin) 81 mg PO DAILY [facility] Last Admin: 12/07/17 09:38 Dose: 81 mg Calcium Carbonate (Oscal) 500 mg PO Q12H [facility] Last Admin: 12/07/17 21:17 Dose: 500 mg Clopidogrel Bisulfate (Plavix) 75 mg PO DAILY [facility] Last Admin: 12/07/17 09:38 Dose: 75 mg Ergocalciferol (Drisdol 50,000 Intl Units Cap) 1 cap PO Q7D [facility] Last Admin: 12/07/17 21:17 Dose: 1 cap Pantoprazole Sodium (Protonix 40mg Ivpb) 40 mg in 100 mls @ 20 mls/hr IVPB .Q5H [facility] Last Admin: 12/07/17 22:44 Dose: 20 mls/hr Sodium Chloride (Sodium Chloride 0.9%) 1,000 mls @ 75 mls/hr IV .[id number] [facility] Last Admin: 12/07/17 22:44 Dose: 75 mls/hr Potassium Phos/Sodium Phos (Neutra-Phos) 1 pkt PO BID [facility] Last Admin: 12/07/17 17:52 Dose: 1 pkt - Labs Labs: 12/07/17 06:40 12/07/17 06:40 PT 11.8 SECONDS (9.4-12.5) 12/04/17 17:03 INR 1.03 12/04/17 17:03 APTT 30.7 Seconds (25.1-36.5) 12/04/17 17:03 Attending/Attestation - Attestation I have personally seen and examined this patient.: Yes I have fully participated in the care of the patient.: Yes I have reviewed all pertinent clinical information, including history, physical exam and plan: Yes Notes (Text): This is an addendum to GI progress report dictated by the GI Fellow.The patient was seen and examined earlier. Medical records, lab studies, imagings were reviewed. Last 24 hours events reviewed. Agreed with the above treatment plan as outlined in GI Fellow 's notes the with the addition of the following colonoscopy is negative for any source of GI bleeding except patient had mild to moderate size hemorrhoids Plavix and aspirin have been restarted. Close follow-up of hemoglob and hematocrit Would recommend to continue iron supplements Diet has been advanced 12/08/17 00:01
[2017-12-07] MEDS: Potassium & Sodium Phosphate PO SCH ×2 (09:38→17:52)
[2017-12-07] MEDS ORDERED: Potassium Chloride 20 mEq ER Tab PO ONE (10:25)
[2017-12-07] MEDS: Sodium Chloride 0.9% 1,000 ML IV SCH ×2 (10:57→22:44)
--- NOTE | 2017-12-07 19:03 | PN ---
Copied To: Destiny Kruse MD Attending MD: Destiny Kruse MD DATE: 12/07/2017 SUBJECTIVE: The patient is seen in room. She is currently standing by her bed. She is awake. She is alert. She is comfortable. She denies any pain. She denies any shortness of breath. She denies any diarrhea. PHYSICAL EXAMINATION: GENERAL: Elderly lady, standing. VITAL SIGNS: Blood pressure 130/76, heart rate 65, respiratory rate 18, temperature 97.2. HEENT: Normocephalic, atraumatic, positive pallor. NECK: Supple, no JVD. LUNGS: Bilateral equal air entry, bilateral equal expansion, no rales. CARDIAC: S1 and S2, regular rate and rhythm, no murmur, no rub. ABDOMEN: Soft, nondistended, nontender, bowel sounds present. EXTREMITIES: No lower extremity edema. INTAKE AND OUTPUT: 2935/1700. LABORATORY DATA: WBC 5.5, hemoglobin 10.7, hematocrit 31, platelets 237. Sodium 140, potassium 3.4, chloride 112, CO2 of 17, BUN 3, creatinine 0.6, glucose 83, calcium 6.8, phosphorus 2.5, magnesium 1.8. CURRENT MEDICATIONS: List reviewed. ASSESSMENT: 1. Severe hypokalemia. 2. Hypocalcemia. 3. Hypophosphatemia. 4. GI bleed secondary to hemorrhoids. 5. History of bilateral breast cancer, bilateral mastectomy. 6. Hyponatremia, resolved. PLAN: 1. Replace potassium and phosphorus p.o. 2. Replace calcium IV. 3. Follow up intact PTH and PTH related peptide. 4. Push p.o. intake. Destiny Kruse MD
[2017-12-07] MEDS ORDERED: Ergocalciferol 50,000 Intl Units Cap PO SCH (20:30)
--- NOTE | 2017-12-07 21:10 | CP.PCM.DIS ---
Provider - Provider Date of Admission: 12/04/17 18:40 Attending physician: Walt Hunter MD Primary care physician: SHYAM Mensah Consults: GI Meli Cardio Green Time Spent in preparation of Discharge (in minutes): 60 Diagnosis - Discharge Diagnosis (1) GI bleed Status: Acute (2) Anemia Status: Acute (3) Ascites Status: Acute (4) Hypocalcemia Status: Acute (5) Hyponatremia Status: Acute (6) Hypophosphatemia Status: Acute Hospital Course - Lab Results Lab Results: Micro Results 12/04/17 19:05 Blood-Venous Blood Culture - Preliminary NO GROWTH AFTER 3 DAYS 12/04/17 19:05 Urine,Clean Catch Urine Culture - Final 10-50,000 CFU/ML. MULTIPLE SPECIES. PROBABLE CONTAMINATION. 12/04/17 21:29 Nose MRSA Culture (Admit) - Final MRSA NOT DETECTED Most Recent Lab Values WBC 5.5 10^3/ul (4.5-11.0) D 12/07/17 06:40 RBC 3.95 10^6/uL (3.5-6.1) 12/07/17 06:40 Hgb 10.7 g/dL (12.0-16.0) L 12/07/17 06:40 Hct 31.0 % (36.0-48.0) L 12/07/17 06:40 MCV 78.5 fl (80.0-105.0) L 12/07/17 06:40 MCH 27.1 pg (25.0-35.0) 12/07/17 06:40 MCHC 34.5 g/dl (31.0-37.0) 12/07/17 06:40 RDW 14.8 % (11.5-14.5) H 12/07/17 06:40 Plt Count 237 10^3/uL (120.0-450.0) 12/07/17 06:40 MPV 8.7 fl (7.0-11.0) 12/07/17 06:40 Gran % 67.0 % (50.0-68.0) 12/07/17 06:40 Lymph % (Auto) 15.9 % (22.0-35.0) L 12/07/17 06:40 [place] % (Auto) 8.0 % (1.0-6.0) H 12/07/17 06:40 Eos % (Auto) 7.5 % (1.5-5.0) H 12/07/17 06:40 Baso % (Auto) 1.6 % (0.0-3.0) 12/07/17 06:40 Gran # 3.66 (1.4-6.5) 12/07/17 06:40 Lymph # (Auto) 0.9 (1.2-3.4) L 12/07/17 06:40 [place] # (Auto) 0.4 (0.1-0.6) 12/07/17 06:40 Eos # (Auto) 0.4 (0.0-0.7) 12/07/17 06:40 Baso # (Auto) 0.09 K/mm3 (0.0-2.0) 12/07/17 06:40 PT 11.8 SECONDS (9.4-12.5) 12/04/17 17:03 INR 1.03 12/04/17 17:03 APTT 30.7 Seconds (25.1-36.5) 12/04/17 17:03 pO2 42 mm/Hg (30-55) 12/04/17 19:19 VBG pH 7.43 (7.32-7.43) 12/04/17 19:19 VBG pCO2 37.0 (40-60) L 12/04/17 19:19 VBG HCO3 24.6 mmol/l (21-28) 12/04/17 19:19 VBG Total CO2 25.7 mmol.L (22-28) 12/04/17 19:19 VBG O2 Sat (Calc) 84.2 % (40-65) H 12/04/17 19:19 VBG Base Excess 0.5 mmol/L (0.0-2.0) 12/04/17 19:19 VBG Potassium 3.9 mmol/L (3.6-5.2) 12/04/17 19:19 Sodium 125.0 mmol/L (132-148) L 12/04/17 19:19 Chloride 93.0 mmol/L (98-107) L 12/04/17 19:19 Glucose 130 mg/dl (65-105) H 12/04/17 19:19 Lactate 1.1 mmol/L (0.7-2.1) 12/04/17 19:19 FiO2 21.0 % 12/04/17 19:19 Sodium 140 mmol/L (132-148) 12/07/17 06:40 Potassium 3.4 mmol/L (3.6-5.0) L 12/07/17 06:40 Chloride 112 mmol/L (98-107) H 12/07/17 06:40 Carbon Dioxide 17 mmol/L (21-33) L 12/07/17 06:40 Anion Gap 14 (10-20) 12/07/17 06:40 BUN 3 mg/dL (7-21) L 12/07/17 06:40 Creatinine 0.6 mg/dl (0.7-1.2) L 12/07/17 06:40 Est GFR ( Amer) > 60 12/07/17 06:40 Est GFR (Non-Af Amer) > 60 12/07/17 06:40 Random Glucose 83 mg/dL (70-110) 12/07/17 06:40 Serum Osmolality 270 mosm/kg (272-300) L 12/05/17 08:06 Uric Acid 3.5 mg/dL (2.5-6.2) 12/06/17 05:20 Calcium 6.8 mg/dL (8.4-10.5) L* 12/07/17 06:40 Phosphorus 2.5 mg/dL (2.5-4.5) 12/07/17 06:40 Magnesium 1.8 mg/dL (1.7-2.2) 12/07/17 06:40 Total Bilirubin 0.4 mg/dL (0.2-1.3) 12/07/17 06:40 AST 46 U/L (14-36) H 12/07/17 06:40 ALT 14 U/L (7-56) 12/07/17 06:40 Alkaline Phosphatase 45 U/L (38-126) 12/07/17 06:40 Lactate Dehydrogenase 367 U/L (333-699) 12/04/17 17:03 Total Creatine Kinase 51 U/L (35-230) 12/04/17 17:03 Troponin I < 0.01 ng/mL 12/05/17 01:00 Total Protein 5.8 g/dL (5.8-8.3) 12/07/17 06:40 Albumin 3.1 g/dL (3.0-4.8) 12/07/17 06:40 Globulin 2.6 gm/dL 12/07/17 06:40 Albumin/Globulin Ratio 1.2 (1.1-1.8) 12/07/17 06:40 25-OH Vitamin D Total 55.0 NG/ML (30.0-100.0) 12/06/17 15:40 Thyroxine (T4) 10.1 ug/dL (5.5-11.0) 12/06/17 05:20 TSH 3rd Generation 2.21 mIU/mL (0.46-4.68) 12/06/17 05:20 Cortisol AM Sample 5.1 ug/dL (4.46-22.7) 12/06/17 05:20 Venous Blood Potassium 3.9 mmol/L (3.6-5.2) 12/04/17 19:19 Urine Color Yellow (YELLOW) 12/04/17 19:05 Urine Appearance Clear (CLEAR) 12/04/17 19:05 Urine pH 5.5 (4.7-8.0) 12/04/17 19:05 Ur Specific [place] 1.020 (1.005-1.035) 12/04/17 19:05 Urine Protein 30 mg/dL (<30 mg/dL) H 12/04/17 19:05 Urine Glucose (UA) Negative mg/dL (NEGATIVE) 12/04/17 19:05 Urine Ketones Negative mg/dL (NEGATIVE) 12/04/17 19:05 Urine Blood Large (NEGATIVE) H 12/04/17 19:05 Urine Nitrate Negative (NEGATIVE) 12/04/17 19:05 Urine Bilirubin Negative (NEGATIVE) 12/04/17 19:05 Urine Urobilinogen 0.2 E.U./dL (<1 E.U./dL) 12/04/17 19:05 Ur Leukocyte Esterase Small Renee/uL (NEGATIVE) H 12/04/17 19:05 Urine RBC 25 - 30 /hpf (0-2) 12/04/17 19:05 Urine WBC 5 - 10 /hpf (0-6) 12/04/17 19:05 Ur Epithelial Cells 10 - 12 /hpf (0-5) 07/30/18 19:05 Amorphous Sediment Trace 12/04/17 19:05 Urine Osmolality 258 mosm/kg (300-1000) L 12/05/17 08:20 Ur Random Sodium 16 meq/L 12/05/17 08:20 Ur Random Urea Nitrogn 197 mg/dL 12/06/17 06:00 Urine Chloride 37 mmol/L (32-290) 12/06/17 06:00 Blood Type B POSITIVE 12/04/17 18:03 Antibody Screen Negative 12/04/17 18:03 Crossmatch See Detail 12/04/17 18:03 BBK History Checked Patient has bt 12/04/17 18:03 - Hospital Course Hospital Course: 67F with PMH breast cancer s/p bilateral mastectomy, HLD, HTN, CAD s/p JOSIAS on ASA, plavix, right ureteral stent, presents for bloody stools that started Monday morning. Patient states that she had bloody bowel movements on Monday and 2-3 BMs yesterday. She describes bright red blood mixed with stools, denies associated abdominal pain, rectal pain. Patients hemoglobin found to be low, 7.7. Given 2 units prbcs transfusion. GI consulted. EGD done showed nonbleeding gastric ulcers. Colonoscopy showed internal hemorrhoids. Patient has had no episodes of hematochezia since admission, with stable hgb. Patient tolerating diet well today. On admission, patient found hyponatremic, corrected with NS infusion. Patient discharged home today with follow up with Dr Love and her PMD Dr Mensah. Case discussed with Dr Love. Discharge Exam - Head Exam Head Exam: ATRAUMATIC, NORMAL INSPECTION, NORMOCEPHALIC - Eye Exam Eye Exam: EOMI, PERRL. absent: Conjunctival injection, Nystagmus, Scleral icterus Pupil Exam: NORMAL ACCOMODATION, PERRL. absent: Irregular, Mydriatic, Unequal - ENT Exam ENT Exam: Mucous Membranes Moist - Neck Exam Neck exam: Full Rom - Respiratory Exam Respiratory Exam: Clear to PA & Lateral, NORMAL BREATHING PATTERN. absent: Chest Wall Tenderness, Rhonchi, Wheezes - Cardiovascular Exam Cardiovascular Exam: RRR, +S1, +S2. absent: Systolic Murmur - GI/Abdominal Exam GI & Abdominal Exam: Normal Bowel Sounds. absent: Distended, Firm, Mass, Rigid , Soft, Tenderness Additional comments: mild ascites - Extremities Exam Extremities exam: normal inspection - Back Exam Back exam: NORMAL INSPECTION - Neurological Exam Neurological exam: Alert, Oriented x3 - Psychiatric Exam Psychiatric exam: Normal Affect, Normal Mood - Skin Skin Exam: Dry, Normal Color, Warm Discharge Plan - Follow Up Plan Condition: GOOD Disposition: HOME/ ROUTINE Instructions: Hyponatremia, Preventing Falls, Normocytic Normochromic Anemia Additional Instructions: - Please follow up with Dr Love in 1 week - Follow up with PMD Dr Mensah in 1 week - Can resume your ASA, plavix - Return to ER for any concerns Referrals: Raulito Mensah MD [Family Provider] - Teofilo Love MD [Staff Provider] -
[2017-12-08] MEDS: Pantoprazole 40mg/100mL NS 40 MG/100 ML BAG IVPB SCH (03:01)
[2017-12-08 07:56] LABS: BASO # 0.09 K/mm3 (0.0-2.0); BASO % 1.6 % (0.0-3.0); EOS # 0.4 (0.0-0.7); EOS % 6.4 % (1.5-5.0); GRAN # 3.78 (1.4-6.5); GRAN % 69.1 % (50.0-68.0); HEMOGLOBIN 10.4 g/dL (12.0-16.0); LYMPH # 0.6 (1.2-3.4); MEAN CELL VOLUME 78.6 fl (80.0-105.0); MEAN CORPUSCULAR HEMOGLOBIN 26.9 pg (25.0-35.0); MEAN CORPUSCULAR HGB CONC 34.2 g/dl (31.0-37.0); MEAN PLATELET VOLUME 8.8 fl (7.0-11.0); MONO # 0.7 (0.1-0.6); MONO % 11.9 % (1.0-6.0); RBC 3.87 10^6/uL (3.5-6.1); WHITE BLOOD COUNT 5.5 10^3/ul (4.5-11.0)
[2017-12-08 08:18] LABS: ALB/GLOB RATIO 1.3 (1.1-1.8); ALBUMIN 3.3 g/dL (3.0-4.8); ALT/SGPT 14 U/L (7-56); AST/SGOT 38 U/L (14-36); BLOOD UREA NITROGEN 5 mg/dL (7-21); CALCIUM 7.7 mg/dL (8.4-10.5); GFR AFRICAN-AMERICAN > 60; GFR NON-AFRICAN AMERICAN > 60
[2017-12-08] MEDS: Potassium & Sodium Phosphate PO SCH (09:24)
[2017-12-08 09:57] VITALS: BP 134/75; PULSE 70; RESP 20; TEMP 97.3; O2SAT 100
--- NOTE | 2017-12-08 12:14 | PN ---
Copied To: Chin Green MD Attending MD: Chin Green MD DATE: 12/08/2017 CARDIOLOGY FOLLOWUP SUBJECTIVE: The patient has no longer any bleeding. Her hemoglobin remained stable on p.o. Plavix. PHYSICAL EXAMINATION: VITAL SIGNS: Blood pressure 134/75, the heart rate is in the 70s. NECK: Negative JVD. LUNGS: Without rales. HEART: Reveals S1, S2. EXTREMITIES: Without edema. LABORATORY DATA: Hemoglobin is 10.4, which is unchanged. IMPRESSION: 1. Stable angina. 2. Coronary artery disease. 3. History of percutaneous transluminal coronary angioplasty and stent. 4. No more bleeding while on Plavix. PLAN: Given these findings, we will continue the Plavix given her recent PTCA with drug-eluting stents. Followup and instructions have been given to the patient. Chin Green MD
[2017-12-08] MEDS ORDERED: Pantoprazole 40 mg EC Tab PO SCH (16:00)
--- NOTE | 2017-12-09 16:07 | ED PDOC ---
Arrival/HPI - General Chief Complaint: GI Problem Time Seen by Provider: 12/04/17 16:32 Historian: Patient - History of Present Illness Narrative History of Present Illness (Text): 12/09/17 16:04 67yo female with pmhx of breast CA s/p b/l mastectomy, HTN, HLD, CAD s/p stents referred to the ED by Dr. Renee for blood stool. Patient reported having blood per rectum with defecation 2-3days ago. Noted 2-3episodes a day ago. States she started having dizziness and feeling weak and went to Dr. Lynn's office where she was referred to the ED. States her last colonoscopy was 6yrs ago. Denies chest pain, SOB,diaphoresis, nausea, vomiting, abdominal pain, headache, focal weakness, diarrhea, any other complaint. Past Medical History - Provider Review Nursing Documentation Reviewed: Yes - Infectious Disease Hx of Infectious Diseases: None - Reproductive Menopause: Yes - Cardiac Hx Hypertension: Yes - Pulmonary Hx Respiratory Disorders: No - Neurological Hx Paralysis: No - HEENT Hx HEENT Disorder: No - Renal Hx Renal Disorder: Yes Other/Comment: urethral stent - Endocrine/Metabolic Hx Endocrine Disorders: No - Hematological/Oncological Hx Blood Transfusions: Yes (12/04/17) Hx Blood Transfusion Reaction: No - Integumentary Other/Comment: healed b/l chest scars from b/l mastectomy, dry flakey skin to b/ l heels pt was seeing dr calero for healed cut opened from dry skin on foot has healed and for ingrown toenails to both great toes - Musculoskeletal/Rheumatological Hx Falls: Yes - Gastrointestinal Hx Gastrointestinal Disorders: Yes (gastritis, distended abd) Other/Comment: hx abd ascites 2012 - Genitourinary/Gynecological Hx Genitourinary Disorders: No - Psychiatric Hx Substance Use: No - Surgical History Hx Cardiac Catheterization: Yes (cardiac stents 07/2017) - Anesthesia Hx Anesthesia Reactions: No Hx Malignant Hyperthermia: No - Suicidal Assessment Plan: No Suicide Risk Precautions: None Family/Social History - Physician Review Nursing Documentation Reviewed: Yes Family/Social History: Unknown Family HX Smoking Status: Never Smoked Hx Alcohol Use: No Hx Substance Use: No Allergies/Home Meds Allergies/Adverse Reactions: Allergies vancomycin Allergy (Severe, Verified 12/04/17 16:36) RASH/ITCHY Home Medications: Home Meds Medication Instructions Recorded Confirmed Lutein 5 mg PO QAM 11/13/12 12/04/17 Nebivolol HCl [Bystolic] 10 mg PO QAM 01/19/15 12/04/17 Multivitamin [Daily Wyatt] 1 tab PO QAM 07/03/17 12/04/17 Ubidecarenone [Coenzyme Q-10] 200 mg PO DAILY 07/03/17 12/04/17 Clopidogrel [Plavix] 75 mg PO DAILY 07/05/17 12/04/17 Aspirin [Ecotrin] 81 mg PO DAILY 07/07/17 12/04/17 Atorvastatin [Lipitor] 20 mg PO DAILY 07/07/17 12/04/17 [id number]-[id number] Ethyl Esters [OMEGA 3] 2 gm PO AMHS 09/27/17 12/04/17 [id number] Ethyl Esters [OMEGA 3] 2 gm PO QPM 09/27/17 12/04/17 Potassium Chloride [Klor-Con 10] 10 meq PO DAILY 09/27/17 12/04/17 Review of Systems - Physician Review All systems were reviewed & negative as marked: Yes - Review of Systems Constitutional: Fatigue Eyes: Normal ENT: Normal Respiratory: Normal Cardiovascular: Normal Gastrointestinal: Hematochezia. absent: Abdominal Pain, Constipation, Diarrhea , Nausea, Hematemesis Genitourinary Female: Normal Musculoskeletal: Normal Skin: Normal Neurological: Dizziness. absent: Headache, Focal Weakness Endocrine: Normal Hemo/Lymphatic: Normal Psychiatric: Normal Physical Exam Vital Signs Reviewed: Yes Vital Signs Temp Pulse Resp BP Pulse Ox 12/04/17 19:19 98.0 F 89 19 118/97 H 99 12/04/17 16:44 97.7 F 82 17 115/74 98 Temperature: Afebrile Blood Pressure: Normal Pulse: Regular Respiratory Rate: Normal Appearance: Positive for: Well-Appearing, Non-Toxic, Comfortable Pain Distress: None Mental Status: Positive for: Alert and Oriented X 3 - Systems Exam Head: Present: Atraumatic, Normocephalic Pupils: Present: PERRL Extroacular Muscles: Present: EOMI Conjunctiva: Present: Normal Mouth: Present: Moist Mucous Membranes Neck: Present: Normal Range of Motion Respiratory/Chest: Present: Clear to Auscultation, Good Air Exchange. No: Respiratory Distress, Accessory Muscle Use Cardiovascular: Present: Regular Rate and Rhythm, Normal S1, S2. No: Murmurs Abdomen: Present: Other (Soft). No: Tenderness, Distention, Peritoneal Signs, Rebound, Guarding, McBurney's Point Tender, Rovsing's Sign Present Rectal: Present: Occult Blood, Normal Rectal Tone. No: Rectal Tenderness, Hemorrhoids Back: Present: Normal Inspection Upper Extremity: Present: Normal Inspection. No: Cyanosis, Edema Lower Extremity: Present: Normal Inspection. No: Edema Neurological: Present: GCS=15, CN II-XII Intact, Speech Normal Skin: Present: Warm, Dry, Normal Color. No: Rashes Psychiatric: Present: Alert, Oriented x 3, Normal Insight, Normal Concentration Medical Decision Making ED Course and Treatment: 12/09/17 16:09 PT presented for stated history. She was not in any distress in ED. guaic was positive. H/H was 7.7a nd pt was transfused 2units of PRBC Consent was obtained from the pt. for blood transfusion Case was DW Dr. Martinez and pt was admitted to Dr. Hall's service as was requested by Dr. Renee. - Lab Interpretations Microbiology Results: Microbiology Results 12/04/17 18:00 Blood-Venous Blood Culture - Preliminary NO GROWTH AFTER 4 DAYS Lab Results: 12/04/17 17:03 12/04/17 17:03 Lab Results 12/04/17 18:03: Blood Type B POSITIVE, Antibody Screen Negative, Crossmatch See Detail, BBK History Checked Patient has bt 12/04/17 17:03: Lactate Dehydrogenase 367, Total Creatine Kinase 51, Troponin I < 0.01 12/04/17 17:03: Sodium 123 L, Potassium 4.2, Chloride 89 L, Carbon Dioxide 21, Anion Gap 17, BUN 25 H, Creatinine 0.7, Est GFR ( Amer) > 60, Est GFR ( Non-Af Amer) > 60, Random Glucose 133 H, Calcium 8.3 L, Total Bilirubin 0.3, AST 37 H, ALT 23, Alkaline Phosphatase 48, Total Protein 6.9, Albumin 4.0, Globulin 2.9, Albumin/Globulin Ratio 1.4 12/04/17 17:03: PT 11.8, INR 1.03, APTT 30.7 12/04/17 17:03: WBC 7.5, RBC 2.87 L, Hgb 7.7 L D, Hct 22.3 L, MCV 77.7 L D, MCH 26.8, MCHC 34.5, RDW 14.0, Plt Count 296, MPV 9.1, Gran % 74.3 H, Lymph % (Auto ) 17.4 L, Delta % (Auto) 6.2 H, Eos % (Auto) 1.7, Baso % (Auto) 0.4, Gran # 5.60 , Lymph # (Auto) 1.3, Delta # (Auto) 0.5, Eos # (Auto) 0.1, Baso # (Auto) 0.03 - RAD Interpretation Radiology Orders: 12/04/17 18:33 ABD & PELVIS IV CONTRAST ONLY [CT] Stat - Medication Orders Current Medication Orders: Discontinued Medications Aspirin (Ecotrin) 81 mg PO DAILY [facility] Last Admin: 12/08/17 09:24 Dose: 81 mg Bisacodyl (Dulcolax) 10 mg PO ONCE ONE Stop: 12/05/17 21:44 Last Admin: 12/05/17 21:52 Dose: 10 mg Bisacodyl (Dulcolax) 20 mg PO ONCE ONE Stop: 12/06/17 07:50 Last Admin: 12/06/17 08:00 Dose: 20 mg Calcium Carbonate (Oscal) 500 mg PO Q12H [facility] Last Admin: 12/08/17 09:24 Dose: 500 mg Calcium Gluconate (Calcium Gluconate Iv) 500 mg IVP ONCE ONE Stop: 12/06/17 07:01 Last Admin: 12/06/17 09:41 Dose: Clopidogrel Bisulfate (Plavix) 75 mg PO DAILY [facility] Last Admin: 12/08/17 09:24 Dose: 75 mg Ergocalciferol (Drisdol 50,000 Intl Units Cap) 1 cap PO Q7D [facility] Last Admin: 12/07/17 21:17 Dose: 1 cap Sodium Chloride (Sodium Chloride 0.9%) 1,000 mls @ 999 mls/hr IV .Q1H1M STA Stop: 12/04/17 18:50 Last Admin: 12/04/17 19:07 Dose: 999 mls/hr eMAR Start Stop Document 12/04/17 19:07 [email or web address] (Rec: 12/04/17 19:07 [email or web address] [id number]) Intravenous Solution Start Date 12/04/17 Start Time 19:07 End Date 12/04/17 Sodium Chloride (Sodium Chloride 0.9%) 1,000 mls @ 150 mls/hr IV .Q6H40M [facility] Last Admin: 12/05/17 10:13 Dose: 150 mls/hr eMAR Start Stop Document 12/05/17 10:13 RM (Rec: 12/05/17 10:14 RM [id number]) Intravenous Solution Start Date 12/05/17 Start Time 10:14 Pantoprazole Sodium (Protonix 40mg Ivpb) 40 mg in 100 mls @ 20 mls/hr IVPB .Q5H [facility] Last Admin: 12/08/17 03:01 Dose: 20 mls/hr eMAR Start Stop Document 12/08/17 03:01 ZARAL (Rec: 12/08/17 03:01 ZARAL [id number]) Intravenous Solution Start Date 12/08/17 Start Time 02:40 Potassium Phosphate 15 mmole/ (Sodium Chloride) 255 mls @ 42.5 mls/hr IVPB ONCE ONE Stop: 12/05/17 15:29 Last Admin: 12/05/17 11:04 Dose: 42.5 mls/hr eMAR Start Stop Document 12/05/17 11:04 RM (Rec: 12/05/17 11:04 RM [id number]) Intravenous Solution Start Date 12/05/17 Start Time 10:00 Sodium Chloride (Sodium Chloride 0.9%) 1,000 mls @ 75 mls/hr IV .[id number] [facility] Last Admin: 12/07/17 22:44 Dose: 75 mls/hr eMAR Start Stop Document 12/07/17 22:44 ZARAL (Rec: 12/07/17 22:44 ZARAL [facility] [id number]) Intravenous Solution Start Date 12/07/17 Start Time 10:40 Sodium Chloride (Sodium Chloride 0.9%) 500 mls @ 999 mls/hr IV .Q31M STA Stop: 12/05/17 14:10 Last Admin: 12/05/17 13:30 Dose: 999 mls/hr eMAR Start Stop Document 12/05/17 13:30 RM (Rec: 12/05/17 15:33 RM [id number]) Intravenous Solution Start Date 12/05/17 Start Time 13:45 Calcium Gluconate 500 mg/ (Sodium Chloride) 105 mls @ 110 mls/hr IVPB ONCE ONE Stop: 12/06/17 09:42 Calcium Gluconate 1,000 mg/ (Sodium Chloride) 110 mls @ 110 mls/hr IVPB ONCE ONE Stop: 12/06/17 09:44 Last Admin: 12/06/17 09:41 Dose: 110 mls/hr eMAR Start Stop Document 12/06/17 09:41 RM (Rec: 12/06/17 09:41 RM [facility] [id number]) Intravenous Solution Start Date 12/06/17 Start Time 09:41 Sodium Chloride (Sodium Chloride 0.9%) 1,000 mls @ 75 mls/hr IV .[id number] VICENTE Stop: 12/06/17 21:01 Calcium Gluconate 1,000 mg/ (Sodium Chloride) 110 mls @ 110 mls/hr IVPB ONCE ONE Stop: 12/07/17 10:46 Last Admin: 12/07/17 10:58 Dose: 110 mls/hr eMAR Start Stop Document 12/07/17 10:58 CV (Rec: 12/07/17 10:58 CV [facility] [id number]) Intravenous Solution Start Date 12/07/17 Start Time 10:58 Magnesium Citrate (Citrate Of Mag) 300 ml PO ONCE ONE Stop: 12/05/17 21:45 Last Admin: 12/05/17 21:52 Dose: 300 ml Pantoprazole Sodium (Protonix Inj) 40 mg IVP STAT STA Stop: 12/04/17 16:35 Last Admin: 12/04/17 17:20 Dose: 40 mg IVP Administration Document 12/04/17 17:20 [email or web address] (Rec: 12/04/17 17:20 [email or web address] [id number]) Charges for Administration # of IVP Administrations 1 Pantoprazole Sodium (Protonix Ec Tab) 40 mg PO 0600,1600 VICENTE Polyethylene Glycol/Electrolytes (Golytely) 4,000 ml PO ONCE ONE Stop: 12/06/17 06:01 Last Admin: 12/06/17 05:14 Dose: ml Polyethylene Glycol/Electrolytes (Golytely) 1,000 ml PO ONCE ONE Stop: 12/06/17 06:01 Last Admin: 12/06/17 05:36 Dose: 1,000 ml Comments: MD betancur half gallon=1.892liters Polyethylene Glycol/Electrolytes (Golytely) 1,892 ml PO ONCE ONE Stop: 12/06/17 06:01 Last Admin: 12/06/17 06:38 Dose: Potassium Chloride (K-Dur 20 Meq Er Tab) 40 meq PO STAT STA Stop: 12/07/17 08:16 Last Admin: 12/07/17 08:27 Dose: 40 meq Potassium Chloride (K-Dur 20 Meq Er Tab) 20 meq PO ONCE ONE Stop: 12/07/17 10:26 Last Admin: 12/07/17 13:16 Dose: Potassium Phos/Sodium Phos (Neutra-Phos) 1 pkt PO DAILY [facility] Last Admin: 12/07/17 09:38 Dose: 1 pkt Potassium Phos/Sodium Phos (Neutra-Phos) 1 pkt PO BID [facility] Last Admin: 12/08/17 09:24 Dose: 1 pkt Disposition/Present on Arrival - Present on Arrival Any Indicators Present on Arrival: No History of DVT/PE: No History of Uncontrolled Diabetes: No Urinary Catheter: No History of Decub. Ulcer: No History Surgical Site Infection Following: None - Disposition Have Diagnosis and Disposition been Completed?: Yes Diagnosis: Anemia Disposition: HOSPITALIZED Disposition Time: 18:40 Patient Plan: Admission Condition: GOOD
== END 2017-12-08 12:36 | disposition home or self-care (01) | DRG 378 ==
LOC: ED 16:25 → ERH 18:40 → CCU 20:53 → 5RSO 12-06 19:48
PROVIDERS: ADMIT Family Medicine; ATTEND Family Medicine
PROC: 30233N1 Transfusion of Nonautologous Red Blood Cells into Peripheral Vein, Percutaneous Approach (ICD-10-PCS; 2017-12-04)
PROC: 0DJ08ZZ Inspection of Upper Intestinal Tract, Via Natural or Artificial Opening Endoscopic (ICD-10-PCS; principal; 2017-12-05 12:30)
PROC: 0DJD8ZZ Inspection of Lower Intestinal Tract, Via Natural or Artificial Opening Endoscopic (ICD-10-PCS; 2017-12-06)
DX: K92.2 Gastrointestinal hemorrhage, unspecified (principal); D64.9 Anemia, unspecified; E87.1 Hypo-osmolality and hyponatremia; C78.6 Secondary malignant neoplasm of retroperitoneum and peritoneum; C50.919 Malignant neoplasm of unspecified site of unspecified female breast; R18.8 Other ascites; C79.51 Secondary malignant neoplasm of bone; E78.00 Pure hypercholesterolemia, unspecified; E83.51 Hypocalcemia; E87.6 Hypokalemia; I25.118 Atherosclerotic heart disease of native coronary artery with other forms of angina pectoris; I10 Essential (primary) hypertension; K44.9 Diaphragmatic hernia without obstruction or gangrene; E83.39 Other disorders of phosphorus metabolism; E78.5 Hyperlipidemia, unspecified; K25.7 Chronic gastric ulcer without hemorrhage or perforation; K29.70 Gastritis, unspecified, without bleeding; K64.8 Other hemorrhoids; I25.2 Old myocardial infarction; Z90.13 Acquired absence of bilateral breasts and nipples; Z79.02 Long term (current) use of antithrombotics/antiplatelets; Z79.82 Long term (current) use of aspirin; Z95.5 Presence of coronary angioplasty implant and graft

== ENCOUNTER 2018-03-26 06:09 | Day surgery (SDC) | payer MEDICARE ==
[2018-03-26 07:01] VITALS: RESP 18
[2018-03-26] MEDS ORDERED: Iohexol 240 (50 ml) ONE (07:17)
[2018-03-26] MEDS ORDERED: Etomidate 20 mg/10ml Inj IV ONE (07:37)
[2018-03-26] MEDS ORDERED: ePHEDrine 50 mg/ml Inj ONE (07:41)
[2018-03-26] MEDS ORDERED: Phenylephrine 10 mg/ml Inj ONE (07:44)
[2018-03-26] MEDS ORDERED: cefTRIAXone (Rocephin) 1 gm Inj ONE (08:15)
[2018-03-26] MEDS ORDERED: HYDROmorphone 0.5 mg/0.5 ml ISec IVP PRN (08:57)
[2018-03-26] MEDS ORDERED: Lactated Ringer's 1,000 ML IV SCH (09:00)
[2018-03-26 09:07] VITALS: TEMP 97.6; O2SAT 100
--- NOTE | 2018-03-26 09:19 | OP ---
PROCEDURE DATE: 03/26/2018 PREOPERATIVE DIAGNOSES: Retained right ureteral stent, right hydronephrosis. POSTOPERATIVE DIAGNOSES: Retained right ureteral stent, right hydronephrosis plus bladder lesions. PROCEDURE: A cystoscopy, removal and reinsertion of right ureteral stent, right retrograde pyelogram and bladder biopsy and fulguration. ATTENDING SURGEON: Toi Mendez MD. ANESTHESIA: General. SPECIMENS: Bladder biopsy was sent to Pathology. DRAINS: There were none. COMPLICATIONS: There were none. OPERATIVE FINDINGS: After informed consent was obtained, the patient was taken to the operating room, placed on the operating table and anesthesia was administered. The patient was placed in the dorsal lithotomy position and prepped and draped in the usual sterile fashion. A 22-Azerbaijani cystoscope was passed into the patient's bladder and a full survey inspection was performed. There was a stent noted exiting from the right ureteral orifice. The left ureteral orifice was visualized and appeared within normal limits. Adjacent to the left ureteral orifice and above, there were multiple large solid-appearing masses. There were a few others smaller on the posterior wall. The masses are likely inflammatory reaction to the stent; however, the etiology is unknown at this time. At this point, a grasping forceps was passed. The stent was grasped and removed through the urethral meatus. On fluoroscopy, upper coil was noted to uncoil without any difficulty. The stent was then removed through the urethral meatus without any difficulty. The cystoscope was repassed and a 5-Azerbaijani Harshaw catheter was introduced through the cystoscope and guided into the right ureteral orifice. The right retrograde pyelogram was then performed by instilling contrast through the Harshaw catheter into the right ureter. While in the distal ureter, most of the contrast was noted to backflow into the bladder. The ureteral catheter was then advanced up into the mid ureter and further contrast was instilled. There appeared to be some compression of the upper ureter. There was some fullness of the right collecting system, but no overt hydronephrosis. At this point, the sensor wire was obtained. The sensor wire was then passed through the Harshaw catheter and advanced up the ureter under fluoroscopic guidance, so it coiled in the upper collecting system. A 6 x 22 stent was then obtained. It was passed over the wire into the right ureter and advanced up the ureter under direct fluoroscopic guidance. When the stent was in proper position, the guidewire was removed. A coil was seen in the right collecting system on fluoroscopy. A coil was then seen in the bladder on cystoscopy. At this point, a cold cup biopsy forceps was obtained. It was passed through the scope and a biopsy of the largest mass was then taken. A few pinches were taken. The mass did appear solid and the specimen was sent to pathology. A Bugbee electrode was then passed and the biopsy sites were then fulgurated along with the mass. Final inspection was then made. There was no bleeding. There was complete hemostasis and a coil of the stent was in good position and the bladder. At this point, the procedure was completed, the bladder was drained and the cystoscope was removed. The patient tolerated the procedure well. She was taken to the recovery room awake in a stable condition. Toi Mendez MD
[2018-03-26 09:56] VITALS: BMI 22.3
[2018-03-26 10:37] VITALS: BP 115/65; PULSE 55
--- NOTE | 2018-03-26 10:56 | RAD ---
Date of service: 03/26/2018 PROCEDURE: Retrograde pyelogram HISTORY: STENT REMOVAL AND INSERTION COMPARISON: TECHNIQUE: 27.1 sec of fluoro time. Cumulative dose 6.01 mGy. Thirteen images submitted FINDINGS: The study shows removal of a stent and opacification of the right ureter and collecting system. There is irregularity and stenosis of the proximal ureter. A urothelial neoplasm cannot be excluded. There is placement of a new stent IMPRESSION: As above
== END 2018-03-26 10:50 | disposition home or self-care (01) ==
LOC: SDS 06:09
PROVIDERS: ATTEND Urology
DX: N13.30 Unspecified hydronephrosis (principal); N32.9 Bladder disorder, unspecified; C50.919 Malignant neoplasm of unspecified site of unspecified female breast; I10 Essential (primary) hypertension; I25.10 Atherosclerotic heart disease of native coronary artery without angina pectoris
CPT/HCPCS: 52204; 52332; 74420; 88305; C1758; C1769; C2625; J0696; J1170; J1642; J2370; J3010; J7120 ×2; Q9966

== ENCOUNTER 2018-09-07 05:54 | Outpatient (CLI) | payer MEDICARE | END 2018-09-07 05:55 | disposition home or self-care (01) | LOC: CARDIO 05:54 ==

== ENCOUNTER 2018-09-20 14:55 | Outpatient (CLI) | payer MEDICARE | END 2018-09-20 14:56 | disposition home or self-care (01) | LOC: OPLAB 14:55 ==

== ENCOUNTER 2018-09-24 05:37 | Outpatient (CLI) | payer MEDICARE | END 2018-09-24 05:38 | disposition home or self-care (01) | LOC: PET-BROA 05:37 ==